=== PATIENT | female | born 1940 | race Caucasian/White ===

== ENCOUNTER 2017-08-17 17:55 | Inpatient (IN) | payer OTHER, BC ==
--- NOTE | 2017-08-17 19:36 | PDOC ---
History of Present Illness - General Chief Complaint: Injury Stated Complaint: FALL Time Seen by Provider: 08/17/17 19:17 - History of Present Illness Initial Comments: 08/17/17 19:33 77yo F with history of NIDDM, L chronic wound, HTN, HLD who presents after mechanical fall at home walking up stairs. Pt just got a new offloader boot from the wound center today and tripped up stairs. Pt reports landing on her knees, however she saw that her L foot was inverted with some darkening skin changes. Pt's family called EMS which reduced her ankle allowing for normalization of her skin changes and brought her here for further evaluation. Pt denies being on AC, head trauma, and any loss of consciousness. Pt denies any acute motor difficulties and sensory difficulties. Pt reports she can move her foot now with some slight discomfort in her ankle. Past History - Past Medical History Allergies/Adverse Reactions: Allergies Allergy/AdvReac Type Severity Reaction Status Date / Time Gold Salts Allergy Verified 08/17/17 18:26 silver Allergy Verified 08/17/17 18:26 contrast Allergy Uncoded 08/17/17 18:26 Home Medications: Ambulatory Orders Aspirin [Aspirin EC] 81 mg PO DAILY 03/12/16 Atorvastatin Ca [Lipitor] 20 mg PO HS 03/12/16 Cholecalciferol (Vitamin D3) [Vitamin D3 -] 2,000 unit PO DAILY 03/12/16 Gabapentin 300 mg PO BID 03/12/16 Glipizide 5 mg PO BID 03/12/16 Insulin Glargine,Hum.rec.anlog [Lantus Solostar PEN (NF)] 16 units SQ HS Levothyroxine [Synthroid -] 50 mcg PO DAILY 03/12/16 Liraglutide [Victoza -] 1.2 mg SQ DAILY@0700 03/12/16 Metformin HCl 500 mg PO BID 03/12/16 Metoprolol Succinate [Toprol Xl -] 25 mg PO BID 08/17/17 Ramipril 5 mg PO BID 08/17/17 Cardiac Disorders: Yes COPD: No Diabetes: Yes HTN: Yes Hypercholesterolemia: Yes Thyroid Disease: Yes - Surgical History Cardiac Surgery: Yes (cardiac stents x 2) Cholecystectomy: Yes Orthopedic Surgery: Yes (left hip fx repair) - Suicide/Smoking/Psychosocial Hx Smoking History: Former smoker Have you smoked in the past 12 months: No If you are a former smoker, when did you quit?: 25yrs Information on smoking cessation initiated: No Hx Alcohol Use: No Drug/Substance Use Hx: No Substance Use Type: None Review of Systems - Review of Systems Constitutional: No: Chills, Fever, Night Sweats HEENTM: No: Blurred Vision, Nose Congestion, Throat Pain Respiratory: No: Cough, Shortness of Breath, Wheezing Cardiac (ROS): No: Chest Pain, Irregular Heart Rate, Lightheadedness, Palpitations, Syncope, Chest Tightness ABD/GI: No: Abdominal Distended, Constipated, Diarrhea, Nausea, Vomiting : No: Dysuria, Frequency Musculoskeletal: Yes: Joint Pain. No: Back Pain, Neck Pain Integumentary: No: Bruising Neurological: No: Headache, Numbness, Tingling, Weakness, Dizziness Psychiatric: No: Anxiety, Depression Hematologic/Lymphatic: No: Easy Bleeding, Easy Bruising *Physical Exam - Vital Signs Last Vital Signs Temp Pulse Resp BP Pulse Ox 97.9 F 70 20 184/89 100 08/17/17 18:00 08/17/17 18:23 08/17/17 18:23 08/17/17 18:23 08/17/17 18:23 - Physical Exam Comments: 08/17/17 20:23 GEN: NAD, awake, alert and oriented x3 HEENT: EOMI, DALI, NCAT, moist mucosa NECK: No pain w/ palpation of spinous processes of neck, structurally intact LUNGS: CTA b/l CARDIAC: RRR, no murmurs appreciated EXT: L ankle splinted with 2 boards, 2+ DP pulses b/l, warm distal extremities b /l, slight deformation of the L foot exteriorly rotated. Neuro: Nonfocal. Motor function intact in L foot, sensation intact b/l of distal lower extremities. ED Treatment Course - RADIOLOGY Radiology Studies Ordered: Category Date Time Status ANKLE & FOOT-LEFT* [RAD] Stat Radiology 08/17/17 19:28 Ordered Medical Decision Making - Medical Decision Making 08/17/17 19:36 Ddx ankle dislocation s/p relocation vs. fracture --Xray L ankle and foot for r/o fx --Otherwise pt stable --Pt reports taking her morning medication as usual however did not take her afternoon medication: Ramipril, Metoprolol succinate, Glipizide, Lipitor, and Metformin --Ordering Ramipril, Toprol XL and Glipizide once (holding metformin in case of other studies needed) 08/17/17 21:53 Sugar-tong splint with posterior portion applied CBC, CMP, PT/INR, PTT, CXR, Type and screen ordered, CXR Awaiting results and will contact admitting symphony. *DC/Admit/Observation/Transfer Diagnosis at time of Disposition: Fracture - Discharge Dispostion Condition at time of disposition: Stable Admit: Yes - Referrals Referrals: Matt Queen MD [Primary Care Provider] - - Patient Instructions - Post Discharge Activity
[2017-08-17] MEDS ORDERED: metoPROLOL SUCCINATE 25 MG TAB.SR.24H (FP) PO ONE (20:04)
[2017-08-17] MEDS ORDERED: RAMIPRIL 5 MG CAPSULE (FP) PO ONE (20:04)
[2017-08-17] MEDS ORDERED: glipiZIDE 5 MG TABLET (FP) PO ONE (20:05)
--- NOTE | 2017-08-17 20:17 | PDOC ---
Attending Attestation - HPI HPI: 08/17/17 21:09 The patient is a 77-year-old, with a significant past medical history of NIDDM, chronic left foot wound, HTN, HLD, who presents to the ED s/p mechanical fall at home while walking up stairs. The patient was seen at the wound center today where she received a new offloader boot for her left foot. The patient states that she tripped, landing on her knees. She denies any loss of consciousness. The patient's left foot appeared inverted and slightly purple. EMS was called and the foot was reduced and skin color returned to normal. The patient denies any motor difficulties or changes in sensation. Denies having any other injuries. Allergies: gold salts, silver, contrast PCP: Dr. Queen - Physicial Exam PE: 08/17/17 21:13 GENERAL: Well-appearing, well-nourished. No apparent distress. HEENT: Normocephalic, atraumatic. PERRL, EOM intact. CARDIOVASCULAR: Normal S1, S2. Regular rate and rhythm. PULMONARY: Clear to auscultation bilaterally. ABDOMEN: Soft, non-distended, non-tender. EXTREMITIES: (+)Slight deformity to left ankle joint, foot is warm with strong pulse, moderate soft tissue swelling. SKIN: Warm, dry. No rash NEUROLOGICAL: No focal neurological deficits. <Romana Espinosa - Last Filed: 08/17/17 21:09> - Resident Resident Name: Bernard Hanna - ED Attending Attestation I have performed the following: I have examined & evaluated the patient, The case was reviewed & discussed with the resident, I agree w/resident's findings & plan, Exceptions are as noted - Medical Decision Making 08/18/17 19:41 Pt admitted for left ankle fracture repair <Corky uNñez - Last Filed: 08/18/17 19:41> Attestations - Attestations 08/17/17 21:14 Documentation prepared by Romana Espinosa, acting as medical care administrator for Corky Nuñez MD. <Romana Espinosa - Last Filed: 08/17/17 21:09>
[2017-08-17] MEDS ORDERED: morphine CARPU-JECT 2 MG/1 ML DISP.SYRIN IVPUSH ONE (20:52)
[2017-08-17] MEDS ORDERED: morphine CARPU-JECT 4 MG/1 ML DISP.SYRIN IVPUSH ONE (21:09)
[2017-08-17] MEDS ORDERED: glipiZIDE 5 MG TABLET (FP) ONE (21:50)
[2017-08-17] MEDS ORDERED: RAMIPRIL 5 MG CAPSULE (FP) ONE (21:50)
[2017-08-17] MEDS ORDERED: morphine SULFATE 4 MG/ML VIAL ONE (21:55)
--- NOTE | 2017-08-17 22:15 | HP ---
PCP: Matt Queen CHIEF COMPLAINT: Left ankle discomfort HISTORY OF PRESENT ILLNESS: This is a 77 year old woman who comes to the ED complaining of discomfort in her left ankle after a fall. She was at the wound center today and had excisional debridement of a chronic left heel ulcer. She was given a boot to wear on her left foot. She usully ambulated with the use of a walker. When she got home, she says her knees gave out going up a step and she fell forward and onto her knees. She denies head trauma, loss of consciousness. Her left foot was noted to be twisted under her. Her foot was noted to be inverted and purple. EMS was called the ankle was reduced. The discoloration improved. PAST MEDICAL HISTORY CAD Hypertension Hyperlipidemia Hypothyroidism Type 2 DM Osteoarthritis PAST SURGICAL HISTORY Cardiac stents Cholecystectomy Left hip fracture repair Left Achilles tendon repair Allergies Gold Salts Allergy (Verified 08/17/17 18:26) silver Allergy (Verified 08/17/17 18:26) contrast Allergy (Uncoded 08/17/17 18:26) HOME MEDICATIONS 3 Medication Instructions Recorded Aspirin [Aspirin EC] 81 mg PO DAILY 03/12/16 Atorvastatin Ca [Lipitor] 20 mg PO HS 03/12/16 Cholecalciferol (Vitamin D3) 2,000 unit PO DAILY 03/12/16 [Vitamin D3 -] Gabapentin 300 mg PO BID 03/12/16 Glipizide 5 mg PO BID 03/12/16 Insulin Glargine,Hum.rec.anlog 16 units SQ HS 03/12/16 [Lantus Solostar PEN (NF)] Levothyroxine [Synthroid -] 50 mcg PO DAILY 03/12/16 Liraglutide [Victoza -] 1.2 mg SQ DAILY@0700 03/12/16 Metformin HCl 500 mg PO BID 03/12/16 Metoprolol Succinate [Toprol Xl -] 25 mg PO BID 08/17/17 Ramipril 5 mg PO BID 08/17/17 Social History Smoking: Quit 25 years ago Alcohol: Denies Drugs: Denies Recent Travel: No Family History: Non-contributory REVIEW OF SYSTEMS CONSTITUTIONAL: Absent: fever, chills, diaphoresis, generalized weakness, malaise, loss of appetite, weight change HEENT: Absent: rhinorrhea, nasal congestion, throat pain, throat swelling, difficulty swallowing, mouth swelling, ear pain, eye pain, visual changes CARDIOVASCULAR: Absent: chest pain, syncope, palpitations, lightheadedness, peripheral edema RESPIRATORY: Absent: cough, shortness of breath, dyspnea with exertion, orthopnea, wheezing, stridor, hemoptysis GASTROINTESTINAL: Absent: abdominal pain, abdominal distension, nausea, vomiting , diarrhea, constipation, melena, hematochezia GENITOURINARY: Absent: dysuria, frequency, urgency, hesitancy, hematuria, flank pain MUSCULOSKELETAL: Present: left ankle pain and swelling, neck pain, bilateral anterior shoulder pain. Absent: myalgia, back pain SKIN: Absent: rash, itching, pallor HEMATOLOGIC/IMMUNOLOGIC: Absent: easy bleeding, easy bruising, lymphadenopathy, frequent infections ENDOCRINE: Absent: unexplained weight gain, unexplained weight loss, heat intolerance, cold intolerance NEUROLOGIC: Present: unsteady gait. Absent: headache, focal weakness, paresthesias, dizziness, seizure, mental status changes, bladder or bowel incontinence PSYCHIATRIC: Absent: anxiety, depression, suicidal or homicidal ideation, hallucinations. PHYSICAL EXAMINATION Vital Signs - 24 hr 08/17/17 08/17/17 18:00 18:23 Temperature 97.9 F Pulse Rate 72 Pulse Rate [ 70 Left Radial] Respiratory 18 20 Rate Blood Pressure 185/93 Blood Pressure 184/89 [Right Arm] O2 Sat by Pulse 100 100 Oximetry (%) GENERAL: Awake, alert, and fully oriented, in no acute distress. HEAD: Normal with no signs of trauma. EYES: Pupils equal, round and reactive to light, extraocular movements intact, sclerae anicteric, conjunctivae clear. EARS, NOSE, THROAT: Ears normal, nares patent, oropharynx clear without exudates. Moist mucous membranes. NECK: Normal range of motion, supple without lymphadenopathy, JVD, or masses. LUNGS: Breath sounds equal, clear to auscultation bilaterally. No wheezes, and no crackles. No accessory muscle use. HEART: Regular rate and rhythm, normal S1 and S2 without murmur, rub or gallop. ABDOMEN: Obese, soft, nontender, not distended, normoactive bowel sounds, no guarding, no rebound, no masses. No hepatomegaly or splenomegaly. MUSCULOSKELETAL: Left ankle in cast. No CVA tenderness. UPPER EXTREMITIES: 2+ pulses, warm, well-perfused. No cyanosis. No clubbing. No peripheral edema. LOWER EXTREMITIES: 2+ pulses, warm, well-perfused. No calf tenderness. No peripheral edema. NEUROLOGICAL: Cranial nerves II-XII intact. Normal speech. Gait not observed. PSYCHIATRIC: Cooperative. Good eye contact. Appropriate mood and affect. SKIN: Warm, dry, normal turgor, no rashes or lesions noted, normal capillary refill. ASSESSMENT/PLAN: This is a 77 year old woman with a history of CAD, HTN, hyperlipidemia, hypothyroidism, type 2 DM, OA who presented to the ED with left ankle discomfort after a fall. 1. Left ankle fracture - Splint applied in ED - Pain control - Orthopedic surgery consult - Check labs prior, CXR, EKG to surgery 2. CAD - Stable - Continue Toprol XL, Lipitor - Hold aspirin in anticipation of surgery - EKG - Cardiology consult for pre-op evaluation 3. Hypertension - Continue Toprol XL, Altace 4. Hyperlipidemia - Continue Lipitor 5. Hypothyroidism - Continue Synthroid 6. Type 2 DM - Hold metformin, Victoza, glipizide while NPO - Continue Lantus - reduce dose while NPO - Fingersticks with Novolog sliding scale 7. Osteoarthritis 8. Obesity Hospitalist Screening - Colonoscopy Questionnaire Colonoscopy Questionnaire: Colonoscopy Questionnaire
[2017-08-17] MEDS ORDERED: ACETAMINOPHEN 325 MG TABLET (FP) PO PRN (23:17)
[2017-08-17] MEDS ORDERED: morphine SULFATE 4 MG/ML VIAL IVPUSH PRN (23:17)
[2017-08-18] MEDS: SODIUM CHLORIDE 1,000 ML IV SCH ×2 (00:20→12:19)
[2017-08-18 00:44] LABS: HEMATOCRIT 34.4 % (32.4-45.2); HEMOGLOBIN 11.6 GM/dL (10.7-15.3); MCH 27.8 pg (25.7-33.7); MCHC 33.8 g/dl (32.0-36.0); MEAN CELL VOLUME 82.3 fl (80-96); MEAN PLT VOLUME 8.5 fl (7.5-11.1); PLATELET COUNT 203 K/MM3 (134-434); RBC 4.18 M/mm3 (3.60-5.2); RDW 14.9 % (11.6-15.6); WHITE BLOOD COUNT 7.5 K/mm3 (4.0-10.0)
[2017-08-18 01:01] LABS: INR 1.14 (0.82-1.09); PROTHROMBIN TIME (PATIENT) 12.9 SEC (9.98-11.88)
[2017-08-18 01:04] LABS: ACTIVATED PTT 28.6 SECONDS (26.9-34.4)
[2017-08-18 01:19] LABS: ALBUMIN 3.3 g/dl (3.4-5.0); ALK PHOS 90 U/L (45-117); ANION GAP 8 (8-16); BILIRUBIN,TOTAL 0.7 mg/dL (0.2-1.0); BLOOD UREA NITROGEN 20 mg/dL (7-18); CALCIUM 9.4 mg/dL (8.5-10.1); CHLORIDE 104 mmol/L (98-107); CO2 27 mmol/L (21-32); CREATININE 0.7 mg/dL (0.55-1.02); GLUCOSE,RANDOM 276 mg/dL (74-106); SGOT/AST 18 U/L (15-37); SGPT/ALT 19 U/L (12-78); SODIUM 139 mmol/L (136-145); TOT PROT 6.3 g/dl (6.4-8.2)
[2017-08-18 05:31] VITALS: BMI 32.4
[2017-08-18] MEDS: HEPARIN NA (PORCINE) 5,000 UNITS/ML 1ML VIAL SQ SCH ×3 (06:00→21:34)
[2017-08-18] MEDS: LEVOTHYROXINE NA 50 MCG TABLET (FP) PO SCH (06:37)
[2017-08-18] MEDS: INSULIN SLIDING SCALE (NOVOLOG) 1 VIAL SQ SCH ×3 (06:38→17:16)
--- NOTE | 2017-08-18 09:36 | EKG ---
Test Reason : Blood Pressure : / mmHG Vent. Rate : 069 BPM Atrial Rate : 069 BPM P-R Int : 138 ms QRS Dur : 118 ms QT Int : 396 ms P-R-T Axes : 034 017 -54 degrees QTc Int : 424 ms POOR DATA QUALITY, INTERPRETATION MAY BE ADVERSELY AFFECTED SINUS RHYTHM WITH PREMATURE ATRIAL COMPLEXES INFERIOR INFARCT (CITED ON OR BEFORE 09-DEC-2005) ABNORMAL ECG WHEN COMPARED WITH ECG OF 15-APR-2008 10:25, PREMATURE ATRIAL COMPLEXES ARE NOW PRESENT NONSPECIFIC T WAVE ABNORMALITY NOW EVIDENT IN LATERAL LEADS Confirmed by VALERIA KINGSTON MD ([id number]) on 08/18/2017 9:36:07 AM Referred By: Confirmed By:VALERIA KINGSTON MD
--- NOTE | 2017-08-18 10:00 | PN ---
Progress Note, Physician Chief Complaint: Pt lying in bed in no acute distress. Reports mild clavicular musculoskeletal discomfort from her son picking her up yesterday. Otherwise denies chest pain, sob, n/v/d, or weakness. - Current Medication List Current Medications: Active Medications Acetaminophen (Tylenol -) 650 mg PO Q4H PRN PRN Reason: PAIN LEVEL 1 - 3 Atorvastatin Calcium (Lipitor -) 20 mg PO HS [facility] Cholecalciferol (Vitamin D3 -) 2,000 unit PO DAILY [facility] Gabapentin (Neurontin -) 300 mg PO BID [facility] Heparin Sodium (Porcine) (Heparin -) 5,000 unit SQ TID [facility] Last Admin: 08/18/17 06:00 Dose: Not Given Sodium Chloride (Normal Saline -) 1,000 mls @ 75 mls/hr IV ASDIR [facility] Last Admin: 08/18/17 00:20 Dose: 75 mls/hr Insulin Aspart (Novolog Vial Sliding Scale -) 1 vial SQ TIDAC [facility] PRN Reason: Protocol Last Admin: 08/18/17 06:38 Dose: 6 units Insulin Detemir (Levemir Vial) 10 units SQ HS [facility] Levothyroxine Sodium (Synthroid -) 50 mcg PO DAILY@0700 [facility] Last Admin: 08/18/17 06:37 Dose: 50 mcg Metoprolol Succinate (Toprol Xl -) 25 mg PO BID [facility] Morphine Sulfate (Morphine Sulfate) 1 mg IVPUSH Q4H PRN PRN Reason: PAIN LEVEL 7 - 10 Oxycodone HCl (Roxicodone -) 5 mg PO Q4H PRN PRN Reason: PAIN LEVEL 4 - 6 Ramipril (Altace -) 5 mg PO BID [facility] - Objective Vital Signs: Vital Signs Temperature 99.2 F 08/18/17 05:27 Pulse Rate 75 08/18/17 05:27 Respiratory Rate 20 08/18/17 05:27 Blood Pressure 156/76 08/18/17 05:27 O2 Sat by Pulse Oximetry (%) 97 08/18/17 04:00 Constitutional: Yes: Well Nourished, No Distress, Calm Cardiovascular: Yes: WNL, Regular Rate and Rhythm Respiratory: Yes: WNL, Regular, CTA Bilaterally Gastrointestinal: Yes: WNL, Normal Bowel Sounds, Soft. No: Distention, Tenderness Genitourinary: Yes: WNL Edema: Yes Edema: LLE: Trace Neurological: Yes: Alert, Oriented, Numbness, Tingling (lower extremities, chronic) Psychiatric: Yes: WNL, Alert, Oriented Labs: CBC, BMP 08/18/17 00:30 08/18/17 00:30 INR, PTT INR 1.14 (0.82-1.09) 08/18/17 00:30 - ....Imaging Chest X-ray: Report Reviewed EKG: Report Reviewed Problem List - Problems (1) Ankle fracture, left Assessment/Plan: s/p fall trimalleolar fracture of left ankle on xray no surgical intervention per ortho walking boot tomorrow elevate extremity ortho following Code(s): S82.892A - OTH FRACTURE OF LEFT LOWER LEG, INIT FOR CLOS FX Qualifiers: Encounter type: initial encounter Fracture type: closed Qualified Code(s) : S82.892A - Other fracture of left lower leg, initial encounter for closed fracture (2) CAD (coronary artery disease) Assessment/Plan: stable continue asa, statin, bb, maik-i followed by Cardiology outpt cardiology following Code(s): I25.10 - ATHSCL HEART DISEASE OF [place] CORONARY ARTERY W/O ANG PCTRS Qualifiers: [place] vs. transplanted heart: [place] heart Associated angina: without angina (3) Diabetes Assessment/Plan: chronic continue current management BGM diab diet Insulin sliding scale inpt Code(s): E11.9 - TYPE 2 DIABETES MELLITUS WITHOUT COMPLICATIONS Qualifiers: Diabetes mellitus type: type 2 Diabetes mellitus half-way insulin use: with half-way use Diabetes mellitus complication status: with neurologic complications Diabetes mellitus complication detail: with polyneuropathy Qualified Code(s): E11.42 - Type 2 diabetes mellitus with diabetic polyneuropathy; Z79.4 - FPC (current) use of insulin; Z79.4 - termite treater ( current) use of insulin; Z79.4 - FPC (current) use of insulin; Z79.4 - FPC (current) use of insulin (4) HTN (hypertension) Assessment/Plan: controlled continue current management Code(s): I10 - ESSENTIAL (PRIMARY) HYPERTENSION Qualifiers: Hypertension type: essential hypertension Qualified Code(s): I10 - Essential (primary) hypertension (5) Hypothyroidism Assessment/Plan: chronic continue levothyroxine Code(s): E03.9 - HYPOTHYROIDISM, UNSPECIFIED (6) Obesity (BMI 30.0-34.9) Assessment/Plan: continue life style modifications heart healthy diet Code(s): E66.9 - OBESITY, UNSPECIFIED (7) CHF (congestive heart failure) Assessment/Plan: chronic, systolic no acute exacerbation followed by cardiology Code(s): I50.9 - HEART FAILURE, UNSPECIFIED Qualifiers: Heart failure type: systolic Heart failure chronicity: chronic Qualified Code(s): I50.22 - Chronic systolic (congestive) heart failure (8) Hyperlipidemia Assessment/Plan: chronic continue statin Code(s): E78.5 - HYPERLIPIDEMIA, UNSPECIFIED
[2017-08-18] MEDS: metoPROLOL SUCCINATE 25 MG TAB.SR.24H (FP) PO SCH ×2 (10:48→21:35)
[2017-08-18] MEDS: CHOLECALCIFEROL (VITAMIN D3) 1,000 UNIT TABLET (FP) PO SCH (10:48)
[2017-08-18] MEDS: RAMIPRIL 5 MG CAPSULE (FP) PO SCH ×2 (10:49→21:37)
[2017-08-18] MEDS: GABAPENTIN 300 MG CAPSULE (FP) PO SCH ×2 (10:49→21:34)
--- NOTE | 2017-08-18 11:03 | CON.CARD ---
Cardiology Consult (text) - Consultation Consultation Note: cc: fall hpi: 77 f hx cad s/p remote pci, ICM (lvef mod reduced), dm, htn, hld here s/p fall. Tripped on stairs and broke ankle, possible surgery needed. No prodrome sxs. No cp, sob, palps, dizzy, clemencia, pnd, orthopnea. Sees dr cadet for cardio. pmh: per hpi psh: hip surgery social: ex tob fam: father and brothers with MIs ros: per hpi; no nvd, fever, cough, gib, hematuria, dysuria, no peters, vision changes meds: Home Medications Medication Instructions Recorded Aspirin [Aspirin EC] 81 mg PO DAILY 03/12/16 Atorvastatin Ca [Lipitor] 20 mg PO HS 03/12/16 Cholecalciferol (Vitamin D3) 2,000 unit PO DAILY 03/12/16 [Vitamin D3 -] Gabapentin 300 mg PO BID 03/12/16 Glipizide 5 mg PO BID 03/12/16 Insulin Glargine,Hum.rec.anlog 16 units SQ HS 03/12/16 [Lantus Solostar PEN (NF)] Levothyroxine [Synthroid -] 50 mcg PO DAILY 03/12/16 Liraglutide [Victoza -] 1.2 mg SQ DAILY@0700 03/12/16 Metformin HCl 500 mg PO BID 03/12/16 Metoprolol Succinate [Toprol Xl -] 25 mg PO BID 08/17/17 Ramipril 5 mg PO BID 08/17/17 pe: Vital Signs Period Temp Pulse Resp BP Sys/Jonas Pulse Ox Last 24 Hr 97.9 F-99.2 F 70-85 18-20 140-185/70-93 97-100 nad no jvd rrr s1s2 no mrg cta bl nl eff aaox3 no le e/c/c (left leg in bandages) abd nt nd pos bs no jaundice diahpreos +dp pt no carotid bruits ecg: sr, nl intervals, old inf q's, no st changes cxr: no chf stress echo 06/2014: no ischemia echo 06/2016: nl lv size, lvef 40, inf ak, nl rv, mod lae, no sig valve path a/p: 77 f hx cad s/p remote pci, ICM (lvef mod reduced), dm, htn, hld here s/p fall. mechanical fall: -no indication of cardiac etiology -no cardiac contraindications (intermediate risk) to ankle surgery. aspirin can be held temporarily if needed. cad: -stable, no angina, no signs acs -prior stress echo w/o ischemia -cont statin, bb, maik. asa as above. htn: -cont bb, maik hld: -cont statin chronic syst chf: -stable, no vol overload -cont bb, maik
--- NOTE | 2017-08-18 11:17 | CON.ORTH ---
Consult Reason for Consultation:: left ankle fx - Alcohol/Substance Use Hx Alcohol Use: No - Smoking History Smoking history: Former smoker Have you smoked in the past 12 months: No If you are a former smoker, when did you quit?: 25yrs Home Medications - Allergies Allergies/Adverse Reactions: Allergies Allergy/AdvReac Type Severity Reaction Status Date / Time Gold Salts Allergy Verified 08/17/17 18:26 silver Allergy Verified 08/17/17 18:26 contrast Allergy Uncoded 08/17/17 18:26 - Home Medications Home Medications: Ambulatory Orders Aspirin [Aspirin EC] 81 mg PO DAILY 03/12/16 Atorvastatin Ca [Lipitor] 20 mg PO HS 03/12/16 Cholecalciferol (Vitamin D3) [Vitamin D3 -] 2,000 unit PO DAILY 03/12/16 Gabapentin 300 mg PO BID 03/12/16 Glipizide 5 mg PO BID 03/12/16 Insulin Glargine,Hum.rec.anlog [Lantus Solostar PEN (NF)] 16 units SQ HS Levothyroxine [Synthroid -] 50 mcg PO DAILY 03/12/16 Liraglutide [Victoza -] 1.2 mg SQ DAILY@0700 03/12/16 Metformin HCl 500 mg PO BID 03/12/16 Metoprolol Succinate [Toprol Xl -] 25 mg PO BID 08/17/17 Ramipril 5 mg PO BID 08/17/17 Physical Exam for Ortho Vital Signs: Vital Signs Temperature 99.2 F 08/18/17 05:27 Pulse Rate 75 08/18/17 05:27 Respiratory Rate 20 08/18/17 05:27 Blood Pressure 156/76 08/18/17 05:27 O2 Sat by Pulse Oximetry (%) 97 08/18/17 04:00 Labs: CBC, BMP 08/18/17 00:30 08/18/17 00:30 INR, PTT INR 1.14 (0.82-1.09) 08/18/17 00:30 - Lower Extremity Ankle: Yes: Left, Other (splint intact, minimal tenderness to palpation, able to DF and PF without discomfort, decr sensation due to neuropathy) Imaging - Results X-ray: Report Reviewed, Image Reviewed Assessment/Plan 77yo F with history of NIDDM, L chronic wound, HTN, HLD who presents after mechanical fall at home walking up stairs. Pt just got a new offloader boot from the wound center today and tripped up stairs. Pt reports landing on her knees, however she saw that her L foot was inverted with some darkening skin changes. h/o multiple falls, + nonhealing wound on heal that was debrided yesterday. a/p- left ankle trimall fx- ?acute d/w Dr. Pinedo in detail No surgical intervention will put pt in walker boot tomorrow NWB elevation will follow
[2017-08-18] MEDS: metFORMIN HCL 500 MG TABLET (FP) PO SCH ×2 (12:15→17:20)
[2017-08-18] MEDS: ASPIRIN COATED 81 MG TABLET.EC PO SCH (12:15)
[2017-08-18] MEDS: glipiZIDE 5 MG TABLET (FP) PO SCH ×2 (12:18→21:35)
[2017-08-18] MEDS: oxyCODONE HCL 5 MG TABLET PO PRN ×2 (17:28→21:36)
[2017-08-18] MEDS: ATORVASTATIN CA 20 MG TABLET (FP) PO SCH (21:35)
[2017-08-18] MEDS: INSULIN (LEVEMIR) 100 UNITS/ML UNITS SQ SCH (21:35)
[2017-08-19] MEDS ORDERED: PT OWN MED DRAWER 7, Y5N ONE ×2 (05:54→11:50)
[2017-08-19] MEDS: SODIUM CHLORIDE 1,000 ML IV SCH (06:02)
[2017-08-19] MEDS: HEPARIN NA (PORCINE) 5,000 UNITS/ML 1ML VIAL SQ SCH ×3 (06:02→21:30)
[2017-08-19] MEDS: metFORMIN HCL 500 MG TABLET (FP) PO SCH ×2 (06:03→17:16)
[2017-08-19] MEDS: INSULIN SLIDING SCALE (NOVOLOG) 1 VIAL SQ SCH ×3 (06:03→17:15)
[2017-08-19] MEDS: LEVOTHYROXINE NA 50 MCG TABLET (FP) PO SCH (06:04)
[2017-08-19] MEDS: LIRAGLUTIDE 0.6 MG/0.1 ML PEN.INJCTR SQ SCH (06:04)
[2017-08-19 08:56] LABS: BASO % 1.2 % (0-2.0); EOS % 5.9 % (0-4.5); HEMATOCRIT 33.4 % (32.4-45.2); HEMOGLOBIN 11.2 GM/dL (10.7-15.3); MCH 27.7 pg (25.7-33.7); MCHC 33.6 g/dl (32.0-36.0); MEAN CELL VOLUME 82.5 fl (80-96); MEAN PLT VOLUME 8.8 fl (7.5-11.1); MONO % 8.8 % (3.8-10.2); NEUT % 64.1 % (42.8-82.8); PLATELET COUNT 161 K/MM3 (134-434); RBC 4.05 M/mm3 (3.60-5.2); RDW 15.1 % (11.6-15.6); WHITE BLOOD COUNT 5.3 K/mm3 (4.0-10.0)
--- NOTE | 2017-08-19 09:24 | PN ---
Progress Note (short form) - Note Progress Note: UROOGY NOTE. pt. with h/o nephrolithiasis also has urinery frequency and urgency. Will get renal and pelvic ultrasoud to r/o any poss. hydronephrosis.will dictate consultion and follow with you.
[2017-08-19 09:25] LABS: ANION GAP 9 (8-16); BLOOD UREA NITROGEN 18 mg/dL (7-18); CALCIUM 9.2 mg/dL (8.5-10.1); CHLORIDE 103 mmol/L (98-107); CO2 26 mmol/L (21-32); CREATININE 0.5 mg/dL (0.55-1.02); GLUCOSE,RANDOM 206 mg/dL (74-106); POTASSIUM 3.9 mmol/L (3.5-5.1); SODIUM 138 mmol/L (136-145)
[2017-08-19] MEDS: CHOLECALCIFEROL (VITAMIN D3) 1,000 UNIT TABLET (FP) PO SCH (10:17)
[2017-08-19] MEDS: metoPROLOL SUCCINATE 25 MG TAB.SR.24H (FP) PO SCH ×2 (10:18→21:30)
[2017-08-19] MEDS: ASPIRIN COATED 81 MG TABLET.EC PO SCH (10:18)
[2017-08-19] MEDS: RAMIPRIL 5 MG CAPSULE (FP) PO SCH ×2 (10:18→21:31)
[2017-08-19] MEDS: GABAPENTIN 300 MG CAPSULE (FP) PO SCH ×2 (10:18→21:30)
[2017-08-19] MEDS: glipiZIDE 5 MG TABLET (FP) PO SCH ×2 (10:18→21:30)
--- NOTE | 2017-08-19 10:43 | PN ---
Progress Note (short form) - Note Progress Note: Ortho Pt seen and examined s/p left ankle fx splint removed, dressing intact, mild ttp over lateral mal, + diabetic neuropathy a/p walker boot applied TTWB with boot elevation f/u Dr. Thomas d/w Dr. Pinedo
[2017-08-19] MEDS ORDERED: INSULIN (NOVOLOG) ASPART 100 UNITS/ML 10ML VIAL ONE ×2 (11:40→17:05)
--- NOTE | 2017-08-19 11:42 | PN ---
Progress Note, Physician Chief Complaint: Ms Prince says she is feeling better today. No cp, sob, n/v. Still with pain in her ankle. - Current Medication List Current Medications: Active Medications Acetaminophen (Tylenol -) 650 mg PO Q4H PRN PRN Reason: PAIN LEVEL 1 - 3 Last Admin: 08/18/17 21:35 Dose: 650 mg Aspirin (Ecotrin -) 81 mg PO DAILY [facility] Last Admin: 08/19/17 10:18 Dose: 81 mg Atorvastatin Calcium (Lipitor -) 20 mg PO HS [facility] Last Admin: 08/18/17 21:35 Dose: 20 mg Cholecalciferol (Vitamin D3 -) 2,000 unit PO DAILY [facility] Last Admin: 08/19/17 10:17 Dose: 2,000 unit Gabapentin (Neurontin -) 300 mg PO BID [facility] Last Admin: 08/19/17 10:18 Dose: 300 mg Glipizide (Glucotrol -) 5 mg PO BID [facility] Last Admin: 08/19/17 10:18 Dose: 5 mg Heparin Sodium (Porcine) (Heparin -) 5,000 unit SQ TID [facility] Last Admin: 08/19/17 06:02 Dose: 5,000 unit Sodium Chloride (Normal Saline -) 1,000 mls @ 75 mls/hr IV [facility] Last Admin: 08/19/17 06:02 Dose: 75 mls/hr Insulin Aspart (Novolog Vial Sliding Scale -) 1 vial SQ TIDAC [facility] PRN Reason: Protocol Last Admin: 08/19/17 06:03 Dose: 4 units Insulin Detemir (Levemir Vial) 10 units SQ [facility] Last Admin: 08/18/17 21:35 Dose: 10 units Levothyroxine Sodium (Synthroid -) 50 mcg PO DAILY@0700 [facility] Last Admin: 08/19/17 06:04 Dose: 50 mcg Liraglutide (Victoza -) 1.2 mg SQ DAILY@0700 [facility] Last Admin: 08/19/17 06:04 Dose: Not Given Metformin HCl (Glucophage -) 500 mg PO BIDAC [facility] Last Admin: 08/19/17 06:03 Dose: 500 mg Metoprolol Succinate (Toprol Xl -) 25 mg PO BID [facility] Last Admin: 08/19/17 10:18 Dose: 25 mg Oxycodone HCl (Roxicodone -) 5 mg PO Q4H PRN PRN Reason: PAIN LEVEL 4 - 6 Last Admin: 08/18/17 21:36 Dose: 5 mg Ramipril (Altace -) 5 mg PO BID [facility] Last Admin: 08/19/17 10:18 Dose: 5 mg - Objective Vital Signs: Vital Signs Temperature 37.3 C 08/19/17 05:55 Pulse Rate 69 08/19/17 05:55 Respiratory Rate 20 08/19/17 05:55 Blood Pressure 140/68 08/19/17 05:55 O2 Sat by Pulse Oximetry (%) 97 08/18/17 04:00 Constitutional: Yes: Well Nourished, No Distress, Calm Cardiovascular: Yes: Regular Rate and Rhythm. No: Gallop, Murmur, Rub Respiratory: Yes: Regular, CTA Bilaterally. No: Rales, Rhonchi, Wheezes Gastrointestinal: Yes: Normal Bowel Sounds, Soft. No: Distention, Tenderness Extremities: Yes: Other (LLE in boot) Labs: CBC, BMP 08/19/17 07:45 08/19/17 07:30 INR, PTT INR 1.14 (0.82-1.09) 08/18/17 00:30 Assessment/Plan (1) Ankle fracture, left Assessment/Plan: -appreciate ortho assistance -now in boot -PT consulted, will need SNF placement Code(s): S82.892A - OTH FRACTURE OF LEFT LOWER LEG, INIT FOR CLOS FX Qualifiers: Encounter type: initial encounter Fracture type: closed Qualified Code(s) : S82.892A - Other fracture of left lower leg, initial encounter for closed fracture (2) CAD (coronary artery disease) Assessment/Plan: -quiescent -continue current management -cardiology following Code(s): I25.10 - ATHSCL HEART DISEASE OF [place] CORONARY ARTERY W/O ANG PCTRS Qualifiers: [place] vs. transplanted heart: [place] heart Associated angina: without angina (3) Diabetes Assessment/Plan: -diabetic diet -continue metformin, victoza, glipizide, and levemir Code(s): E11.9 - TYPE 2 DIABETES MELLITUS WITHOUT COMPLICATIONS Qualifiers: Diabetes mellitus type: type 2 Diabetes mellitus residential insulin use: with termite control technician use Diabetes mellitus complication status: with neurologic complications Diabetes mellitus complication detail: with polyneuropathy Qualified Code(s): E11.42 - Type 2 diabetes mellitus with diabetic polyneuropathy; Z79.4 - termite control technician (current) use of insulin; Z79.4 - penitentiary ( current) use of insulin; Z79.4 - termite control technician (current) use of insulin; Z79.4 - termite control technician (current) use of insulin (4) HTN (hypertension) Assessment/Plan: -controlled Code(s): I10 - ESSENTIAL (PRIMARY) HYPERTENSION Qualifiers: Hypertension type: essential hypertension Qualified Code(s): I10 - Essential (primary) hypertension (5) Hypothyroidism Assessment/Plan: -continue levothyroxine Code(s): E03.9 - HYPOTHYROIDISM, UNSPECIFIED (6) Obesity (BMI 30.0-34.9) Assessment/Plan: -outpatient management Code(s): E66.9 - OBESITY, UNSPECIFIED (7) CHF (congestive heart failure) Assessment/Plan: -chronic -controlled Code(s): I50.9 - HEART FAILURE, UNSPECIFIED Qualifiers: Heart failure type: systolic Heart failure chronicity: chronic Qualified Code(s): I50.22 - Chronic systolic (congestive) heart failure (8) Hyperlipidemia Assessment/Plan: -continue statin Code(s): E78.5 - HYPERLIPIDEMIA, UNSPECIFIED Dispo -will need placement
--- NOTE | 2017-08-19 17:17 | PN ---
Progress Note (short form) - Note Progress Note: cc: fall/ankle fracture. S: Has been maintained on NS 75 cc/hr for the past 2 days, stopped this morning. patient denies edema, sob, cp, palps. No pain at site of ankle fracture, but +++ pain at shoulders/neck where she was held when she was being picked up after her fall. Sees dr cadet for cardio. Current Medications Acetaminophen (Tylenol -) 650 mg PO Q4H PRN PRN Reason: PAIN LEVEL 1 - 3 Last Admin: 08/18/17 21:35 Dose: 650 mg Aspirin (Ecotrin -) 81 mg PO DAILY [facility] Last Admin: 08/19/17 10:18 Dose: 81 mg Atorvastatin Calcium (Lipitor -) 20 mg PO [facility] Last Admin: 08/18/17 21:35 Dose: 20 mg Cholecalciferol (Vitamin D3 -) 2,000 unit PO DAILY [facility] Last Admin: 08/19/17 10:17 Dose: 2,000 unit Gabapentin (Neurontin -) 300 mg PO BID [facility] Last Admin: 08/19/17 10:18 Dose: 300 mg Glipizide (Glucotrol -) 5 mg PO BID [facility] Last Admin: 08/19/17 10:18 Dose: 5 mg Heparin Sodium (Porcine) (Heparin -) 5,000 unit SQ TID [facility] Last Admin: 08/19/17 13:48 Dose: 5,000 unit Insulin Aspart (Novolog Vial Sliding Scale -) 1 vial SQ TIDAC [facility] PRN Reason: Protocol Last Admin: 08/19/17 17:15 Dose: 2 units Insulin Detemir (Levemir Vial) 10 units SQ [facility] Last Admin: 08/18/17 21:35 Dose: 10 units Levothyroxine Sodium (Synthroid -) 50 mcg PO DAILY@0700 [facility] Last Admin: 08/19/17 06:04 Dose: 50 mcg Liraglutide (Victoza -) 1.2 mg SQ DAILY@0700 [facility] Last Admin: 08/19/17 06:04 Dose: Not Given [facility] Last Admin: 08/19/17 17:16 Dose: 500 mg Metoprolol Succinate (Toprol Xl -) 25 mg PO BID [facility] Last Admin: 08/19/17 10:18 Dose: 25 mg Oxycodone HCl (Roxicodone -) 5 mg PO Q4H PRN PRN Reason: PAIN LEVEL 4 - 6 Last Admin: 08/18/17 21:36 Dose: 5 mg Ramipril (Altace -) 5 mg PO BID [facility] Last Admin: 08/19/17 10:18 Dose: 5 mg pe: Vital Signs - 24 hr 08/18/17 08/18/17 08/18/17 20:00 21:00 23:59 Temperature 99.3 F 97.6 F Pulse Rate 72 86 Respiratory 20 20 20 Rate Blood Pressure 139/63 130/76 08/19/17 08/19/17 05:55 14:03 Temperature 99.1 F 100.1 F H Pulse Rate 69 Respiratory 20 Rate Blood Pressure 140/68 Intake & Output 08/17/17 08/18/17 08/19/17 08/20/17 07:59 07:59 07:59 07:59 Intake Total 2049 725 Balance 2049 725 Weight 183 lb 1 oz 190 lb nad no jvd rrr s1s2 no mrg bibasilar rales, nl eff aaox3 no le e/c/c left leg in boot abd nt nd pos bs no jaundice diaphoresis +dp pt no carotid bruits CBC, BMP 08/19/17 07:45 08/19/17 07:30 ecg: sr, nl intervals, old inf q's, no st changes cxr: no chf. Right perihilar nodule which needs further evaluation --> I have forwarded a copy of this report to his outpatient pmd. stress echo 06/2014: no ischemia echo 06/2016: nl lv size, lvef 40, inf ak, nl rv, mod lae, no sig valve path a/p: 77 f hx cad s/p remote pci, ICM (lvef mod reduced), dm, htn, hld here s/p mechanical fall c/b ankle fracture. mechanical fall/ankle fracture: -no indication of cardiac etiology -no cardiac contraindications (intermediate risk) to ankle surgery. aspirin can be held temporarily if needed. -08/19: No need for surgical intervention. Patient had been on IVF 75 cc/hr --> BP stable and patient taking PO --> d/c'd today. check pa/lat cxr tomorrow to assess whether bibasilar rales are atelectasis or edema. cad: -stable, no angina, no signs acs -prior stress echo w/o ischemia -cont statin, bb, maik, asa htn: -cont bb, maik hld: -cont statin chronic syst chf: -stable, no vol overload. -08/19: s/p IVF, now off. daily weights, I/O's ordered in light of recent IVF load. pa/lat cxr as above -cont bb, maik
[2017-08-19] MEDS: ATORVASTATIN CA 20 MG TABLET (FP) PO SCH (21:30)
[2017-08-19] MEDS: INSULIN (LEVEMIR) 100 UNITS/ML UNITS SQ SCH (21:30)
[2017-08-20] MEDS ORDERED: PT OWN MED DRAWER 7, Y5N ONE ×2 (06:06→09:33)
[2017-08-20] MEDS: HEPARIN NA (PORCINE) 5,000 UNITS/ML 1ML VIAL SQ SCH ×3 (06:12→21:01)
[2017-08-20] MEDS: LEVOTHYROXINE NA 50 MCG TABLET (FP) PO SCH (06:12)
[2017-08-20] MEDS: metFORMIN HCL 500 MG TABLET (FP) PO SCH ×2 (06:12→17:35)
[2017-08-20] MEDS: INSULIN SLIDING SCALE (NOVOLOG) 1 VIAL SQ SCH ×3 (06:13→17:33)
[2017-08-20] MEDS: LIRAGLUTIDE 0.6 MG/0.1 ML PEN.INJCTR SQ SCH (06:13)
[2017-08-20 07:58] LABS: BASO % 1.1 % (0-2.0); EOS % 6.9 % (0-4.5); HEMATOCRIT 34.9 % (32.4-45.2); HEMOGLOBIN 11.8 GM/dL (10.7-15.3); LYMPH % 25.7 % (8-40); MCH 27.9 pg (25.7-33.7); MCHC 33.9 g/dl (32.0-36.0); MEAN CELL VOLUME 82.2 fl (80-96); MEAN PLT VOLUME 9.1 fl (7.5-11.1); NEUT % 56.3 % (42.8-82.8); PLATELET COUNT 160 K/MM3 (134-434); RBC 4.24 M/mm3 (3.60-5.2); RDW 15.4 % (11.6-15.6); WHITE BLOOD COUNT 5.5 K/mm3 (4.0-10.0)
[2017-08-20 08:33] LABS: ANION GAP 5 (8-16); BLOOD UREA NITROGEN 13 mg/dL (7-18); CALCIUM 9.3 mg/dL (8.5-10.1); CHLORIDE 106 mmol/L (98-107); CO2 29 mmol/L (21-32); CREATININE 0.4 mg/dL (0.55-1.02); GLUCOSE,RANDOM 162 mg/dL (74-106); MAGNESIUM 1.2 mg/dL (1.8-2.4); PHOSPHOROUS 1.9 mg/dL (2.5-4.9); POTASSIUM 4.1 mmol/L (3.5-5.1); SODIUM 140 mmol/L (136-145)
[2017-08-20] MEDS: CHOLECALCIFEROL (VITAMIN D3) 1,000 UNIT TABLET (FP) PO SCH (09:39)
[2017-08-20] MEDS: glipiZIDE 5 MG TABLET (FP) PO SCH ×2 (09:40→21:01)
[2017-08-20] MEDS: GABAPENTIN 300 MG CAPSULE (FP) PO SCH ×2 (09:42→21:01)
[2017-08-20] MEDS: metoPROLOL SUCCINATE 25 MG TAB.SR.24H (FP) PO SCH ×2 (09:42→21:01)
[2017-08-20] MEDS: ASPIRIN COATED 81 MG TABLET.EC PO SCH (09:43)
[2017-08-20] MEDS: RAMIPRIL 5 MG CAPSULE (FP) PO SCH ×2 (09:44→21:02)
--- NOTE | 2017-08-20 11:05 | PN ---
Progress Note (short form) - Note Progress Note: Pt seen and examined. She has a left ankle nondisplaced bimalleolar fracture. In a boot. Feels better, comfortable. NTD. Pt doing well. She can be DC'd or transfered from an ortho pov F/U as an out pt Light PWB left LE
[2017-08-20] MEDS: oxyCODONE HCL 5 MG TABLET PO PRN (11:09)
[2017-08-20] MEDS ORDERED: INSULIN (NOVOLOG) ASPART 100 UNITS/ML 10ML VIAL ONE ×2 (11:13→20:51)
--- NOTE | 2017-08-20 12:05 | PN ---
Progress Note, Physician Chief Complaint: fall History of Present Illness: can't weight bear still no cp, sob, palpitations - Current Medication List Current Medications: Active Medications Acetaminophen (Tylenol -) 650 mg PO Q4H PRN PRN Reason: PAIN LEVEL 1 - 3 Last Admin: 08/18/17 21:35 Dose: 650 mg Aspirin (Ecotrin -) 81 mg PO DAILY [facility] Last Admin: 08/20/17 09:43 Dose: 81 mg Atorvastatin Calcium (Lipitor -) 20 mg PO HS [facility] Last Admin: 08/19/17 21:30 Dose: 20 mg Cholecalciferol (Vitamin D3 -) 2,000 unit PO DAILY [facility] Last Admin: 08/20/17 09:39 Dose: 2,000 unit Gabapentin (Neurontin -) 300 mg PO BID [facility] Last Admin: 08/20/17 09:42 Dose: 300 mg Glipizide (Glucotrol -) 5 mg PO BID [facility] Last Admin: 08/20/17 09:40 Dose: 5 mg Heparin Sodium (Porcine) (Heparin -) 5,000 unit SQ TID [facility] Last Admin: 08/20/17 06:12 Dose: 5,000 unit Insulin Aspart (Novolog Vial Sliding Scale -) 1 vial SQ TIDAC [facility] PRN Reason: Protocol Last Admin: 08/20/17 11:16 Dose: 2 units Insulin Detemir (Levemir Vial) 10 units SQ [facility] Last Admin: 08/19/17 21:30 Dose: 10 units Levothyroxine Sodium (Synthroid -) 50 mcg PO DAILY@0700 [facility] Last Admin: 08/20/17 06:12 Dose: 50 mcg Liraglutide (Victoza -) 1.2 mg SQ DAILY@0700 [facility] Last Admin: 08/20/17 06:13 Dose: 1.2 mg Metformin HCl (Glucophage -) 500 mg PO BIDAC [facility] Last Admin: 08/20/17 06:12 Dose: 500 mg Metoprolol Succinate (Toprol Xl -) 25 mg PO BID [facility] Last Admin: 08/20/17 09:42 Dose: 25 mg Oxycodone HCl (Roxicodone -) 5 mg PO Q4H PRN PRN Reason: PAIN LEVEL 4 - 6 Last Admin: 08/20/17 11:09 Dose: 5 mg Ramipril (Altace -) 5 mg PO BID [facility] Last Admin: 08/20/17 09:44 Dose: 5 mg - Objective Vital Signs: Vital Signs Temperature 98.8 F 08/20/17 09:00 Pulse Rate 88 08/20/17 09:00 Respiratory Rate 20 08/20/17 09:00 Blood Pressure 155/74 08/20/17 09:00 O2 Sat by Pulse Oximetry (%) 97 08/19/17 22:00 Constitutional: Yes: Well Nourished, No Distress, Calm Cardiovascular: Yes: Regular Rate and Rhythm, S1, S2. No: Gallop, Murmur Respiratory: Yes: Regular, CTA Bilaterally. No: Accessory Muscle Use, Rales, Wheezes Extremities: No: Cold Edema: No Neurological: Yes: Alert, Oriented Psychiatric: No: Agitated Labs: CBC, BMP 08/20/17 06:45 08/20/17 06:45 INR, PTT INR 1.14 (0.82-1.09) 08/18/17 00:30 Assessment/Plan ecg: sr, nl intervals, old inf q's, no st changes CXR 08/20: clear lungs, no effusion (nodular infiltrate near hilum has resolved) stress echo 06/2014: no ischemia echo 06/2016: nl lv size, lvef 40, inf ak, nl rv, mod lae, no sig valve path a/p: 77 f hx cad s/p remote pci, ICM (lvef mod reduced), dm, htn, hld here s/p mechanical fall c/b ankle fracture. mechanical fall/ankle fracture: -per PT, ortho cad: -stable, no angina, no signs acs -prior stress echo w/o ischemia -cont statin, bb, maik, asa chronic syst chf, isch CMP: -clinically euvolemic, no sob, cxr clear -cont bb, maik -no lasix indicated at present htn: -cont bb, maik hld: -cont statin
--- NOTE | 2017-08-20 12:24 | CONSULT ---
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 Wound healing slowly over months. patient is non-compliant with off-loading. Dhe finally started to use a heel off-loading shoe and fell with left ankle fracture. Wound culture taken Tuesday is growing Proteus and other gram negative and gram positive organisms. Ankle in splint. I have started PO Augmentin and topical Gentamicin. She will need to continue off-loading heel as much as possible.
[2017-08-20] MEDS: GENTAMICIN SO4 0.1% TOPICAL OINTMENT 15 GM/TUBE TUBE TP SCH (14:55)
[2017-08-20] MEDS: AMOX TR/POT CLAV 500MG/125MG TABLETS (FP) PO SCH (17:35)
[2017-08-20] MEDS: ATORVASTATIN CA 20 MG TABLET (FP) PO SCH (21:01)
[2017-08-20] MEDS: INSULIN (LEVEMIR) 100 UNITS/ML UNITS SQ SCH (21:01)
[2017-08-21] MEDS ORDERED: PT OWN MED DRAWER 7, Y5N ONE (05:53)
[2017-08-21] MEDS: HEPARIN NA (PORCINE) 5,000 UNITS/ML 1ML VIAL SQ SCH ×3 (06:22→21:53)
[2017-08-21] MEDS: LEVOTHYROXINE NA 50 MCG TABLET (FP) PO SCH (06:23)
[2017-08-21] MEDS: metFORMIN HCL 500 MG TABLET (FP) PO SCH ×2 (06:23→16:34)
[2017-08-21] MEDS: INSULIN SLIDING SCALE (NOVOLOG) 1 VIAL SQ SCH ×3 (06:23→16:31)
[2017-08-21] MEDS: LIRAGLUTIDE 0.6 MG/0.1 ML PEN.INJCTR SQ SCH (06:24)
[2017-08-21] MEDS: AMOX TR/POT CLAV 500MG/125MG TABLETS (FP) PO SCH ×2 (07:58→16:34)
[2017-08-21] MEDS: glipiZIDE 5 MG TABLET (FP) PO SCH ×2 (09:28→21:53)
[2017-08-21] MEDS: metoPROLOL SUCCINATE 25 MG TAB.SR.24H (FP) PO SCH ×2 (09:28→21:53)
[2017-08-21] MEDS: GABAPENTIN 300 MG CAPSULE (FP) PO SCH ×2 (09:28→21:53)
[2017-08-21] MEDS: GENTAMICIN SO4 0.1% TOPICAL OINTMENT 15 GM/TUBE TUBE TP SCH (09:28)
[2017-08-21] MEDS: ASPIRIN COATED 81 MG TABLET.EC PO SCH (09:28)
[2017-08-21] MEDS: RAMIPRIL 5 MG CAPSULE (FP) PO SCH ×2 (09:28→21:54)
[2017-08-21] MEDS: CHOLECALCIFEROL (VITAMIN D3) 1,000 UNIT TABLET (FP) PO SCH (09:28)
--- NOTE | 2017-08-21 14:10 | PN ---
Progress Note, Physician Chief Complaint: still c/o pain not in distress - Current Medication List Current Medications: Active Medications Acetaminophen (Tylenol -) 650 mg PO Q4H PRN PRN Reason: PAIN LEVEL 1 - 3 Last Admin: 08/18/17 21:35 Dose: 650 mg Amoxicillin/Clavulanate Potassium (Augmentin - 500mg Tablet) 1 tab PO BID@0800, 1730 [facility] Last Admin: 08/21/17 07:58 Dose: 1 tab Aspirin (Ecotrin -) 81 mg PO DAILY [facility] Last Admin: 08/21/17 09:28 Dose: 81 mg Atorvastatin Calcium (Lipitor -) [address] [facility] Last Admin: 08/20/17 21:01 Dose: 20 mg Cholecalciferol (Vitamin D3 -) 2,000 unit PO DAILY [facility] Last Admin: 08/21/17 09:28 Dose: 2,000 unit Gabapentin (Neurontin -) 300 mg PO BID [facility] Last Admin: 08/21/17 09:28 Dose: 300 mg Gentamicin Sulfate (Garamycin 0.1% Ointment -) 1 applic TP DAILY [facility] Last Admin: 08/21/17 09:28 Dose: 1 applic Glipizide (Glucotrol -) 5 mg PO BID [facility] Last Admin: 08/21/17 09:28 Dose: 5 mg Heparin Sodium (Porcine) (Heparin -) 5,000 unit SQ TID [facility] Last Admin: 08/21/17 06:22 Dose: 5,000 unit Insulin Aspart (Novolog Vial Sliding Scale -) 1 vial SQ TIDAC [facility] PRN Reason: Protocol Last Admin: 08/21/17 11:39 Dose: Not Given Insulin Detemir (Levemir Vial) [address] [facility] Last Admin: 08/20/17 21:01 Dose: 10 units Levothyroxine Sodium (Synthroid -) 50 mcg PO DAILY@0700 [facility] Last Admin: 08/21/17 06:23 Dose: 50 mcg Liraglutide (Victoza -) 1.2 mg SQ DAILY@0700 [facility] Last Admin: 08/21/17 06:24 Dose: 1.2 mg [facility]) [facility] Admin: 08/21/17 06:23 Dose: 500 mg Metoprolol Succinate (Toprol Xl -) 25 mg PO BID [facility] Last Admin: 08/21/17 09:28 Dose: 25 mg Oxycodone HCl (Roxicodone -) 5 mg PO Q4H PRN PRN Reason: PAIN LEVEL 4 - 6 Last Admin: 08/20/17 11:09 Dose: 5 mg Ramipril (Altace -) 5 mg PO BID [facility] Last Admin: 08/21/17 09:28 Dose: 5 mg - Objective Vital Signs: Vital Signs Temperature 97.7 F 08/21/17 08:59 Pulse Rate 87 08/21/17 08:59 Respiratory Rate 20 08/21/17 08:59 Blood Pressure 140/64 08/21/17 08:59 O2 Sat by Pulse Oximetry (%) 98 08/21/17 09:00 Elderly F not in distress c/o Left ankle pain HEENT: Mm moist, anemia, PERRLA, EOMI NECK: No JVd No Bruit, CHEST: Minimal basal Crepts CVS: S1S2 R no m/g/r ABD: Obese, non tender Soft EXT: Left ankle in boot ACADEMIC INTERVENTIONIST: AOX3 non focal Labs: CBC, BMP 08/20/17 06:45 08/20/17 06:45 INR, PTT INR 1.14 (0.82-1.09) 08/18/17 00:30 Problem List - Problems (1) Ankle fracture, left Assessment/Plan: Evaluated by ortho s/p splint awaiting KODY placement pain control Code(s): S82.892A - OTH FRACTURE OF LEFT LOWER LEG, INIT FOR CLOS FX Qualifiers: Encounter type: initial encounter Fracture type: closed Qualified Code(s) : S82.892A - Other fracture of left lower leg, initial encounter for closed fracture (2) HTN (hypertension) Assessment/Plan: Welll controlled cont home meds Code(s): I10 - ESSENTIAL (PRIMARY) HYPERTENSION Qualifiers: Hypertension type: essential hypertension Qualified Code(s): I10 - Essential (primary) hypertension (3) CAD (coronary artery disease) Assessment/Plan: Stable no acute issue cont home meds Code(s): I25.10 - ATHSCL HEART DISEASE OF [place] CORONARY ARTERY W/O ANG PCTRS Qualifiers: [place] vs. transplanted heart: [place] heart Associated angina: without angina (4) Hyperlipidemia Assessment/Plan: Cont statin Code(s): E78.5 - HYPERLIPIDEMIA, UNSPECIFIED (5) Hypothyroidism Assessment/Plan: Cont Levothyroxine F/U TSH Code(s): E03.9 - HYPOTHYROIDISM, UNSPECIFIED (6) T2DM (type 2 diabetes mellitus) Assessment/Plan: Cont current management Code(s): E11.9 - TYPE 2 DIABETES MELLITUS WITHOUT COMPLICATIONS
--- NOTE | 2017-08-21 14:16 | PN ---
Progress Note, Physician Chief Complaint: still c/o pain not in distress - Current Medication List Current Medications: Active Medications Acetaminophen (Tylenol -) 650 mg PO Q4H PRN PRN Reason: PAIN LEVEL 1 - 3 Last Admin: 08/18/17 21:35 Dose: 650 mg Amoxicillin/Clavulanate Potassium (Augmentin - 500mg Tablet) 1 tab PO BID@0800, 1730 [facility] Last Admin: 08/21/17 07:58 Dose: 1 tab Aspirin (Ecotrin -) 81 mg PO DAILY [facility] Last Admin: 08/21/17 09:28 Dose: 81 mg Atorvastatin Calcium (Lipitor -) 20 mg PO [facility] Last Admin: 08/20/17 21:01 Dose: 20 mg Cholecalciferol (Vitamin D3 -) 2,000 unit PO DAILY [facility] Last Admin: 08/21/17 09:28 Dose: 2,000 unit Gabapentin (Neurontin -) 300 mg PO BID [facility] Last Admin: 08/21/17 09:28 Dose: 300 mg Gentamicin Sulfate (Garamycin 0.1% Ointment -) 1 applic TP DAILY [facility] Last Admin: 08/21/17 09:28 Dose: 1 applic Glipizide (Glucotrol -) 5 mg PO BID [facility] Last Admin: 08/21/17 09:28 Dose: 5 mg Heparin Sodium (Porcine) (Heparin -) 5,000 unit SQ TID [facility] Last Admin: 08/21/17 06:22 Dose: 5,000 unit Insulin Aspart (Novolog Vial Sliding Scale -) 1 vial SQ TIDAC [facility] PRN Reason: Protocol Last Admin: 08/21/17 11:39 Dose: Not Given Insulin Detemir (Levemir Vial) 10 units SQ [facility] Last Admin: 08/20/17 21:01 Dose: 10 units Levothyroxine Sodium (Synthroid -) 50 mcg PO DAILY@0700 [facility] Last Admin: 08/21/17 06:23 Dose: 50 mcg Liraglutide (Victoza -) 1.2 mg SQ DAILY@0700 [facility] Last Admin: 08/21/17 06:24 Dose: 1.2 mg Metformin HCl (Glucophage -) [facility] Last Admin: 08/21/17 06:23 Dose: 500 mg Metoprolol Succinate (Toprol Xl -) 25 mg PO BID [facility] Last Admin: 08/21/17 09:28 Dose: 25 mg Oxycodone HCl (Roxicodone -) 5 mg PO Q4H PRN PRN Reason: PAIN LEVEL 4 - 6 Last Admin: 08/20/17 11:09 Dose: 5 mg Ramipril (Altace -) 5 mg PO BID [facility] Last Admin: 08/21/17 09:28 Dose: 5 mg - Objective Vital Signs: Vital Signs Temperature 97.7 F 08/21/17 08:59 Pulse Rate 87 08/21/17 08:59 Respiratory Rate 20 08/21/17 08:59 Blood Pressure 140/64 08/21/17 08:59 O2 Sat by Pulse Oximetry (%) 98 08/21/17 09:00 Elderly F not in distress c/o Left ankle pain HEENT: Mm moist, anemia, PERRLA, EOMI NECK: No JVd No Bruit, CHEST: Minimal basal Crepts CVS: S1S2 R no m/g/r ABD: Obese, non tender Soft EXT: Left ankle in boot 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: 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 non focal Labs: CBC, BMP 08/20/17 06:45 08/20/17 06:45 INR, PTT INR 1.14 (0.82-1.09) 08/18/17 00:30 Problem List - Problems (1) Ankle fracture, left Assessment/Plan: Evaluated by ortho s/p splint awaiting KODY placement pain control Code(s): S82.892A - OTH FRACTURE OF LEFT LOWER LEG, INIT FOR CLOS FX Qualifiers: Encounter type: initial encounter Fracture type: closed Qualified Code(s) : S82.892A - Other fracture of left lower leg, initial encounter for closed fracture (2) HTN (hypertension) Assessment/Plan: Welll controlled cont home meds Code(s): I10 - ESSENTIAL (PRIMARY) HYPERTENSION Qualifiers: Hypertension type: essential hypertension Qualified Code(s): I10 - Essential (primary) hypertension (3) CAD (coronary artery disease) Code(s): I25.10 - ATHSCL HEART DISEASE OF [place] CORONARY ARTERY W/O ANG PCTRS Qualifiers: [place] vs. transplanted heart: [place] heart Associated angina: without angina (4) Hyperlipidemia Assessment/Plan: Cont statin Code(s): E78.5 - HYPERLIPIDEMIA, UNSPECIFIED (5) Hypothyroidism Code(s): E03.9 - HYPOTHYROIDISM, UNSPECIFIED (6) T2DM (type 2 diabetes mellitus) Assessment/Plan: Cont current management Code(s): E11.9 - TYPE 2 DIABETES MELLITUS WITHOUT COMPLICATIONS
[2017-08-21] MEDS: oxyCODONE HCL 5 MG TABLET PO PRN (21:53)
[2017-08-21] MEDS: INSULIN (LEVEMIR) 100 UNITS/ML UNITS SQ SCH (21:54)
[2017-08-21] MEDS: ATORVASTATIN CA 20 MG TABLET (FP) PO SCH (21:54)
[2017-08-22] MEDS ORDERED: PT OWN MED DRAWER 7, Y5N ONE ×2 (05:59→10:29)
[2017-08-22] MEDS: LIRAGLUTIDE 0.6 MG/0.1 ML PEN.INJCTR SQ SCH (06:43)
[2017-08-22] MEDS: metFORMIN HCL 500 MG TABLET (FP) PO SCH (06:44)
[2017-08-22] MEDS: LEVOTHYROXINE NA 50 MCG TABLET (FP) PO SCH (06:44)
[2017-08-22] MEDS: HEPARIN NA (PORCINE) 5,000 UNITS/ML 1ML VIAL SQ SCH ×2 (06:44→13:40)
[2017-08-22] MEDS: INSULIN SLIDING SCALE (NOVOLOG) 1 VIAL SQ SCH ×2 (06:44→12:22)
[2017-08-22] MEDS: AMOX TR/POT CLAV 500MG/125MG TABLETS (FP) PO SCH (08:20)
[2017-08-22 08:40] VITALS: TEMP 98.8
--- NOTE | 2017-08-22 08:59 | PN ---
Progress Note (short form) - Note Progress Note: Ortho Pt seen and examined s/p left ankle fx walker boot intact a/p continue with walker boot TTWB with boot elevation f/u Dr. Thomas d/w Dr. Moncada d/c planning
[2017-08-22 10:30] VITALS: BP 127/59; PULSE 86
[2017-08-22] MEDS: CHOLECALCIFEROL (VITAMIN D3) 1,000 UNIT TABLET (FP) PO SCH (10:31)
[2017-08-22] MEDS: ASPIRIN COATED 81 MG TABLET.EC PO SCH (10:31)
[2017-08-22] MEDS: metoPROLOL SUCCINATE 25 MG TAB.SR.24H (FP) PO SCH (10:31)
[2017-08-22] MEDS: glipiZIDE 5 MG TABLET (FP) PO SCH (10:32)
[2017-08-22] MEDS: GABAPENTIN 300 MG CAPSULE (FP) PO SCH (10:32)
[2017-08-22] MEDS: RAMIPRIL 5 MG CAPSULE (FP) PO SCH (10:33)
[2017-08-22] MEDS: GENTAMICIN SO4 0.1% TOPICAL OINTMENT 15 GM/TUBE TUBE TP SCH (10:34)
--- NOTE | 2017-08-22 11:47 | PN ---
Progress Note, Physician Chief Complaint: ankle frx History of Present Illness: awaiting rehab bed no cp, sob, palpit, syncope - Current Medication List Current Medications: Active Medications Acetaminophen (Tylenol -) 650 mg PO Q4H PRN PRN Reason: PAIN LEVEL 1 - 3 Last Admin: 08/18/17 21:35 Dose: 650 mg Amoxicillin/Clavulanate Potassium (Augmentin - 500mg Tablet) 1 tab PO BID@0800, 1730 [facility] Last Admin: 08/22/17 08:20 Dose: 1 tab Aspirin (Ecotrin -) 81 mg PO DAILY [facility] Last Admin: 08/22/17 10:31 Dose: 81 mg Atorvastatin Calcium (Lipitor -) 20 mg PO [facility] Last Admin: 08/21/17 21:54 Dose: 20 mg Cholecalciferol (Vitamin D3 -) 2,000 unit PO DAILY [facility] Last Admin: 08/22/17 10:31 Dose: 2,000 unit Gabapentin (Neurontin -) 300 mg PO BID [facility] Last Admin: 08/22/17 10:32 Dose: 300 mg Gentamicin Sulfate (Garamycin 0.1% Ointment -) 1 applic TP DAILY [facility] Last Admin: 08/22/17 10:34 Dose: 1 applic Glipizide (Glucotrol -) 5 mg PO BID [facility] Last Admin: 08/22/17 10:32 Dose: 5 mg Heparin Sodium (Porcine) (Heparin -) 5,000 unit SQ TID [facility] Last Admin: 08/22/17 06:44 Dose: 5,000 unit Insulin Aspart (Novolog Vial Sliding Scale -) 1 vial SQ TIDAC [facility] PRN Reason: Protocol Last Admin: 08/22/17 06:44 Dose: 4 units Insulin Detemir (Levemir Vial) 10 units SQ [facility] Last Admin: 08/21/17 21:54 Dose: 10 units Levothyroxine Sodium (Synthroid -) 50 mcg PO DAILY@0700 [facility] Last Admin: 08/22/17 06:44 Dose: 50 mcg Liraglutide (Victoza -) 1.2 mg SQ DAILY@0700 [facility] Last Admin: 08/22/17 06:43 Dose: 1.2 mg Metformin [facility] ([facility]uc[facility] -) [facility] Last Admin: 08/22/17 06:44 Dose: 500 mg Metoprolol Succinate (Toprol Xl -) 25 mg PO BID [facility] Last Admin: 08/22/17 10:31 Dose: 25 mg Oxycodone HCl (Roxicodone -) 5 mg PO Q4H PRN PRN Reason: PAIN LEVEL 4 - 6 Last Admin: 08/21/17 21:53 Dose: 5 mg Ramipril (Altace -) 5 mg PO BID [facility] Last Admin: 08/22/17 10:33 Dose: 5 mg - Objective Vital Signs: Vital Signs Temperature 98.8 F 08/22/17 08:39 Pulse Rate 86 08/22/17 10:00 Respiratory Rate 20 08/22/17 08:39 Blood Pressure 127/59 08/22/17 10:00 O2 Sat by Pulse Oximetry (%) 98 08/22/17 09:00 Constitutional: Yes: Well Nourished, No Distress, Calm Cardiovascular: Yes: Regular Rate and Rhythm, S1, S2. No: Gallop, Murmur Respiratory: Yes: Regular, CTA Bilaterally. No: Accessory Muscle Use Extremities: No: Cold Edema: No Neurological: Yes: Alert, Oriented Psychiatric: No: Agitated Labs: CBC, BMP 08/20/17 06:45 08/20/17 06:45 INR, PTT INR 1.14 (0.82-1.09) 08/18/17 00:30 Assessment/Plan ecg: sr, nl intervals, old inf q's, no st changes CXR 08/20: clear lungs, no effusion (nodular infiltrate near hilum has resolved) stress echo 06/2014: no ischemia echo 06/2016: nl lv size, lvef 40, inf ak, nl rv, mod lae, no sig valve path a/p: 77 f hx cad s/p remote pci, ICM (lvef mod reduced), dm, htn, hld here s/p mechanical fall c/b ankle fracture. mechanical fall/ankle fracture: -per PT, ortho cad: -stable, no angina, no signs acs -prior stress echo w/o ischemia -cont statin, bb, maik, asa chronic syst chf, isch CMP: -clinically euvolemic, no sob, cxr clear -cont bb, maik -no lasix indicated at present htn: -cont bb, maik hld: -cont statin
[2017-08-22] MEDS ORDERED: INSULIN (NOVOLOG) ASPART 100 UNITS/ML 10ML VIAL ONE (12:16)
[2017-08-22 13:15] LABS: ANION GAP 7 (8-16); BLOOD UREA NITROGEN 16 mg/dL (7-18); CALCIUM 9.6 mg/dL (8.5-10.1); CHLORIDE 102 mmol/L (98-107); CO2 26 mmol/L (21-32); CREATININE 0.5 mg/dL (0.55-1.02); GLUCOSE,RANDOM 271 mg/dL (74-106); SODIUM 135 mmol/L (136-145)
[2017-08-22 13:16] LABS: POTASSIUM 4.4 mmol/L (3.5-5.1)
[2017-08-22 13:43] LABS: PHOSPHOROUS 3.1 mg/dL (2.5-4.9)
[2017-08-22 13:44] LABS: MAGNESIUM 1.1 mg/dL (1.8-2.4)
[2017-08-22] MEDS ORDERED: MAGNESIUM SULF 50% (8.12 MEQ/2 ML-1 GM VIAL) IVPB ONE (13:50)
[2017-08-22] MEDS ORDERED: MAGNESIUM OXIDE 400 MG TABLET (FP) PO ONE (13:50)
--- NOTE | 2017-08-22 13:51 | DS ---
Physical Examination Vital Signs: Vital Signs Temperature 98.8 F 08/22/17 08:39 Pulse Rate 86 08/22/17 10:00 Respiratory Rate 20 08/22/17 08:39 Blood Pressure 127/59 08/22/17 10:00 O2 Sat by Pulse Oximetry (%) 98 08/22/17 09:00 Constitutional: Yes: Well Nourished, No Distress Cardiovascular: Yes: WNL, Regular Rate and Rhythm. No: Gallop, Murmur, Rub Respiratory: Yes: WNL, Regular, CTA Bilaterally Gastrointestinal: Yes: WNL, Normal Bowel Sounds, Soft, Hyperactive Bowel Sounds. No: Distention, Tenderness Renal/: Yes: WNL Edema: Yes Edema: LLE: Trace, RLE: Trace Neurological: Yes: WNL, Alert, Oriented Psychiatric: Yes: WNL, Alert, Oriented Labs: CBC, BMP 08/20/17 06:45 08/22/17 12:30 Discharge Summary Reason For Visit: FRACTURE OF BONE Current Active Problems Ankle fracture, left (Acute) CAD (coronary artery disease) (Acute) CHF (congestive heart failure) (Acute) Diabetes (Acute) Fracture (Acute) HTN (hypertension) (Acute) Hyperlipidemia (Acute) Hypothyroidism (Acute) Obesity (BMI 30.0-34.9) (Acute) T2DM (type 2 diabetes mellitus) (Acute) Hospital Course: is a 77 year old female who was admitted for a left ankle nondisplaced bimalleolar fracture. Ortho evaluated, pt placed on a walking boot and cleared for d/c by ortho. Pt also seen by vascular, neuropathic heel ulcer w / proteus and gram neg growth, started on augmentin. Otherwise, pt is medically cleared for discharge to SNF. Advised to f/u as directed. Condition: Stable - Instructions Diet, Activity, Other Instructions: continue with walker boot Toe Touch Weight Bearing with boot elevation of extremity f/u Dr. Thomas, Dr. Moncada, as directed Referrals: Jermaine Moncada MD [Staff Physician] - 2 Weeks Matt Queen MD [Primary Care Provider] - 1 Week Cosme Thomas MD [Staff Physician] - 2 Weeks Disposition: [facility] - Home Medications Comprehensive Discharge Medication List: Ambulatory Orders Aspirin [Aspirin EC] 81 mg PO DAILY 03/12/16 Atorvastatin Ca [Lipitor] 20 mg PO HS 03/12/16 Cholecalciferol (Vitamin D3) [Vitamin D -] 2,000 unit PO DAILY 03/12/16 Gabapentin 300 mg PO BID 03/12/16 Glipizide 5 mg PO BID 03/12/16 Insulin Glargine,Hum.rec.anlog [Lantus Solostar PEN -] 16 units SQ HS 03/12/16 Levothyroxine [Synthroid -] 50 mcg PO DAILY 03/12/16 Liraglutide [Victoza -] 1.2 mg SQ DAILY@0700 03/12/16 Metformin HCl 500 mg PO BID 03/12/16 Metoprolol Succinate [Toprol XL -] 25 mg PO BID 08/17/17 Ramipril 5 mg PO BID 08/17/17 Acetaminophen [Tylenol .Regular Strength -] 650 mg PO Q4H PRN tablet 08/22/17 Amox-Tr/K Cl [Augmentin 500-125mg Tablet -] 1 tab PO BID@0800,1730 10 Days tablet 08/22/17 Gentamicin 0.1% Ointment [Garamycin 0.1% Ointment -] 1 applic TP DAILY tube oxyCODONE HCL [Roxicodone -] 5 mg PO Q4H PRN tablet MDD 30 08/22/17
== END 2017-08-22 18:09 | DRG 563 ==
LOC: JER 17:55 → JERBED 08-18 04:03 → UNDOADMIN 08-18 04:05 → J6S 08-18 05:24
PROVIDERS: ADMIT Internal Medicine; ATTEND Internal Medicine
DX: S82.852A Displaced trimalleolar fracture of left lower leg, initial encounter for closed fracture (principal); L97.528 Non-pressure chronic ulcer of other part of left foot with other specified severity; I50.22 Chronic systolic (congestive) heart failure; E11.621 Type 2 diabetes mellitus with foot ulcer; I25.10 Atherosclerotic heart disease of native coronary artery without angina pectoris; E03.9 Hypothyroidism, unspecified; E78.5 Hyperlipidemia, unspecified; E66.9 Obesity, unspecified; Z68.32 Body mass index [BMI] 32.0-32.9, adult; E11.42 Type 2 diabetes mellitus with diabetic polyneuropathy; I11.0 Hypertensive heart disease with heart failure; I25.5 Ischemic cardiomyopathy; W17.89XA Other fall from one level to another, initial encounter; Y93.89 Activity, other specified; Y92.098 Other place in other non-institutional residence as the place of occurrence of the external cause; Z95.5 Presence of coronary angioplasty implant and graft; Z87.891 Personal history of nicotine dependence
CPT/HCPCS: 11042; 36415; 71045-TC-FY; 71046-TC-FY; 73610-TC-LT-FY; 73630-TC-LT; 80048; 80053; 82962; 83735; 84100; 85025; 85027; 85610; 85730; 86850; 86900; 86901; 87070; 87186; 87205; 93005; 93010; 97116-GP; 97161-GP; 99283-25; A6212; J1644; J7030

== ENCOUNTER 2018-05-05 09:33 | Inpatient (IN) | payer OTHER, BC ==
--- NOTE | 2018-05-05 10:28 | PDOC ---
*Physical Exam - Vital Signs Last Vital Signs Temp Pulse Resp BP Pulse Ox 98 F 84 19 153/57 L 99 05/05/18 09:42 05/05/18 09:42 05/05/18 09:42 05/05/18 09:42 05/05/18 09:42 ED Treatment Course - LABORATORY CBC & Chemistry Diagram: 05/06/18 06:30 05/06/18 06:30 Medical Decision Making - Medical Decision Making 05/05/18 11:22 Pt seen by Midlevel Provider under my direct supervision Pt interviewed and examined Ancillary studies reviewed EKG - NSR rate of 82 bpm, R axis deviation, RBBB, I agree with plan as outlined by Midlevel Provider *DC/Admit/Observation/Transfer Diagnosis at time of Disposition: Diabetes, Wound infection - Discharge Dispostion Condition at time of disposition: Stable - Referrals - Patient Instructions - Post Discharge Activity
--- NOTE | 2018-05-05 10:30 | PDOC ---
History of Present Illness - General Chief Complaint: Wound Stated Complaint: PCP SENT FOR ADMIN Time Seen by Provider: 05/05/18 10:01 History Source: Patient Exam Limitations: No Limitations - History of Present Illness Initial Comments: 05/05/18 12:36 Patient is a 77-year-old female past medical history of insulin-dependent diabetes, who presents to the emergency department today for a nonhealing ulcer to her left foot. Patient states she was seen along care yesterday. They recommend she come to the ER for admission as her wound is draining purulent smelly discharge. Patient states it hurts to walk. Denies fevers, chills, numbness and tingling to the extremities, weakness in the extremities, nausea, vomiting and diarrhea. Past History - Travel Traveled outside of the country in the last 30 days: No Close contact w/someone who was outside of country & ill: No - Past Medical History Allergies/Adverse Reactions: Allergies Allergy/AdvReac Type Severity Reaction Status Date / Time Gold Salts Allergy Verified 05/05/18 12:12 Iodinated Contrast- Oral and Allergy Verified 05/05/18 12:12 IV Dye silver Allergy Verified 05/05/18 12:12 contrast Allergy Uncoded 05/05/18 12:12 Home Medications: Ambulatory Orders Aspirin [Aspirin EC] 81 mg PO DAILY 03/12/16 Atorvastatin Ca [Lipitor] 20 mg PO HS 03/12/16 Cholecalciferol (Vitamin D3) [Vitamin D -] 2,000 unit PO DAILY 03/12/16 Gabapentin 300 mg PO BID 03/12/16 Glipizide 5 mg PO BID 03/12/16 Insulin Glargine,Hum.rec.anlog [Lantus Solostar PEN -] 20 units SQ HS 03/12/16 Levothyroxine [Synthroid -] 50 mcg PO DAILY 03/12/16 Liraglutide [Victoza -] 1.2 mg SQ DAILY@0700 03/12/16 metFORMIN HCL [Metformin HCl] 500 mg PO BID 03/12/16 Metoprolol Succinate [Toprol XL -] 50 mg PO BID 08/17/17 Ramipril 5 mg PO BID 08/17/17 Acetaminophen [Tylenol .Regular Strength -] 650 mg PO Q4H PRN tablet 08/22/17 Alendronate Sodium [Binosto] 70 mg PO WEEKLY 05/05/18 Cardiac Disorders: Yes COPD: No Diabetes: Yes HTN: Yes Hypercholesterolemia: Yes Thyroid Disease: Yes - Surgical History Cardiac Surgery: Yes (cardiac stents x 2) Cholecystectomy: Yes Orthopedic Surgery: Yes (left hip fx repair) - Suicide/Smoking/Psychosocial Hx Smoking History: Former smoker Have you smoked in the past 12 months: No If you are a former smoker, when did you quit?: 25yrs Information on smoking cessation initiated: No Hx Alcohol Use: No Drug/Substance Use Hx: No Substance Use Type: None Hx Substance Use Treatment: No Review of Systems - Review of Systems Able to Perform ROS?: Yes Comments:: 05/05/18 12:37 CONSTITUTIONAL: Absent: fever, chills, diaphoresis, generalized weakness, malaise, loss of appetite HEENT: Absent: rhinorrhea, nasal congestion, throat pain, throat swelling, difficulty swallowing, mouth swelling, ear pain, eye pain, visual Changes CARDIOVASCULAR: Absent: chest pain, loss of consciousness, palpitations, irregular heart rate, peripheral edema RESPIRATORY: Absent: cough, shortness of breath, dyspnea with exertion, orthopnea, wheezing, stridor, hemoptysis GASTROINTESTINAL: Absent: abdominal pain, abdominal distension, nausea, vomiting, diarrhea, constipation, melena, hematochezia GENITOURINARY: Absent: dysuria, frequency, urgency, hesitancy, hematuria, flank pain, genital pain MUSCULOSKELETAL: Absent: myalgia, arthralgia, joint swelling SKIN: Present: ulcer to L heel. Absent: rash, itching, pallor HEMATOLOGIC/IMMUNOLOGIC: Absent: easy bleeding, easy bruising, lymphadenopathy, frequent infections ENDOCRINE: Absent: unexplained weight gain, unexplained weight loss, heat intolerance, cold intolerance NEUROLOGIC: Absent: headache, focal weakness or paresthesias, dizziness, unsteady gait, seizure, mental status changes, bladder or bowel incontinence PSYCHIATRIC: Absent: anxiety, depression, suicidal or homicidal ideation, hallucinations. Is the patient limited [place] proficient: No *Physical Exam - Vital Signs Last Vital Signs Temp Pulse Resp BP Pulse Ox 98 F 84 19 153/57 L 99 05/05/18 09:42 05/05/18 09:42 05/05/18 09:42 05/05/18 09:42 05/05/18 09:42 - Physical Exam Comments: 05/05/18 12:39 GENERAL: Well developed, well nourished. Awake and alert. No acute distress. HEENT: Normocephalic, atraumatic. PERRLA, EOMI. No conjunctival pallor. Sclera are non- icteric. Moist mucous membranes. Oropharynx is clear. NECK: Supple. Full ROM. No JVD. Carotid pulses 2+ and symmetric, without bruits. No thyromegaly. No lymphadenopathy. CARDIOVASCULAR: Regular rate and rhythm. No murmurs, rubs, or gallops. Distal pulses are 2+ and symmetric. PULMONARY: No evidence of respiratory distress. Lungs clear to auscultation bilaterally. No wheezing, rales or rhonchi. ABDOMINAL: Soft. Non-tender. Non-distended. No rebound or guarding. No organomegaly. Normoactive bowel sounds. MUSCULOSKELETAL Normal range of motion at all joints. No bony deformities or tenderness. No CVA tenderness. EXTREMITIES: No cyanosis. No clubbing. No edema. No calf tenderness. SKIN: Silver dollar sized wound to the L heel with minimal purulent/smelly drainage. No cellulitis noted. Warm and dry. Normal capillary refill. No jaundice. NEUROLOGICAL: Alert, awake, appropriate. Cranial nerves 2-12 intact. No deficits to light touch and temperature in face, upper extremities and lower extremities. No motor deficits in the in face, upper extremities and lower extremities. Normoreflexic in the upper and lower extremities. Normal speech. Toes are down- going bilaterally. Gait is normal without ataxia. PSYCHIATRIC: Cooperative. Good eye contact. Appropriate mood and affect. 05/05/18 12:41 Moderate Sedation - Procedure Monitoring Vital Signs: Procedure Monitoring Vital Signs Temperature 98 F 05/05/18 09:42 Pulse Rate 84 05/05/18 09:42 Respiratory Rate 19 05/05/18 09:42 Blood Pressure 153/57 L 05/05/18 09:42 O2 Sat by Pulse Oximetry (%) 99 05/05/18 09:42 ED Treatment Course - LABORATORY CBC & Chemistry Diagram: 05/05/18 10:45 05/05/18 10:45 Medical Decision Making - Medical Decision Making 05/05/18 12:41 Patient is a 77-year-old female who presents to the emergency department today for a wound to her left heel that is not healing. On exam wound is draining purulent matter. Patient will need admission for IV antibiotics. No leukocytosis at this time. H&H stable. Glucose is 308. 6 units of insulin ordered. Blood cultures drawn X-ray of L foot pending. Consultation Dr. Brownlee recommending Zosyn. Patient also given a dose of vancomycin. Admit to Dr. Noland for Dr. Queen. 05/05/18 13:37 Case discussed with LINUX SERVER ENGINEER Clarisse. Will place pt to med/surg for admission *DC/Admit/Observation/Transfer Diagnosis at time of Disposition: Wound infection Diabetes Qualifiers: Diabetes mellitus type: type 2 Diabetes mellitus termite helper insulin use: with termite helper use Diabetes mellitus complication status: with hyperglycemia Qualified Code(s): E11.65 - Type 2 diabetes mellitus with hyperglycemia - Discharge Dispostion Condition at time of disposition: Stable Decision to Admit order: Yes - Referrals Referrals: Matt Queen MD [Primary Care Provider] - - Patient Instructions - Post Discharge Activity
[2018-05-05] MEDS ORDERED: VANCOMYCIN 1,000 MG in DEXTROSE 5%-WATER - 250 ML IVPB ONE (10:31)
[2018-05-05] MEDS ORDERED: PIPERACILLIN/TAZOB 3.375 GM 3.375 GM in DEXTROSE 5%-WATER - 50 ML IVPB ONE (10:31)
[2018-05-05] MEDS ORDERED: PIPERACILLIN/TAZOB 3.375 GM 3.375 GM/50 ML BAG IVPB ONE (10:55)
[2018-05-05] MEDS ORDERED: VANCOMYCIN 1 GRAM (PRE-DOCKED) 1,000 MG/250 ML BAG IVPB ONE (10:55)
[2018-05-05 10:56] LABS: BASO % 0.9 % (0-2.0); EOS % 2.4 % (0-4.5); HEMATOCRIT 33.4 % (32.4-45.2); HEMOGLOBIN 11.6 GM/dL (10.7-15.3); LYMPH % 19.7 % (8-40); MCHC 34.6 g/dl (32.0-36.0); MEAN CELL VOLUME 83.8 fl (80-96); MEAN PLT VOLUME 7.9 fl (7.5-11.1); MONO % 7.8 % (3.8-10.2); NEUT % 69.2 % (42.8-82.8); PLATELET COUNT 231 K/MM3 (134-434); RBC 3.99 M/mm3 (3.60-5.2); RDW 14.6 % (11.6-15.6); WHITE BLOOD COUNT 5.4 K/mm3 (4.0-10.0)
[2018-05-05 11:09] LABS: INR 1.08 (0.83-1.09); PROTHROMBIN TIME (PATIENT) 12.8 SEC (9.7-13.0)
[2018-05-05 11:34] LABS: ALBUMIN 3.1 g/dl (3.4-5.0); ALK PHOS 120 U/L (45-117); ANION GAP 8 MMOL/L (8-16); BILIRUBIN,TOTAL 0.6 mg/dL (0.2-1); BLOOD UREA NITROGEN 18 mg/dL (7-18); CALCIUM 9.2 mg/dL (8.5-10.1); CHLORIDE 103 mmol/L (98-107); CO2 25 mmol/L (21-32); CREATININE 0.8 mg/dL (0.55-1.3); POTASSIUM 4.3 mmol/L (3.5-5.1); SGOT/AST 27 U/L (15-37); SGPT/ALT 27 U/L (13-61); SODIUM 136 mmol/L (136-145); TOT PROT 6.5 g/dl (6.4-8.2)
[2018-05-05 12:10] LABS: GLUCOSE,RANDOM 301 mg/dL (74-106)
[2018-05-05] MEDS ORDERED: INSULIN (NOVOLOG) ASPART 100 UNITS/ML 10ML VIAL SQ ONE (12:53)
[2018-05-05] MEDS ORDERED: INSULIN REGULAR HUMAN 100 UNITS/ML *VIAL ONE (13:29)
--- NOTE | 2018-05-05 14:10 | HP ---
Admitting History and Physical - Primary Care Physician PCP: Matt Queen - Admission Chief Complaint: non healing wound History of Present Illness: 77 year old female with pmh of HTN, HLD, CAD s/p stent, IDDM w/ chronic left heel neuropathic ulcer presents with non healing ulcer of left heel. Pt reports she's had the ulcer since 2017 where it had intermittently healed but however noted foul smelling drainage for the last month without improvement. Pt is followed at the wound center. Pt was evaluated by laboratory animal caretaker yesterday where he noted localized cellulitis and foul smelling drainage. Pt was told to come in for iv antibx and possible debridement. The wound culture from 04/20/18 grew pseudomonas. Pt denies any chest pain, sob, n/v/d, rash, fever/chills. Pt is without any other complaint. History Source: Patient, Medical Record Limitations to Obtaining History: No Limitations - Past Medical History OFFICE SERVICES SPECIALIST: Yes: Peripheral Neuropathy Cardiovascular: Yes: CAD, CHF, HTN Musculoskeletal: Yes: Chronic low back pain, Osteoarthritis Endocrine: Yes: Diabetes Mellitus, Hypothyroidism - Past Surgical History Past Surgical History: Yes: Cholecystectomy, Joint Replacement (Left achilles tendor repair, left hip repair, left ankle repair), Stent (cardiac) - Smoking History Smoking history: Former smoker Have you smoked in the past 12 months: No If you are a former smoker, when did you quit?: 25yrs - Alcohol/Substance Use Hx Alcohol Use: No History of Substance Use: reports: None - Social History History of Recent Travel: No Home Medications - Allergies Allergies/Adverse Reactions: Allergies Allergy/AdvReac Type Severity Reaction Status Date / Time Gold Salts Allergy Verified 05/05/18 12:12 Iodinated Contrast- Oral and Allergy Verified 05/05/18 12:12 IV Dye silver Allergy Verified 05/05/18 12:12 contrast Allergy Uncoded 05/05/18 12:12 - Home Medications Home Medications: Ambulatory Orders Aspirin [Aspirin EC] 81 mg PO DAILY 03/12/16 Atorvastatin Ca [Lipitor] 20 mg PO HS 03/12/16 Cholecalciferol (Vitamin D3) [Vitamin D -] 2,000 unit PO DAILY 03/12/16 Gabapentin 300 mg PO TID 03/12/16 Glipizide 5 mg PO BIDAC 03/12/16 Insulin Glargine,Hum.rec.anlog [Lantus Solostar PEN -] 20 units SQ HS 03/12/16 Levothyroxine [Synthroid -] 50 mcg PO DAILY@0700 03/12/16 Liraglutide [Victoza -] 1.2 mg SQ DAILY@0700 03/12/16 metFORMIN HCL [Metformin HCl] 500 mg PO BIDAC 03/12/16 Metoprolol Succinate [Toprol XL -] 50 mg PO BID 08/17/17 Ramipril 5 mg PO BID 08/17/17 Acetaminophen [Tylenol .Regular Strength -] 650 mg PO Q4H PRN tablet 08/22/17 Alendronate Sodium [Binosto] 70 mg PO WEEKLY 05/05/18 Family Disease History - Family Disease History Family Disease History: Diabetes: Father, Heart Disease: Father, Mother, Brother , Sister Review of Systems Findings/Remarks: as per hpi Physical Examination Vital Signs: Vital Signs Temperature 98 F 05/05/18 09:42 Pulse Rate 84 05/05/18 09:42 Respiratory Rate 05/05/18 09:42 Blood Pressure 153/57 L 05/05/18 09:42 O2 Sat by Pulse Oximetry (%) 98 05/05/18 11:05 Constitutional: Yes: Well Nourished, No Distress, Calm Cardiovascular: Yes: WNL, Regular Rate and Rhythm Respiratory: Yes: WNL, Regular, CTA Bilaterally. No: Accessory Muscle Use, Rhonchi, SOB, Tachypnea, Wheezes Gastrointestinal: Yes: WNL, Normal Bowel Sounds, Soft. No: Distention, Tenderness Renal/: Yes: WNL Edema: Yes Edema: LLE: 1+, RLE: Trace Integumentary: Yes: Erythema (left heel ulcer, macerated, foul odor) Wound/Incision: Yes: Dressing Dry and Intact, Draining, Reddened Neurological: Yes: WNL, Alert, Oriented Psychiatric: Yes: WNL, Alert, Oriented Labs: CBC, BMP 05/05/18 10:45 05/05/18 10:45 Imaging - Results Chest X-ray: Report Reviewed X-ray: Report Reviewed Assessment/Plan (1) Wound infection Assessment/Plan: non healing neuropathic L heel ulcer 2/2 dm2 presents w/ increased foul smelling drainage/erythema culture 04/18 grew pseudomonas hemodynamically stable, wbc count wnl esr elevated r/o osteo- bone scan ordered wound culture pending zosyn day 1 podiatry, vascular consulted ID following, case discussed Code(s): T14.8XXA - OTHER INJURY OF UNSPECIFIED BODY REGION, INITIAL ENCOUNTER; L08.9 - LOCAL INFECTION OF THE SKIN AND SUBCUTANEOUS TISSUE, UNSP (2) 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 Assessment/Plan: as above Code(s): E11.621 - TYPE 2 DIABETES MELLITUS WITH FOOT ULCER; L97.509 - NON- PRESSURE CHRONIC ULCER OTH PRT UNSP FOOT W UNSP SEVERITY (3) Pseudomonas aeruginosa infection Assessment/Plan: as above repeat culture pending Code(s): A49.8 - OTHER BACTERIAL INFECTIONS OF UNSPECIFIED SITE (4) Diabetes Assessment/Plan: controlled w/ multiple complications-neuropathy,ulcer metformin, glipizide insulin sliding scale/levemir hs BGM diab diet Code(s): E11.9 - TYPE 2 DIABETES MELLITUS WITHOUT COMPLICATIONS Qualifiers: Diabetes mellitus type: type 2 Diabetes mellitus manager intermediate insulin use: with shelter use Diabetes mellitus complication status: with skin complications Diabetes mellitus complication detail: with foot ulcer Qualified Code(s): E11.621 - Type 2 diabetes mellitus with foot ulcer; L97.509 - Non-pressure chronic ulcer of other part of unspecified foot with unspecified severity; Z79.4 - FDC (current) use of insulin (5) CAD (coronary artery disease) Assessment/Plan: s/p stent no acute acs continue asa, statin, bb, maik-i followed by Cardiology outpt Code(s): I25.10 - ATHSCL HEART DISEASE OF [place] CORONARY ARTERY W/O ANG PCTRS Qualifiers: [place] vs. transplanted heart: [place] heart Associated angina: without angina (6) HTN (hypertension) Assessment/Plan: controlled continue current management Code(s): I10 - ESSENTIAL (PRIMARY) HYPERTENSION Qualifiers: Hypertension type: essential hypertension Qualified Code(s): I10 - Essential (primary) hypertension (7) Hypothyroidism Assessment/Plan: chronic continue levothyroxine Code(s): E03.9 - HYPOTHYROIDISM, UNSPECIFIED (8) Obesity (BMI 30.0-34.9) Assessment/Plan: continue life style modifications Code(s): E66.9 - OBESITY, UNSPECIFIED (9) CHF (congestive heart failure) Assessment/Plan: chronic, systolic no acute exacerbation Code(s): I50.9 - HEART FAILURE, UNSPECIFIED Qualifiers: Heart failure type: systolic Heart failure chronicity: chronic Qualified Code(s): I50.22 - Chronic systolic (congestive) heart failure (10) Hyperlipidemia Assessment/Plan: chronic continue statin Code(s): E78.5 - HYPERLIPIDEMIA, UNSPECIFIED
--- NOTE | 2018-05-05 15:04 | CON.ID ---
Consult Consult Specialty:: infectious diseases Referred by:: Clarisse Reason for Consultation:: cellultis of the heel and non healing wound of the heel - History of Present Illness Chief Complaint: pain and non healing ulcer of the heel History of Present Illness: 77 year old female with pmh of HTN, HLD, CAD s/p stent, IDDM w presents with non healing ulcer of left heel. Pt reports she's had the ulcer since 2017 where it had intermittently healed but however noted foul smelling drainage for the last month without improvement. Pt is followed at the wound center. Pt was evaluated by senior test engineer yesterday where he noted localized cellulitis and foul smelling drainage. . The wound culture from 04/20/18 grew pseudomonas. Pt denies any chest pain, sob, n/v/d, rash, fever/chills. Pt is without any other complaint. otherwise patient is feeling better - History Source History Provided By: Patient Limitations to Obtaining History: No Limitations - Past Medical History Cardio/Vascular: Yes: CAD, HTN Endocrine: Yes: Diabetes Mellitus, Hypothyroidism - Past Surgical History Past Surgical History: Yes: Cholecystectomy, Stent - Alcohol/Substance Use Hx Alcohol Use: No - Smoking History Smoking history: Former smoker Have you smoked in the past 12 months: No If you are a former smoker, when did you quit?: 25yrs Home Medications - Allergies Allergies/Adverse Reactions: Allergies Allergy/AdvReac Type Severity Reaction Status Date / Time Gold Salts Allergy Verified 05/05/18 12:12 Iodinated Contrast- Oral and Allergy Verified 05/05/18 12:12 IV Dye silver Allergy Verified 05/05/18 12:12 contrast Allergy Uncoded 05/05/18 12:12 - Home Medications Home Medications: Ambulatory Orders Aspirin [Aspirin EC] 81 mg PO DAILY 03/12/16 Atorvastatin Ca [Lipitor] 20 mg PO HS 03/12/16 Cholecalciferol (Vitamin D3) [Vitamin D -] 2,000 unit PO DAILY 03/12/16 Gabapentin 300 mg PO TID 03/12/16 Glipizide 5 mg PO BIDAC 03/12/16 Insulin Glargine,Hum.rec.anlog [Lantus Solostar PEN -] 20 units SQ HS 03/12/16 Levothyroxine [Synthroid -] 50 mcg PO DAILY@0700 03/12/16 Liraglutide [Victoza -] 1.2 mg SQ DAILY@0700 03/12/16 metFORMIN HCL [Metformin HCl] 500 mg PO BIDAC 03/12/16 Metoprolol Succinate [Toprol XL -] 50 mg PO BID 08/17/17 Ramipril 5 mg PO BID 08/17/17 Acetaminophen [Tylenol .Regular Strength -] 650 mg PO Q4H PRN tablet 08/22/17 Alendronate Sodium [Binosto] 70 mg PO WEEKLY 05/05/18 Family Disease History - Family Disease History Family Disease History: Diabetes: Father, Heart Disease: Father, Mother, Brother , Sister Review of Systems - Review of Systems Constitutional: reports: No Symptoms Eyes: reports: No Symptoms HENT: reports: No Symptoms Neck: reports: No Symptoms Cardiovascular: reports: No Symptoms Respiratory: reports: No Symptoms Gastrointestinal: reports: No Symptoms Genitourinary: reports: No Symptoms Musculoskeletal: reports: Other Integumentary: reports: Change in Color, Erythema, Wound (left heel) Neurological: reports: No Symptoms Endocrine: reports: No Symptoms Hematology/Lymphatic: reports: No Symptoms Psychiatric: reports: No Symptoms Physical Exam Vital Signs: Vital Signs Temperature 98 F 05/05/18 09:42 Pulse Rate 84 05/05/18 09:42 Respiratory Rate 19 05/05/18 09:42 Blood Pressure 153/57 L 05/05/18 09:42 O2 Sat by Pulse Oximetry (%) 98 05/05/18 11:05 Constitutional: Yes: Well Nourished, No Distress, Calm Eyes: Yes: Conjunctiva Clear HENT: Yes: Atraumatic, Normocephalic Neck: Yes: Supple, Trachea Midline Cardiovascular: Yes: Regular Rate and Rhythm Respiratory: Yes: Regular, CTA Bilaterally Gastrointestinal: Yes: Normal Bowel Sounds, Soft Musculoskeletal: Yes: Other Extremities: Yes: Other (ulcer of the heel left foot) Integumentary: Yes: Erythema, Other (non heeling ulcer of the left heel) Wound/Incision: Yes: Draining Neurological: Yes: Alert, Oriented Psychiatric: Yes: Alert, Oriented Labs: CBC, BMP 05/05/18 10:45 05/05/18 10:45 Imaging - Results Chest X-ray: Report Reviewed, Image Reviewed X-ray: Report Reviewed, Image Reviewed Assessment/Plan Assessment/Plan (1) Wound infection Code(s): T14.8XXA - OTHER INJURY OF UNSPECIFIED BODY REGION, INITIAL ENCOUNTER; L08.9 - LOCAL INFECTION OF THE SKIN AND SUBCUTANEOUS TISSUE, UNSP (2) 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 Code(s): E11.621 - TYPE 2 DIABETES MELLITUS WITH FOOT ULCER; L97.509 - NON- PRESSURE CHRONIC ULCER OTH PRT UNSP FOOT W UNSP SEVERITY (3) Pseudomonas aeruginosa infection Code(s): A49.8 - OTHER BACTERIAL INFECTIONS OF UNSPECIFIED SITE (4) Diabetes Code(s): E11.9 - TYPE 2 DIABETES MELLITUS WITHOUT COMPLICATIONS Qualifiers: Diabetes mellitus type: type 2 Diabetes mellitus terminal make up operator insulin use: with terminal make up operator use Diabetes mellitus complication status: with skin complications Diabetes mellitus complication detail: with foot ulcer Qualified Code(s): E11.621 - Type 2 diabetes mellitus with foot ulcer; L97.509 - Non-pressure chronic ulcer of other part of unspecified foot with unspecified severity; Z79.4 - alf (current) use of insulin (5) CAD (coronary artery disease) Code(s): I25.10 - ATHSCL HEART DISEASE OF [place] CORONARY ARTERY W/O ANG PCTRS Qualifiers: [place] vs. transplanted heart: [place] heart Associated angina: without angina (6) HTN (hypertension) Code(s): I10 - ESSENTIAL (PRIMARY) HYPERTENSION Qualifiers: Hypertension type: essential hypertension Qualified Code(s): I10 - Essential (primary) hypertension (7) Hypothyroidism Code(s): E03.9 - HYPOTHYROIDISM, UNSPECIFIED (8) Obesity (BMI 30.0-34.9) Code(s): E66.9 - OBESITY, UNSPECIFIED (9) CHF (congestive heart failure) Code(s): I50.9 - HEART FAILURE, UNSPECIFIED Qualifiers: Heart failure type: systolic Heart failure chronicity: chronic Qualified Code(s): I50.22 - Chronic systolic (congestive) heart failure (10) Hyperlipidemia Code(s): E78.5 - HYPERLIPIDEMIA, UNSPECIFIED patients wound has been growing pseudomonas also there is a worry if this is osteo plan garg tart patient on [facility] wound care podiatry to see the patient vascular to see the patient rest as per the team
[2018-05-05 17:14] VITALS: BMI 32.0
[2018-05-05] MEDS ORDERED: PIPERACILLIN/TAZOBACTAM 3.375 GM VIAL IVPB ONE (17:40)
[2018-05-05] MEDS ORDERED: DEXTROSE 5%-WATER - 50 ML IVPB ONE (17:40)
[2018-05-05] MEDS: INSULIN SLIDING SCALE (NOVOLOG) 1 VIAL SQ SCH ×2 (17:51→22:53)
[2018-05-05] MEDS: glipiZIDE 5 MG TABLET (FP) PO SCH (17:51)
[2018-05-05] MEDS: metFORMIN HCL 500 MG TABLET (FP) PO SCH (17:51)
[2018-05-05] MEDS: PIPERACILLIN/TAZOB 3.375 GM 3.375 GM in DEXTROSE 5%-WATER - 50 ML IVPB SCH (17:52)
--- NOTE | 2018-05-05 18:22 | EKG ---
Test Reason : Blood Pressure : / mmHG Vent. Rate : 082 BPM Atrial Rate : 082 BPM P-R Int : 146 ms QRS Dur : 122 ms QT Int : 422 ms P-R-T Axes : 091 075 -18 degrees QTc Int : 493 ms POOR DATA QUALITY, INTERPRETATION MAY BE ADVERSELY AFFECTED NORMAL SINUS RHYTHM RIGHT BUNDLE BRANCH BLOCK POSSIBLE LATERAL INFARCT , AGE UNDETERMINED INFERIOR INFARCT (CITED ON OR BEFORE 09-DEC-2005) ABNORMAL ECG WHEN COMPARED WITH ECG OF 17-AUG-2017 19:07, PREMATURE ATRIAL COMPLEXES ARE NO LONGER PRESENT RIGHT BUNDLE BRANCH BLOCK IS NOW PRESENT BORDERLINE CRITERIA FOR LATERAL INFARCT ARE NOW PRESENT Confirmed by EUNICE MATHEWS, ROSA ([id number]) on 05/05/2018 6:22:27 PM Referred By: Confirmed By:ROSA DAWSON MD
[2018-05-05] MEDS ORDERED: FLU VACCINE QUAD 60 MCG/0.5 ML (MDV 18-19) IM ONE (18:40)
[2018-05-05 22:00] LABS: URINE APPEARANCE CLEAR; URINE BILIRUBIN NEGATIVE (<2.0 mg/dL); URINE COLOR STRAW; URINE GLUCOSE (UA) NEGATIVE (NEGATIVE); URINE KETONE NEGATIVE (NEGATIVE); URINE LEUK ESTERASE 1+ (NEGATIVE); URINE NITRITE NEGATIVE (NEGATIVE); URINE PROTEIN NEGATIVE (NEGATIVE); URINE UROBILINOGEN NEGATIVE mg/dL (0.2-1.0)
[2018-05-05] MEDS ORDERED: GABAPENTIN 300 MG CAPSULE (FP) PO SCH (22:00)
[2018-05-05 22:06] LABS: EPI CELLS RARE /HPF (FEW)
[2018-05-05] MEDS ORDERED: PT OWN MED DRAWER 7, Y5N ONE (22:39)
[2018-05-05] MEDS: ATORVASTATIN CA 20 MG TABLET (FP) PO SCH (22:48)
[2018-05-05] MEDS: COLLAGENASE CLOSTRIDIUM HIST. 30 GRAMS TUBE TP SCH (22:48)
[2018-05-05] MEDS: GABAPENTIN 300 MG CAPSULE (FP) PO SCH (22:49)
[2018-05-05] MEDS: metoPROLOL SUCCINATE 25 MG TAB.SR.24H (FP) PO SCH (22:49)
[2018-05-05] MEDS: RAMIPRIL 5 MG CAPSULE (FP) PO SCH (22:49)
[2018-05-05] MEDS: INSULIN (LEVEMIR) 100 UNITS/ML UNITS SQ SCH (23:01)
[2018-05-06] MEDS ORDERED: PIPERACILLIN/TAZOBACTAM 3.375 GM VIAL IVPB ONE ×3 (01:03→18:04)
[2018-05-06] MEDS ORDERED: DEXTROSE 5%-WATER - 50 ML IVPB ONE ×3 (01:04→18:05)
[2018-05-06] MEDS: PIPERACILLIN/TAZOB 3.375 GM 3.375 GM in DEXTROSE 5%-WATER - 50 ML IVPB SCH ×3 (01:23→18:28)
[2018-05-06] MEDS: glipiZIDE 5 MG TABLET (FP) PO SCH ×2 (06:30→16:41)
[2018-05-06] MEDS: GABAPENTIN 300 MG CAPSULE (FP) PO SCH ×3 (06:30→22:21)
[2018-05-06] MEDS: metFORMIN HCL 500 MG TABLET (FP) PO SCH ×2 (06:30→16:41)
[2018-05-06] MEDS: INSULIN SLIDING SCALE (NOVOLOG) 1 VIAL SQ SCH ×4 (06:30→22:22)
[2018-05-06] MEDS: LEVOTHYROXINE NA 50 MCG TABLET (FP) PO SCH (06:30)
[2018-05-06 06:55] LABS: BASO % 1.9 % (0-2.0); EOS % 5.5 % (0-4.5); HEMATOCRIT 33.7 % (32.4-45.2); HEMOGLOBIN 10.9 GM/dL (10.7-15.3); LYMPH % 24.3 % (8-40); MCH 27.1 pg (25.7-33.7); MCHC 32.2 g/dl (32.0-36.0); MEAN CELL VOLUME 84.2 fl (80-96); MEAN PLT VOLUME 8.1 fl (7.5-11.1); MONO % 9.8 % (3.8-10.2); NEUT % 58.5 % (42.8-82.8); PLATELET COUNT 207 K/MM3 (134-434); RDW 14.5 % (11.6-15.6)
[2018-05-06 07:47] LABS: ANION GAP 8 MMOL/L (8-16); BLOOD UREA NITROGEN 18 mg/dL (7-18); CHLORIDE 106 mmol/L (98-107); CO2 25 mmol/L (21-32); CREATININE 0.8 mg/dL (0.55-1.3); GLUCOSE,RANDOM 148 mg/dL (74-106); POTASSIUM 4.1 mmol/L (3.5-5.1); SODIUM 138 mmol/L (136-145)
[2018-05-06] MEDS ORDERED: PT OWN MED DRAWER 7, Y5N ONE (09:12)
[2018-05-06] MEDS: ENOXAPARIN NA (PORCINE) 40 MG/0.4 ML DISP.SYRIN SQ SCH (09:22)
[2018-05-06] MEDS: ASPIRIN COATED 81 MG TABLET.EC PO SCH (09:23)
[2018-05-06] MEDS: RAMIPRIL 5 MG CAPSULE (FP) PO SCH ×2 (09:23→22:21)
[2018-05-06] MEDS: metoPROLOL SUCCINATE 25 MG TAB.SR.24H (FP) PO SCH ×2 (09:23→22:21)
[2018-05-06] MEDS: COLLAGENASE CLOSTRIDIUM HIST. 30 GRAMS TUBE TP SCH (09:24)
--- NOTE | 2018-05-06 09:57 | CONSULT ---
Consult Consult Specialty:: podiatry Reason for Consultation:: infected left heel - History of Present Illness Chief Complaint: infected left heel-chronic wound History of Present Illness: wound left heel open over 6 months. no care other than patient. 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 Cardio/Vascular: Yes: CAD, HTN Musculoskeletal: Yes: Chronic low back pain, Osteoarthritis Endocrine: Yes: Diabetes Mellitus, Hypothyroidism - Past Surgical History Past Surgical History: Yes: Cholecystectomy, Stent - Alcohol/Substance Use Hx Alcohol Use: No History of Substance Use: reports: None - Smoking History Smoking history: Former smoker Have you smoked in the past 12 months: No If you are a former smoker, when did you quit?: 25yrs - Social History History of Recent Travel: No Home Medications - Allergies Allergies/Adverse Reactions: Allergies Allergy/AdvReac Type Severity Reaction Status Date / Time Gold Salts Allergy Verified 05/05/18 12:12 Iodinated Contrast- Oral and Allergy Verified 05/05/18 12:12 IV Dye silver Allergy Verified 05/05/18 12:12 contrast Allergy Uncoded 05/05/18 12:12 - Home Medications Home Medications: Ambulatory Orders Aspirin [Aspirin EC] 81 mg PO DAILY 03/12/16 Atorvastatin Ca [Lipitor] 20 mg PO HS 03/12/16 Cholecalciferol (Vitamin D3) [Vitamin D -] 2,000 unit PO DAILY 03/12/16 Gabapentin 300 mg PO TID 03/12/16 Glipizide 5 mg PO BIDAC 03/12/16 Insulin Glargine,Hum.rec.anlog [Lantus Solostar PEN -] 20 units SQ HS 03/12/16 Levothyroxine [Synthroid -] 50 mcg PO DAILY@0700 03/12/16 Liraglutide [Victoza -] 1.2 mg SQ DAILY@0700 03/12/16 metFORMIN HCL [Metformin HCl] 500 mg PO BIDAC 03/12/16 Metoprolol Succinate [Toprol XL -] 50 mg PO BID 08/17/17 Ramipril 5 mg PO BID 08/17/17 Acetaminophen [Tylenol .Regular Strength -] 650 mg PO Q4H PRN tablet 08/22/17 Alendronate Sodium [Binosto] 70 mg PO WEEKLY 05/05/18 Family Disease History - Family Disease History Family Disease History: Diabetes: Father, Heart Disease: Father, Mother, Brother , Sister Physical Exam Vital Signs: Vital Signs Temperature 98.8 F 05/06/18 06:24 Pulse Rate 73 05/06/18 06:24 Respiratory Rate 20 05/06/18 06:24 Blood Pressure 117/64 05/06/18 06:24 O2 Sat by Pulse Oximetry (%) 99 05/05/18 21:00 Wound/Incision: Yes: Other (grade 2-3 wound plantar left heel,foul smelling, cultures from wound care showed pseudomonas staph coag neg [id number] elevated 8.4) Labs: CBC, BMP 05/06/18 06:30 05/06/18 06:30 Assessment/Plan r/o om dm with neuropathy r/o pvd santyl to heel wound. limit activity to brp only while wearing post op shoe. ct scan ordered. ivabx as per id. awaiting ct result. will follow till dc.
--- NOTE | 2018-05-06 18:08 | PN ---
Physical Exam: SUBJECTIVE: Patient seen and examined, no pain or concerns, feels well OBJECTIVE: Vital Signs Period Temp Pulse Resp BP Sys/Jonas Pulse Ox Last 24 Hr 98.2 F-98.8 F 67-87 18-20 101-135/50-64 98-99 GENERAL: The patient is awake, alert, and fully oriented, in no acute distress. HEAD: Normal with no signs of trauma. EYES: PERRL, extraocular movements intact, sclera anicteric, conjunctiva clear. No ptosis. ENT: Ears normal, nares patent, oropharynx clear without exudates, moist mucous membranes. NECK: Trachea midline, full range of motion, supple. LUNGS: Breath sounds equal, clear to auscultation bilaterally, no wheezes, no crackles, no accessory muscle use. HEART: Regular rate and rhythm, S1, S2 ABDOMEN: Soft, nontender, nondistended, normoactive bowel sounds, no guarding, no rebound, EXTREMITIES: left heel 2 cm ulcer with minimal yellowish foul smelling discharge , some surrounding edema, minimal erythema, non tender PSYCH: Normal mood, normal affect. SKIN: Warm, dry, normal turgor, no rashes or lesions noted Laboratory Results - last 24 hr 05/05/18 05/05/18 05/05/18 10:45 17:50 21:00 WBC RBC Hgb Hct MCV MCH MCHC RDW Plt Count MPV Absolute Neuts (auto) Neutrophils % Lymphocytes % Monocytes % Eosinophils % Basophils % Nucleated RBC % Sodium 136 Potassium 4.3 Chloride 103 Carbon Dioxide 25 Anion Gap 8 BUN 18 Creatinine 0.8 Creat Clearance w eGFR > 60 POC Glucometer 69 Random Glucose 301 H* Hemoglobin A1c % Calcium 9.2 Total Bilirubin 0.6 AST 27 ALT 27 Alkaline Phosphatase 120 H C-Reactive Protein 0.5 H Total Protein 6.5 Albumin 3.1 L Urine Color Straw Urine Appearance Clear Urine pH 6.0 Ur Specific [place] 1.011 Urine Protein Negative Urine Glucose (UA) Negative Urine Ketones Negative Urine Blood Negative Urine Nitrite Negative Urine Bilirubin Negative Urine Urobilinogen Negative Ur Leukocyte Esterase 1+ H Urine WBC (Auto) 16 Urine RBC (Auto) 1 Ur Epithelial Cells Rare 05/05/18 05/06/18 05/06/18 22:52 06:29 06:30 WBC 4.0 RBC 4.00 Hgb 10.9 Hct 33.7 MCV 84.2 MCH 27.1 MCHC 32.2 RDW 14.5 Plt Count 207 MPV 8.1 Absolute Neuts (auto) 2.4 Neutrophils % 58.5 Lymphocytes % 24.3 D Monocytes % 9.8 Eosinophils % 5.5 H D Basophils % 1.9 Nucleated RBC % 0 Sodium Potassium Chloride Carbon Dioxide Anion Gap BUN Creatinine Creat Clearance w eGFR POC Glucometer 134 165 Random Glucose Hemoglobin A1c % Calcium Total Bilirubin AST ALT Alkaline Phosphatase C-Reactive Protein Total Protein Albumin Urine Color Urine Appearance Urine pH Ur Specific [place] Urine Protein Urine Glucose (UA) Urine Ketones Urine Blood Urine Nitrite Urine Bilirubin Urine Urobilinogen Ur Leukocyte Esterase Urine WBC (Auto) Urine RBC (Auto) Ur Epithelial Cells 05/06/18 05/06/18 05/06/18 06:30 06:30 11:16 WBC RBC Hgb Hct MCV MCH MCHC RDW Plt Count MPV Absolute Neuts (auto) Neutrophils % Lymphocytes % Monocytes % Eosinophils % Basophils % Nucleated RBC % Sodium 138 Potassium 4.1 Chloride 106 Carbon Dioxide 25 Anion Gap 8 BUN 18 Creatinine 0.8 Creat Clearance w eGFR > 60 POC Glucometer 221 Random Glucose 148 H Hemoglobin A1c % 8.4 H Calcium 9.0 Total Bilirubin AST ALT Alkaline Phosphatase C-Reactive Protein Total Protein Albumin Urine Color Urine Appearance Urine pH Ur Specific [place] Urine Protein Urine Glucose (UA) Urine Ketones Urine Blood Urine Nitrite Urine Bilirubin Urine Urobilinogen Ur Leukocyte Esterase Urine WBC (Auto) Urine RBC (Auto) Ur Epithelial Cells 05/06/18 16:25 WBC RBC Hgb Hct MCV MCH MCHC RDW Plt Count MPV Absolute Neuts (auto) Neutrophils % Lymphocytes % Monocytes % Eosinophils % Basophils % Nucleated RBC % Sodium Potassium Chloride Carbon Dioxide Anion Gap BUN Creatinine Creat Clearance w eGFR POC Glucometer 113 Random Glucose Hemoglobin A1c % Calcium Total Bilirubin AST ALT Alkaline Phosphatase C-Reactive Protein Total Protein Albumin Urine Color Urine Appearance Urine pH Ur Specific [place] Urine Protein Urine Glucose (UA) Urine Ketones Urine Blood Urine Nitrite Urine Bilirubin Urine Urobilinogen Ur Leukocyte Esterase Urine WBC (Auto) Urine RBC (Auto) Ur Epithelial Cells Active Medications Generic Name Dose Route Start Last Admin Trade Name Freq PRN Reason Stop Dose Admin Aspirin 81 mg 05/06/18 10:00 05/06/18 09:23 Ecotrin - PO 81 mg DAILY CHANDRAKANT Administration Atorvastatin Calcium 20 mg 05/05/18 22:00 05/05/18 22:48 Lipitor - PO 20 mg HS CHANDRAKANT Administration Collagenase 1 applic 05/05/18 19:00 05/06/18 09:24 Santyl - TP 1 applic DAILY CHANDRAKANT Administration Enoxaparin Sodium 40 mg 05/06/18 10:00 05/06/18 09:22 Lovenox - SQ 40 mg DAILY CHANDRAKANT Administration Gabapentin 300 mg 05/05/18 22:00 05/06/18 13:53 Neurontin - PO 300 mg TID CHANDRAKANT Administration Glipizide 5 mg 05/06/18 18:05 Glucotrol - PO BIDAC CHANDRAKANT Piperacillin Sod/Tazobactam 50 mls @ 100 mls/hr 05/05/18 18:00 05/06/18 09:22 Sod 3.375 gm/ Dextrose IVPB 100 mls/hr Q8H-IV CHANDRAKANT Administration Protocol Insulin Aspart 1 vial 05/05/18 16:30 05/06/18 16:39 Novolog Vial Sliding Scale - SQ Not Given ACHS [facility] Protocol Insulin Detemir 20 units 05/05/18 22:00 05/05/18 23:01 Levemir Vial SQ 20 unit HS CHANDRAKANT Administration Levothyroxine Sodium 50 mcg 05/06/18 07:00 05/06/18 06:30 Synthroid - PO 50 mcg 0700 CHANDRAKANT Administration Metoprolol Succinate 50 mg 05/05/18 22:00 05/06/18 09:23 Toprol Xl - PO 50 mg BID CHANDRAKANT Administration Ramipril 5 mg 05/05/18 22:00 05/06/18 09:23 Altace - PO 5 mg BID CHANDRAKANT Administration ASSESSMENT/PLAN: 77 yof HTN, HLD, CAD s/p stent, 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 -Left heel ulcer wound infection, r/o osteomyelitis -IDDM, A1c 8.4 -Ischemia CM (last EF in 2017 40% per charts) -Chronic systolic dysfunction -HTN -HLD Plan: ID input noted. Wound cx noted. Zosyn. patient seen with Dr. Pitts, recommend non contrast CT left foot, ordered. ESR/CRP, borderline elevated. Vascular surgery input. ISS/diabetic diet. Hold metformin for now. Glipizide to be held if NPO. Lantus 20 units hs. Continue metoprolol/ramipril/levothyroxine/gabapentin DVTPPx with lovenox. Dispo planning pending resolution of medical issues. Plan discussed with patient and nursing, all questions answered Care co-ordinated with Dr. Pitts. Visit type - Emergency Visit Emergency Visit: Yes ED Registration Date: 05/05/18 Care time: The patient presented to the Emergency Department on the above date and was hospitalized for further evaluation of their emergent condition. - New Patient This patient is new to me today: Yes Date on this admission: 05/06/18 - Critical Care Critical Care patient: No - Discharge Referral Referred to [facility] Med P.C.: No
--- NOTE | 2018-05-06 20:25 | PN ---
Progress Note, Physician History of Present Illness: Pt seen and examined. Events/labs reviewed. Still some pain in Lt foot but no other specific complaints. - Current Medication List Current Medications: Active Medications Aspirin (Ecotrin -) 81 mg PO DAILY [facility] Last Admin: 05/06/18 09:23 Dose: 81 mg Atorvastatin Calcium (Lipitor -) 20 mg PO [facility] Last Admin: 05/05/18 22:48 Dose: 20 mg Collagenase (Santyl -) 1 applic TP DAILY [facility] Last Admin: 05/06/18 09:24 Dose: 1 applic Enoxaparin Sodium (Lovenox -) 40 mg SQ DAILY [facility] Last Admin: 05/06/18 09:22 Dose: 40 mg Gabapentin (Neurontin -) 300 mg PO TID [facility] Last Admin: 05/06/18 13:53 Dose: 300 mg [facility] Sod/Tazobactam (Sod 3.375 gm/ Dextrose) 50 mls @ 100 mls/hr IVPB Q8H-IV [facility]; Protocol Last Admin: 05/06/18 18:28 Dose: 100 mls/hr Insulin Aspart (Novolog Vial Sliding Scale -) 1 vial SQ [facility]; Protocol Last Admin: 05/06/18 16:39 Dose: Not Given Insulin Detemir (Levemir Vial) 20 units SQ [facility] Last Admin: 05/05/18 23:01 Dose: 20 unit Levothyroxine Sodium (Synthroid -) 50 mcg PO 0700 [facility] Last Admin: 05/06/18 06:30 Dose: 50 mcg Metoprolol Succinate (Toprol Xl -) 50 mg PO BID [facility] Last Admin: 05/06/18 09:23 Dose: 50 mg Ramipril (Altace -) 5 mg PO BID [facility] Last Admin: 05/06/18 09:23 Dose: 5 mg - Objective Vital Signs: Vital Signs Temperature 98.4 F 05/06/18 15:15 Pulse Rate 67 05/06/18 15:15 Respiratory Rate 18 05/06/18 20:05 Blood Pressure 101/50 L 05/06/18 15:15 O2 Sat by Pulse Oximetry (%) 98 05/06/18 20:05 Constitutional: Yes: No Distress, Calm Cardiovascular: Yes: Regular Rate and Rhythm Respiratory: Yes: Regular Gastrointestinal: Yes: Normal Bowel Sounds, Soft Extremities: Yes: Erythema Wound/Incision: Yes: Other (Lt heel ulcer with mild drainage, Lt foot mild erythema) Neurological: Yes: Alert Labs: CBC, BMP 05/06/18 06:30 05/06/18 06:30 INR, PTT INR 1.08 (0.83-1.09) 05/05/18 10:45 Microbiology 05/05/18 10:45 Blood - Peripheral Venous Blood Culture - Preliminary NO GROWTH OBTAINED AFTER 24 HOURS, INCUBATION TO CONTINUE FOR 4 DAYS. 05/05/18 10:45 Blood - Peripheral Venous Blood Culture - Preliminary NO GROWTH OBTAINED AFTER 24 HOURS, INCUBATION TO CONTINUE FOR 4 DAYS. 05/05/18 10:36 Foot - Left Heel MRSA Screen - Final NO MRSA ISOLATED 05/05/18 10:41 Foot - Left Heel Gram Stain - Final 05/05/18 10:41 Foot - Left Heel Wound Culture - Preliminary Presumptive Mssa (Pbp2a Neg) Problem List - Problems (1) Diabetes Code(s): E11.9 - TYPE 2 DIABETES MELLITUS WITHOUT COMPLICATIONS Qualifiers: Diabetes mellitus type: type 2 Diabetes mellitus care home insulin use: with terminal gauger supervisor use Diabetes mellitus complication status: with skin complications Diabetes mellitus complication detail: with foot ulcer Qualified Code(s): E11.621 - Type 2 diabetes mellitus with foot ulcer; L97.509 - Non-pressure chronic ulcer of other part of unspecified foot with unspecified severity; Z79.4 - custodial (current) use of insulin (2) 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 Code(s): E11.621 - TYPE 2 DIABETES MELLITUS WITH FOOT ULCER; L97.509 - NON- PRESSURE CHRONIC ULCER OTH PRT UNSP FOOT W UNSP SEVERITY (3) Pseudomonas aeruginosa infection Code(s): A49.8 - OTHER BACTERIAL INFECTIONS OF UNSPECIFIED SITE (4) Ankle fracture, left Code(s): S82.892A - OTH FRACTURE OF LEFT LOWER LEG, INIT FOR CLOS FX Qualifiers: Encounter type: initial encounter Fracture type: closed Qualified Code(s) : S82.892A - Other fracture of left lower leg, initial encounter for closed fracture (5) CAD (coronary artery disease) Code(s): I25.10 - ATHSCL HEART DISEASE OF [place] CORONARY ARTERY W/O ANG PCTRS Qualifiers: [place] vs. transplanted heart: [place] heart Associated angina: without angina (6) Hypothyroidism Code(s): E03.9 - HYPOTHYROIDISM, UNSPECIFIED (7) T2DM (type 2 diabetes mellitus) Code(s): E11.9 - TYPE 2 DIABETES MELLITUS WITHOUT COMPLICATIONS Assessment/Plan Infected Diabetic foot ulcer/Lt foot cellulitis Uncontrolled DM with neuropathy CAD HTN Hypothyroidism -- wound culture results noted +staph aureus (also growth of pseudomonas in recent culture) -- continue current antibiotic for now -- awaiting CT foot -- Podiatry following continue wound care needs tight glycemic control
[2018-05-06] MEDS: ATORVASTATIN CA 20 MG TABLET (FP) PO SCH (22:21)
[2018-05-06] MEDS: INSULIN (LEVEMIR) 100 UNITS/ML UNITS SQ SCH (22:23)
[2018-05-07] MEDS ORDERED: PIPERACILLIN/TAZOBACTAM 3.375 GM VIAL IVPB ONE ×3 (01:37→16:45)
[2018-05-07] MEDS ORDERED: DEXTROSE 5%-WATER - 50 ML IVPB ONE ×3 (01:38→16:46)
[2018-05-07] MEDS: PIPERACILLIN/TAZOB 3.375 GM 3.375 GM in DEXTROSE 5%-WATER - 50 ML IVPB SCH ×3 (01:43→17:34)
[2018-05-07] MEDS: GABAPENTIN 300 MG CAPSULE (FP) PO SCH ×3 (06:32→21:05)
[2018-05-07] MEDS: LEVOTHYROXINE NA 50 MCG TABLET (FP) PO SCH (06:32)
[2018-05-07] MEDS: glipiZIDE 5 MG TABLET (FP) PO SCH ×2 (06:33→16:34)
[2018-05-07] MEDS: INSULIN SLIDING SCALE (NOVOLOG) 1 VIAL SQ SCH ×4 (07:23→21:05)
[2018-05-07] MEDS: ASPIRIN COATED 81 MG TABLET.EC PO SCH (09:45)
[2018-05-07] MEDS: COLLAGENASE CLOSTRIDIUM HIST. 30 GRAMS TUBE TP SCH (09:45)
[2018-05-07] MEDS: ENOXAPARIN NA (PORCINE) 40 MG/0.4 ML DISP.SYRIN SQ SCH (09:45)
[2018-05-07] MEDS: RAMIPRIL 5 MG CAPSULE (FP) PO SCH ×2 (09:45→21:05)
[2018-05-07] MEDS: metoPROLOL SUCCINATE 25 MG TAB.SR.24H (FP) PO SCH ×2 (09:45→21:05)
--- NOTE | 2018-05-07 11:58 | PN ---
Physical Exam: SUBJECTIVE: Patient seen and examined, no left foot pain or concerns. OBJECTIVE: Vital Signs Period Temp Pulse Resp BP Sys/Jonas Pulse Ox Last 24 Hr 98.2 F-98.9 F 67-98 18-20 100-119/50-82 97-98 GENERAL: The patient is awake, alert, and fully oriented, in no acute distress. HEAD: Normal with no signs of trauma. EYES: PERRL, extraocular movements intact, sclera anicteric, conjunctiva clear. No ptosis. ENT: Ears normal, nares patent, oropharynx clear without exudates, moist mucous membranes. NECK: Trachea midline, full range of motion, supple. LUNGS: Breath sounds equal, clear to auscultation bilaterally, no wheezes, no crackles, no accessory muscle use. HEART: Regular rate and rhythm, S1, S2 ABDOMEN: Soft, nontender, nondistended, normoactive bowel sounds, no guarding, no rebound, EXTREMITIES: left heel 2 cm ulcer with minimal yellowish foul smelling discharge , no erythema, minima edema ,non tender PSYCH: Normal mood, normal affect. SKIN: Warm, dry, normal turgor, no rashes or lesions noted Laboratory Results - last 24 hr 05/06/18 05/06/18 05/07/18 16:25 20:56 06:28 POC Glucometer 113 136 160 05/07/18 11:28 POC Glucometer 183 Active Medications Generic Name Dose Route Start Last Admin Trade Name Freq PRN Reason Stop Dose Admin Aspirin 81 mg 05/06/18 10:00 05/07/18 09:45 Ecotrin - PO 81 mg DAILY CHANDRAKANT Administration Atorvastatin Calcium 20 mg 05/05/18 22:00 05/06/18 22:21 Lipitor - PO 20 mg HS CHANDRAKANT Administration Collagenase 1 applic 05/05/18 19:00 05/07/18 09:45 Santyl - TP 1 applic DAILY CHANDRAKANT Administration Enoxaparin Sodium 40 mg 05/06/18 10:00 05/07/18 09:45 Lovenox - SQ 40 mg DAILY CHANDRAKANT Administration Gabapentin 300 mg 05/05/18 22:00 05/07/18 06:32 Neurontin - PO 300 mg TID CHANDRAKANT Administration Glipizide 5 mg 05/07/18 07:00 05/07/18 06:33 Glucotrol - PO 5 mg BIDAC CHANDRAKANT Administration Piperacillin Sod/Tazobactam 50 mls @ 100 mls/hr 05/05/18 18:00 05/07/18 09:45 Sod 3.375 gm/ Dextrose IVPB 100 mls/hr Q8H-IV CHANDRAKANT Administration Protocol Insulin Aspart 1 vial 05/05/18 16:30 05/07/18 11:55 Novolog Vial Sliding Scale - SQ 2 units ACHS CHANDRAKANT Administration Protocol Insulin Detemir 20 units 05/05/18 22:00 05/06/18 22:23 Levemir Vial SQ 20 unit HS CHANDRAKANT Administration Levothyroxine Sodium 50 mcg 05/06/18 07:00 05/07/18 06:32 Synthroid - PO 50 mcg 0700 CHANDRAKANT Administration Metoprolol Succinate 50 mg 05/05/18 22:00 05/07/18 09:45 Toprol Xl - PO 50 mg BID CHANDRAKANT Administration Ramipril 5 mg 05/05/18 22:00 05/07/18 09:45 Altace - PO 5 mg BID CHANDRAKANT Administration Microbiology 05/05/18 10:41 Foot - Left Heel Gram Stain - Final 05/05/18 10:41 Foot - Left Heel Wound Culture - Final Staphylococcus Aureus 05/05/18 10:45 Blood - Peripheral Venous Blood Culture - Preliminary NO GROWTH OBTAINED AFTER 48 HOURS, INCUBATION TO CONTINUE FOR 3 DAYS. 05/05/18 10:45 Blood - Peripheral Venous Blood Culture - Preliminary NO GROWTH OBTAINED AFTER 48 HOURS, INCUBATION TO CONTINUE FOR 3 DAYS. 05/05/18 21:00 Urine - Urine Clean Catch Urine Culture - Final NO GROWTH OBTAINED 05/05/18 10:36 Foot - Left Heel MRSA Screen - Final NO MRSA ISOLATED CT LE results reviewed ASSESSMENT/PLAN: 77 yof HTN, HLD, CAD s/p stent, 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 -Left heel ulcer wound infection, r/o osteomyelitis -IDDM, A1c 8.4 -Ischemia CM (last EF in 2017 40% per charts) -Chronic systolic dysfunction -HTN -HLD Plan: CT LE noted, discussed with Dr. Gotti, limited evaluation. suggest MRI with contrast vs bone scan based on clinical suspicion. Wound improved, also ESR/CRP not very suspicious for osteomyelitis. Discuss with Dr. Pitts if additional imaging indicated (message left) Wound cx with MSSA, prior wound cx with pseudomonas On Zosyn day 3, follow up. Vascular surgery input. ISS/diabetic diet. Hold metformin for now. Glipizide to be held if NPO. Lantus 20 units hs. Continue metoprolol/ramipril/levothyroxine/gabapentin DVTPPx with lovenox. Dispo planning pending ID/podiatry input Plan discussed with patient and nursing, all questions answered Discussed with Dr. Gotti, radiologist. Interval labs Visit type - Emergency Visit Emergency Visit: Yes ED Registration Date: 05/05/18 Care time: The patient presented to the Emergency Department on the above date and was hospitalized for further evaluation of their emergent condition. - New Patient This patient is new to me today: No - Critical Care Critical Care patient: No - Discharge Referral Referred to [facility] No
--- NOTE | 2018-05-07 13:12 | PN ---
Progress Note (short form) - Note Progress Note: FUV left heel. ct inconclusive for om, +foul smelling odor left heel, +granulating well, - drainage, +improved cellulitis om? grade 2-3 wound IVABX as per ID. Medicine to order a MRI based on discussion with radiology eventhough may be a limited study. Recommend IVABX. Wound care. Minimal weight bearing. Would recommend rehab for immobilization(limit walking) to a wheelchair and follow up in wound care for skin substitute and possible TCC cast for immobilization.
--- NOTE | 2018-05-07 19:05 | PN ---
Progress Note, Physician History of Present Illness: Pt remains afebrile. No new complaints. CT results noted. - Current Medication List Current Medications: Active Medications Aspirin (Ecotrin -) 81 mg PO DAILY [facility] Last Admin: 05/07/18 09:45 Dose: 81 mg Atorvastatin Calcium (Lipitor -) 20 mg PO HS [facility] Last Admin: 05/06/18 22:21 Dose: 20 mg Collagenase (Santyl -) 1 applic TP DAILY [facility] Last Admin: 05/07/18 09:45 Dose: 1 applic Enoxaparin Sodium (Lovenox -) 40 mg SQ DAILY [facility] Last Admin: 05/07/18 09:45 Dose: 40 mg Gabapentin (Neurontin -) 300 mg PO TID [facility] Last Admin: 05/07/18 14:44 Dose: 300 mg Glipizide (Glucotrol -) 5 mg PO BIDAC [facility] Last Admin: 05/07/18 16:34 Dose: 5 mg Piperacillin Sod/Tazobactam (Sod 3.375 gm/ Dextrose) 50 mls @ 100 mls/hr IVPB Q8H-IV [facility]; Protocol Last Admin: 05/07/18 17:34 Dose: 100 mls/hr Insulin Aspart (Novolog Vial Sliding Scale -) 1 vial SQ [facility]; Protocol Last Admin: 05/07/18 16:29 Dose: Not Given Insulin Detemir (Levemir Vial) 20 units SQ [facility] Last Admin: 05/06/18 22:23 Dose: 20 unit Levothyroxine Sodium (Synthroid -) 50 mcg PO 0700 [facility] Last Admin: 05/07/18 06:32 Dose: 50 mcg Metoprolol Succinate (Toprol Xl -) 50 mg PO BID [facility] Last Admin: 05/07/18 09:45 Dose: 50 mg Ramipril (Altace -) 5 mg PO BID [facility] Last Admin: 05/07/18 09:45 Dose: 5 mg - Objective Vital Signs: Vital Signs Temperature 98.5 F 05/07/18 10:00 Pulse Rate 73 05/07/18 10:00 Respiratory Rate 20 05/07/18 06:44 Blood Pressure 115/82 05/07/18 10:00 O2 Sat by Pulse Oximetry (%) 97 05/07/18 09:00 Constitutional: Yes: No Distress, Calm Cardiovascular: Yes: Regular Rate and Rhythm Respiratory: Yes: Regular Gastrointestinal: Yes: Normal Bowel Sounds, Soft Wound/Incision: Yes: Dressing Dry and Intact Labs: CBC, BMP 05/06/18 06:30 05/06/18 06:30 INR, PTT INR 1.08 (0.83-1.09) 05/05/18 10:45 Microbiology 05/05/18 10:41 Foot - Left Heel Gram Stain - Final 05/05/18 10:41 Foot - Left Heel Wound Culture - Final Staphylococcus Aureus 05/05/18 10:45 Blood - Peripheral Venous Blood Culture - Preliminary NO GROWTH OBTAINED AFTER 48 HOURS, INCUBATION TO CONTINUE FOR 3 DAYS. 05/05/18 10:45 Blood - Peripheral Venous Blood Culture - Preliminary NO GROWTH OBTAINED AFTER 48 HOURS, INCUBATION TO CONTINUE FOR 3 DAYS. 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 laborer marine terminal use Diabetes mellitus complication status: with skin complications Diabetes mellitus complication detail: with foot ulcer Qualified Code(s): E11.621 - Type 2 diabetes mellitus with foot ulcer; L97.509 - Non-pressure chronic ulcer of other part of unspecified foot with unspecified severity; Z79.4 - terminal operations manager (current) use of insulin (2) 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 Code(s): E11.621 - TYPE 2 DIABETES MELLITUS WITH FOOT ULCER; L97.509 - NON- PRESSURE CHRONIC ULCER OTH PRT UNSP FOOT W UNSP SEVERITY (3) Pseudomonas aeruginosa infection Code(s): A49.8 - OTHER BACTERIAL INFECTIONS OF UNSPECIFIED SITE (4) Ankle fracture, left Code(s): S82.892A - OTH FRACTURE OF LEFT LOWER LEG, INIT FOR CLOS FX Qualifiers: Encounter type: initial encounter Fracture type: closed Qualified Code(s) : S82.892A - Other fracture of left lower leg, initial encounter for closed fracture (5) CAD (coronary artery disease) Code(s): I25.10 - ATHSCL HEART DISEASE OF [place] CORONARY ARTERY W/O ANG PCTRS Qualifiers: [place] vs. transplanted heart: [place] heart Associated angina: without angina (6) Hypothyroidism Code(s): E03.9 - HYPOTHYROIDISM, UNSPECIFIED (7) T2DM (type 2 diabetes mellitus) Code(s): E11.9 - TYPE 2 DIABETES MELLITUS WITHOUT COMPLICATIONS Assessment/Plan Infected Diabetic foot ulcer/Lt foot cellulitis/Possible OM Hx of Ankle fracture with hardware Uncontrolled DM with neuropathy CAD HTN Hypothyroidism -- wound culture results noted +staph aureus and previously Pseudomonas -- CT imaging results noted -- suggest IV antibiotics for 6 wks -- Podiatry following continue wound care needs tight glycemic control
[2018-05-07] MEDS: ATORVASTATIN CA 20 MG TABLET (FP) PO SCH (21:05)
[2018-05-07] MEDS: INSULIN (LEVEMIR) 100 UNITS/ML UNITS SQ SCH (21:06)
[2018-05-08] MEDS ORDERED: DEXTROSE 5%-WATER - 50 ML IVPB ONE ×3 (00:59→17:34)
[2018-05-08] MEDS ORDERED: PIPERACILLIN/TAZOBACTAM 3.375 GM VIAL IVPB ONE ×3 (00:59→17:34)
[2018-05-08] MEDS: PIPERACILLIN/TAZOB 3.375 GM 3.375 GM in DEXTROSE 5%-WATER - 50 ML IVPB SCH ×3 (01:11→17:42)
[2018-05-08] MEDS: glipiZIDE 5 MG TABLET (FP) PO SCH ×2 (06:38→16:25)
[2018-05-08] MEDS: LEVOTHYROXINE NA 50 MCG TABLET (FP) PO SCH (06:38)
[2018-05-08] MEDS: GABAPENTIN 300 MG CAPSULE (FP) PO SCH ×3 (06:38→20:59)
[2018-05-08] MEDS: INSULIN SLIDING SCALE (NOVOLOG) 1 VIAL SQ SCH ×4 (06:40→20:59)
[2018-05-08 08:11] LABS: ANION GAP 4 MMOL/L (8-16); BLOOD UREA NITROGEN 21 mg/dL (7-18); CALCIUM 8.9 mg/dL (8.5-10.1); CHLORIDE 105 mmol/L (98-107); CO2 29 mmol/L (21-32); CREATININE 0.7 mg/dL (0.55-1.3); GLUCOSE,RANDOM 114 mg/dL (74-106); POTASSIUM 4.5 mmol/L (3.5-5.1); SODIUM 138 mmol/L (136-145)
[2018-05-08 08:50] LABS: BASO % 1.3 % (0-2.0); EOS % 7.3 % (0-4.5); HEMATOCRIT 33.3 % (32.4-45.2); HEMOGLOBIN 11.7 GM/dL (10.7-15.3); MCH 29.4 pg (25.7-33.7); MCHC 35.1 g/dl (32.0-36.0); MEAN CELL VOLUME 83.8 fl (80-96); MEAN PLT VOLUME 8.5 fl (7.5-11.1); MONO % 11.2 % (3.8-10.2); NEUT % 52.2 % (42.8-82.8); PLATELET COUNT 206 K/MM3 (134-434); RBC 3.97 M/mm3 (3.60-5.2); RDW 14.4 % (11.6-15.6); WHITE BLOOD COUNT 3.3 K/mm3 (4.0-10.0)
[2018-05-08] MEDS ORDERED: PT OWN MED DRAWER 7, Y5N ONE ×2 (09:35→20:37)
[2018-05-08] MEDS: RAMIPRIL 5 MG CAPSULE (FP) PO SCH ×2 (09:38→20:59)
[2018-05-08] MEDS: metoPROLOL SUCCINATE 25 MG TAB.SR.24H (FP) PO SCH ×2 (09:39→20:59)
[2018-05-08] MEDS: ASPIRIN COATED 81 MG TABLET.EC PO SCH (09:39)
[2018-05-08] MEDS: ENOXAPARIN NA (PORCINE) 40 MG/0.4 ML DISP.SYRIN SQ SCH (09:42)
[2018-05-08] MEDS: COLLAGENASE CLOSTRIDIUM HIST. 30 GRAMS TUBE TP SCH (09:50)
--- NOTE | 2018-05-08 10:09 | PN ---
Progress Note (short form) - Note Progress Note: FUV left heel. vss, tmax 98.1 +improved foul smelling odor left heel, +granulating well, -drainage, +improved cellulitis, +decreased in depth om? grade 2-3 wound improving IVABX as per ID. Santyl dressing applioed. Change santyl dressing change daily to betadine daily until further notice. Patient not sure if she wants to go home or to rehab.
--- NOTE | 2018-05-08 12:30 | PN ---
Progress Note, Physician History of Present Illness: doing well no issues - Current Medication List Current Medications: Active Medications Aspirin (Ecotrin -) 81 mg PO DAILY [facility] Last Admin: 05/08/18 09:39 Dose: 81 mg Atorvastatin Calcium (Lipitor -) 20 mg PO HS [facility] Last Admin: 05/07/18 21:05 Dose: 20 mg Collagenase (Santyl -) 1 applic TP DAILY [facility] Last Admin: 05/07/18 09:45 Dose: 1 applic Enoxaparin Sodium (Lovenox -) 40 mg SQ DAILY [facility] Last Admin: 05/08/18 09:42 Dose: 40 mg Gabapentin (Neurontin -) 300 mg PO TID [facility] Last Admin: 05/08/18 06:38 Dose: 300 mg Glipizide (Glucotrol -) 5 mg PO BIDAC [facility] Last Admin: 05/08/18 06:38 Dose: 5 mg Piperacillin Sod/Tazobactam (Sod 3.375 gm/ Dextrose) 50 mls @ 100 mls/hr IVPB Q8H-IV [facility]; Protocol Last Admin: 05/08/18 09:39 Dose: 100 mls/hr Insulin Aspart (Novolog Vial Sliding Scale -) 1 vial SQ [facility]; Protocol Last Admin: 05/08/18 11:36 Dose: 6 units Insulin Detemir (Levemir Vial) 20 units SQ [facility] Last Admin: 05/07/18 21:06 Dose: 20 unit Levothyroxine Sodium (Synthroid -) 50 mcg PO 0700 [facility] Last Admin: 05/08/18 06:38 Dose: 50 mcg Metformin HCl (Glucophage -) 500 mg PO BID@0700,1630 [facility] Metoprolol Succinate (Toprol Xl -) 50 mg PO BID [facility] Last Admin: 05/08/18 09:39 Dose: 50 mg Ramipril (Altace -) 5 mg PO BID [facility] Last Admin: 05/08/18 09:38 Dose: 5 mg - Objective Vital Signs: Vital Signs Temperature 98.4 F 05/08/18 09:05 Pulse Rate 64 05/08/18 09:05 Respiratory Rate 18 05/08/18 09:05 Blood Pressure 110/56 L 05/08/18 09:05 O2 Sat by Pulse Oximetry (%) 98 05/07/18 21:00 Constitutional: Yes: No Distress, Calm Cardiovascular: Yes: Regular Rate and Rhythm Respiratory: Yes: Regular, CTA Bilaterally Gastrointestinal: Yes: Normal Bowel Sounds, Soft Musculoskeletal: Yes: WNL Extremities: Yes: Other Wound/Incision: Yes: Dressing Dry and Intact Neurological: Yes: Alert, Oriented Psychiatric: Yes: Alert, Oriented Labs: CBC, BMP 05/08/18 06:00 05/08/18 06:00 INR, PTT INR 1.08 (0.83-1.09) 05/05/18 10:45 Assessment/Plan Assessment/Plan (1) Wound infection Code(s): T14.8XXA - OTHER INJURY OF UNSPECIFIED BODY REGION, INITIAL ENCOUNTER; L08.9 - LOCAL INFECTION OF THE SKIN AND SUBCUTANEOUS TISSUE, UNSP (2) 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 Code(s): E11.621 - TYPE 2 DIABETES MELLITUS WITH FOOT ULCER; L97.509 - NON- PRESSURE CHRONIC ULCER OTH PRT UNSP FOOT W UNSP SEVERITY (3) Pseudomonas aeruginosa infection Code(s): A49.8 - OTHER BACTERIAL INFECTIONS OF UNSPECIFIED SITE (4) Diabetes Code(s): E11.9 - TYPE 2 DIABETES MELLITUS WITHOUT COMPLICATIONS Qualifiers: Diabetes mellitus type: type 2 Diabetes mellitus terminal gauger insulin use: with nursing home use Diabetes mellitus complication status: with skin complications Diabetes mellitus complication detail: with foot ulcer Qualified Code(s): E11.621 - Type 2 diabetes mellitus with foot ulcer; L97.509 - Non-pressure chronic ulcer of other part of unspecified foot with unspecified severity; Z79.4 - long-term (current) use of insulin (5) CAD (coronary artery disease) Code(s): I25.10 - ATHSCL HEART DISEASE OF [place] CORONARY ARTERY W/O ANG PCTRS Qualifiers: [place] vs. transplanted heart: [place] heart Associated angina: without angina (6) HTN (hypertension) Code(s): I10 - ESSENTIAL (PRIMARY) HYPERTENSION Qualifiers: Hypertension type: essential hypertension Qualified Code(s): I10 - Essential (primary) hypertension (7) Hypothyroidism Code(s): E03.9 - HYPOTHYROIDISM, UNSPECIFIED (8) Obesity (BMI 30.0-34.9) Code(s): E66.9 - OBESITY, UNSPECIFIED (9) CHF (congestive heart failure) Code(s): I50.9 - HEART FAILURE, UNSPECIFIED Qualifiers: Heart failure type: systolic Heart failure chronicity: chronic Qualified Code(s): I50.22 - Chronic systolic (congestive) heart failure (10) Hyperlipidemia Code(s): E78.5 - HYPERLIPIDEMIA, UNSPECIFIED plan continue current mgmt continue abx for 6 weeks will need zosyn rest as per the team
--- NOTE | 2018-05-08 12:54 | DS ---
Physical Examination Vital Signs: Vital Signs Temperature 98.4 F 05/08/18 09:05 Pulse Rate 64 05/08/18 09:05 Respiratory Rate 18 05/08/18 09:05 Blood Pressure 110/56 L 05/08/18 09:05 O2 Sat by Pulse Oximetry (%) 98 05/07/18 21:00 Constitutional: Yes: Well Nourished, No Distress, Calm Cardiovascular: Yes: WNL, Regular Rate and Rhythm Respiratory: Yes: WNL, Regular, CTA Bilaterally. No: Accessory Muscle Use, SOB , Tachypnea, Wheezes Gastrointestinal: Yes: WNL, Normal Bowel Sounds, Soft. 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 Wound culture grew staph auereus. Wbc count wnl. ESR mild elevation. CT of LE noted, unable to r/o osteo, pt evaluated by ID and podiatry, recommends 6 weeks of empiric iv antibx based on clinical suspicion. Pt is otherwise medically stable. Vitals stable, labs unremarkable. blood cultures neg. Pt is medically stable for discharge to SNF with PICC for completion of iv antibx course. Case discussed with ID. 32 MINUTES SPENT IN DISCHARGE PLANNING Condition: Stable - Instructions Diet, Activity, Other Instructions: Change santyl dressing change daily to betadine daily offloading boot, avoid weight bearing to LLE zosyn for 5 weeks via PICC f/u as directed Referrals: Mitzi Osorio MD [Staff Physician] - Tawanda Pitts DPM [Staff Physician] - 1 Week Matt Queen MD [Primary Care Provider] - 1 Week [facility]position: [facility] - Home Medications Comprehensive Discharge Medication List: Ambulatory Orders Aspirin [Aspirin EC] 81 mg PO DAILY 03/12/16 Atorvastatin Ca [Lipitor] 20 mg PO HS 03/12/16 Cholecalciferol (Vitamin D3) [Vitamin D -] 2,000 unit PO DAILY 03/12/16 Gabapentin 300 mg PO TID 03/12/16 Glipizide 5 mg PO BIDAC 03/12/16 Insulin Glargine,Hum.rec.anlog [Lantus Solostar PEN -] 20 units SQ HS 03/12/16 Levothyroxine [Synthroid -] 50 mcg PO DAILY@0700 03/12/16 Liraglutide [Victoza -] 1.2 mg SQ DAILY@0700 03/12/16 metFORMIN HCL [Metformin HCl] 500 mg PO BIDAC 03/12/16 Metoprolol Succinate [Toprol XL -] 50 mg PO BID 08/17/17 Ramipril 5 mg PO BID 08/17/17 Acetaminophen [Tylenol .Regular Strength -] 650 mg PO Q4H PRN tablet 08/22/17 Alendronate Sodium [Binosto] 70 mg PO WEEKLY 05/05/18 Piperacillin/Tazob 3.375 gm [Zosyn -] 3.375 gm IVPB Q8H-IV 45 Days vial
[2018-05-08] MEDS: metFORMIN HCL 500 MG TABLET (FP) PO SCH (16:25)
[2018-05-08] MEDS ORDERED: INSULIN (NOVOLOG) ASPART 100 UNITS/ML 10ML VIAL ONE (20:38)
[2018-05-08] MEDS: ATORVASTATIN CA 20 MG TABLET (FP) PO SCH (20:59)
[2018-05-08] MEDS: INSULIN (LEVEMIR) 100 UNITS/ML UNITS SQ SCH (20:59)
[2018-05-09] MEDS ORDERED: PIPERACILLIN/TAZOBACTAM 3.375 GM VIAL IVPB ONE ×2 (01:00→10:49)
[2018-05-09] MEDS ORDERED: DEXTROSE 5%-WATER - 50 ML IVPB ONE ×2 (01:00→10:49)
[2018-05-09] MEDS: PIPERACILLIN/TAZOB 3.375 GM 3.375 GM in DEXTROSE 5%-WATER - 50 ML IVPB SCH ×2 (01:09→10:54)
[2018-05-09] MEDS: glipiZIDE 5 MG TABLET (FP) PO SCH (06:16)
[2018-05-09] MEDS: GABAPENTIN 300 MG CAPSULE (FP) PO SCH ×2 (06:16→15:48)
[2018-05-09] MEDS: metFORMIN HCL 500 MG TABLET (FP) PO SCH (06:16)
[2018-05-09] MEDS: INSULIN SLIDING SCALE (NOVOLOG) 1 VIAL SQ SCH ×2 (06:16→12:24)
[2018-05-09] MEDS: LEVOTHYROXINE NA 50 MCG TABLET (FP) PO SCH (06:16)
[2018-05-09 06:52] VITALS: TEMP 98.1
[2018-05-09] MEDS: metoPROLOL SUCCINATE 25 MG TAB.SR.24H (FP) PO SCH (10:53)
[2018-05-09] MEDS: ENOXAPARIN NA (PORCINE) 40 MG/0.4 ML DISP.SYRIN SQ SCH (10:53)
[2018-05-09] MEDS: COLLAGENASE CLOSTRIDIUM HIST. 30 GRAMS TUBE TP SCH (10:54)
[2018-05-09] MEDS: RAMIPRIL 5 MG CAPSULE (FP) PO SCH (10:54)
[2018-05-09] MEDS: ASPIRIN COATED 81 MG TABLET.EC PO SCH (10:54)
--- NOTE | 2018-05-09 11:44 | PN ---
Progress Note, Physician History of Present Illness: patient stable doing well n new issues - Current Medication List Current Medications: Active Medications Aspirin (Ecotrin -) 81 mg PO DAILY [facility] Last Admin: 05/09/18 10:54 Dose: 81 mg Atorvastatin Calcium (Lipitor -) 20 mg PO HS [facility] Last Admin: 05/08/18 20:59 Dose: 20 mg Collagenase (Santyl -) 1 applic TP DAILY [facility] Last Admin: 05/09/18 10:54 Dose: 1 applic Enoxaparin Sodium (Lovenox -) 40 mg SQ DAILY [facility] Last Admin: 05/09/18 10:53 Dose: 40 mg Gabapentin (Neurontin -) 300 mg PO TID [facility] Last Admin: 05/09/18 06:16 Dose: 300 mg Glipizide (Glucotrol -) 5 mg PO BIDAC [facility] Last Admin: 05/09/18 06:16 Dose: 5 mg Piperacillin Sod/Tazobactam (Sod 3.375 gm/ Dextrose) 50 mls @ 100 mls/hr IVPB Q8H-IV [facility]; Protocol Last Admin: 05/09/18 10:54 Dose: 100 mls/hr Insulin Aspart (Novolog Vial Sliding Scale -) 1 vial SQ [facility]; Protocol Last Admin: 05/09/18 06:16 Dose: 2 units Insulin Detemir (Levemir Vial) 20 units SQ [facility] Last Admin: 05/08/18 20:59 Dose: 20 unit Levothyroxine Sodium (Synthroid -) 50 mcg PO 0700 [facility] Last Admin: 05/09/18 06:16 Dose: 50 mcg Metformin HCl (Glucophage -) 500 mg PO BID@0700,1630 [facility] Last Admin: 05/09/18 06:16 Dose: 500 mg Metoprolol Succinate (Toprol Xl -) 50 mg PO BID [facility] Last Admin: 05/09/18 10:53 Dose: 50 mg Ramipril (Altace -) 5 mg PO BID [facility] Last Admin: 05/09/18 10:54 Dose: 5 mg - Objective Vital Signs: Vital Signs Temperature 98.1 F 05/09/18 06:51 Pulse Rate 68 05/09/18 06:51 Respiratory Rate 20 05/09/18 06:51 Blood Pressure 125/62 05/09/18 06:51 O2 Sat by Pulse Oximetry (%) 97 05/08/18 21:07 Constitutional: Yes: No Distress, Calm Cardiovascular: Yes: Regular Rate and Rhythm Respiratory: Yes: Regular, CTA Bilaterally Gastrointestinal: Yes: Normal Bowel Sounds, Soft Musculoskeletal: Yes: WNL Extremities: Yes: Other Neurological: Yes: Alert, Oriented Psychiatric: Yes: Alert, Oriented Labs: CBC, BMP 05/08/18 06:00 05/08/18 06:00 INR, PTT INR 1.08 (0.83-1.09) 05/05/18 10:45 Assessment/Plan Assessment/Plan (1) Wound infection Code(s): T14.8XXA - OTHER INJURY OF UNSPECIFIED BODY REGION, INITIAL ENCOUNTER; L08.9 - LOCAL INFECTION OF THE SKIN AND SUBCUTANEOUS TISSUE, UNSP (2) 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 Code(s): E11.621 - TYPE 2 DIABETES MELLITUS WITH FOOT ULCER; L97.509 - NON- PRESSURE CHRONIC ULCER OTH PRT UNSP FOOT W UNSP SEVERITY (3) Pseudomonas aeruginosa infection Code(s): A49.8 - OTHER BACTERIAL INFECTIONS OF UNSPECIFIED SITE (4) Diabetes Code(s): E11.9 - TYPE 2 DIABETES MELLITUS WITHOUT COMPLICATIONS Qualifiers: Diabetes mellitus type: type 2 Diabetes mellitus longterm insulin use: with longterm use Diabetes mellitus complication status: with skin complications Diabetes mellitus complication detail: with foot ulcer Qualified Code(s): E11.621 - Type 2 diabetes mellitus with foot ulcer; L97.509 - Non-pressure chronic ulcer of other part of unspecified foot with unspecified severity; Z79.4 - halfway (current) use of insulin (5) CAD (coronary artery disease) Code(s): I25.10 - ATHSCL HEART DISEASE OF [place] CORONARY ARTERY W/O ANG PCTRS Qualifiers: [place] vs. transplanted heart: [place] heart Associated angina: without angina (6) HTN (hypertension) Code(s): I10 - ESSENTIAL (PRIMARY) HYPERTENSION Qualifiers: Hypertension type: essential hypertension Qualified Code(s): I10 - Essential (primary) hypertension (7) Hypothyroidism Code(s): E03.9 - HYPOTHYROIDISM, UNSPECIFIED (8) Obesity (BMI 30.0-34.9) Code(s): E66.9 - OBESITY, UNSPECIFIED (9) CHF (congestive heart failure) Code(s): I50.9 - HEART FAILURE, UNSPECIFIED Qualifiers: Heart failure type: systolic Heart failure chronicity: chronic Qualified Code(s): I50.22 - Chronic systolic (congestive) heart failure (10) Hyperlipidemia Code(s): E78.5 - HYPERLIPIDEMIA, UNSPECIFIED plan continue current mgmt continue abx for 6 weeks total patient has received one week--so 5 more weeks will need zosyn rest as per the team
--- NOTE | 2018-05-09 12:08 | PN ---
Progress Note, Physician Chief Complaint: pt sitting in bed in no acute distress. denies any chest pain, sob, n/v - Current Medication List Current Medications: Active Medications Aspirin (Ecotrin -) 81 mg PO DAILY [facility] Last Admin: 05/09/18 10:54 Dose: 81 mg Atorvastatin Calcium (Lipitor -) 20 mg PO HS [facility] Last Admin: 05/08/18 20:59 Dose: 20 mg Collagenase (Santyl -) 1 applic TP DAILY [facility] Last Admin: 05/09/18 10:54 Dose: 1 applic Enoxaparin Sodium (Lovenox -) 40 mg SQ DAILY [facility] Last Admin: 05/09/18 10:53 Dose: 40 mg Gabapentin (Neurontin -) 300 mg PO TID [facility] Last Admin: 05/09/18 06:16 Dose: 300 mg Glipizide (Glucotrol -) 5 mg PO BIDAC [facility] Last Admin: 05/09/18 06:16 Dose: 5 mg Piperacillin Sod/Tazobactam (Sod 3.375 gm/ Dextrose) 50 mls @ 100 mls/hr IVPB Q8H-IV [facility]; Protocol Last Admin: 05/09/18 10:54 Dose: 100 mls/hr Insulin Aspart (Novolog Vial Sliding Scale -) 1 vial SQ [facility]; Protocol Last Admin: 05/09/18 06:16 Dose: 2 units Insulin Detemir (Levemir Vial) 20 units SQ [facility] Last Admin: 05/08/18 20:59 Dose: 20 unit Levothyroxine Sodium (Synthroid -) 50 mcg PO 0700 [facility] Last Admin: 05/09/18 06:16 Dose: 50 mcg Metformin HCl (Glucophage -) 500 mg PO BID@0700,1630 [facility] Last Admin: 05/09/18 06:16 Dose: 500 mg Metoprolol Succinate (Toprol Xl -) 50 mg PO BID [facility] Last Admin: 05/09/18 10:53 Dose: 50 mg Ramipril (Altace -) 5 mg PO BID [facility] Last Admin: 05/09/18 10:54 Dose: 5 mg - Objective Vital Signs: Vital Signs Temperature 98.1 F 05/09/18 06:51 Pulse Rate 68 05/09/18 06:51 Respiratory Rate 20 05/09/18 06:51 Blood Pressure 125/62 05/09/18 06:51 O2 Sat by Pulse Oximetry (%) 97 05/08/18 21:07 Labs: CBC, BMP 05/08/18 06:00 05/08/18 06:00 INR, PTT INR 1.08 (0.83-1.09) 05/05/18 10:45 Assessment/Plan pending SNF placement, has been medically cleared for discharge.
[2018-05-09 14:35] VITALS: BP 133/58; PULSE 79
== END 2018-05-09 15:59 | DRG 638 ==
LOC: JER 09:33 → JERBED 13:36 → J8W 16:09
PROVIDERS: ADMIT Hospitalist; ATTEND Nurse Practitioner Family
PROC: 02HV33Z Insertion of Infusion Device into Superior Vena Cava, Percutaneous Approach (ICD-10-PCS; principal; 2018-05-08)
PROC: B548ZZA Ultrasonography of Superior Vena Cava, Guidance (ICD-10-PCS; 2018-05-08)
DX: E11.628 Type 2 diabetes mellitus with other skin complications (principal); L97.429 Non-pressure chronic ulcer of left heel and midfoot with unspecified severity; I50.22 Chronic systolic (congestive) heart failure; L03.116 Cellulitis of left lower limb; E11.621 Type 2 diabetes mellitus with foot ulcer; Z79.4 Long term (current) use of insulin; E78.5 Hyperlipidemia, unspecified; I25.10 Atherosclerotic heart disease of native coronary artery without angina pectoris; E66.9 Obesity, unspecified; I11.0 Hypertensive heart disease with heart failure; Z68.32 Body mass index [BMI] 32.0-32.9, adult; E11.40 Type 2 diabetes mellitus with diabetic neuropathy, unspecified; I25.5 Ischemic cardiomyopathy; B96.5 Pseudomonas (aeruginosa) (mallei) (pseudomallei) as the cause of diseases classified elsewhere; E11.65 Type 2 diabetes mellitus with hyperglycemia
CPT/HCPCS: 11042; 36415; 36569; 71045-TC-FY; 73630-TC-LT; 73700-TC-RT; 75820-TC-FY; 77001-TC-FY; 80048; 80053; 81003; 81015; 82962; 83036; 85025; 85610; 85651; 86140; 87040; 87070; 87081; 87086; 87186; 87205; 90688; 93005; 93010; 97116-GP; 97162-GP; 99285-25; C1751; G0008; G0277

== ENCOUNTER → 2018-05-25 | Day surgery (SDC) | payer OTHER, BC ==
--- NOTE | 2018-05-26 20:10 | PATH ---
Surgical Pathology Report Patient Name: TANMAY REINOSO [facility]. Rec. #: [id number] /Age/Gender: 1940 (Age: 77) / F Account: [id number] Location: RADIOLOGY [facility] Taken: 05/25/2018 Received: 05/25/2018 Reported: 05/26/2018 Physicians: Christie Jacobs M.D. Specimen(s) Received LEFT BREAST 10-2:00 Clinical History Palpable mass Ultrasound findings: Suspicious Large mass >8 cm Final Diagnosis BREAST, LEFT, 10-2:00; ULTRASOUND GUIDED CORE BIOPSY: INVASIVE LOBULAR CARCINOMA, NUCLEAR GRADE 2, WITH CLASSIC FEATURES. TUMOR MEASURES AT LEAST 1.5 CM IN THIS MATERIAL. Comment: Immunohistochemical stains performed and interpreted at [facility] show the tumor is positive for AE1/3; while negative for E-Cadherin, supportive of lobular phenotype. Results of Her2 (IHC) & Ki-67 studies pending and will be reported separately. Results of Estrogen Receptor (ER) and Progesterone Receptor (CA) studies performed on block "1" at [facility] are as follows: ER (clone [id number] mouse monoclonal antibody by [employer]): >95% nuclear staining with moderate to strong intensity (Positive). CA (clone16 mouse monoclonal antibody by [employer]): ~25% nuclear staining with moderate to strong intensity (Positive). Positive and negative controls (internal if applicable) show appropriate results. Formalin fixation and cold ischemic times are within current ASCO/CAP recommendations for ER, CA and Her2 testing. Electronically Signed Fela Singleton M.D. Addendum Reported: 05/30/2018 Addendum Diagnosis Results of Her2 (IHC) & Ki-67 studies performed at [place], [place] ([id number]) are as follows: Her2 IHC (EP3 from [employer], formerly known as [id number], using [employer] Polymer Refine detection kit): 1+ (Negative). Ki-67: ~5% (Low proliferative index). Positive and negative controls (internal if applicable) show appropriate results. Fela Singleton M.D. Gross Description Received in formalin labeled "left 10-2:00," are 4 lozano-yellow, cylindrical portions of fibroadipose tissue ranging from 1.0-1.6 cm in length and averaging 0.1 cm in diameter. The specimens are submitted in toto in one cassette. Time to formalin fixation: Less than one minute Total formalin fixation time: Approximately 6 hours. 05/25/201805/25/2018
== END | disposition home or self-care (01) ==
LOC: JRADUS-SUR 11:58
PROVIDERS: ATTEND Internal Medicine
PROC: 0HBU3ZX Excision of Left Breast, Percutaneous Approach, Diagnostic (ICD-10-PCS; principal; 2018-05-25)
DX: C50.912 Malignant neoplasm of unspecified site of left female breast (principal); Z17.0 Estrogen receptor positive status [ER+]; N63.20 Unspecified lump in the left breast, unspecified quadrant
CPT/HCPCS: 19083; 88305-TC; 88341-TC; 88342-TC

== ENCOUNTER 2018-08-24 08:30 | Inpatient (IN) | payer OTHER, BC ==
--- NOTE | 2018-08-17 13:22 | GENETICS ---
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 left achikkes torn tendon. left ankle fx repair 2018. mutiple hell debridements and infection - Smoking History Smoking history: Former smoker Have you smoked in the past 12 months: No If you are a former smoker, when did you quit?: 25yrs - Alcohol/Substance Use Hx Alcohol Use: No History of Substance Use: reports: None - Social History History of Recent Travel: No Family Disease History - Family Disease History Family Disease History: Diabetes: Father, Heart Disease: Father, Mother, Brother , Sister Genetic Assess-Family History A detailed 3 (three) generation pedigree was obtained. Genetic Assessment-Plan Discussion/Education: We discussed hereditary cancer predisposition testing in detail. In general, it is thought that only about 5-10% of all cancers is strongly hereditary while the remaining cancers are likely due to a combination of genetic and environmental factors (sporadic). With hereditary cancer, individuals are born with a mutation in a gene known to increase risk for developing cancer. Genetic testing is performed by analyzing the DNA code within genes of interest. We discussed the limitations and benefits of testing and possible results. Potential benefits of genetic testing include aiding in clinical management decisions, such as prophylactic surgeries, increased cancer screening, and/or hormonal therapies and identifying at risk family members. We also discussed concern about potential insurance discrimination, emotional ramifications, the possibility of invasive surgeries being recommended based on results, and the possibility of being at risk for cancer for which there is no proven screening protocol. We discussed the possible results (positive, negative, or inconclusive ). Inconclusive results may include but are not limited to variants of uncertain significance. A positive result would indicate that this individual is predisposed to certain types of cancer depending on the genetic mutation. We discussed that lifetime risks for BRCA carriers are up to 87% for breast cancer and 44% for ovarian cancer, amongst other cancer risks (pancreatic, prostate, male breast cancer, melanoma). Cancer risks and associated cancer types vary by gene mutation. Genes included in the panel are generally clinically actionable and a positive result could result in changes in management based on known cancer risk levels. Without genetic testing or if the testing does not reveal a clinically actionable mutation, this patient's risks may be estimated on personal and family history, and with the assistance of established risk calculators. Based on this patient's personal and family history, there is a possible inherited predisposition to cancer, therefore (test/tests) was offered. The patient decided to proceed with The individual declined/accepted professional genetic counseling. All questions were answered and the patient seemed to have a good understanding of our discussion today. Plan: The patient will be called/ have a follow up office visit for results in 2-4 weeks.
--- NOTE | 2018-08-17 13:31 | HP ---
Admitting History and Physical - Primary Care Physician PCP: Enoch Ware - Admission Chief Complaint: Left breast cancer History of Present Illness: 77 year old postmenapausal female who felt left breast mass 03/2018 and has had mutiple medical issues and delayed treatment for mass due to left heel debridement and infection which required ICC line placement and was admitting to [facility]. She eventually underwent mammogram and US 05/15/2018 shwoing a mass encompassing most of left breast with 2 separate suspicious masses extending from 10 to 2:00 region of left breast with largest mass 7.5x3.9x5.0cm and secnd 2 to 4:00 region 3x2.4x1.7cm. An US core bx on 2018 showed invasive lobular cancer ER/TX+HER2-. 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: Peripheral Neuropathy (with diabetic ulcers) Cardiovascular: Yes: CAD (Cardiac stentsx3 nd 2011), HTN, OK Musculoskeletal: Yes: Chronic low back pain, Osteoarthritis Endocrine: Yes: Diabetes Mellitus (IDDM), Hypothyroidism, Other - Past Surgical History Past Surgical History: Yes: Cholecystectomy (open 20's), Stent (x3 2008 and 2011 ) Additional Past Surgical History: left achilles torn tendon left hip fx 11 yrs ago left ankle fx mutiple heel debridements and infection 2018 - Smoking History Smoking history: Former smoker Have you smoked in the past 12 months: No If you are a former smoker, when did you quit?: 25yrs - Alcohol/Substance Use Hx Alcohol Use: No History of Substance Use: reports: None - Social History History of Recent Travel: No Home Medications - Allergies Allergies/Adverse Reactions: Allergies Allergy/AdvReac Type Severity Reaction Status Date / Time Gold Salts Allergy Verified 08/10/18 12:07 Iodinated Contrast- Oral and Allergy Verified 08/10/18 12:07 IV Dye silver Allergy Verified 08/10/18 12:07 contrast Allergy Uncoded 08/10/18 12:07 - Home Medications Home Medications: Ambulatory Orders Aspirin [Aspirin EC] 81 mg PO DAILY 03/12/16 Atorvastatin Ca [Lipitor] 20 mg PO HS 03/12/16 Cholecalciferol (Vitamin D3) [Vitamin D -] 2,000 unit PO DAILY 03/12/16 Gabapentin 300 mg PO TID 03/12/16 Glipizide 5 mg PO BIDAC 03/12/16 Insulin Glargine,Hum.rec.anlog [Lantus Solostar PEN -] 20 units SQ HS 03/12/16 Levothyroxine [Synthroid -] 50 mcg PO DAILY@0700 03/12/16 Liraglutide [Victoza -] 1.2 mg SQ DAILY@0700 03/12/16 metFORMIN HCL [Metformin HCl] 500 mg PO BIDAC 03/12/16 Metoprolol Succinate [Toprol XL -] 50 mg PO BID 08/17/17 Ramipril 5 mg PO BID 08/17/17 Acetaminophen [Tylenol .Regular Strength -] 650 mg PO Q4H PRN tablet 08/22/17 Alendronate Sodium [Binosto] 70 mg PO WEEKLY 05/05/18 Becaplermin [Regranex] 15 gm TP DAILY 30 Days #1 gel..gram. MDD 1 05/18/18 Family Disease History - Family Disease History Family Disease History: Diabetes: Father, Heart Disease: Father, Mother, Brother , Sister Physical Examination Constitutional: Yes: Well Nourished Breast(s): Yes: Other (extemely ptotic C cup right breast and a foreshortened smaller left breast secondary to cancer the cancer encompasses most of the entire central and upper aspect of left breast and has some retraction on lateral skin secondary to cancer ther is no obvious chest wall invasion clinically no plapble adnopathy ,no mass right breast) Problem List - Problems (1) Breast cancer, left breast Code(s): C50.912 - MALIGNANT NEOPLASM OF UNSPECIFIED SITE OF LEFT FEMALE BREAST Qualifiers: Breast location: upper outer quadrant of breast Estrogen receptor status: positive Patient sex: female Qualified Code(s): C50.412 - Malignant neoplasm of upper-outer quadrant of left female breast; Z17.0 - Estrogen receptor positive status [ER+] Assessment/Plan Left mastectomy, left sentenel node biopsy, possible axillary node dissection , lymphoscintogram.
[2018-08-24] MEDS ORDERED: BUPIVACAINE HCL/PF 2.5 MG/ML - 30 ML VIAL IJ ONE (09:51)
[2018-08-24] MEDS ORDERED: ISOSULFAN BLUE 10 MG/ML VIAL SQ ONE (09:51)
[2018-08-24 10:11] VITALS: BMI 30.2
[2018-08-24] MEDS ORDERED: BUPIVACAINE LIPOSOME/PF (EXPAREL) 266 MG/20 ML VIAL ONE (10:50)
[2018-08-24] MEDS ORDERED: ONDANSETRON 4 MG/2 ML VIAL IVPUSH PRN ×2 (10:55→15:12)
[2018-08-24] MEDS ORDERED: ACETAMINOPHEN 325 MG TABLET (FP) PO PRN ×2 (10:55→10:57)
[2018-08-24] MEDS ORDERED: oxyCODONE HCL 5 MG TABLET PO PRN ×2 (11:00→15:12)
[2018-08-24] MEDS ORDERED: DEXTROSE 5%-0.45% SALINE 1,000 ML IV SCH (11:00)
[2018-08-24] MEDS ORDERED: BUPIVACAINE LIPOSOME/PF (EXPAREL) 266 MG/20 ML VIAL NR ONE (13:15)
[2018-08-24] MEDS ORDERED: BUPIVACAINE HCL/PF 0.25% (2.5MG/ML) 10 ML VIAL IJ ONE (13:15)
[2018-08-24] MEDS ORDERED: CEFAZOLIN 1 GM/D5W 1 GRAM/50 ML BAG IVPB SCH (15:00)
[2018-08-24] MEDS ORDERED: PROMETHAZINE HCL 25 MG/1 ML VIAL IVPUSH PRN (15:12)
[2018-08-24] MEDS: glipiZIDE 5 MG TABLET (FP) PO SCH (18:01)
[2018-08-24] MEDS: SODIUM CHLORIDE 1,000 ML IV SCH (18:01)
[2018-08-24] MEDS: metFORMIN HCL 500 MG TABLET (FP) PO SCH (18:01)
[2018-08-24] MEDS: CEFAZOLIN 1 GM/D5W 1 GRAM/50 ML BAG IVPB SCH ×2 (18:31→23:53)
--- NOTE | 2018-08-24 20:38 | OP ---
DATE OF OPERATION: 08/24/2018 PREOPERATIVE DIAGNOSIS: Left breast cancer, overlapping regions. POSTOPERATIVE DIAGNOSIS: Left breast cancer, overlapping regions. PROCEDURE: Left breast modified radical mastectomy with left axillary sentinel lymph node biopsy. PRIMARY SURGEON: Leida Ware MD DIP TUBE ASSEMBLER MACHINE: DARREN Adames COMPLICATIONS: None. INDICATION FOR PROCEDURE: Briefly, the patient is a 77-year-old G1, P1, postmenopausal white female who was found to have a palpable left breast mass. Mammography and ultrasound in May 2018 showed a couple of masses in the left breast, a couple of quadrants, with one measuring up to 7.5 cm and the other measuring about 3 cm. She has a history of a heart attack in the past, had 3 stents placed in the past, also has a history of insulin-dependent diabetes and neuropathy and had some recent diabetic ulcers which were treated, requiring some delay in her management of her cancer. The patient eventually underwent core biopsy of this density which showed an intermediate grade infiltrating lobular cancer which was ER, OK positive, RNN1sak negative with a low KI-67. The left breast was foreshortened due to the cancer. Due to the extent of the cancer as well as her medical comorbidities, total mastectomy was recommended and it was felt that reconstruction, especially given her recent admission due to some diabetic ulcers, would be contraindicated. She was advised to undergo a left breast mastectomy, sentinel lymph node biopsy and possibly axial lymph node dissection. DESCRIPTION OF PROCEDURE: She was brought in for the procedure on August 24, 2018. She underwent lymph node scintigraphy at [facility] with a periareolar injection of technetium 99 and was brought to the [facility] holding area. In the holding area site verification was made and informed consent was obtained. She was brought in the operating room, laid on the OR table in a supine position. Venodynes were placed on the lower extremities and she received 2 g of Ancef prior to incision. She underwent general laryngeal mask airway anesthesia. The left breast was sterilely prepped and draped in the usual fashion with the left arm prepped in the field. Lymphazurin blue 3 mL was injected intradermally around the left breast nipple-areolar complex and massage was instituted. An incision was made just below the hair-bearing area of the left axilla and dissection was undertaken and blue lymphatics were easily seen coursing to blue hot lymph nodes. The first sentinel lymph node had a 10-second gamma count of 12,580 and the second sentinel lymph node had 10-second gamma count of 1544 and both were fairly firm and suspicious. These were both sent down for frozen section and came back positive so no further nodes were removed since lymph node dissection would need to be performed. At this time a classical mastectomy pattern was then drawn on the patient's left breast encompassing the entire nipple-areolar complex. Skin flaps were then raised superiorly to the level of the clavicle, medially to the level of the sternum, laterally to the level of the latissimus and inferior to the level of the inframammary fold. The breast was taken down off the pectoralis major muscle using electrocautery from medial to lateral, completely removed intact. The axial lymph nodes were left intact to the mastectomy specimen and a formal level 1, level 2 axial lymph node dissection was undertaken, leaving the specimen intact with the breast. The axillary lymph node dissection was performed using the axillary vein as the superior border of the dissection, the pectoralis minor as the medial border and the latissimus as the lateral border. The thoracodorsal and long thoracic nerves were identified and spared throughout their entire courses. The specimen was x-rayed and then placed in formalin and sent for pathology. A high level 2 node was sent separately to pathology as well as some additional left axillary lymph nodes which were sent separately to pathology. At this point some anterior margins were taken on both the superior and inferior skin flaps, sent separately to pathology with a suture marking the biopsy cavity site. Hemostasis was achieved and the wound was copiously irrigated with warm sterile saline. At this point the skin edges were trimmed for good cosmetic result. We did inject Exparel diluted with saline and 0.25% Marcaine into the chest wall, 60 mL, at the end of the case. Two Yefri drains were placed in the mastectomy wound and toward the axilla and brought through separate stab incision around the lower mastectomy skin flap and sutured in place, using 3-0 nylon suture. At this point the mastectomy wounds were closed using interrupted 3-0 deep dermal Vicryl suture and a running 4-0 subcuticular Biosyn suture. Mastisol and Steri-Strips were applied over the wound, a compressive dressing placed over this. She was placed in a chest binder at the end of the procedure with sterile gauze placed over that. The drains were placed on GREG suction. The patient had the laryngeal mask airway tube removed at the end of the case and was brought to the postanesthesia care unit. She will be recovered and admitted postoperatively for wound and pain management. All sponge and needle counts were correct at the end of case. Estimated blood loss was about 50 mL. She was hemodynamically stable throughout. LEIDA WARE M.D. [id number]
[2018-08-24] MEDS: RAMIPRIL 5 MG CAPSULE (FP) PO SCH (21:21)
[2018-08-24] MEDS: GABAPENTIN 300 MG CAPSULE (FP) PO SCH (21:21)
[2018-08-24] MEDS: ATORVASTATIN CA 20 MG TABLET (FP) PO SCH (21:21)
[2018-08-24] MEDS: INSULIN (LEVEMIR) 100 UNITS/ML UNITS SQ SCH (22:28)
[2018-08-24] MEDS ORDERED: INSULIN (NOVOLOG) ASPART 100 UNITS/ML 10ML VIAL SQ ONE (22:45)
[2018-08-25] MEDS: CEFAZOLIN 1 GM/D5W 1 GRAM/50 ML BAG IVPB SCH ×3 (05:40→17:55)
[2018-08-25] MEDS: GABAPENTIN 300 MG CAPSULE (FP) PO SCH ×3 (05:40→21:23)
[2018-08-25] MEDS: metFORMIN HCL 500 MG TABLET (FP) PO SCH ×2 (06:48→17:00)
[2018-08-25] MEDS: glipiZIDE 5 MG TABLET (FP) PO SCH ×2 (06:48→17:00)
[2018-08-25] MEDS: oxyCODONE HCL 5 MG TABLET PO PRN ×2 (06:48→21:24)
[2018-08-25] MEDS: LEVOTHYROXINE NA 50 MCG TABLET (FP) PO SCH (06:49)
[2018-08-25 07:31] LABS: HEMATOCRIT 30.1 % (32.4-45.2); HEMOGLOBIN 9.8 GM/dl (10.7-15.3); MCH 28.2 pg (25.7-33.7); MCHC 32.5 g/dl (32.0-36.0); MEAN CELL VOLUME 86.7 fl (80-96); MEAN PLT VOLUME 8.4 fl (7.5-11.1); PLATELET COUNT 157 K/MM3 (134-434); RBC 3.47 M/mm3 (3.60-5.2); RDW 13.5 % (11.6-15.6); WHITE BLOOD COUNT 6.1 K/mm3 (4.0-10.8)
[2018-08-25] MEDS: LIRAGLUTIDE 0.6 MG/0.1 ML PEN.INJCTR SQ SCH (08:22)
[2018-08-25] MEDS: HEPARIN NA (PORCINE) 5,000 UNITS/ML 1ML VIAL SQ SCH ×2 (08:25→21:23)
--- NOTE | 2018-08-25 08:47 | PN ---
Progress Note, Physician Chief Complaint: Left breast cancer with axillary node involvement S/P left modified radical mastectomy History of Present Illness: Patient is eating ,pain controlled with oxycodone prn, requesting VNS no nausea or vomiting, monitoring blood sugars which have been elevated PO - Current Medication List Current Medications: Active Medications Acetaminophen (Tylenol -) 650 mg PO Q4H PRN PRN Reason: FEVER Acetaminophen (Tylenol -) 650 mg PO Q4H PRN PRN Reason: PAIN LEVEL 1 - 3 Atorvastatin Calcium (Lipitor -) 20 mg PO HS [facility] Last Admin: 08/24/18 21:21 Dose: 20 mg Gabapentin (Neurontin -) 300 mg PO TID [facility] Last Admin: 08/25/18 05:40 Dose: 300 mg Glipizide (Glucotrol -) 5 mg PO BIDAC [facility] Last Admin: 08/25/18 06:48 Dose: 5 mg Heparin Sodium (Porcine) (Heparin -) 5,000 unit SQ BID@0800,2000 [facility] Last Admin: 08/25/18 08:25 Dose: 5,000 unit Cefazolin Sodium (Ancef 1 Gm Premixed Ivpb -) 1 gram in 50 mls @ 100 mls/hr IVPB Q6H [facility] Last Admin: 08/25/18 05:40 Dose: 100 mls/hr Sodium Chloride (Normal Saline -) 1,000 mls @ 75 mls/hr IV ASDIR [facility] Last Admin: 08/24/18 18:01 Dose: 75 mls/hr Insulin Detemir (Levemir Vial) 20 units SQ [facility] Last Admin: 08/24/18 22:28 Dose: 20 units Levothyroxine Sodium (Synthroid -) 50 mcg PO DAILY@0700 [facility] Last Admin: 08/25/18 06:49 Dose: 50 mcg Liraglutide (Victoza -) 1.2 mg SQ DAILY@0700 [facility] Last Admin: 08/25/18 08:22 Dose: 1.2 mg Metformin HCl (Glucophage -) 500 mg PO BIDAC [facility] Last Admin: 08/25/18 06:48 Dose: 500 mg Metoprolol Succinate (Toprol Xl -) 50 mg PO BID [facility] Last Admin: 08/24/18 21:21 Dose: 50 mg Ondansetron HCl (Zofran Injection) 4 mg IVPUSH Q6H PRN PRN Reason: NAUSEA AND/OR VOMITING Oxycodone HCl (Roxicodone -) 5 mg PO Q4H PRN PRN Reason: PAIN LEVEL 1-5 Last Admin: 08/25/18 06:48 Dose: 5 mg Oxycodone HCl (Roxicodone -) 10 mg PO Q4H PRN PRN Reason: PAIN LEVEL 6-10 Ramipril (Altace -) 5 mg PO BID [facility] Last Admin: 08/24/18 21:21 Dose: 5 mg - Objective Vital Signs: Vital Signs Temperature 98.2 F 08/25/18 04:00 Pulse Rate 76 08/25/18 04:00 Respiratory Rate 18 08/25/18 04:00 Blood Pressure 129/60 08/25/18 04:00 O2 Sat by Pulse Oximetry (%) 98 08/25/18 04:00 Constitutional: Yes: No Distress Breast(s): Yes: Other (Left chest wall incision intact steristrips in place, GREG drain funtioning well, no hemaoma or infection dressing changed) Labs: CBC, BMP 08/25/18 06:45 Problem List - Problems (1) Breast cancer, left breast Code(s): C50.912 - MALIGNANT NEOPLASM OF UNSPECIFIED SITE OF LEFT FEMALE BREAST Qualifiers: Breast location: upper outer quadrant of breast Estrogen receptor status: positive Patient sex: female Qualified Code(s): C50.412 - Malignant neoplasm of upper-outer quadrant of left female breast; Z17.0 - Estrogen receptor positive status [ER+] Assessment/Plan continue IV antibiotic SCD while in bed SQ heparin oxycodone prn VNS spirometry monitor blood sugar /Patient on insulin Plan for discharge tomorrow
[2018-08-25] MEDS: RAMIPRIL 5 MG CAPSULE (FP) PO SCH ×2 (09:27→21:25)
--- NOTE | 2018-08-25 13:07 | CONSULT ---
Consult - Past Medical History SCRIPT COORDINATOR: Yes: Peripheral Neuropathy (with diabetic ulcers) Cardio/Vascular: Yes: CAD, HTN Musculoskeletal: Yes: Chronic low back pain, Osteoarthritis Endocrine: Yes: Diabetes Mellitus, Hypothyroidism - Past Surgical History Past Surgical History: Yes: Cholecystectomy (open 20's), Stent (x3 2008 and 2011 ) Additional Surgical History: left hip fx and repair. left achikkes torn tendon. left ankle fx repair 2018. mutiple hell debridements and infection - Alcohol/Substance Use Hx Alcohol Use: No History of Substance Use: reports: None - Smoking History Smoking history: Former smoker Have you smoked in the past 12 months: No If you are a former smoker, when did you quit?: 25yrs - Social History History of Recent Travel: No Home Medications - Allergies Allergies/Adverse Reactions: Allergies Allergy/AdvReac Type Severity Reaction Status Date / Time Gold Salts Allergy Verified 08/24/18 10:05 Iodinated Contrast- Oral and Allergy Verified 08/24/18 10:05 IV Dye silver Allergy Verified 08/24/18 10:05 contrast Allergy Uncoded 08/24/18 10:05 - Home Medications Home Medications: Ambulatory Orders Atorvastatin Ca [Lipitor] 20 mg PO HS 03/12/16 Cholecalciferol (Vitamin D3) [Vitamin D -] 2,000 unit PO DAILY 03/12/16 Gabapentin 300 mg PO TID 03/12/16 Glipizide 5 mg PO BIDAC 03/12/16 Insulin Glargine,Hum.rec.anlog [Lantus Solostar PEN -] 20 units SQ HS 03/12/16 Levothyroxine [Synthroid -] 50 mcg PO DAILY@0700 03/12/16 Liraglutide [Victoza -] 1.2 mg SQ DAILY@0700 03/12/16 metFORMIN HCL [Metformin HCl] 500 mg PO BIDAC 03/12/16 Metoprolol Succinate [Toprol XL -] 50 mg PO BID 08/17/17 Ramipril 5 mg PO BID 08/17/17 Acetaminophen [Tylenol .Regular Strength -] 650 mg PO Q4H PRN tablet 08/22/17 Alendronate Sodium [Binosto] 70 mg PO WEEKLY 05/05/18 Cefadroxil 500 mg PO BID #20 capsule 08/25/18 Oxycodone HCl/Acetaminophen [Percocet 5-325 mg Tablet] 1 tab PO Q6H PRN #10 tablet MDD 4 08/25/18 Family Disease History - Family Disease History Family Disease History: Diabetes: Father, Heart Disease: Father, Mother, Brother , Sister Physical Exam Vital Signs: Vital Signs Temperature 98.2 F 08/25/18 09:21 Pulse Rate 72 08/25/18 09:21 Respiratory Rate 18 08/25/18 09:21 Blood Pressure 93/46 L 08/25/18 09:21 O2 Sat by Pulse Oximetry (%) 98 08/25/18 09:00 Labs: CBC, BMP 08/25/18 06:45
--- NOTE | 2018-08-25 13:14 | PN ---
Progress Note (short form) - Note Progress Note: ANESTHESIA POSTOP 78 YO female POD#1 s/p L Mastectomy, sentinel node biopsy and axillary node dissection under GA S: Pt. sitting comfortably in bed. No complaints of pain. Tolerating PO O: VSS, afebrile A/P: Continue current care. No anesthetic complications. Encouraged IS and ambulation if allowed.
[2018-08-25] MEDS: SODIUM CHLORIDE 1,000 ML IV SCH (17:54)
[2018-08-25] MEDS: COLLAGENASE CLOSTRIDIUM HIST. 30 GRAMS TUBE TP SCH ×2 (17:54→18:06)
[2018-08-25] MEDS ORDERED: PT OWN MED DRAWER 7, Y5N ONE (17:55)
[2018-08-25] MEDS: ATORVASTATIN CA 20 MG TABLET (FP) PO SCH (21:23)
[2018-08-25] MEDS: INSULIN (LEVEMIR) 100 UNITS/ML UNITS SQ SCH (21:25)
[2018-08-25] MEDS ORDERED: diphenhydrAMINE HCL 25 MG CAPSULE (FP) PO ONE (22:30)
[2018-08-26] MEDS: CEFAZOLIN 1 GM/D5W 1 GRAM/50 ML BAG IVPB SCH ×3 (00:39→11:58)
[2018-08-26] MEDS ORDERED: diphenhydrAMINE HCL 25 MG CAPSULE (FP) PO ONE (00:51)
[2018-08-26] MEDS ORDERED: REFRIGERATED ANITBIOTICS ONE (06:07)
[2018-08-26] MEDS: metFORMIN HCL 500 MG TABLET (FP) PO SCH (06:29)
[2018-08-26] MEDS: LEVOTHYROXINE NA 50 MCG TABLET (FP) PO SCH (06:29)
[2018-08-26] MEDS: GABAPENTIN 300 MG CAPSULE (FP) PO SCH (06:29)
[2018-08-26] MEDS: glipiZIDE 5 MG TABLET (FP) PO SCH (06:30)
[2018-08-26 06:37] VITALS: TEMP 98.5
[2018-08-26] MEDS: oxyCODONE HCL 5 MG TABLET PO PRN (06:41)
[2018-08-26] MEDS: LIRAGLUTIDE 0.6 MG/0.1 ML PEN.INJCTR SQ SCH (07:54)
[2018-08-26] MEDS: HEPARIN NA (PORCINE) 5,000 UNITS/ML 1ML VIAL SQ SCH (09:00)
[2018-08-26] MEDS: RAMIPRIL 5 MG CAPSULE (FP) PO SCH (10:12)
[2018-08-26] MEDS: COLLAGENASE CLOSTRIDIUM HIST. 30 GRAMS TUBE TP SCH (10:12)
[2018-08-26 10:15] VITALS: BP 111/60; PULSE 89
--- NOTE | 2018-08-26 12:57 | DS ---
Physical Examination Vital Signs: Vital Signs Temperature 98.5 F 08/26/18 10:00 Pulse Rate 89 08/26/18 10:00 Respiratory Rate 18 08/26/18 10:00 Blood Pressure 111/60 08/26/18 10:00 O2 Sat by Pulse Oximetry (%) 98 08/26/18 07:56 Constitutional: Yes: No Distress Wound/Incision: Yes: Clean/Dry, Well Approximated ( Flaps viable, no signs of infection.) Labs: CBC, BMP 08/25/18 06:45 Discharge Summary Reason For Visit: LEFT BREAST CA Procedures: Principal: Left Modified Radical Mastectomy w/o reconstruction Condition: Good - Instructions Diet, Activity, Other Instructions: Post Operative Instructions - [facility] We hope your recovery will be uneventful. For those of you who have been given general anesthesia, there is a possibility you might have some lightheadedness and possibly nausea. It is important that each patient, especially those who have had general anesthesia, follow these instructions, please: 1. Do NOT operate a motor vehicle for 24 hours. 2. Do NOT drink any alcoholic beverages for 24 hours. 3. Do NOT take any sedatives, narcotics, or tranquilizers for 24 hours unless specifically ordered by your surgeon. 4. Do NOT undertake any strenuous exercise or outside activity for 24 hours unless specifically permitted by your surgeon. 5. Eat light foods that are easy to digest. If you have any problems with nausea and vomiting, lie down and rest. If it continues, call your surgeon. 6. Call your surgeon AT ONCE if you have problems with: a. Bleeding b. Urinating c. Excessive pain or drainage d. Numbness If any problems occur, call your physician first. If you cannot reach him/her, call the Ambulatory Surgery Unit at [phone], or the Emergency Room at . Follow up with Drs. Ware / Beverly in 7 days. Medication: Vicodin E-S OR Percocet 1-2 tablets every 4-6 hrs as needed for 5-7 days. Wound Care: Keep wound dry and clean for 48 hours. You may remove the dressing after 48 hours and may shower. Keep steri-strips in place until follow-up appointment No heavy lifting or strenuous activities. BREAST SURGERY INSTRUCTIONS Trenton Ware M.D., FACS Enoch Ware M.D., KLAUS Paul M.D., FACS 1. Please call the office at to make a follow up appointment with your surgeon. This number can be also used for any urgent issues you may have. 2. Call us immediately if any of the following occur: *Bleeding from the incision or drain site (a small amount is normal) *Fever or chills *Redness and worsening tenderness around the surgical site *Drainage of pus or fluid from the incision or drain site 3. You may change the surgical dressing two (2) days after your surgery, and may shower then. If you have drains, you may shower after they have been removed, until then take a sponge bath. 4. It is normal for there to be some bruising and tenderness around the surgical site, and the breast may also be firm in this area. 5. Your surgeon used 3M DuraPrep Surgical Solution, a bacteria-killing skin preparation. It is recommended that this film remain on the skin after the procedure. The film will gradually wear away. If, however, early removal is desired: 1. Apply 8610 or 8611 3M Remover solution to the prepped area, keeping away from the wound edge or puncture site. Wipe off with a disposable towel. OR 2. Soak gauze with 70% Isopropyl alcohol and place on the prepped area for at least 40 seconds. Lightly scrub to remove the solution. 6. Please wear a comfortable bra (sports or surgical bra) all day and all night until your first follow-up visit with your surgeon. 7. The pain medicine you have been prescribed may make you constipated; make sure you drink plenty of water. You may use an over the counter laxative if needed. 8. You may resume your normal diet after surgery, although you may want to avoid rich foods for the first twenty-four (24) hours after surgery. Alcoholic drinks should be avoided while taking the prescribed pain medicine. 9. You may resume normal activities as long as there is no discomfort, but do not do upper body exercises until after your follow-up appointment. Do not lift anything heavier than a large phone book. You may resume driving once you have stopped taking the prescribed pain medicine and feel comfortable doing arm movements. WEAR BINDER < NO SHOWER RECORD AND EMPTY DRAINS TWICE DAILY Visiting nurse service Referrals: Enoch Ware MD [Staff Physician] - Disposition: HOME - Home Medications Comprehensive Discharge Medication List: Ambulatory Orders Atorvastatin Ca [Lipitor] 20 mg PO HS 03/12/16 Cholecalciferol (Vitamin D3) [Vitamin D -] 2,000 unit PO DAILY 03/12/16 Gabapentin 300 mg PO TID 03/12/16 Glipizide 5 mg PO BIDAC 03/12/16 Insulin Glargine,Hum.rec.anlog [Lantus Solostar PEN -] 20 units SQ HS 03/12/16 Levothyroxine [Synthroid -] 50 mcg PO DAILY@0700 03/12/16 Liraglutide [Victoza -] 1.2 mg SQ DAILY@0700 03/12/16 metFORMIN HCL [Metformin HCl] 500 mg PO BIDAC 03/12/16 Metoprolol Succinate [Toprol XL -] 50 mg PO BID 08/17/17 Ramipril 5 mg PO BID 08/17/17 Acetaminophen [Tylenol .Regular Strength -] 650 mg PO Q4H PRN tablet 08/22/17 Alendronate Sodium [Binosto] 70 mg PO WEEKLY 05/05/18 Cefadroxil 500 mg PO BID #20 capsule 08/25/18 Oxycodone HCl/Acetaminophen [Percocet 5-325 mg Tablet] 1 tab PO Q6H PRN #10 tablet MDD 4 08/25/18
--- NOTE | 2018-08-29 17:14 | PATH ---
Surgical Pathology Report Patient Name: TANMAY REINOSO [facility]. Rec. #: [id number] /Age/Gender: 1940 (Age: 78) / F Account: [id number] Location: [facility] MED-SURG Taken: 08/24/2018 Received: 08/24/2018 Reported: 08/29/2018 Physicians: Enoch Ware M.D. Specimen(s) Received A: LEFT AXILLARY SENTINEL LYMPH NODE #1(FS) B: LEFT AXILLARY SENTINEL LYMPH NODE # 2 (FS) C: LEFT BREAST, MODIFIED RADICAL MASTECTOMY D: HIGH LEVEL 2 AXILLARY LYMPH NODE, LEFT BREAST E: ADDITIONAL AXILLARY LYMPH NODES, LEFT BREAST F: ANTERIOR INFERIOR MARGIN, LEFT BREAST G: ANTERIOR SUPERIOR MARGIN, LEFT BREAST H: INFERIOR SKIN, LEFT BREAST Clinical History Left invasive; modified radical mastectomy with attached lymph nodes Intraoperative Consult Diagnosis A. Left axillary sentinel lymph node #1, frozen section: Metastatic carcinoma involving one of one lymph node (1/1). B. Left axillary sentinel node #2, frozen section: Metastatic carcinoma involving one of one lymph node (1/1). Lenore Bernal M.D., 08/24/2018 Final Diagnosis A. LYMPH NODE, LEFT AXILLARY SENTINEL #1, EXCISION (FS): METASTATIC CARCINOMA, EXTENSIVELY INVOLVING ONE OF ONE LYMPH NODE (1/1). THE FOCUS OF METASTATIC CARCINOMA MEASURES 1.3 CM IN GREATEST DIMENSION (MACROMETASTASIS). EXTRANODAL EXTENSION IS PRESENT. B. LYMPH NODE, LEFT AXILLARY SENTINEL #2, EXCISION (FS): METASTATIC CARCINOMA, EXTENSIVELY INVOLVING ONE OF ONE LYMPH NODE (1/1). THE FOCUS OF METASTATIC CARCINOMA MEASURES 1.5 CM IN GREATEST DIMENSION (MACRO METASTASIS). EXTRANODAL EXTENSION IS PRESENT. C. BREAST, LEFT, MODIFIED RADICAL MASTECTOMY: INVASIVE MAMMARY CARCINOMA, EXTENSIVELY INVOLVING ALL FOUR QUADRANTS OF BREAST, TWO PREDOMINANT ILL-DEFINED TUMOR MASSES: THE LARGER TUMOR MASS IS COMPRISED OF INVASIVE LOBULAR CARCINOMA, CLASSICAL TYPE, MODERATELY DIFFERENTIATED (TUBULE SCORE: 3/3, NUCLEAR GRADE: 2/3, MITOTIC SCORE: 1/3, TOTAL SCORE: 6/9; DEREK GRADE 2), MEASURES 8.2 CM IN GREATEST DIMENSION (GROSS MEASUREMENT) AND SPANS THE UPPER OUTER QUADRANT (UOQ), UPPER INNER QUADRANT (UIQ) AND LOWER INNER QUADRANT (LIQ). (SEE NOTE) THE SMALLER TUMOR MASS IS COMPRISED OF INVASIVE CARCINOMA , MIXED DUCTAL AND LOBULAR TYPE, MODERATELY DIFFERENTIATED (TUBULE SCORE: 3/3, NUCLEAR GRADE: 2/3, MITOTIC SCORE :1/3, TOTAL SCORE: 6/9, DEREK GRADE 2), MEASURES 4.0 CM IN GREATEST DIMENSION (GROSS MEASUREMENT) AND INVOLVES THE LOWER OUTER QUADRANT (LOQ). (SEE NOTE) FOCAL DUCTAL CARCINOMA IN SITU (DCIS.), CRIBRIFORM AND MICROPAPILLARY TYPE, INTERMEDIATE NUCLEAR GRADE. FOCAL LOBULAR CARCINOMA IN SITU (LCIS), CLASSICAL TYPE. INVASIVE CARCINOMA EXTENDS TO THE ANTERIOR SOFT TISSUE MARGIN AT MULTIPLE FOCI AND FOCALLY TO THE DEEP MARGIN. SEE SPECIMENS F&G FOR FINAL ANTERIOR MARGIN. INVASIVE CARCINOMA EXTENDS TO DERMIS OF NIPPLE AND DEEP DERMIS OF SKIN. LYMPHOVASCULAR INVASION IS IDENTIFIED. METASTATIC CARCINOMA INVOLVING SIX OF TEN AXILLARY LYMPH NODES (6/10). THE FOCI OF METASTATIC CARCINOMA RANGE FROM 3 MM - 1.1 CM IN GREATEST DIMENSION (MACRO METASTASES). EXTRANODAL EXTENSION IS PRESENT. PATHOLOGIC STAGE (pTNM): pT3 (m) pN3a.("pN" stage is based on specimens A-E). SEE ALSO INVASIVE CARCINOMA CASE SUMMARY BELOW. Note: E-Cadherin immunostains (performed at [facility] on blocks C4 & C11) demonstrate strong membranous positivity in the invasive ductal component while the invasive lobular component is negative for E-Cadherin. These findings support the diagnosis. D. HIGH LEVEL 2 AXILLARY LYMPH NODE, LEFT BREAST, EXCISION: METASTATIC CARCINOMA, EXTENSIVELY INVOLVING FIVE OF FIVE LYMPH NODES (5/5). THE FOCI OF METASTATIC CARCINOMA RANGE FROM 2-4 MM IN GREATEST DIMENSION (MACROMETASTASES). EXTRANODAL EXTENSION IS PRESENT. E. ADDITIONAL AXILLARY LYMPH NODES, LEFT BREAST, EXCISION: TWO MINUTE (< 1 MM) BENIGN LYMPH NODES (0/2). F. BREAST, LEFT, ANTERIOR INFERIOR MARGIN, EXCISION: BENIGN FIBROADIPOSE TISSUE. G. BREAST, LEFT, ANTERIOR SUPERIOR MARGIN, EXCISION: BENIGN FIBROADIPOSE TISSUE. H. INFERIOR SKIN, LEFT BREAST, EXCISION: SKIN, WITH NO PATHOLOGIC FINDINGS. Comments Breast Invasive Carcinoma: Surgical Pathology Case Summary (Based on AJCC TNM 8 th edition) Procedure _X_ Modified radical mastectomy Specimen Laterality _X_ Left Tumor Size _X_ Greatest dimension of largest invasive focus >1 mm (millimeters): 82 mm (gross measurement) Histologic Type _X_ Invasive lobular carcinoma _X_ Invasive carcinoma with ductal and lobular features ("mixed type carcinoma") Histologic Grade ([employer] Histologic Score) Glandular (Acinar)/Tubular Differentiation _X_ Score 3 (<10% of tumor area forming glandular/tubular structures) Nuclear Pleomorphism _X_ Score 2 Mitotic Rate _X_ Score 1 Overall Grade _X_ Grade 2 (scores of 6 or 7) Tumor Focality _X_ Multiple foci of invasive carcinoma Number of foci: 2 Sizes of individual foci: 8.2 cm, 4 cm Ductal Carcinoma In Situ (DCIS) _X_ DCIS is present in specimen _X_ Negative for extensive intraductal component (EIC) Tumor Extension Skin _X_ Invasive carcinoma directly invades into the dermis or epidermis without skin ulceration (this does not change the T stage) Nipple _X_ Invasive carcinoma directly invades into dermis of nipple without ulceration Margins Invasive Carcinoma Margins _X_ Positive for invasive carcinoma: deep margin (focally) Invasive carcinoma extends to the anterior margin in mastectomy specimen (C); final anterior margins F&G are negative for carcinoma. DCIS Margins _X_ Uninvolved by DCIS Distance from closest margin (millimeters): 5 mm Closest margin: anterior soft tissue Regional Lymph Nodes _X_ Involved by tumor cells Number of Lymph Nodes with Macrometastases (>2 mm): 13 Number of Lymph Nodes with Micrometastases (>0.2 mm to 2 mm and/or >200 cells): 0 Number of Lymph Nodes with Isolated Tumor Cells (=0.2 mm and =200 cells): 0 Size of Largest Metastatic Deposit (millimeters): 15 mm Extranodal Extension: _X_ Present Treatment Effect _X_ No known presurgical therapy Lymphovascular Invasion _X_ Present Pathologic Stage Classification (pTNM, AJCC 8th Edition) Primary Tumor (Invasive Carcinoma) (pT) _X_ pT3 (m): Tumor >50 mm in greatest dimension Regional Lymph Nodes (pN) Category (pN) _X_ pN3a: Metastases in 10 or more axillary lymph nodes (at least 1 tumor deposit larger than 2.0mm) or metastases to the infraclavicular (Level III axillary lymph) nodes Biomarker Studies Results of ER and VA studies performed on prior biopsy ([id number]; invasive lobular carcinoma) at [facility] are as follows: ER (clone [id number] mouse monoclonal antibody by [employer]): >95 % nuclear staining with moderate to strong intensity (positive). VA (clone16 mouse monoclonal antibody by Le[employer]) : ~25 % nuclear staining with moderate to strong intensity (positive). Results of Her2 (IHC) & Ki-67 studies performed on prior biopsy ([id number]; invasive lobular carcinoma) at [place], [place] ( [id number]) are as follows: Her2 IHC (EP3 from [employer], formerly known as [id number], using [employer] Polymer Refine detection kit): 1+ (negative). Ki67: ~5% (low proliferative index). ER, VA, Her2 and Ki67 studies are being performed on current specimen (on invasive carcinoma with mixed ductal and lobular features); the results will be reported separately in an addendum. Electronically Signed Brina Bernal M.D. Addendum Reported: 08/31/2018 Addendum Diagnosis Results of ER and VA studies performed on block C4 (invasive carcinoma with mixed ductal and lobular features) at [facility] are as follows: ER (clone 6F11 mouse monoclonal antibody by Leica): 100 % nuclear staining with strong intensity (positive). VA (clone16 mouse monoclonal antibody by [employer]): 100 % nuclear staining with strong intensity (positive). Results of Her2 (IHC) & Ki-67 studies performed on block C4 at [place], [place] ([id number]) are as follows: Her2 IHC (EP3 from [employer], formerly known as [id number], using [employer] Polymer Refine detection kit):1+ (negative). Ki-67: < 5% (low proliferative index). Positive and negative controls (internal if applicable) show appropriate results. Formalin fixation time is within current ASCO/CAP recommendations for ER, VA and Her2 testing. Time to formalin fixation (cold ischemic time) is not given. Brina Bernal M.D. Gross Description A. Received fresh labeled "left axillary sentinel lymph node #1," is a 1.2 x 1.0 x 0.4 cm lymph node. The lymph node is bisected and a frozen section is performed on the lymph node. The frozen section residue is entirely submitted in one cassette. B. Received fresh labeled "left axillary sentinel lymph node #2," is a 1.0 x 0.4 x 0.2 cm lymph node with attached fatty tissue. A frozen section is performed on the lymph node. The frozen section residue is entirely submitted in one cassette. C. Received in formalin, labeled "left breast modified radical mastectomy with attached lymph nodes," is a 650 gram, 17.0 x 15.0 x 6.0 cm. left mastectomy specimen with a short suture marking the superior aspect and a long suture marking the lateral aspect of the specimen, per the surgeon. The anterior surface displays a 14.0 x 7.0 cm lozano, elliptical portion of skin with a 1.3 cm in diameter nipple. The deep margin is inked black and the anterior soft tissue margin is inked blue. The specimen is serially sectioned from medial to lateral. Sectioning reveals an ill-defined 4.0 x 3.0 x 2.2 cm lozano, firm mass in the lower outer quadrant (LOQ). The mass abuts the anterior soft tissue margin and is 0.5 cm from the deep margin. There is an additional 8.2 x 7.0x 5.0 cm mass spanning the upper outer quadrant (UOQ), upper inner quadrant (UIQ) and the lower inner quadrant (LIQ). The mass is 0.5 cm from the anterior soft tissue margin. There is an 11.0 x 7.5 x 1.5 cm portion of axillary tissue attached to the mastectomy. Sectioning reveals multiple lymph nodes measuring up to 2.7 cm in greatest dimension. [employer] Super[employer] sections are submitted in 27 cassettes as follows: 1-serially sectioned nipple; 2-subareolar shave; 3-4-one full-face bisected section of LOQ mass, each with anterior soft tissue margin; 1-9-grxqoownov LOQ mass with anterior soft tissue margin; 7-LOQ mass with deep margin; 8-9-second (larger) mass from UOQ; 10-additional larger mass from UOQ with anterior soft tissue margin; 56-89-gynaye (larger) mass from UIQ; 13-additional larger mass from UIQ with anterior soft tissue margin; 14-15-mass, LIQ; 16-skin; 17-18-one bisected lymph node; 19-one bisected lymph node; 20-24-one bisected lymph node each; 25-27-one lymph node each. Time to formalin fixation: Not given Total formalin fixation time: Approximately 24 hours D. Received in formalin labeled "high level 2 axillary lymph node, left breast," is a 1.8 x 1.3 x 0.8 cm portion of soft tissue, possibly containing lymph node(s). The specimen is bisected and entirely submitted in one cassette. E. Received in formalin labeled "additional axillary lymph nodes, left," is a 3.0 x 1.8 x 0.3 cm portion of soft tissue, possibly containing lymph node(s). The specimen is submitted in toto in one cassette. F. Received in formalin labeled "anterior inferior margin, left breast," is a 4.5 x 3.0 x 0.9 cm portion of fibroadipose tissue with a suture marking the biopsy cavity side, per the surgeon. The new margin is inked blue and the specimen is serially sectioned. The specimen is entirely and sequentially submitted in 6 cassettes. G. Received in formalin labeled "anterior superior margin left breast," is a 5.5 x 2.5 x 0.7 cm portion of fibroadipose tissue with a suture marking the biopsy cavity side, per the surgeon. The new margin is inked blue and the specimen is serially sectioned. The specimen is entirely submitted in 5 cassettes. H. Received in formalin labeled "inferior skin left breast," is a 19.0 x 2.5 cm lozano, elliptical, unoriented portion of skin excised to a depth of 1.4 cm. The epidermal surface is unremarkable. Sectioning reveals unremarkable underlying soft tissue. A enrollment representative section is submitted in one cassette. 08/25/2018 [facility]08/25/2018
== END 2018-08-26 13:00 | disposition home or self-care (01) | DRG 581 ==
LOC: FM/S 09:32 → EDSTATUS 10:00 → FM/S 15:35
PROVIDERS: ADMIT Surgery Surgical Oncology; ATTEND Surgery Surgical Oncology
PROC: 0HTU0ZZ Resection of Left Breast, Open Approach (ICD-10-PCS; principal; 2018-08-24 11:28)
PROC: 07B60ZX Excision of Left Axillary Lymphatic, Open Approach, Diagnostic (ICD-10-PCS; 2018-08-24 11:28)
DX: C50.812 Malignant neoplasm of overlapping sites of left female breast (principal); Z17.0 Estrogen receptor positive status [ER+]; E03.9 Hypothyroidism, unspecified; I25.10 Atherosclerotic heart disease of native coronary artery without angina pectoris; I10 Essential (primary) hypertension; E11.40 Type 2 diabetes mellitus with diabetic neuropathy, unspecified; Z79.4 Long term (current) use of insulin
CPT/HCPCS: 36415; 78195-TC; 82962; 85027; 88304-TC; 88307-TC; 88309-TC; 88331-TC; 88341-TC; 88342-TC; 94760; A9541; J1644; J7030

== ENCOUNTER 2018-09-28 11:11 | Inpatient (IN) | payer OTHER, BC ==
[~2018-09-28 11:11] MED LIST: VANCOMYCIN 1 GRAM (PRE-DOCKED) 1,000 MG/250 ML BAG IVPB SCH
[2018-09-28] MEDS ORDERED: VANCOMYCIN 1,000 MG in DEXTROSE 5%-WATER - 250 ML IVPB ONE (11:59)
[2018-09-28] MEDS ORDERED: PIPERACILLIN/TAZOB 3.375 GM 3.375 GM in DEXTROSE 5%-WATER - 50 ML IVPB ONE (11:59)
[2018-09-28] MEDS ORDERED: PIPERACILLIN/TAZOB 3.375 GM 3.375 GM/50 ML BAG IVPB ONE (12:13)
[2018-09-28] MEDS ORDERED: VANCOMYCIN 1 GRAM (PRE-DOCKED) 1,000 MG/250 ML BAG IVPB ONE (12:13)
[2018-09-28 13:02] LABS: BASO % 0.4 % (0-2.0); EOS % 1.9 % (0-4.5); HEMATOCRIT 29.7 % (32.4-45.2); HEMOGLOBIN 9.6 GM/dL (10.7-15.3); LYMPH % 11.2 % (8-40); MCH 28.1 pg (25.7-33.7); MCHC 32.5 g/dl (32.0-36.0); MEAN CELL VOLUME 86.5 fl (80-96); MEAN PLT VOLUME 8.1 fl (7.5-11.1); MONO % 9.1 % (3.8-10.2); NEUT % 77.4 % (42.8-82.8); PLATELET COUNT 247 K/MM3 (134-434); RBC 3.43 M/mm3 (3.60-5.2); RDW 14.9 % (11.6-15.6); WHITE BLOOD COUNT 6.9 K/mm3 (4.0-10.0)
--- NOTE | 2018-09-28 13:05 | PDOC ---
Documentation entered by Rosalva Ortega SCRIBE, acting as scribe for Antoine Comer MD. Antoine Comer MD: This documentation has been prepared by the Shannon ramirez Daisy, SCRIBE, under my direction and personally reviewed by me in its entirety. I confirm that the documentation accurately reflects all work, treatment, procedures, and medical decision making performed by me. History of Present Illness - General Chief Complaint: Wound Stated Complaint: WOUND Time Seen by Provider: 09/28/18 11:47 History Source: Patient Exam Limitations: No Limitations - History of Present Illness Initial Comments: 09/28/18 12:16 The patient is a 78YOF with a PMH of left breast mass 03/2018, multiple left heel debridements and infections requiring ICC line placement, peripheral neuropathy with diabetic ulcers, CAD s/p stents x3, HTN, [place], IDDM, and hypothyroidism who presents to the ER sent in by wound care clinic for IV antibiotics for left foot wound. Patient states she had a L breast mastectomy on August 24 and has not been following up with wound care for the past 4 weeks. Patient denies any recent fevers. Admits to constipation. Denies fever, chills, N/V/D, or urinary symptoms. Allergies: contrast Social Hx: Denies toxic habits Surgeries: cholecystectomy, stents x3 PCP: Dr. Queen Past History - Past Medical History Allergies/Adverse Reactions: Allergies Allergy/AdvReac Type Severity Reaction Status Date / Time Gold Salts Allergy Verified 09/28/18 11:12 Iodinated Contrast- Oral and Allergy Verified 09/28/18 11:12 IV Dye silver Allergy Verified 09/28/18 11:12 contrast Allergy Uncoded 09/28/18 11:12 Home Medications: Ambulatory Orders Atorvastatin Ca [Lipitor] 20 mg PO HS 03/12/16 Cholecalciferol (Vitamin D3) [Vitamin D -] 2,000 unit PO DAILY 03/12/16 Gabapentin 300 mg PO TID 03/12/16 Glipizide 5 mg PO BIDAC 03/12/16 Insulin Glargine,Hum.rec.anlog [Lantus Solostar PEN -] 20 units SQ HS 03/12/16 Levothyroxine [Synthroid -] 50 mcg PO DAILY@0700 03/12/16 Liraglutide [Victoza -] 1.2 mg SQ DAILY@0700 03/12/16 metFORMIN HCL [Metformin HCl] 500 mg PO BIDAC 03/12/16 Metoprolol Succinate [Toprol XL -] 50 mg PO BID 08/17/17 Ramipril 5 mg PO BID 08/17/17 Acetaminophen [Tylenol .Regular Strength -] 650 mg PO Q4H PRN tablet 08/22/17 Alendronate Sodium [Binosto] 70 mg PO WEEKLY 05/05/18 Oxycodone HCl/Acetaminophen [Percocet 5-325 mg Tablet] 1 tab PO Q6H PRN #10 tablet MDD 4 08/25/18 Anemia: No Asthma: No Cancer: Yes (L BREAST MASTECTOMY) Cardiac Disorders: Yes (CARDIAC STENT) CVA: No COPD: No CHF: No Dementia: No Diabetes: Yes GI Disorders: No Disorders: No HTN: Yes Hypercholesterolemia: Yes Liver Disease: No Seizures: No Thyroid Disease: Yes (HYPOTHROID) - Surgical History Abdominal Surgery: No Appendectomy: No Cardiac Surgery: Yes (cardiac stents x 2) Cholecystectomy: Yes Lung Surgery: No Neurologic Surgery: No Orthopedic Surgery: Yes (left hip fx repair, LEFT ANKLE FX REPAIR) - Immunization History Immunization Up to Date: Yes - Suicide/Smoking/Psychosocial Hx Smoking History: Unknown if ever smoked Have you smoked in the past 12 months: No If you are a former smoker, when did you quit?: 25yrs Hx Alcohol Use: No Drug/Substance Use Hx: No Substance Use Type: None Hx Substance Use Treatment: No Review of Systems - Review of Systems Able to Perform ROS?: Yes Comments:: 09/28/18 12:52 Constitutional: No recent illness; no fever ENT: No sore throat Cardiovascular: No palpitations; no chest pain Pulmonary: No cough; no trouble breathing Gastrointestinal: No nausea; no vomiting; no diarrhea Genitourinary: No urinary problems; no hematuria Skin: (+) left foot wound Lymph system: No swollen glands Musculoskeletal: No joint swelling Neurological: No weakness; oo numbness; No Headache; no vertigo; no lightheadedness *Physical Exam - Vital Signs Last Vital Signs Temp Pulse Resp BP Pulse Ox 98.6 F 87 18 110/44 L 99 09/28/18 11:15 09/28/18 11:15 09/28/18 11:15 09/28/18 11:15 09/28/18 11:15 - Physical Exam Comments: 09/28/18 12:23 Vitals: Triage vital signs reviewed Cardiac: Regular rate and rhythm, no murmurs, no rubs, no gallops Lungs: Clear to auscultation bilateral, good air movement bilaterally Abdomen: Soft, nondistended, normal bowel sounds, nontender to palpation Extremities: Full range of motion to all extremities, no edema. Patient's left foot is dressed as he was just evaluated by Dr. García, tower hand, upstairs and will not undress at this time. Skin: Warm and dry, no rashes or lesions, no rash, no petechiae Neuro: AOX3; Cranial Nerves 2-12 grossly intact, Strength intact to all extremities, Sensation intact to all extremities, gait normal Psych: Normal mood, normal affect ED Treatment Course - LABORATORY CBC & Chemistry Diagram: 09/28/18 11:45 09/28/18 11:45 Medical Decision Making - Medical Decision Making 09/28/18 16:19 Patient sent for infected diabetic foot ulcer from wound care We'll treat with vancomycin and Zosyn infectious diseases been consult in we'll admit to medicine for further management. *DC/Admit/Observation/Transfer Diagnosis at time of Disposition: Wound infection, 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 - Discharge Dispostion Decision to Admit order: Yes - Referrals - Patient Instructions - Post Discharge Activity
[2018-09-28 13:40] LABS: ALBUMIN 2.6 g/dl (3.4-5.0); BILIRUBIN,TOTAL 0.7 mg/dL (0.2-1); CALCIUM 8.9 mg/dL (8.5-10.1); CREATININE 0.8 mg/dL (0.55-1.3); POTASSIUM 4.9 mmol/L (3.5-5.1)
[2018-09-28] MEDS ORDERED: ACETAMINOPHEN 325 MG TABLET (FP) PO PRN (14:54)
--- NOTE | 2018-09-28 15:06 | HP ---
Admitting History and Physical - Primary Care Physician PCP: Matt Queen - Admission Chief Complaint: My foot is infected History of Present Illness: Ms Prince is a very pleasant 78 year old female who was sent in from podiatry for infected L heel ulcer. She says this is chronic and it has been receiving treatment. Earlier this year she was admitted for this, underwent debridement, and spent a total of 6 weeks receiving IV antibiotics. She was doing well but then was found to have a breast mass. She underwent mastectomy with drain placement that was removed. She was at home and her visiting nurse noted that the chronic heel ulcer was getting worse. She was cleaning and bandaging but it did not improve. Also her mastectomy site was noted to be oozing. She was seen by the breast surgeon and her drain was replaced yesterday and she was seen by podiatry and she was sent for admission. She complains of having some foot pain but it was not severe. She cannot look at her foot so does not know what it looks like. She is unsure if there was drainage. She denies fevers, chills, lightheadedness, dizziness, passing out, chest pain, shortness of breath, nausea , vomiting, diarrhea, constipation, or difficulty or pain on urination. History Source: Patient Limitations to Obtaining History: No Limitations - Past Medical History ORTHO ASSISTANT: Yes: Peripheral Neuropathy (with diabetic ulcers) Cardiovascular: Yes: CAD, HTN Musculoskeletal: Yes: Chronic low back pain, Osteoarthritis Endocrine: Yes: Diabetes Mellitus, Hypothyroidism - Past Surgical History Past Surgical History: Yes: Cholecystectomy (open 20's), Mastectomy (left), Stent (x3 2008 and 2011) - Smoking History Smoking history: Unknown if ever smoked Have you smoked in the past 12 months: No If you are a former smoker, when did you quit?: 25yrs - Alcohol/Substance Use Hx Alcohol Use: No History of Substance Use: reports: None - Social History Usual Living Arrangement: Yes: Alone ADL: Support Services History of Recent Travel: No Home Medications - Allergies Allergies/Adverse Reactions: Allergies Allergy/AdvReac Type Severity Reaction Status Date / Time Gold Salts Allergy Verified 09/28/18 11:12 Iodinated Contrast- Oral and Allergy Verified 09/28/18 11:12 IV Dye silver Allergy Verified 09/28/18 11:12 contrast Allergy Uncoded 09/28/18 11:12 - Home Medications Home Medications: Ambulatory Orders Atorvastatin Ca [Lipitor] 20 mg PO HS 03/12/16 Cholecalciferol (Vitamin D3) [Vitamin D -] 2,000 unit PO DAILY 03/12/16 Gabapentin 300 mg PO TID 03/12/16 Glipizide 5 mg PO BIDAC 03/12/16 Insulin Glargine,Hum.rec.anlog [Lantus Solostar PEN -] 20 units SQ HS 03/12/16 Levothyroxine [Synthroid -] 50 mcg PO DAILY@0700 03/12/16 Liraglutide [Victoza -] 1.2 mg SQ DAILY@0700 03/12/16 metFORMIN HCL [Metformin HCl] 500 mg PO BIDAC 03/12/16 Metoprolol Succinate [Toprol XL -] 50 mg PO BID 08/17/17 Ramipril 5 mg PO BID 08/17/17 Acetaminophen [Tylenol .Regular Strength -] 650 mg PO Q4H PRN tablet 08/22/17 Alendronate Sodium [Binosto] 70 mg PO WEEKLY 05/05/18 Oxycodone HCl/Acetaminophen [Percocet 5-325 mg Tablet] 1 tab PO Q6H PRN #10 tablet MDD 4 08/25/18 Family Disease History - Family Disease History Family Disease History: Diabetes: Father, Heart Disease: Father, Mother, Brother , Sister Review of Systems Findings/Remarks: Full review of systems obtained, as per HPI and otherwise negative Physical Examination Vital Signs: Vital Signs Temperature 37.0 C 09/28/18 11:15 Pulse Rate 82 09/28/18 14:34 Respiratory Rate 17 09/28/18 14:34 Blood Pressure 115/60 09/28/18 14:34 O2 Sat by Pulse Oximetry (%) 99 09/28/18 14:34 Constitutional: Yes: No Distress, Calm, Obese Eyes: Yes: Conjunctiva Clear, EOM Intact, PERRL HENT: Yes: Atraumatic, Normocephalic Cardiovascular: Yes: Regular Rate and Rhythm. No: Gallop, Murmur, Rub Respiratory: Yes: Regular, CTA Bilaterally. No: Rales, Rhonchi, Wheezes Gastrointestinal: Yes: Normal Bowel Sounds, Soft. 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 Assessment/Plan: -with infection -admit to the hospital -podiatry and ID consulted -given vancomycin and zosyn -continue today -further antibiotics per ID -follow up cultures Code(s): E11.621 - TYPE 2 DIABETES MELLITUS WITH FOOT ULCER; L97.509 - NON- PRESSURE CHRONIC ULCER OTH PRT UNSP FOOT W UNSP SEVERITY (2) Wound infection Assessment/Plan: -as above Code(s): T14.8XXA - OTHER INJURY OF UNSPECIFIED BODY REGION, INITIAL ENCOUNTER; L08.9 - LOCAL INFECTION OF THE SKIN AND SUBCUTANEOUS TISSUE, UNSP (3) Breast cancer, left breast Assessment/Plan: -s/p mastectomy -drain in place for drainage Code(s): C50.912 - MALIGNANT NEOPLASM OF UNSPECIFIED SITE OF LEFT FEMALE BREAST Qualifiers: Breast location: upper outer quadrant of breast Estrogen receptor status: positive Patient sex: female Qualified Code(s): C50.412 - Malignant neoplasm of upper-outer quadrant of left female breast; Z17.0 - Estrogen receptor positive status [ER+] (4) CAD (coronary artery disease) Assessment/Plan: -quiescent -continue home regimen Code(s): I25.10 - ATHSCL HEART DISEASE OF [place] CORONARY ARTERY W/O ANG PCTRS Qualifiers: [place] vs. transplanted heart: [place] heart Associated angina: without angina (5) Diabetes Assessment/Plan: -continue victoza -on lantus 20 units qhs -change to levemir 10 units bid -diabetic diet and SSI Code(s): E11.9 - TYPE 2 DIABETES MELLITUS WITHOUT COMPLICATIONS Qualifiers: Diabetes mellitus type: type 2 Diabetes mellitus meterman insulin use: with meterman use Diabetes mellitus complication status: with skin complications Diabetes mellitus complication detail: with foot ulcer Qualified Code(s): E11.621 - Type 2 diabetes mellitus with foot ulcer; L97.509 - Non-pressure chronic ulcer of other part of unspecified foot with unspecified severity; Z79.4 - shelter (current) use of insulin (6) HTN (hypertension) Assessment/Plan: -well controlled -continue toprol xl and ramipril Code(s): I10 - ESSENTIAL (PRIMARY) HYPERTENSION Qualifiers: Hypertension type: essential hypertension Qualified Code(s): I10 - Essential (primary) hypertension (7) Hyperlipidemia Assessment/Plan: -continue lipitor Code(s): E78.5 - HYPERLIPIDEMIA, UNSPECIFIED (8) Hypothyroidism Assessment/Plan: -continue synthroid Code(s): E03.9 - HYPOTHYROIDISM, UNSPECIFIED (9) Obesity (BMI 30.0-34.9) Code(s): E66.9 - OBESITY, UNSPECIFIED
[2018-09-28] MEDS: INSULIN SLIDING SCALE (NOVOLOG) 1 VIAL SQ SCH ×2 (17:07→21:57)
[2018-09-28] MEDS ORDERED: PIPERACILLIN/TAZOB 3.375 GM 3.375 GM in DEXTROSE 5%-WATER - 50 ML IVPB SCH (18:00)
[2018-09-28] MEDS ORDERED: VANCOMYCIN 1 GRAM (PRE-DOCKED) 1,000 MG/250 ML BAG IVPB SCH (18:15)
[2018-09-28 18:21] VITALS: BMI 30.7
[2018-09-28] MEDS ORDERED: PIPERACILLIN/TAZOBACTAM 3.375 GM VIAL IVPB ONE (18:53)
[2018-09-28] MEDS ORDERED: DEXTROSE 5%-WATER - 50 ML IVPB ONE (18:54)
[2018-09-28] MEDS: PIPERACILLIN/TAZOB 3.375 GM 3.375 GM in DEXTROSE 5%-WATER - 50 ML IVPB SCH (19:00)
[2018-09-28] MEDS: LACTOBACILLUS ACIDOPHILUS 1 TABLET PO SCH (19:00)
[2018-09-28] MEDS: RAMIPRIL 5 MG CAPSULE (FP) PO SCH (21:56)
[2018-09-28] MEDS: INSULIN (LEVEMIR) 100 UNITS/ML UNITS SQ SCH (21:56)
[2018-09-28] MEDS: ATORVASTATIN CA 20 MG TABLET (FP) PO SCH (21:57)
[2018-09-28] MEDS: GABAPENTIN 300 MG CAPSULE (FP) PO SCH (21:57)
[2018-09-29] MEDS: GABAPENTIN 300 MG CAPSULE (FP) PO SCH ×3 (01:30→21:27)
[2018-09-29] MEDS ORDERED: DEXTROSE 5%-WATER - 50 ML IVPB ONE ×3 (02:06→17:37)
[2018-09-29] MEDS ORDERED: PIPERACILLIN/TAZOBACTAM 3.375 GM VIAL IVPB ONE ×3 (02:06→17:37)
[2018-09-29] MEDS: PIPERACILLIN/TAZOB 3.375 GM 3.375 GM in DEXTROSE 5%-WATER - 50 ML IVPB SCH ×3 (02:14→17:40)
[2018-09-29] MEDS: INSULIN (LEVEMIR) 100 UNITS/ML UNITS SQ SCH ×2 (06:37→21:56)
[2018-09-29] MEDS: LEVOTHYROXINE NA 50 MCG TABLET (FP) PO SCH (06:38)
[2018-09-29] MEDS: INSULIN SLIDING SCALE (NOVOLOG) 1 VIAL SQ SCH ×4 (06:38→21:27)
[2018-09-29] MEDS ORDERED: PT OWN MED DRAWER 7, Y5N ONE ×2 (07:40→14:38)
[2018-09-29 07:43] LABS: EOS % 7.7 % (0-4.5); HEMOGLOBIN 9.7 GM/dL (10.7-15.3); LYMPH % 17.4 % (8-40); MCH 28.4 pg (25.7-33.7); MCHC 33.5 g/dl (32.0-36.0); MEAN CELL VOLUME 84.7 fl (80-96); MEAN PLT VOLUME 7.6 fl (7.5-11.1); MONO % 8.7 % (3.8-10.2); NEUT % 65.2 % (42.8-82.8); PLATELET COUNT 258 K/MM3 (134-434); RBC 3.42 M/mm3 (3.60-5.2); RDW 15.2 % (11.6-15.6); WHITE BLOOD COUNT 4.5 K/mm3 (4.0-10.0)
[2018-09-29] MEDS: LIRAGLUTIDE 0.6 MG/0.1 ML PEN.INJCTR SQ SCH (07:45)
[2018-09-29 07:53] LABS: CALCIUM 9.5 mg/dL (8.5-10.1); CREATININE 0.6 mg/dL (0.55-1.3); MAGNESIUM 1.6 mg/dL (1.8-2.4); PHOSPHOROUS 2.6 mg/dL (2.5-4.9); POTASSIUM 4.4 mmol/L (3.5-5.1)
[2018-09-29] MEDS: CHOLECALCIFEROL (VIT D3) 1,000 UNIT (25 MCG) TABLET PO SCH (11:15)
[2018-09-29] MEDS: LACTOBACILLUS ACIDOPHILUS 1 TABLET PO SCH (11:15)
[2018-09-29] MEDS: ENOXAPARIN NA (PORCINE) 40 MG/0.4 ML DISP.SYRIN SQ SCH (11:15)
[2018-09-29] MEDS: RAMIPRIL 5 MG CAPSULE (FP) PO SCH (11:16)
--- NOTE | 2018-09-29 11:40 | CONSULT ---
Consult Consult Specialty:: Podiatry Reason for Consultation:: Infected left heel. s/p mastectomy. Presented with foul smelling heel yesterday to [facility]. 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: Peripheral Neuropathy (with diabetic ulcers) Cardio/Vascular: Yes: CAD, HTN Musculoskeletal: Yes: Chronic low back pain, Osteoarthritis Endocrine: Yes: Diabetes Mellitus, Hypothyroidism - Past Surgical History Past Surgical History: Yes: Cholecystectomy (open 20's), Mastectomy (left), Stent (x3 2008 and 2011) - Alcohol/Substance Use Hx Alcohol Use: No History of Substance Use: reports: None - Smoking History Smoking history: Unknown if ever smoked Have you smoked in the past 12 months: No If you are a former smoker, when did you quit?: 25yrs - Social History ADL: Support Services History of Recent Travel: No Home Medications - Allergies Allergies/Adverse Reactions: Allergies Allergy/AdvReac Type Severity Reaction Status Date / Time Gold Salts Allergy Verified 09/28/18 11:12 Iodinated Contrast- Oral and Allergy Verified 09/28/18 11:12 IV Dye silver Allergy Verified 09/28/18 11:12 contrast Allergy Uncoded 09/28/18 11:12 - Home Medications Home Medications: Ambulatory Orders Atorvastatin Ca [Lipitor] 20 mg PO HS 03/12/16 Cholecalciferol (Vitamin D3) [Vitamin D -] 2,000 unit PO DAILY 03/12/16 Gabapentin 300 mg PO TID 03/12/16 Glipizide 5 mg PO BIDAC 03/12/16 Insulin Glargine,Hum.rec.anlog [Lantus Solostar PEN -] 20 units SQ HS 03/12/16 Levothyroxine [Synthroid -] 50 mcg PO DAILY@0700 03/12/16 Liraglutide [Victoza -] 1.2 mg SQ DAILY@0700 03/12/16 metFORMIN HCL [Metformin HCl] 500 mg PO BIDAC 03/12/16 Metoprolol Succinate [Toprol XL -] 50 mg PO BID 08/17/17 Ramipril 5 mg PO BID 08/17/17 Acetaminophen [Tylenol .Regular Strength -] 650 mg PO Q4H PRN tablet 08/22/17 Alendronate Sodium [Binosto] 70 mg PO WEEKLY 05/05/18 Oxycodone HCl/Acetaminophen [Percocet 5-325 mg Tablet] 1 tab PO Q6H PRN #10 tablet MDD 4 08/25/18 Family Disease History - Family Disease History Family Disease History: Diabetes: Father, Heart Disease: Father, Mother, Brother , Sister Physical Exam Vital Signs: Vital Signs Temperature 98.6 F 09/29/18 09:19 Pulse Rate 84 09/29/18 09:19 Respiratory Rate 19 09/29/18 09:19 Blood Pressure 93/53 L 09/29/18 09:19 O2 Sat by Pulse Oximetry (%) 97 09/29/18 09:00 Extremities: Yes: Other (+cellulitis left, -drainage today, no growth yet on culture) Labs: CBC, BMP 09/29/18 07:00 09/29/18 07:00 Imaging - Results X-ray: Report Reviewed Assessment/Plan cellulitis left heel Improved odor IVABX as per ID. Gabbie to heel left wound. Will follow. Vascular consult ordered.
--- NOTE | 2018-09-29 11:55 | CON.ID ---
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: Peripheral Neuropathy (with diabetic ulcers) Cardio/Vascular: Yes: CAD, HTN Musculoskeletal: Yes: Chronic low back pain, Osteoarthritis Endocrine: Yes: Diabetes Mellitus, Hypothyroidism - Past Surgical History Past Surgical History: Yes: Cholecystectomy (open 20's), Mastectomy (left), Stent (x3 2008 and 2011) - Alcohol/Substance Use Hx Alcohol Use: No History of Substance Use: reports: None - Smoking History Smoking history: Unknown if ever smoked Have you smoked in the past 12 months: No If you are a former smoker, when did you quit?: 25yrs - Social History ADL: Support Services History of Recent Travel: No Home Medications - Allergies Allergies/Adverse Reactions: Allergies Allergy/AdvReac Type Severity Reaction Status Date / Time Gold Salts Allergy Verified 09/28/18 11:12 Iodinated Contrast- Oral and Allergy Verified 09/28/18 11:12 IV Dye silver Allergy Verified 09/28/18 11:12 contrast Allergy Uncoded 09/28/18 11:12 - Home Medications Home Medications: Ambulatory Orders Atorvastatin Ca [Lipitor] 20 mg PO HS 03/12/16 Cholecalciferol (Vitamin D3) [Vitamin D -] 2,000 unit PO DAILY 03/12/16 Gabapentin 300 mg PO TID 03/12/16 Glipizide 5 mg PO BIDAC 03/12/16 Insulin Glargine,Hum.rec.anlog [Lantus Solostar PEN -] 20 units SQ HS 03/12/16 Levothyroxine [Synthroid -] 50 mcg PO DAILY@0700 03/12/16 Liraglutide [Victoza -] 1.2 mg SQ DAILY@0700 03/12/16 metFORMIN HCL [Metformin HCl] 500 mg PO BIDAC 03/12/16 Metoprolol Succinate [Toprol XL -] 50 mg PO BID 08/17/17 Ramipril 5 mg PO BID 08/17/17 Acetaminophen [Tylenol .Regular Strength -] 650 mg PO Q4H PRN tablet 08/22/17 Alendronate Sodium [Binosto] 70 mg PO WEEKLY 05/05/18 Oxycodone HCl/Acetaminophen [Percocet 5-325 mg Tablet] 1 tab PO Q6H PRN #10 tablet MDD 4 08/25/18 Family Disease History - Family Disease History Family Disease History: Diabetes: Father, Heart Disease: Father, Mother, Brother , Sister Physical Exam Vital Signs: Vital Signs Temperature 98.6 F 09/29/18 09:19 Pulse Rate 84 09/29/18 09:19 Respiratory Rate 19 09/29/18 09:19 Blood Pressure 93/53 L 09/29/18 09:19 O2 Sat by Pulse Oximetry (%) 97 09/29/18 09:00 Labs: CBC, BMP 09/29/18 07:00 09/29/18 07:00
[2018-09-29] MEDS: COLLAGENASE CLOSTRIDIUM HIST. 30 GRAMS TUBE TP SCH (14:43)
[2018-09-29] MEDS ORDERED: MAGNESIUM SULF 50% (8.12 MEQ/2 ML-1 GM VIAL) IVPB ONE (16:51)
--- NOTE | 2018-09-29 16:56 | PN ---
Progress Note, Physician Chief Complaint: Ms Prince says her foot still hurts but is feeling better. No cp, sob, n/v. - Current Medication List Current Medications: Active Medications Acetaminophen (Tylenol -) 650 mg PO Q4H PRN PRN Reason: FEVER Last Admin: 09/28/18 19:01 Dose: 650 mg Atorvastatin Calcium (Lipitor -) 20 mg PO HS [facility] Last Admin: 09/28/18 21:57 Dose: 20 mg Cholecalciferol (Vitamin D3 -) 2,000 unit PO DAILY [facility] Last Admin: 09/29/18 11:15 Dose: 2,000 unit Collagenase (Santyl -) 1 applic TP DAILY [facility]; Protocol Last Admin: 09/29/18 14:43 Dose: 1 applic Enoxaparin Sodium (Lovenox -) 40 mg SQ DAILY [facility] Last Admin: 09/29/18 11:15 Dose: 40 mg Gabapentin (Neurontin -) 300 mg PO TID [facility] Last Admin: 09/29/18 06:37 Dose: 300 mg Piperacillin Sod/Tazobactam (Sod 3.375 gm/ Dextrose) 50 mls @ 100 mls/hr IVPB Q8H-IV [facility]; Protocol Last Admin: 09/29/18 12:41 Dose: 100 mls/hr Insulin Aspart (Novolog Vial Sliding Scale -) 1 vial SQ ACHS [facility]; Protocol Last Admin: 09/29/18 11:57 Dose: 4 units Insulin Detemir (Levemir Vial) 10 units SQ BID@0700,2200 [facility] Last Admin: 09/29/18 06:37 Dose: 10 units Lactobacillus Acidophilus (Bacid -) 1 tab PO DAILY [facility] Last Admin: 09/29/18 11:15 Dose: 1 tab Levothyroxine Sodium (Synthroid -) 50 mcg PO DAILY@0700 [facility] Last Admin: 09/29/18 06:38 Dose: 50 mcg Liraglutide (Victoza -) 1.2 mg SQ DAILY@0700 [facility] Last Admin: 09/29/18 07:45 Dose: 1.2 mg Magnesium Sulfate (Magnesium Sulfate) 2 gm IVPB ONCE ONE Stop: 09/29/18 16:52 Metoprolol Succinate (Toprol Xl -) 50 mg PO BID [facility] Last Admin: 09/29/18 11:16 Dose: 50 mg Ramipril (Altace -) 5 mg PO BID [facility] Last Admin: 09/29/18 11:16 Dose: 5 mg - Objective Vital Signs: Vital Signs Temperature 37.0 C 09/29/18 09:19 Pulse Rate 84 09/29/18 09:19 Respiratory Rate 19 09/29/18 09:19 Blood Pressure 93/53 L 09/29/18 09:19 O2 Sat by Pulse Oximetry (%) 97 09/29/18 09:00 Constitutional: Yes: No Distress, Calm, Obese Cardiovascular: Yes: Regular Rate and Rhythm. No: Gallop, Murmur, Rub Respiratory: Yes: Regular, CTA Bilaterally. No: Rales, Rhonchi, Wheezes Gastrointestinal: Yes: Normal Bowel Sounds, Soft. 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 Code(s): E11.621 - TYPE 2 DIABETES MELLITUS WITH FOOT ULCER; L97.509 - NON- PRESSURE CHRONIC ULCER OTH PRT UNSP FOOT W UNSP SEVERITY (2) Wound infection Code(s): T14.8XXA - OTHER INJURY OF UNSPECIFIED BODY REGION, INITIAL ENCOUNTER; L08.9 - LOCAL INFECTION OF THE SKIN AND SUBCUTANEOUS TISSUE, UNSP (3) Breast cancer, left breast Code(s): C50.912 - MALIGNANT NEOPLASM OF UNSPECIFIED SITE OF LEFT FEMALE BREAST Qualifiers: Breast location: upper outer quadrant of breast Estrogen receptor status: positive Patient sex: female Qualified Code(s): C50.412 - Malignant neoplasm of upper-outer quadrant of left female breast; Z17.0 - Estrogen receptor positive status [ER+] (4) CAD (coronary artery disease) Code(s): I25.10 - ATHSCL HEART DISEASE OF [place] CORONARY ARTERY W/O ANG PCTRS Qualifiers: [place] vs. 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 insulin (6) HTN (hypertension) Code(s): I10 - ESSENTIAL (PRIMARY) HYPERTENSION Qualifiers: Hypertension type: essential hypertension Qualified Code(s): I10 - Essential (primary) hypertension (7) Hyperlipidemia Code(s): E78.5 - HYPERLIPIDEMIA, UNSPECIFIED (8) Hypothyroidism Code(s): E03.9 - HYPOTHYROIDISM, UNSPECIFIED (9) Obesity (BMI 30.0-34.9) Code(s): E66.9 - OBESITY, UNSPECIFIED Assessment/Plan (1) 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 Assessment/Plan: -appreciate ID and podiatry assistance -vascular surgery consulted -podiatry cleaned and wrapped wound -continue zosyn Code(s): E11.621 - TYPE 2 DIABETES MELLITUS WITH FOOT ULCER; L97.509 - NON- PRESSURE CHRONIC ULCER OTH PRT UNSP FOOT W UNSP SEVERITY (2) Wound infection Assessment/Plan: -as above Code(s): T14.8XXA - OTHER INJURY OF UNSPECIFIED BODY REGION, INITIAL ENCOUNTER; L08.9 - LOCAL INFECTION OF THE SKIN AND SUBCUTANEOUS TISSUE, UNSP (3) Breast cancer, left breast Assessment/Plan: -s/p mastectomy -drain in place for drainage Code(s): C50.912 - MALIGNANT NEOPLASM OF UNSPECIFIED SITE OF LEFT FEMALE BREAST Qualifiers: Breast location: upper outer quadrant of breast Estrogen receptor status: positive Patient sex: female Qualified Code(s): C50.412 - Malignant neoplasm of upper-outer quadrant of left female breast; Z17.0 - Estrogen receptor positive status [ER+] (4) CAD (coronary artery disease) Assessment/Plan: -quiescent -continue home regimen Code(s): I25.10 - ATHSCL HEART DISEASE OF [place] CORONARY ARTERY W/O ANG PCTRS Qualifiers: [place] vs. transplanted heart: [place] heart Associated angina: without angina (5) Diabetes Assessment/Plan: -continue victoza -on lantus 20 units qhs -change to levemir 10 units bid -may benefit from increase in am levemir, monitor today -ideal to keep glucose below 180 to promote wound healing -diabetic diet and SSI Code(s): E11.9 - TYPE 2 DIABETES MELLITUS WITHOUT COMPLICATIONS Qualifiers: Diabetes mellitus type: type 2 Diabetes mellitus penitentiary insulin use: with penitentiary use Diabetes mellitus complication status: with skin complications Diabetes mellitus complication detail: with foot ulcer Qualified Code(s): E11.621 - Type 2 diabetes mellitus with foot ulcer; L97.509 - Non-pressure chronic ulcer of other part of unspecified foot with unspecified severity; Z79.4 - prison (current) use of insulin (6) HTN (hypertension) Assessment/Plan: -with episode of low blood pressure -change ramipril to 5mg daily -continue toprol xl Code(s): I10 - ESSENTIAL (PRIMARY) HYPERTENSION Qualifiers: Hypertension type: essential hypertension Qualified Code(s): I10 - Essential (primary) hypertension (7) Hyperlipidemia Assessment/Plan: -continue lipitor Code(s): E78.5 - HYPERLIPIDEMIA, UNSPECIFIED (8) Hypothyroidism Assessment/Plan: -continue synthroid Code(s): E03.9 - HYPOTHYROIDISM, UNSPECIFIED (9) Obesity (BMI 30.0-34.9) Code(s): E66.9 - OBESITY, UNSPECIFIED
--- NOTE | 2018-09-29 17:44 | CONSULT ---
- Consultation REQUESTING PROVIDER: CONSULT REQUEST: We have been asked to surgically evaluate this patient for ( Left heel ulcer). PCP:Fadi Noland MD HISTORY OF PRESENT ILLNESS: 78 y/o F w/ PMHx CAD, s/p stents x 3 (2008, 2011), HTN, IDDM c/b peripheral neuropathy, hypothyroidism, recent diagnosis of breast cancer (2018) s/p Left mastectomy (Dr Ware, 07/2018), now sent in by podiatry for infected L heel ulcer. Pt reports recurrent L heel ulcer x 3 years. States it has healed up twice in the past with local wound care. Patient states ulcer reopened sometime in March-April. She was admitted in May for L heel ulcer infection and d/c'ed to rehab for IV abx (Zosyn, 6 week course) via Pic[facility] line. Reports some improvement in the ulcer. However, it worsened over the past 2 months as pt was recovering from mastectomy and due to various doctor's appointments her VNS was not able to come and change her dressing as scheduled. States VNS RN came last week and noted a foul odor from the wound, pt was seen by her DPM and sent in to the hospital for further evaluation and trtmt. Reports pain in her foot with ambulation. Denies fever.chills, n/v/d, calf pain. Pt is concerned as she is scheduled for further trtmt for her breast cancer which is on hold due to her current foot infection. At baseline pt lives home alone, has son/daughter in law and grandsons present, however reports they work "all the time". Pt ambulates with a walker, states she is very independent and has been able to care for herself thus far. Pt had a Left ankle fracture in July 2017 which was repaired with screws/ plates. Upon review of emr, pt reportedly not complaint with offloading to L heel. Has a remote h/o smoking in her 203-30s. Denies any known PAD, claudication or rest pain. PMHx: as above PSHx: ad above Home Medications Medication Instructions Recorded Atorvastatin Ca [Lipitor] 20 mg PO HS 03/12/16 Cholecalciferol (Vitamin D3) 2,000 unit PO DAILY 03/12/16 [Vitamin D -] Gabapentin 300 mg PO TID 03/12/16 Glipizide 5 mg PO BIDAC 03/12/16 Insulin Glargine,Hum.rec.anlog 20 units SQ HS 03/12/16 [Lantus Solostar PEN -] Levothyroxine [Synthroid -] 50 mcg PO DAILY@0700 03/12/16 Liraglutide [Victoza -] 1.2 mg SQ DAILY@0700 03/12/16 metFORMIN HCL [Metformin HCl] 500 mg PO BIDAC 03/12/16 Metoprolol Succinate [Toprol XL -] 50 mg PO BID 08/17/17 Ramipril 5 mg PO BID 08/17/17 Acetaminophen [Tylenol .Regular 650 mg PO Q4H PRN tablet 08/22/17 Strength -] Alendronate Sodium [Binosto] 70 mg PO WEEKLY 05/05/18 Oxycodone HCl/Acetaminophen 1 tab PO Q6H PRN #10 tablet MDD 4 08/25/18 [Percocet 5-325 mg Tablet] Allergies Allergy/AdvReac Type Severity Reaction Status Date / Time Gold Salts Allergy Verified 09/28/18 11:12 Iodinated Contrast- Oral and Allergy Verified 09/28/18 11:12 IV Dye silver Allergy Verified 09/28/18 11:12 contrast Allergy Uncoded 09/28/18 11:12 REVIEW OF SYSTEMS: CONSTITUTIONAL: Absent: fever, chills CARDIOVASCULAR: Absent: chest pain, syncope RESPIRATORY: Absent: cough, shortness of breath GASTROINTESTINAL: Absent: abdominal pain PHYSICAL EXAM: GENERAL: Awake, alert, and fully oriented, in no acute distress. HEAD: Normal with no signs of trauma. LOWER EXTREMITIES: LLE with 1+ pitting edema to mid calf. Left foot with approx 5.5 x 5cm ulcer over distal plantar aspect of foot. Wound bed with granulation tissue present. Approx 1.5x1.5cm fibrinous area at proximal wound, no tracking or undermining appreciated. No drainage. Approx 1.5x1.5 fibrinous plug close to center of wound, tracks 1cm with palpable bone below. No drainage noted. Mild rony-wound erythema. No ttp noted. no purulent drainage expressed. Vasc: 2+ b/l fem/ 2+ L dp/pt, 1+ r dp/pt Vital Signs Temperature 98.6 F 09/29/18 09:19 Pulse Rate 84 09/29/18 09:19 Respiratory Rate 19 09/29/18 09:19 Blood Pressure 93/53 L 09/29/18 09:19 O2 Sat by Pulse Oximetry (%) 97 09/29/18 09:00 Lab Results WBC 4.5 K/mm3 (4.0-10.0) 09/29/18 07:00 RBC 3.42 M/mm3 (3.60-5.2) L 09/29/18 07:00 Hgb 9.7 GM/dL (10.7-15.3) L 09/29/18 07:00 Hct 29.0 % (32.4-45.2) L 09/29/18 07:00 MCV 84.7 fl (80-96) 09/29/18 07:00 MCHC 33.5 g/dl (32.0-36.0) 09/29/18 07:00 RDW 15.2 % (11.6-15.6) 09/29/18 07:00 Plt Count 258 K/MM3 (134-434) 09/29/18 07:00 Sodium 140 mmol/L (136-145) 09/29/18 07:00 Potassium 4.4 mmol/L (3.5-5.1) 09/29/18 07:00 Chloride 105 mmol/L (98-107) 09/29/18 07:00 Carbon Dioxide 30 mmol/L (21-32) 09/29/18 07:00 Anion Gap 6 MMOL/L (8-16) L 09/29/18 07:00 BUN 15 mg/dL (7-18) 09/29/18 07:00 Creatinine 0.6 mg/dL (0.55-1.3) 09/29/18 07:00 Random Glucose 114 mg/dL (74-106) H 09/29/18 07:00 Calcium 9.5 mg/dL (8.5-10.1) 09/29/18 07:00 A/P: 78 y/o F w/ PMHx CAD, s/p stents x 3 (2008, 2011), HTN, IDDM c/b peripheral neuropathy, hypothyroidism, recent diagnosis of breast cancer (2018) s/p Left mastectomy (Dr Ware, 07/2018), now sent in by podiatry for infected L heel ulcer. Afebrile, no leukocytosis L foot with chronic neuropathic ulcer in close proximity to ankle hardware ( prior fx in 2018) Xray with mention of whether osteomyelitis is present or now, however pt with chronic ulcer with exposed bone creates high suspicion for osteomyelitis. Palpable pedal pulses L foot -Abx per ID -Would consider further imaging if possible for evaluation of osteomyelitis -Santyl to wound, cover with damp to dry 4x4/kerlix, change daily -Offloading to L heel -Elevate L foot above level of heart while pt is at rest -May consider arterial duplex. Though pt has palpable pedal pulses, she does have a h/o tobacco abuse as well as CAD requiring stents. Above d/w attending Dr Moya
[2018-09-29] MEDS: ATORVASTATIN CA 20 MG TABLET (FP) PO SCH (21:27)
[2018-09-30] MEDS ORDERED: DEXTROSE 5%-WATER - 50 ML IVPB ONE ×3 (00:51→16:57)
[2018-09-30] MEDS ORDERED: PIPERACILLIN/TAZOBACTAM 3.375 GM VIAL IVPB ONE ×3 (00:51→16:57)
[2018-09-30] MEDS: PIPERACILLIN/TAZOB 3.375 GM 3.375 GM in DEXTROSE 5%-WATER - 50 ML IVPB SCH ×3 (02:05→17:09)
[2018-09-30] MEDS ORDERED: PT OWN MED DRAWER 7, Y5N ONE ×2 (05:33→10:09)
[2018-09-30] MEDS: GABAPENTIN 300 MG CAPSULE (FP) PO SCH ×3 (05:46→22:46)
[2018-09-30] MEDS: INSULIN (LEVEMIR) 100 UNITS/ML UNITS SQ SCH ×2 (06:28→22:49)
[2018-09-30] MEDS: LEVOTHYROXINE NA 50 MCG TABLET (FP) PO SCH (06:29)
[2018-09-30] MEDS: INSULIN SLIDING SCALE (NOVOLOG) 1 VIAL SQ SCH ×4 (06:29→22:53)
[2018-09-30] MEDS: LIRAGLUTIDE 0.6 MG/0.1 ML PEN.INJCTR SQ SCH (06:29)
[2018-09-30] MEDS ORDERED: INSULIN (NOVOLOG) ASPART 100 UNITS/ML 10ML VIAL ONE ×2 (06:35→11:17)
[2018-09-30 07:40] LABS: BASO % 0.9 % (0-2.0); EOS % 7.1 % (0-4.5); HEMATOCRIT 27.3 % (32.4-45.2); HEMOGLOBIN 9.2 GM/dL (10.7-15.3); LYMPH % 12.4 % (8-40); MCH 28.4 pg (25.7-33.7); MCHC 33.6 g/dl (32.0-36.0); MEAN CELL VOLUME 84.3 fl (80-96); MEAN PLT VOLUME 7.9 fl (7.5-11.1); MONO % 9.2 % (3.8-10.2); NEUT % 70.4 % (42.8-82.8); PLATELET COUNT 227 K/MM3 (134-434); RBC 3.24 M/mm3 (3.60-5.2); RDW 15.1 % (11.6-15.6); WHITE BLOOD COUNT 4.1 K/mm3 (4.0-10.0)
[2018-09-30 08:13] LABS: CALCIUM 9.1 mg/dL (8.5-10.1); CREATININE 0.6 mg/dL (0.55-1.3); MAGNESIUM 1.9 mg/dL (1.8-2.4); PHOSPHOROUS 2.9 mg/dL (2.5-4.9); POTASSIUM 4.1 mmol/L (3.5-5.1)
--- NOTE | 2018-09-30 09:43 | PN ---
Progress Note, Physician History of Present Illness: stable doing well debrided by podiatry - Current Medication List Current Medications: Active Medications Acetaminophen (Tylenol -) 650 mg PO Q4H PRN PRN Reason: FEVER Last Admin: 09/28/18 19:01 Dose: 650 mg Atorvastatin Calcium (Lipitor -) 20 mg PO HS [facility] Last Admin: 09/29/18 21:27 Dose: 20 mg Cholecalciferol (Vitamin D3 -) 2,000 unit PO DAILY [facility] Last Admin: 09/29/18 11:15 Dose: 2,000 unit Collagenase (Santyl -) 1 applic TP DAILY [facility]; Protocol Last Admin: 09/29/18 14:43 Dose: 1 applic Enoxaparin Sodium (Lovenox -) 40 mg SQ DAILY [facility] Last Admin: 09/29/18 11:15 Dose: 40 mg Gabapentin (Neurontin -) 300 mg PO TID [facility] Last Admin: 09/30/18 05:46 Dose: 300 mg Piperacillin Sod/Tazobactam (Sod 3.375 gm/ Dextrose) 50 mls @ 100 mls/hr IVPB Q8H-IV [facility]; Protocol Last Admin: 09/30/18 02:05 Dose: 100 mls/hr Insulin Aspart (Novolog Vial Sliding Scale -) 1 vial SQ ACHS [facility]; Protocol Last Admin: 09/30/18 06:29 Dose: Not Given Insulin Detemir (Levemir Vial) 10 units SQ BID@0700,2200 [facility] Last Admin: 09/30/18 06:28 Dose: 10 units Lactobacillus Acidophilus (Bacid -) 1 tab PO DAILY [facility] Last Admin: 09/29/18 11:15 Dose: 1 tab Levothyroxine Sodium (Synthroid -) 50 mcg PO DAILY@0700 [facility] Last Admin: 09/30/18 06:29 Dose: 50 mcg Liraglutide (Victoza -) 1.2 mg SQ DAILY@0700 [facility] Last Admin: 09/30/18 06:29 Dose: 1.2 mg Metoprolol Succinate (Toprol Xl -) 50 mg PO BID [facility] Last Admin: 09/29/18 21:27 Dose: 50 mg Ramipril (Altace -) 5 mg PO DAILY [facility] - Objective Vital Signs: Vital Signs Temperature 98.4 F 09/30/18 08:46 Pulse Rate 81 09/30/18 08:46 Respiratory Rate 15 09/30/18 08:46 Blood Pressure 121/66 09/30/18 08:46 O2 Sat by Pulse Oximetry (%) 97 09/30/18 09:00 Constitutional: Yes: No Distress, Calm Cardiovascular: Yes: S1, S2 Respiratory: Yes: Regular, CTA Bilaterally Gastrointestinal: Yes: Normal Bowel Sounds, Soft Musculoskeletal: Yes: WNL Extremities: Yes: Other Wound/Incision: Yes: Dressing Dry and Intact Neurological: Yes: Alert, Oriented Psychiatric: Yes: Alert, Oriented Labs: CBC, BMP 09/30/18 06:16 09/30/18 06:16 Assessment/Plan 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 Code(s): E11.621 - TYPE 2 DIABETES MELLITUS WITH FOOT ULCER; L97.509 - NON- PRESSURE CHRONIC ULCER OTH PRT UNSP FOOT W UNSP SEVERITY (2) Wound infection Code(s): T14.8XXA - OTHER INJURY OF UNSPECIFIED BODY REGION, INITIAL ENCOUNTER; L08.9 - LOCAL INFECTION OF THE SKIN AND SUBCUTANEOUS TISSUE, UNSP (3) Breast cancer, left breast Code(s): C50.912 - MALIGNANT NEOPLASM OF UNSPECIFIED SITE OF LEFT FEMALE BREAST Qualifiers: Breast location: upper outer quadrant of breast Estrogen receptor status: positive Patient sex: female Qualified Code(s): C50.412 - Malignant neoplasm of upper-outer quadrant of left female breast; Z17.0 - Estrogen receptor positive status [ER+] (4) CAD (coronary artery disease) Code(s): I25.10 - ATHSCL HEART DISEASE OF [place] CORONARY ARTERY W/O ANG PCTRS Qualifiers: [place] vs. 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 ad writer use Diabetes mellitus complication status: with skin complications Diabetes mellitus complication detail: with foot ulcer Qualified Code(s): E11.621 - Type 2 diabetes mellitus with foot ulcer; L97.509 - Non-pressure chronic ulcer of other part of unspecified foot with unspecified severity; Z79.4 - thoracic surgeon (current) use of insulin (6) HTN (hypertension) Code(s): I10 - ESSENTIAL (PRIMARY) HYPERTENSION Qualifiers: Hypertension type: essential hypertension Qualified Code(s): I10 - Essential (primary) hypertension (7) Hyperlipidemia Code(s): E78.5 - HYPERLIPIDEMIA, UNSPECIFIED (8) Hypothyroidism Code(s): E03.9 - HYPOTHYROIDISM, UNSPECIFIED (9) Obesity (BMI 30.0-34.9) Code(s): E66.9 - OBESITY, UNSPECIFIED plan continue abx wound care
[2018-09-30] MEDS: CHOLECALCIFEROL (VIT D3) 1,000 UNIT (25 MCG) TABLET PO SCH (10:14)
[2018-09-30] MEDS: LACTOBACILLUS ACIDOPHILUS 1 TABLET PO SCH (10:14)
[2018-09-30] MEDS: RAMIPRIL 5 MG CAPSULE (FP) PO SCH (10:14)
[2018-09-30] MEDS: ENOXAPARIN NA (PORCINE) 40 MG/0.4 ML DISP.SYRIN SQ SCH (10:14)
[2018-09-30] MEDS: COLLAGENASE CLOSTRIDIUM HIST. 30 GRAMS TUBE TP SCH (10:15)
--- NOTE | 2018-09-30 15:09 | PN ---
Progress Note, Physician Chief Complaint: Ms Prince complains of not being able to sleep for the past 2 nights. Denies cp , sob, n/v. - Current Medication List Current Medications: Active Medications Acetaminophen (Tylenol -) 650 mg PO Q4H PRN PRN Reason: FEVER Last Admin: 09/28/18 19:01 Dose: 650 mg Alprazolam (Xanax -) 0.25 mg PO HS PRN PRN Reason: INSOMNIA Atorvastatin Calcium (Lipitor -) 20 mg PO HS [facility] Last Admin: 09/29/18 21:27 Dose: 20 mg Cholecalciferol (Vitamin D3 -) 2,000 unit PO DAILY [facility] Last Admin: 09/30/18 10:14 Dose: 2,000 unit Collagenase (Santyl -) 1 applic TP DAILY [facility]; Protocol Last Admin: 09/30/18 10:15 Dose: 1 applic Enoxaparin Sodium (Lovenox -) 40 mg SQ DAILY [facility] Last Admin: 09/30/18 10:14 Dose: 40 mg Gabapentin (Neurontin -) 300 mg PO TID [facility] Last Admin: 09/30/18 13:21 Dose: 300 mg Piperacillin Sod/Tazobactam (Sod 3.375 gm/ Dextrose) 50 mls @ 100 mls/hr IVPB Q8H-IV [facility]; Protocol Last Admin: 09/30/18 10:15 Dose: 100 mls/hr Insulin Aspart (Novolog Vial Sliding Scale -) 1 vial SQ ACHS [facility]; Protocol Last Admin: 09/30/18 12:15 Dose: 6 units Insulin Detemir (Levemir Vial) 10 units SQ BID@0700,2200 [facility] Last Admin: 09/30/18 06:28 Dose: 10 units Lactobacillus Acidophilus (Bacid -) 1 tab PO DAILY [facility] Last Admin: 09/30/18 10:14 Dose: 1 tab Levothyroxine Sodium (Synthroid -) 50 mcg PO DAILY@0700 [facility] Last Admin: 09/30/18 06:29 Dose: 50 mcg Liraglutide (Victoza -) 1.2 mg SQ DAILY@0700 [facility] Last Admin: 09/30/18 06:29 Dose: 1.2 mg Metoprolol Succinate (Toprol Xl -) 50 mg PO BID [facility] Last Admin: 09/30/18 10:14 Dose: 50 mg Ramipril (Altace -) 5 mg PO DAILY [facility] Last Admin: 09/30/18 10:14 Dose: 5 mg - Objective Vital Signs: Vital Signs Temperature 36.9 C 09/30/18 08:46 Pulse Rate 81 09/30/18 08:46 Respiratory Rate 15 09/30/18 08:46 Blood Pressure 121/66 09/30/18 08:46 O2 Sat by Pulse Oximetry (%) 97 09/30/18 09:00 Constitutional: Yes: No Distress, Calm, Obese Cardiovascular: Yes: Regular Rate and Rhythm. No: Gallop, Murmur, Rub Respiratory: Yes: Regular, CTA Bilaterally. No: Rales, Rhonchi, Wheezes Gastrointestinal: Yes: Normal Bowel Sounds, Soft. 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 Code(s): E11.621 - TYPE 2 DIABETES MELLITUS WITH FOOT ULCER; L97.509 - NON- PRESSURE CHRONIC ULCER OTH PRT UNSP FOOT W UNSP SEVERITY (2) Wound infection Code(s): T14.8XXA - OTHER INJURY OF UNSPECIFIED BODY REGION, INITIAL ENCOUNTER; L08.9 - LOCAL INFECTION OF THE SKIN AND SUBCUTANEOUS TISSUE, UNSP (3) Breast cancer, left breast Code(s): C50.912 - MALIGNANT NEOPLASM OF UNSPECIFIED SITE OF LEFT FEMALE BREAST Qualifiers: Breast location: upper outer quadrant of breast Estrogen receptor status: positive Patient sex: female Qualified Code(s): C50.412 - Malignant neoplasm of upper-outer quadrant of left female breast; Z17.0 - Estrogen receptor positive status [ER+] (4) CAD (coronary artery disease) Code(s): I25.10 - ATHSCL HEART DISEASE OF [place] CORONARY ARTERY W/O ANG PCTRS Qualifiers: [place] vs. transplanted heart: [place] heart Associated angina: without angina (5) Diabetes Code(s): E11.9 - TYPE 2 DIABETES MELLITUS WITHOUT COMPLICATIONS Qualifiers: Diabetes mellitus type: type 2 Diabetes mellitus buttermaker insulin use: with buttermaker use Diabetes mellitus complication status: with skin complications Diabetes mellitus complication detail: with foot ulcer Qualified Code(s): E11.621 - Type 2 diabetes mellitus with foot ulcer; L97.509 - Non-pressure chronic ulcer of other part of unspecified foot with unspecified severity; Z79.4 - moth exterminator (current) use of insulin (6) HTN (hypertension) Code(s): I10 - ESSENTIAL (PRIMARY) HYPERTENSION Qualifiers: Hypertension type: essential hypertension Qualified Code(s): I10 - Essential (primary) hypertension (7) Hyperlipidemia Code(s): E78.5 - HYPERLIPIDEMIA, UNSPECIFIED (8) Hypothyroidism Code(s): E03.9 - HYPOTHYROIDISM, UNSPECIFIED (9) Obesity (BMI 30.0-34.9) Code(s): E66.9 - OBESITY, UNSPECIFIED Assessment/Plan (1) 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 Assessment/Plan: -continue wound care -continue zosyn -improving Code(s): E11.621 - TYPE 2 DIABETES MELLITUS WITH FOOT ULCER; L97.509 - NON- PRESSURE CHRONIC ULCER OTH PRT UNSP FOOT W UNSP SEVERITY (2) Wound infection Assessment/Plan: -as above Code(s): T14.8XXA - OTHER INJURY OF UNSPECIFIED BODY REGION, INITIAL ENCOUNTER; L08.9 - LOCAL INFECTION OF THE SKIN AND SUBCUTANEOUS TISSUE, UNSP (3) Breast cancer, left breast Assessment/Plan: -s/p mastectomy -drain in place for drainage Code(s): C50.912 - MALIGNANT NEOPLASM OF UNSPECIFIED SITE OF LEFT FEMALE BREAST Qualifiers: Breast location: upper outer quadrant of breast Estrogen receptor status: positive Patient sex: female Qualified Code(s): C50.412 - Malignant neoplasm of upper-outer quadrant of left female breast; Z17.0 - Estrogen receptor positive status [ER+] (4) CAD (coronary artery disease) Assessment/Plan: -quiescent -continue home regimen Code(s): I25.10 - ATHSCL HEART DISEASE OF [place] CORONARY ARTERY W/O ANG PCTRS Qualifiers: [place] vs. transplanted heart: [place] heart Associated angina: without angina (5) Diabetes Assessment/Plan: -continue victoza -on lantus 20 units qhs -change to levemir 20 units qam and 10 units qpm for better control -diabetic diet and SSI Code(s): E11.9 - TYPE 2 DIABETES MELLITUS WITHOUT COMPLICATIONS Qualifiers: Diabetes mellitus type: type 2 Diabetes mellitus mcc insulin use: with buttermaker use Diabetes mellitus complication status: with skin complications Diabetes mellitus complication detail: with foot ulcer Qualified Code(s): E11.621 - Type 2 diabetes mellitus with foot ulcer; L97.509 - Non-pressure chronic ulcer of other part of unspecified foot with unspecified severity; Z79.4 - shelter (current) use of insulin (6) HTN (hypertension) Assessment/Plan: -improved today with decreased ramipril -continue toprol xl Code(s): I10 - ESSENTIAL (PRIMARY) HYPERTENSION Qualifiers: Hypertension type: essential hypertension Qualified Code(s): I10 - Essential (primary) hypertension (7) Hyperlipidemia Assessment/Plan: -continue lipitor Code(s): E78.5 - HYPERLIPIDEMIA, UNSPECIFIED (8) Hypothyroidism Assessment/Plan: -continue synthroid Code(s): E03.9 - HYPOTHYROIDISM, UNSPECIFIED (9) Obesity (BMI 30.0-34.9) Code(s): E66.9 - OBESITY, UNSPECIFIED
[2018-09-30] MEDS: ATORVASTATIN CA 20 MG TABLET (FP) PO SCH (22:46)
[2018-10-01] MEDS ORDERED: PIPERACILLIN/TAZOBACTAM 3.375 GM VIAL IVPB ONE ×3 (02:33→16:17)
[2018-10-01] MEDS ORDERED: DEXTROSE 5%-WATER - 50 ML IVPB ONE ×3 (02:34→16:17)
[2018-10-01] MEDS: PIPERACILLIN/TAZOB 3.375 GM 3.375 GM in DEXTROSE 5%-WATER - 50 ML IVPB SCH ×3 (02:41→16:59)
[2018-10-01] MEDS: ALPRAZolam 0.25 MG TABLET PO PRN ×2 (02:50→21:41)
[2018-10-01] MEDS: GABAPENTIN 300 MG CAPSULE (FP) PO SCH ×3 (06:33→21:41)
[2018-10-01] MEDS: INSULIN (LEVEMIR) 100 UNITS/ML UNITS SQ SCH ×2 (06:34→21:41)
[2018-10-01] MEDS: INSULIN SLIDING SCALE (NOVOLOG) 1 VIAL SQ SCH ×4 (06:39→21:42)
[2018-10-01] MEDS: LIRAGLUTIDE 0.6 MG/0.1 ML PEN.INJCTR SQ SCH (06:43)
[2018-10-01] MEDS: LEVOTHYROXINE NA 50 MCG TABLET (FP) PO SCH (06:58)
[2018-10-01 07:20] LABS: BASO % 2.2 % (0-2.0); EOS % 7.9 % (0-4.5); HEMATOCRIT 26.5 % (32.4-45.2); HEMOGLOBIN 8.9 GM/dL (10.7-15.3); MCH 28.5 pg (25.7-33.7); MCHC 33.7 g/dl (32.0-36.0); MEAN CELL VOLUME 84.5 fl (80-96); MEAN PLT VOLUME 7.7 fl (7.5-11.1); MONO % 12.5 % (3.8-10.2); NEUT % 54.4 % (42.8-82.8); PLATELET COUNT 221 K/MM3 (134-434); RBC 3.13 M/mm3 (3.60-5.2); WHITE BLOOD COUNT 3.3 K/mm3 (4.0-10.0)
[2018-10-01 07:55] LABS: CALCIUM 9.4 mg/dL (8.5-10.1); CREATININE 0.7 mg/dL (0.55-1.3); MAGNESIUM 1.7 mg/dL (1.8-2.4); PHOSPHOROUS 3.1 mg/dL (2.5-4.9); POTASSIUM 4.3 mmol/L (3.5-5.1)
[2018-10-01] MEDS ORDERED: PT OWN MED DRAWER 7, Y5N ONE (09:52)
[2018-10-01] MEDS: CHOLECALCIFEROL (VIT D3) 1,000 UNIT (25 MCG) TABLET PO SCH (09:57)
[2018-10-01] MEDS: ENOXAPARIN NA (PORCINE) 40 MG/0.4 ML DISP.SYRIN SQ SCH (09:57)
[2018-10-01] MEDS: LACTOBACILLUS ACIDOPHILUS 1 TABLET PO SCH (09:57)
[2018-10-01] MEDS: COLLAGENASE CLOSTRIDIUM HIST. 30 GRAMS TUBE TP SCH (09:57)
[2018-10-01] MEDS: RAMIPRIL 5 MG CAPSULE (FP) PO SCH (09:57)
--- NOTE | 2018-10-01 10:48 | PN ---
Progress Note, Physician Chief Complaint: FUV left heel History of Present Illness: heel wound of 1-2 week duration - Current Medication List Current Medications: Active Medications Acetaminophen (Tylenol -) 650 mg PO Q4H PRN PRN Reason: FEVER Last Admin: 09/28/18 19:01 Dose: 650 mg Alprazolam (Xanax -) 0.25 mg PO HS PRN PRN Reason: INSOMNIA Last Admin: 10/01/18 02:50 Dose: 0.25 mg Atorvastatin Calcium (Lipitor -) 20 mg PO HS [facility] Last Admin: 09/30/18 22:46 Dose: 20 mg Cholecalciferol (Vitamin D3 -) 2,000 unit PO DAILY [facility] Last Admin: 10/01/18 09:57 Dose: 2,000 unit Collagenase (Santyl -) 1 applic TP DAILY [facility]; Protocol Last Admin: 10/01/18 09:57 Dose: 1 applic Enoxaparin Sodium (Lovenox -) 40 mg SQ DAILY [facility] Last Admin: 10/01/18 09:57 Dose: 40 mg Gabapentin (Neurontin -) 300 mg PO TID [facility] Last Admin: 10/01/18 06:33 Dose: 300 mg Piperacillin Sod/Tazobactam (Sod 3.375 gm/ Dextrose) 50 mls @ 100 mls/hr IVPB Q8H-IV [facility]; Protocol Last Admin: 10/01/18 09:56 Dose: 100 mls/hr Insulin Aspart (Novolog Vial Sliding Scale -) 1 vial SQ ACHS [facility]; Protocol Last Admin: 10/01/18 06:39 Dose: Not Given Insulin Detemir (Levemir Vial) 20 units SQ AM [facility] Last Admin: 10/01/18 06:34 Dose: 20 units Insulin Detemir (Levemir Vial) 10 units SQ HS [facility] Last Admin: 09/30/18 22:49 Dose: 10 units Lactobacillus Acidophilus (Bacid -) 1 tab PO DAILY [facility] Last Admin: 10/01/18 09:57 Dose: 1 tab Levothyroxine Sodium (Synthroid -) 50 mcg PO DAILY@0700 [facility] Last Admin: 10/01/18 06:58 Dose: 50 mcg Liraglutide (Victoza -) 1.2 mg SQ DAILY@0700 [facility] Last Admin: 10/01/18 06:43 Dose: 1.2 mg Metoprolol Succinate (Toprol Xl -) 50 mg PO BID [facility] Last Admin: 10/01/18 09:57 Dose: 50 mg Ramipril (Altace -) 5 mg PO DAILY [facility] Last Admin: 10/01/18 09:57 Dose: 5 mg - Objective Vital Signs: Vital Signs Temperature 97.8 F 10/01/18 07:35 Pulse Rate 80 10/01/18 07:35 Respiratory Rate 14 10/01/18 07:35 Blood Pressure 110/62 10/01/18 07:35 O2 Sat by Pulse Oximetry (%) 98 10/01/18 08:00 Extremities: Yes: Other (+improved cellulitis, -mal odor, +granulation with centralized necrosis of heel) Labs: CBC, BMP 10/01/18 06:35 10/01/18 06:35 Assessment/Plan cellulitis left heel improving Improved odor IVABX as per ID. [place]wright to heel left wound. Will follow.
[2018-10-01] MEDS ORDERED: INSULIN (NOVOLOG) ASPART 100 UNITS/ML 10ML VIAL ONE ×2 (11:25→21:04)
[2018-10-01] MEDS ORDERED: MAGNESIUM OXIDE 400 MG TABLET (FP) PO ONE (12:02)
--- NOTE | 2018-10-01 12:42 | PN ---
Progress Note, Physician Chief Complaint: Ms Prince says she slept better after taking xanax last night. No cp, sob, n/v. - Current Medication List Current Medications: Active Medications Acetaminophen (Tylenol -) 650 mg PO Q4H PRN PRN Reason: FEVER Last Admin: 09/28/18 19:01 Dose: 650 mg Alprazolam (Xanax -) 0.25 mg PO HS PRN PRN Reason: INSOMNIA Last Admin: 10/01/18 02:50 Dose: 0.25 mg Atorvastatin Calcium (Lipitor -) 20 mg PO HS [facility] Last Admin: 09/30/18 22:46 Dose: 20 mg Cholecalciferol (Vitamin D3 -) 2,000 unit PO DAILY [facility] Last Admin: 10/01/18 09:57 Dose: 2,000 unit Collagenase (Santyl -) 1 applic TP DAILY [facility]; Protocol Last Admin: 10/01/18 09:57 Dose: 1 applic Enoxaparin Sodium (Lovenox -) 40 mg SQ DAILY [facility] Last Admin: 10/01/18 09:57 Dose: 40 mg Gabapentin (Neurontin -) 300 mg PO TID [facility] Last Admin: 10/01/18 06:33 Dose: 300 mg Piperacillin Sod/Tazobactam (Sod 3.375 gm/ Dextrose) 50 mls @ 100 mls/hr IVPB Q8H-IV [facility]; Protocol Last Admin: 10/01/18 09:56 Dose: 100 mls/hr Insulin Aspart (Novolog Vial Sliding Scale -) 1 vial SQ ACHS [facility]; Protocol Last Admin: 10/01/18 11:27 Dose: 6 units Insulin Detemir (Levemir Vial) 20 units SQ AM [facility] Last Admin: 10/01/18 06:34 Dose: 20 units Insulin Detemir (Levemir Vial) 10 units SQ HS [facility] Last Admin: 09/30/18 22:49 Dose: 10 units Lactobacillus Acidophilus (Bacid -) 1 tab PO DAILY [facility] Last Admin: 10/01/18 09:57 Dose: 1 tab Levothyroxine Sodium (Synthroid -) 50 mcg PO DAILY@0700 [facility] Last Admin: 10/01/18 06:58 Dose: 50 mcg Liraglutide (Victoza -) 1.2 mg SQ DAILY@0700 [facility] Last Admin: 10/01/18 06:43 Dose: 1.2 mg Metoprolol Succinate (Toprol Xl -) 50 mg PO BID [facility] Last Admin: 10/01/18 09:57 Dose: 50 mg Ramipril (Altace -) 5 mg PO DAILY [facility] Last Admin: 10/01/18 09:57 Dose: 5 mg - Objective Vital Signs: Vital Signs Temperature 36.6 C 10/01/18 07:35 Pulse Rate 80 10/01/18 07:35 Respiratory Rate 14 10/01/18 07:35 Blood Pressure 110/62 10/01/18 07:35 O2 Sat by Pulse Oximetry (%) 98 10/01/18 08:00 Constitutional: Yes: No Distress, Calm, Obese Cardiovascular: Yes: Regular Rate and Rhythm. No: Gallop, Murmur, Rub Respiratory: Yes: Regular, CTA Bilaterally. No: Rales, Rhonchi, Wheezes Gastrointestinal: Yes: Normal Bowel Sounds, Soft. 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 Code(s): E11.621 - TYPE 2 DIABETES MELLITUS WITH FOOT ULCER; L97.509 - NON- PRESSURE CHRONIC ULCER OTH PRT UNSP FOOT W UNSP SEVERITY (2) Wound infection Code(s): T14.8XXA - OTHER INJURY OF UNSPECIFIED BODY REGION, INITIAL ENCOUNTER; L08.9 - LOCAL INFECTION OF THE SKIN AND SUBCUTANEOUS TISSUE, UNSP (3) Breast cancer, left breast Code(s): C50.912 - MALIGNANT NEOPLASM OF UNSPECIFIED SITE OF LEFT FEMALE BREAST Qualifiers: Breast location: upper outer quadrant of breast Estrogen receptor status: positive Patient sex: female Qualified Code(s): C50.412 - Malignant neoplasm of upper-outer quadrant of left female breast; Z17.0 - Estrogen receptor positive status [ER+] (4) CAD (coronary artery disease) Code(s): I25.10 - ATHSCL HEART DISEASE OF [place] CORONARY ARTERY W/O ANG PCTRS Qualifiers: [place] vs. transplanted heart: [place] heart Associated angina: without angina (5) Diabetes Code(s): E11.9 - TYPE 2 DIABETES MELLITUS WITHOUT COMPLICATIONS Qualifiers: Diabetes mellitus type: type 2 Diabetes mellitus chcf insulin use: with termite control service representative use Diabetes mellitus complication status: with skin complications Diabetes mellitus complication detail: with foot ulcer Qualified Code(s): E11.621 - Type 2 diabetes mellitus with foot ulcer; L97.509 - Non-pressure chronic ulcer of other part of unspecified foot with unspecified severity; Z79.4 - nursing home (current) use of insulin (6) HTN (hypertension) Code(s): I10 - ESSENTIAL (PRIMARY) HYPERTENSION Qualifiers: Hypertension type: essential hypertension Qualified Code(s): I10 - Essential (primary) hypertension (7) Hyperlipidemia Code(s): E78.5 - HYPERLIPIDEMIA, UNSPECIFIED (8) Hypothyroidism Code(s): E03.9 - HYPOTHYROIDISM, UNSPECIFIED (9) Obesity (BMI 30.0-34.9) Code(s): E66.9 - OBESITY, UNSPECIFIED Assessment/Plan (1) 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 Assessment/Plan: -continue wound care -continue zosyn -improving Code(s): E11.621 - TYPE 2 DIABETES MELLITUS WITH FOOT ULCER; L97.509 - NON- PRESSURE CHRONIC ULCER OTH PRT UNSP FOOT W UNSP SEVERITY (2) Wound infection Assessment/Plan: -as above Code(s): T14.8XXA - OTHER INJURY OF UNSPECIFIED BODY REGION, INITIAL ENCOUNTER; L08.9 - LOCAL INFECTION OF THE SKIN AND SUBCUTANEOUS TISSUE, UNSP (3) Breast cancer, left breast Assessment/Plan: -s/p mastectomy -drain in place for drainage Code(s): C50.912 - MALIGNANT NEOPLASM OF UNSPECIFIED SITE OF LEFT FEMALE BREAST Qualifiers: Breast location: upper outer quadrant of breast Estrogen receptor status: positive Patient sex: female Qualified Code(s): C50.412 - Malignant neoplasm of upper-outer quadrant of left female breast; Z17.0 - Estrogen receptor positive status [ER+] (4) CAD (coronary artery disease) Assessment/Plan: -quiescent -continue home regimen Code(s): I25.10 - ATHSCL HEART DISEASE OF [place] CORONARY ARTERY W/O ANG PCTRS Qualifiers: [place] vs. transplanted heart: [place] heart Associated angina: without angina (5) Diabetes Assessment/Plan: -continue victoza -on lantus 20 units qhs -change to levemir 20 units qam and 10 units qpm for better control -monitor for improvement today -diabetic diet and SSI Code(s): E11.9 - TYPE 2 DIABETES MELLITUS WITHOUT COMPLICATIONS Qualifiers: Diabetes mellitus type: type 2 Diabetes mellitus termite control service representative insulin use: with termite control service representative use Diabetes mellitus complication status: with skin complications Diabetes mellitus complication detail: with foot ulcer Qualified Code(s): E11.621 - Type 2 diabetes mellitus with foot ulcer; L97.509 - Non-pressure chronic ulcer of other part of unspecified foot with unspecified severity; Z79.4 - superintendent container terminal (current) use of insulin (6) HTN (hypertension) Assessment/Plan: -improved today with decreased ramipril -continue toprol xl Code(s): I10 - ESSENTIAL (PRIMARY) HYPERTENSION Qualifiers: Hypertension type: essential hypertension Qualified Code(s): I10 - Essential (primary) hypertension (7) Hyperlipidemia Assessment/Plan: -continue lipitor Code(s): E78.5 - HYPERLIPIDEMIA, UNSPECIFIED (8) Hypothyroidism Assessment/Plan: -continue synthroid Code(s): E03.9 - HYPOTHYROIDISM, UNSPECIFIED (9) Obesity (BMI 30.0-34.9) Code(s): E66.9 - OBESITY, UNSPECIFIED
--- NOTE | 2018-10-01 13:56 | PN ---
Progress Note, Physician History of Present Illness: stable no new issues - Current Medication List Current Medications: Active Medications Acetaminophen (Tylenol -) 650 mg PO Q4H PRN PRN Reason: FEVER Last Admin: 09/28/18 19:01 Dose: 650 mg Alprazolam (Xanax -) 0.25 mg PO HS PRN PRN Reason: INSOMNIA Last Admin: 10/01/18 02:50 Dose: 0.25 mg Atorvastatin Calcium (Lipitor -) 20 mg PO HS [facility] Last Admin: 09/30/18 22:46 Dose: 20 mg Cholecalciferol (Vitamin D3 -) 2,000 unit PO DAILY [facility] Last Admin: 10/01/18 09:57 Dose: 2,000 unit Collagenase (Santyl -) 1 applic TP DAILY [facility]; Protocol Last Admin: 10/01/18 09:57 Dose: 1 applic Enoxaparin Sodium (Lovenox -) 40 mg SQ DAILY [facility] Last Admin: 10/01/18 09:57 Dose: 40 mg Gabapentin (Neurontin -) 300 mg PO TID [facility] Last Admin: 10/01/18 13:04 Dose: 300 mg Piperacillin Sod/Tazobactam (Sod 3.375 gm/ Dextrose) 50 mls @ 100 mls/hr IVPB Q8H-IV [facility]; Protocol Last Admin: 10/01/18 09:56 Dose: 100 mls/hr Insulin Aspart (Novolog Vial Sliding Scale -) 1 vial SQ ACHS [facility]; Protocol Last Admin: 10/01/18 11:27 Dose: 6 units Insulin Detemir (Levemir Vial) 20 units SQ AM [facility] Last Admin: 10/01/18 06:34 Dose: 20 units Insulin Detemir (Levemir Vial) 10 units SQ HS [facility] Last Admin: 09/30/18 22:49 Dose: 10 units Lactobacillus Acidophilus (Bacid -) 1 tab PO DAILY [facility] Last Admin: 10/01/18 09:57 Dose: 1 tab Levothyroxine Sodium (Synthroid -) 50 mcg PO DAILY@0700 [facility] Last Admin: 10/01/18 06:58 Dose: 50 mcg Liraglutide (Victoza -) 1.2 mg SQ DAILY@0700 [facility] Last Admin: 10/01/18 06:43 Dose: 1.2 mg Metoprolol Succinate (Toprol Xl -) 50 mg PO BID [facility] Last Admin: 10/01/18 09:57 Dose: 50 mg Ramipril (Altace -) 5 mg PO DAILY [facility] Last Admin: 10/01/18 09:57 Dose: 5 mg - Objective Vital Signs: Vital Signs Temperature 97.8 F 10/01/18 07:35 Pulse Rate 80 10/01/18 07:35 Respiratory Rate 14 10/01/18 07:35 Blood Pressure 110/62 10/01/18 07:35 O2 Sat by Pulse Oximetry (%) 98 10/01/18 08:00 Constitutional: Yes: No Distress, Calm Cardiovascular: Yes: S1, S2 Respiratory: Yes: Regular, CTA Bilaterally Gastrointestinal: Yes: Normal Bowel Sounds, Soft Musculoskeletal: Yes: WNL Extremities: Yes: Other Wound/Incision: Yes: Dressing Dry and Intact Neurological: Yes: Alert, Oriented Psychiatric: Yes: Alert, Oriented Labs: CBC, BMP 10/01/18 06:35 10/01/18 06:35 Assessment/Plan 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 Code(s): E11.621 - TYPE 2 DIABETES MELLITUS WITH FOOT ULCER; L97.509 - NON- PRESSURE CHRONIC ULCER OTH PRT UNSP FOOT W UNSP SEVERITY (2) Wound infection Code(s): T14.8XXA - OTHER INJURY OF UNSPECIFIED BODY REGION, INITIAL ENCOUNTER; L08.9 - LOCAL INFECTION OF THE SKIN AND SUBCUTANEOUS TISSUE, UNSP (3) Breast cancer, left breast Code(s): C50.912 - MALIGNANT NEOPLASM OF UNSPECIFIED SITE OF LEFT FEMALE BREAST Qualifiers: Breast location: upper outer quadrant of breast Estrogen receptor status: positive Patient sex: female Qualified Code(s): C50.412 - Malignant neoplasm of upper-outer quadrant of left female breast; Z17.0 - Estrogen receptor positive status [ER+] (4) CAD (coronary artery disease) Code(s): I25.10 - ATHSCL HEART DISEASE OF [place] CORONARY ARTERY W/O ANG PCTRS Qualifiers: [place] vs. transplanted heart: [place] heart Associated angina: without angina (5) Diabetes Code(s): E11.9 - TYPE 2 DIABETES MELLITUS WITHOUT COMPLICATIONS Qualifiers: Diabetes mellitus type: type 2 Diabetes mellitus fci insulin use: with fci use Diabetes mellitus complication status: with skin complications Diabetes mellitus complication detail: with foot ulcer Qualified Code(s): E11.621 - Type 2 diabetes mellitus with foot ulcer; L97.509 - Non-pressure chronic ulcer of other part of unspecified foot with unspecified severity; Z79.4 - superintendent marine oil terminal (current) use of insulin (6) HTN (hypertension) Code(s): I10 - ESSENTIAL (PRIMARY) HYPERTENSION Qualifiers: Hypertension type: essential hypertension Qualified Code(s): I10 - Essential (primary) hypertension (7) Hyperlipidemia Code(s): E78.5 - HYPERLIPIDEMIA, UNSPECIFIED (8) Hypothyroidism Code(s): E03.9 - HYPOTHYROIDISM, UNSPECIFIED (9) Obesity (BMI 30.0-34.9) Code(s): E66.9 - OBESITY, UNSPECIFIED plan continue abx wound care will d/w the podiatry team rest as per the team
[2018-10-01] MEDS: ATORVASTATIN CA 20 MG TABLET (FP) PO SCH (21:41)
[2018-10-02] MEDS ORDERED: PIPERACILLIN/TAZOBACTAM 3.375 GM VIAL IVPB ONE ×2 (01:10→10:23)
[2018-10-02] MEDS ORDERED: DEXTROSE 5%-WATER - 50 ML IVPB ONE ×2 (01:11→10:24)
[2018-10-02] MEDS: PIPERACILLIN/TAZOB 3.375 GM 3.375 GM in DEXTROSE 5%-WATER - 50 ML IVPB SCH ×2 (01:29→10:32)
[2018-10-02] MEDS: INSULIN SLIDING SCALE (NOVOLOG) 1 VIAL SQ SCH ×4 (06:23→21:59)
[2018-10-02] MEDS: LEVOTHYROXINE NA 50 MCG TABLET (FP) PO SCH (06:23)
[2018-10-02] MEDS: INSULIN (LEVEMIR) 100 UNITS/ML UNITS SQ SCH ×2 (06:23→21:58)
[2018-10-02] MEDS: GABAPENTIN 300 MG CAPSULE (FP) PO SCH ×3 (06:23→21:58)
[2018-10-02] MEDS: LIRAGLUTIDE 0.6 MG/0.1 ML PEN.INJCTR SQ SCH (06:23)
[2018-10-02 07:36] LABS: BASO % 1.2 % (0-2.0); EOS % 7.6 % (0-4.5); HEMATOCRIT 27.3 % (32.4-45.2); HEMOGLOBIN 9.1 GM/dL (10.7-15.3); LYMPH % 20.5 % (8-40); MCH 28.2 pg (25.7-33.7); MCHC 33.2 g/dl (32.0-36.0); MEAN CELL VOLUME 84.9 fl (80-96); MEAN PLT VOLUME 7.7 fl (7.5-11.1); MONO % 10.7 % (3.8-10.2); PLATELET COUNT 236 K/MM3 (134-434); RBC 3.21 M/mm3 (3.60-5.2); RDW 15.2 % (11.6-15.6); WHITE BLOOD COUNT 4.3 K/mm3 (4.0-10.0)
[2018-10-02 07:58] LABS: CALCIUM 9.6 mg/dL (8.5-10.1); CREATININE 0.7 mg/dL (0.55-1.3); MAGNESIUM 1.8 mg/dL (1.8-2.4); POTASSIUM 4.1 mmol/L (3.5-5.1)
--- NOTE | 2018-10-02 10:14 | PN ---
Progress Note, Physician History of Present Illness: patient stable no new issues - Current Medication List Current Medications: Active Medications Acetaminophen (Tylenol -) 650 mg PO Q4H PRN PRN Reason: FEVER Last Admin: 09/28/18 19:01 Dose: 650 mg Alprazolam (Xanax -) 0.25 mg PO HS PRN PRN Reason: INSOMNIA Last Admin: 10/01/18 21:41 Dose: 0.25 mg Atorvastatin Calcium (Lipitor -) 20 mg PO HS [facility] Last Admin: 10/01/18 21:41 Dose: 20 mg Cholecalciferol (Vitamin D3 -) 2,000 unit PO DAILY [facility] Last Admin: 10/01/18 09:57 Dose: 2,000 unit Collagenase (Santyl -) 1 applic TP DAILY [facility]; Protocol Last Admin: 10/01/18 09:57 Dose: 1 applic Enoxaparin Sodium (Lovenox -) 40 mg SQ DAILY [facility] Last Admin: 10/01/18 09:57 Dose: 40 mg Gabapentin (Neurontin -) 300 mg PO TID [facility] Last Admin: 10/02/18 06:23 Dose: 300 mg Piperacillin Sod/Tazobactam (Sod 3.375 gm/ Dextrose) 50 mls @ 100 mls/hr IVPB Q8H-IV [facility]; Protocol Last Admin: 10/02/18 01:29 Dose: 100 mls/hr Insulin Aspart (Novolog Vial Sliding Scale -) 1 vial SQ ACHS [facility]; Protocol Last Admin: 10/02/18 06:23 Dose: Not Given Insulin Detemir (Levemir Vial) 20 units SQ AM [facility] Last Admin: 10/02/18 06:23 Dose: 20 units Insulin Detemir (Levemir Vial) 10 units SQ HS [facility] Last Admin: 10/01/18 21:41 Dose: 10 units Lactobacillus Acidophilus (Bacid -) 1 tab PO DAILY [facility] Last Admin: 10/01/18 09:57 Dose: 1 tab Levothyroxine Sodium (Synthroid -) 50 mcg PO DAILY@0700 [facility] Last Admin: 10/02/18 06:23 Dose: 50 mcg Liraglutide (Victoza -) 1.2 mg SQ DAILY@0700 [facility] Last Admin: 10/02/18 06:23 Dose: 1.2 mg Metoprolol Succinate (Toprol Xl -) 50 mg PO BID [facility] Last Admin: 10/01/18 21:42 Dose: 50 mg Ramipril (Altace -) 5 mg PO DAILY [facility] Last Admin: 10/01/18 09:57 Dose: 5 mg - Objective Vital Signs: Vital Signs Temperature 97.8 F 10/02/18 06:00 Pulse Rate 67 10/02/18 06:00 Respiratory Rate 20 10/01/18 18:00 Blood Pressure 124/64 10/02/18 06:00 O2 Sat by Pulse Oximetry (%) 98 10/01/18 20:05 Labs: CBC, BMP 10/02/18 07:01 10/02/18 07:01
[2018-10-02] MEDS ORDERED: PT OWN MED DRAWER 7, Y5N ONE (10:23)
[2018-10-02] MEDS: CHOLECALCIFEROL (VIT D3) 1,000 UNIT (25 MCG) TABLET PO SCH (10:30)
[2018-10-02] MEDS: RAMIPRIL 5 MG CAPSULE (FP) PO SCH (10:31)
[2018-10-02] MEDS: LACTOBACILLUS ACIDOPHILUS 1 TABLET PO SCH (10:31)
[2018-10-02] MEDS: ENOXAPARIN NA (PORCINE) 40 MG/0.4 ML DISP.SYRIN SQ SCH (10:31)
[2018-10-02] MEDS: COLLAGENASE CLOSTRIDIUM HIST. 30 GRAMS TUBE TP SCH (10:33)
--- NOTE | 2018-10-02 11:37 | PN ---
Physical Exam: SUBJECTIVE: Patient seen and examined resting in bed nad, no acute events. afebrile hemodynamically stable. denies f/c , denies pain in foot. ID confirmed that patient MRSA + OBJECTIVE: Vital Signs Period Temp Pulse Resp BP Sys/Jonas Pulse Ox Last 24 Hr 97.8 F-98.6 F 66-76 18-20 109-127/50-66 98 GENERAL: The patient is awake, alert, and fully oriented, in no acute distress. HEAD: Normal with no signs of trauma. EYES: PERRL, extraocular movements intact, sclera anicteric, conjunctiva clear. No ptosis. ENT: moist mucous membranes. NECK: supple. LUNGS: Breath sounds equal, clear to auscultation bilaterally L chest drain minimal serous fluid HEART: Regular rate and rhythm, S1, S2 ABDOMEN: Soft, nontender, nondistended, normoactive bowel sounds L heel ulcer clean glanulation tissue at base, no erythema, thin serous discharge in dressing. mild ankle edema apparently chronic due to prior fracture. 1+ dp NEUROLOGICAL: Cranial nerves II through XII grossly intact. Normal speech, gait not observed. PSYCH: Normal mood, normal affect. SKIN: Warm, dry Laboratory Results - last 24 hr 10/01/18 10/01/18 10/02/18 16:18 21:40 06:22 WBC RBC Hgb Hct MCV MCH MCHC RDW Plt Count MPV Absolute Neuts (auto) Neutrophils % Lymphocytes % Monocytes % Eosinophils % Basophils % Nucleated RBC % Sodium Potassium Chloride Carbon Dioxide Anion Gap BUN Creatinine Est GFR (CKD-EPI)AfAm Est GFR (CKD-EPI)NonAf POC Glucometer 213 245 129 Random Glucose Calcium Phosphorus Magnesium 10/02/18 10/02/18 07:01 07:01 WBC 4.3 RBC 3.21 L Hgb 9.1 L Hct 27.3 L MCV 84.9 MCH 28.2 MCHC 33.2 RDW 15.2 Plt Count 236 MPV 7.7 Absolute Neuts (auto) 2.6 Neutrophils % 60.0 Lymphocytes % 20.5 Monocytes % 10.7 H Eosinophils % 7.6 H Basophils % 1.2 Nucleated RBC % 0 Sodium 139 Potassium 4.1 Chloride 104 Carbon Dioxide 29 Anion Gap 6 L BUN 19 H Creatinine 0.7 Est GFR (CKD-EPI)AfAm 96.18 Est GFR (CKD-EPI)NonAf 82.99 POC Glucometer Random Glucose 140 H Calcium 9.6 Phosphorus 3.0 Magnesium 1.8 Active Medications Generic Name Dose Route Start Last Admin Trade Name Freq PRN Reason Stop Dose Admin Acetaminophen 650 mg 09/28/18 14:54 09/28/18 19:01 Tylenol - PO 650 mg Q4H PRN Administration FEVER Alprazolam 0.25 mg 09/30/18 15:02 10/01/18 21:41 Xanax - PO 0.25 mg HS PRN Administration INSOMNIA Atorvastatin Calcium 20 mg 09/28/18 22:00 10/01/18 21:41 Lipitor - PO 20 mg HS [facility] Administration Cholecalciferol 2,000 unit 09/29/18 10:00 10/02/18 10:30 Vitamin D3 - PO 2,000 unit DAILY [facility] Administration Collagenase 1 applic 09/29/18 11:45 10/02/18 10:33 Santyl - TP 1 applic DAILY [facility] Administration Protocol Doxycycline Hyclate 100 mg 10/02/18 18:00 Vibramycin - PO BID@1000,1800 [facility] Enoxaparin Sodium 40 mg 09/29/18 10:00 10/02/18 10:31 Lovenox - SQ 40 mg DAILY [facility] Administration Gabapentin 300 mg 09/28/18 22:00 10/02/18 06:23 Neurontin - PO 300 mg TID [facility] Administration Insulin Aspart 1 vial 09/28/18 16:30 10/02/18 06:23 Novolog Vial Sliding Scale - SQ Not Given ACHS [facility] Protocol Insulin Detemir 20 units 10/01/18 07:00 10/02/18 06:23 Levemir Vial SQ 20 units AM [facility] Administration Insulin Detemir 10 units 09/30/18 22:00 10/01/18 21:41 Levemir Vial SQ 10 units HS [facility] Administration Lactobacillus Acidophilus 1 tab 09/28/18 18:30 10/02/18 10:31 Bacid - PO 1 tab DAILY [facility] Administration Levothyroxine Sodium 50 mcg 09/29/18 07:00 10/02/18 06:23 Synthroid - PO 50 mcg DAILY@0700 [facility] Administration Liraglutide 1.2 mg 09/29/18 07:00 10/02/18 06:23 Victoza - SQ 1.2 mg DAILY@0700 [facility] Administration Metoprolol Succinate 50 mg 09/28/18 22:00 10/02/18 10:30 Toprol Xl - PO 50 mg BID [facility] Administration Ramipril 5 mg 09/30/18 10:00 10/02/18 10:31 Altace - PO 5 mg DAILY [facility] Administration ASSESSMENT/PLAN: This is 78 yo F with PMH of L breast CA 03/2018 s/p mastectomy with drain, multiple left heel debridements and infections s/p PICC x 6w abx, IDDM, peripheral neuropathy with diabetic ulcers, CAD s/p stents x3, CO, HTN and hypothyroidism, sent from podiatry for infected L heel ulcer Infected neuropathic diabetic ulcer of L heel L breast CA 03/2018 s/p mastectomy with drain IDDM CAD HTN HLD Hypothyroidism Obesity -5 day course of zosyn completed, will start doxycycline and dc tomorrow -santyl dressing, follow up in wound care -lantus 20 u, victoza, levemir 20 am/10hs, ISS -diabetic diet -ramipril, toprol xl -lipitor -synthroid -outpatient f/u with dr Kelley, plan for chemo 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 Code(s): E11.621 - TYPE 2 DIABETES MELLITUS WITH FOOT ULCER; L97.509 - NON- PRESSURE CHRONIC ULCER OTH PRT UNSP FOOT W UNSP SEVERITY (2) Wound infection Code(s): T14.8XXA - OTHER INJURY OF UNSPECIFIED BODY REGION, INITIAL ENCOUNTER; L08.9 - LOCAL INFECTION OF THE SKIN AND SUBCUTANEOUS TISSUE, UNSP (3) Ankle fracture, left Code(s): S82.892A - OTH FRACTURE OF LEFT LOWER LEG, INIT FOR CLOS FX Qualifiers: Encounter type: initial encounter Fracture type: closed Qualified Code(s) : S82.892A - Other fracture of left lower leg, initial encounter for closed fracture (4) Breast cancer, left breast Code(s): C50.912 - MALIGNANT NEOPLASM OF UNSPECIFIED SITE OF LEFT FEMALE BREAST Qualifiers: Breast location: upper outer quadrant of breast Estrogen receptor status: positive Patient sex: female Qualified Code(s): C50.412 - Malignant neoplasm of upper-outer quadrant of left female breast; Z17.0 - Estrogen receptor positive status [ER+] (5) CAD (coronary artery disease) Code(s): I25.10 - ATHSCL HEART DISEASE OF [place] CORONARY ARTERY W/O ANG PCTRS Qualifiers: [place] vs. transplanted heart: [place] heart Associated angina: without angina (6) CHF (congestive heart failure) Code(s): I50.9 - HEART FAILURE, UNSPECIFIED Qualifiers: Heart failure type: systolic Heart failure chronicity: chronic Qualified Code(s): I50.22 - Chronic systolic (congestive) heart failure (7) Diabetes Code(s): E11.9 - TYPE 2 DIABETES MELLITUS WITHOUT COMPLICATIONS Qualifiers: Diabetes mellitus type: type 2 Diabetes mellitus skilled nursing insulin use: with superintendent marine oil terminal use Diabetes mellitus complication status: with skin complications Diabetes mellitus complication detail: with foot ulcer Qualified Code(s): E11.621 - Type 2 diabetes mellitus with foot ulcer; L97.509 - Non-pressure chronic ulcer of other part of unspecified foot with unspecified severity; Z79.4 - terminal carman (current) use of insulin Visit type - Emergency Visit Emergency Visit: Yes ED Registration Date: 09/28/18 Care time: The patient presented to the Emergency Department on the above date and was hospitalized for further evaluation of their emergent condition. - New Patient This patient is new to me today: Yes Date on this admission: 10/02/18 - Critical Care Critical Care patient: No - Discharge Referral Referred to [facility] No
--- NOTE | 2018-10-02 13:14 | PN ---
Progress Note (short form) - Note Progress Note: Patient seen in bed. Eager to go home. Currently refusing [facility] due to finances. +improved left heel, +mrsa improved cellulitis discussed with ID. Will send home on po abx. Pt to follow in [facility]. Continue Santyl to heel. will follow
--- NOTE | 2018-10-02 17:16 | PN ---
Teaching Attending Note Name of Resident: Valery Flannery ATTENDING PHYSICIAN STATEMENT I saw and evaluated the patient. I reviewed the resident's note and discussed the case with the resident. I agree with the resident's findings and plan as documented. SUBJECTIVE: Ms Prince is without complaint. Denies cp, sob, n/v. OBJECTIVE: Last Vital Signs Temp Pulse Resp BP Pulse Ox 36.6 C 67 19 124/64 98 10/02/18 06:00 10/02/18 06:00 10/02/18 09:00 10/02/18 06:00 10/02/18 09:00 Gen: nad, obese Pulm: ctab w/o w/r/r CV: rrr w/o m/r/g Abd: +bs, s/nt/nd Ext: foot wrapped CBC, BMP 10/02/18 07:01 10/02/18 07:01 ASSESSMENT AND PLAN: (1) 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 Assessment/Plan: -continue wound care -changed to doxycycline today -case d/w Dr Oosrio, monitor today and discharge tomorrow if tolerates Code(s): E11.621 - TYPE 2 DIABETES MELLITUS WITH FOOT ULCER; L97.509 - NON- PRESSURE CHRONIC ULCER OTH PRT UNSP FOOT W UNSP SEVERITY (2) Wound infection Assessment/Plan: -as above Code(s): T14.8XXA - OTHER INJURY OF UNSPECIFIED BODY REGION, INITIAL ENCOUNTER; L08.9 - LOCAL INFECTION OF THE SKIN AND SUBCUTANEOUS TISSUE, UNSP (3) Breast cancer, left breast Assessment/Plan: -s/p mastectomy -drain in place for drainage Code(s): C50.912 - MALIGNANT NEOPLASM OF UNSPECIFIED SITE OF LEFT FEMALE BREAST Qualifiers: Breast location: upper outer quadrant of breast Estrogen receptor status: positive Patient sex: female Qualified Code(s): C50.412 - Malignant neoplasm of upper-outer quadrant of left female breast; Z17.0 - Estrogen receptor positive status [ER+] (4) CAD (coronary artery disease) Assessment/Plan: -quiescent -continue home regimen Code(s): I25.10 - ATHSCL HEART DISEASE OF [place] CORONARY ARTERY W/O ANG PCTRS Qualifiers: [place] vs. transplanted heart: [place] heart Associated angina: without angina (5) Diabetes Assessment/Plan: -continue victoza -on lantus 20 units qhs -continue levemir 20 units qam and 10 units qpm for better control -diabetic diet and SSI Code(s): E11.9 - TYPE 2 DIABETES MELLITUS WITHOUT COMPLICATIONS Qualifiers: Diabetes mellitus type: type 2 Diabetes mellitus detention insulin use: with exterminator helper use Diabetes mellitus complication status: with skin complications Diabetes mellitus complication detail: with foot ulcer Qualified Code(s): E11.621 - Type 2 diabetes mellitus with foot ulcer; L97.509 - Non-pressure chronic ulcer of other part of unspecified foot with unspecified severity; Z79.4 - halfway (current) use of insulin (6) HTN (hypertension) Assessment/Plan: -improved with decreased ramipril -continue toprol xl Code(s): I10 - ESSENTIAL (PRIMARY) HYPERTENSION Qualifiers: Hypertension type: essential hypertension Qualified Code(s): I10 - Essential (primary) hypertension (7) Hyperlipidemia Assessment/Plan: -continue lipitor Code(s): E78.5 - HYPERLIPIDEMIA, UNSPECIFIED (8) Hypothyroidism Assessment/Plan: -continue synthroid Code(s): E03.9 - HYPOTHYROIDISM, UNSPECIFIED (9) Obesity (BMI 30.0-34.9) Code(s): E66.9 - OBESITY, UNSPECIFIED 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 Code(s): E11.621 - TYPE 2 DIABETES MELLITUS WITH FOOT ULCER; L97.509 - NON- PRESSURE CHRONIC ULCER OTH PRT UNSP FOOT W UNSP SEVERITY (2) Wound infection Code(s): T14.8XXA - OTHER INJURY OF UNSPECIFIED BODY REGION, INITIAL ENCOUNTER; L08.9 - LOCAL INFECTION OF THE SKIN AND SUBCUTANEOUS TISSUE, UNSP (3) Breast cancer, left breast Code(s): C50.912 - MALIGNANT NEOPLASM OF UNSPECIFIED SITE OF LEFT FEMALE BREAST Qualifiers: Breast location: upper outer quadrant of breast Estrogen receptor status: positive Patient sex: female Qualified Code(s): C50.412 - Malignant neoplasm of upper-outer quadrant of left female breast; Z17.0 - Estrogen receptor positive status [ER+] (4) CAD (coronary artery disease) Code(s): I25.10 - ATHSCL HEART DISEASE OF [place] CORONARY ARTERY W/O ANG PCTRS Qualifiers: [place] vs. transplanted heart: [place] heart Associated angina: without angina (5) Diabetes Code(s): E11.9 - TYPE 2 DIABETES MELLITUS WITHOUT COMPLICATIONS Qualifiers: Diabetes mellitus type: type 2 Diabetes mellitus exterminator helper insulin use: with detention use Diabetes mellitus complication status: with skin complications Diabetes mellitus complication detail: with foot ulcer Qualified Code(s): E11.621 - Type 2 diabetes mellitus with foot ulcer; L97.509 - Non-pressure chronic ulcer of other part of unspecified foot with unspecified severity; Z79.4 - halfway (current) use of insulin (6) HTN (hypertension) Code(s): I10 - ESSENTIAL (PRIMARY) HYPERTENSION Qualifiers: Hypertension type: essential hypertension Qualified Code(s): I10 - Essential (primary) hypertension (7) Hyperlipidemia Code(s): E78.5 - HYPERLIPIDEMIA, UNSPECIFIED (8) Hypothyroidism Code(s): E03.9 - HYPOTHYROIDISM, UNSPECIFIED (9) Obesity (BMI 30.0-34.9) Code(s): E66.9 - OBESITY, UNSPECIFIED
[2018-10-02] MEDS: DOXYCYCLINE HYCLATE 100 MG CAPSULE PO SCH (17:20)
[2018-10-02] MEDS ORDERED: INSULIN (NOVOLOG) ASPART 100 UNITS/ML 10ML VIAL ONE (17:41)
[2018-10-02] MEDS: ATORVASTATIN CA 20 MG TABLET (FP) PO SCH (21:58)
[2018-10-02] MEDS: ALPRAZolam 0.25 MG TABLET PO PRN (21:58)
[2018-10-03] MEDS ORDERED: PT OWN MED DRAWER 7, Y5N ONE (05:38)
[2018-10-03] MEDS: LIRAGLUTIDE 0.6 MG/0.1 ML PEN.INJCTR SQ SCH (06:07)
[2018-10-03] MEDS: INSULIN SLIDING SCALE (NOVOLOG) 1 VIAL SQ SCH ×2 (06:08→10:55)
[2018-10-03] MEDS: INSULIN (LEVEMIR) 100 UNITS/ML UNITS SQ SCH (06:08)
[2018-10-03] MEDS: GABAPENTIN 300 MG CAPSULE (FP) PO SCH ×2 (06:08→13:26)
[2018-10-03] MEDS: LEVOTHYROXINE NA 50 MCG TABLET (FP) PO SCH (06:08)
--- NOTE | 2018-10-03 07:57 | PN ---
Physical Exam: SUBJECTIVE: Patient seen and examined resting in bed nad, no acute events. afebrile hemodynamically stable. denies f/c , denies pain in foot. ID confirmed that patient MRSA + OBJECTIVE: Vital Signs Period Temp Pulse Resp BP Sys/Jonas Pulse Ox Last 24 Hr 98.5 F-98.9 F 61-72 16-20 103-132/61-68 98-98 GENERAL: The patient is awake, alert, and fully oriented, in no acute distress. HEAD: Normal with no signs of trauma. EYES: PERRL, extraocular movements intact, sclera anicteric, conjunctiva clear. No ptosis. ENT: moist mucous membranes. NECK: supple. LUNGS: Breath sounds equal, clear to auscultation bilaterally L chest drain minimal serous fluid HEART: Regular rate and rhythm, S1, S2 ABDOMEN: Soft, nontender, nondistended, normoactive bowel sounds L heel ulcer clean glanulation tissue at base, no erythema, thin serous discharge in dressing. mild ankle edema apparently chronic due to prior fracture. 1+ dp NEUROLOGICAL: Cranial nerves II through XII grossly intact. Normal speech, gait not observed. PSYCH: Normal mood, normal affect. SKIN: Warm, dry Laboratory Results - last 24 hr 10/02/18 10/02/18 10/02/18 07:01 07:01 11:27 WBC 4.3 RBC 3.21 L Hgb 9.1 L Hct 27.3 L MCV 84.9 MCH 28.2 MCHC 33.2 RDW 15.2 Plt Count 236 MPV 7.7 Absolute Neuts (auto) 2.6 Neutrophils % 60.0 Lymphocytes % 20.5 Monocytes % 10.7 H Eosinophils % 7.6 H Basophils % 1.2 Nucleated RBC % 0 Sodium 139 Potassium 4.1 Chloride 104 Carbon Dioxide 29 Anion Gap 6 L BUN 19 H Creatinine 0.7 Est GFR (CKD-EPI)AfAm 96.18 Est GFR (CKD-EPI)NonAf 82.99 POC Glucometer 254 Random Glucose 140 H Calcium 9.6 Phosphorus 3.0 Magnesium 1.8 10/02/18 10/02/18 10/03/18 17:13 21:49 05:34 WBC RBC Hgb Hct MCV MCH MCHC RDW Plt Count MPV Absolute Neuts (auto) Neutrophils % Lymphocytes % Monocytes % Eosinophils % Basophils % Nucleated RBC % Sodium Potassium Chloride Carbon Dioxide Anion Gap BUN Creatinine Est GFR (CKD-EPI)AfAm Est GFR (CKD-EPI)NonAf POC Glucometer 242 228 156 Random Glucose Calcium Phosphorus Magnesium Active Medications Generic Name Dose Route Start Last Admin Trade Name Freq PRN Reason Stop Dose Admin Acetaminophen 650 mg 09/28/18 14:54 09/28/18 19:01 Tylenol - PO 650 mg Q4H PRN Administration FEVER Alprazolam 0.25 mg 09/30/18 15:02 10/02/18 21:58 Xanax - PO 0.25 mg HS PRN Administration INSOMNIA Atorvastatin Calcium 20 mg 09/28/18 22:00 10/02/18 21:58 Lipitor - PO 20 mg HS CHANDRAKANT Administration Cholecalciferol 2,000 unit 09/29/18 10:00 10/02/18 10:30 Vitamin D3 - PO 2,000 unit DAILY CHANDRAKANT Administration Collagenase 1 applic 09/29/18 11:45 10/02/18 10:33 Santyl - TP 1 applic DAILY CHANDRAKANT Administration Protocol Doxycycline Hyclate 100 mg 10/02/18 18:00 10/02/18 17:20 Vibramycin - PO 100 mg BID@1000,1800 CHANDRAKANT Administration Enoxaparin Sodium 40 mg 09/29/18 10:00 10/02/18 10:31 Lovenox - SQ 40 mg DAILY CHANDRAKANT Administration Gabapentin 300 mg 09/28/18 22:00 10/03/18 06:08 Neurontin - PO 300 mg TID CHANDRAKANT Administration Insulin Aspart 1 vial 09/28/18 16:30 10/03/18 06:08 Novolog Vial Sliding Scale - SQ 2 units ACHS CHANDRAKANT Administration Protocol Insulin Detemir 20 units 10/01/18 07:00 10/03/18 06:08 Levemir Vial SQ 20 units AM CHANDRAKANT Administration Insulin Detemir 10 units 09/30/18 22:00 10/02/18 21:58 Levemir Vial SQ 10 units HS CHANDRAKANT Administration Lactobacillus Acidophilus 1 tab 09/28/18 18:30 10/02/18 10:31 Bacid - PO 1 tab DAILY CHANDRAKANT Administration Levothyroxine Sodium 50 mcg 09/29/18 07:00 10/03/18 06:08 Synthroid - PO 50 mcg DAILY@0700 CHANDRAKANT Administration Liraglutide 1.2 mg 09/29/18 07:00 10/03/18 06:07 Victoza - SQ Not Given DAILY@0700 CHANDRAKANT Metoprolol Succinate 50 mg 09/28/18 22:00 10/02/18 21:58 Toprol Xl - PO 50 mg BID CHANDRAKANT Administration Ramipril 5 mg 09/30/18 10:00 10/02/18 10:31 Altace - PO 5 mg DAILY CHANDRAKANT Administration ASSESSMENT/PLAN: This is 78 yo F with PMH of L breast CA 03/2018 s/p mastectomy with drain, multiple left heel debridements and infections s/p PICC x 6w abx, IDDM, peripheral neuropathy with diabetic ulcers, CAD s/p stents x3, PA, HTN and hypothyroidism, sent from podiatry for infected L heel ulcer Infected neuropathic diabetic ulcer of L heel L breast CA 03/2018 s/p mastectomy with drain IDDM CAD HTN HLD Hypothyroidism Obesity -5 day course of zosyn completed, will start doxycycline and dc tomorrow -santyl dressing, follow up in wound care -lantus 20 u, victoza, levemir 20 am/10hs, ISS -diabetic diet -ramipril, toprol xl -lipitor -synthroid -outpatient f/u with dr Kelley, plan for chemo 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 Code(s): E11.621 - TYPE 2 DIABETES MELLITUS WITH FOOT ULCER; L97.509 - NON- PRESSURE CHRONIC ULCER OTH PRT UNSP FOOT W UNSP SEVERITY (2) Wound infection Code(s): T14.8XXA - OTHER INJURY OF UNSPECIFIED BODY REGION, INITIAL ENCOUNTER; L08.9 - LOCAL INFECTION OF THE SKIN AND SUBCUTANEOUS TISSUE, UNSP (3) Ankle fracture, left Code(s): S82.892A - OTH FRACTURE OF LEFT LOWER LEG, INIT FOR CLOS FX Qualifiers: Encounter type: initial encounter Fracture type: closed Qualified Code(s) : S82.892A - Other fracture of left lower leg, initial encounter for closed fracture (4) Breast cancer, left breast Code(s): C50.912 - MALIGNANT NEOPLASM OF UNSPECIFIED SITE OF LEFT FEMALE BREAST Qualifiers: Breast location: upper outer quadrant of breast Estrogen receptor status: positive Patient sex: female Qualified Code(s): C50.412 - Malignant neoplasm of upper-outer quadrant of left female breast; Z17.0 - Estrogen receptor positive status [ER+] (5) CAD (coronary artery disease) Code(s): I25.10 - ATHSCL HEART DISEASE OF [place] CORONARY ARTERY W/O ANG PCTRS Qualifiers: [place] vs. transplanted heart: [place] heart Associated angina: without angina (6) CHF (congestive heart failure) Code(s): I50.9 - HEART FAILURE, UNSPECIFIED Qualifiers: Heart failure type: systolic Heart failure chronicity: chronic Qualified Code(s): I50.22 - Chronic systolic (congestive) heart failure (7) Diabetes Code(s): E11.9 - TYPE 2 DIABETES MELLITUS WITHOUT COMPLICATIONS Qualifiers: Diabetes mellitus type: type 2 Diabetes mellitus joint terminal attack controller insulin use: with retirement use Diabetes mellitus complication status: with skin complications Diabetes mellitus complication detail: with foot ulcer Qualified Code(s): E11.621 - Type 2 diabetes mellitus with foot ulcer; L97.509 - Non-pressure chronic ulcer of other part of unspecified foot with unspecified severity; Z79.4 - FPC (current) use of insulin
[2018-10-03 08:27] LABS: EOS % 6.6 % (0-4.5); HEMATOCRIT 28.9 % (32.4-45.2); HEMOGLOBIN 9.5 GM/dL (10.7-15.3); LYMPH % 24.5 % (8-40); MCH 28.1 pg (25.7-33.7); MEAN CELL VOLUME 85.1 fl (80-96); MEAN PLT VOLUME 7.8 fl (7.5-11.1); NEUT % 57.9 % (42.8-82.8); PLATELET COUNT 235 K/MM3 (134-434); RDW 15.2 % (11.6-15.6); WHITE BLOOD COUNT 4.1 K/mm3 (4.0-10.0)
[2018-10-03 08:44] LABS: ALBUMIN 2.5 g/dl (3.4-5.0); BILIRUBIN,TOTAL 0.6 mg/dL (0.2-1); CALCIUM 9.7 mg/dL (8.5-10.1); CREATININE 0.6 mg/dL (0.55-1.3); POTASSIUM 4.3 mmol/L (3.5-5.1); TOT PROT 5.8 g/dl (6.4-8.2)
[2018-10-03] MEDS: DOXYCYCLINE HYCLATE 100 MG CAPSULE PO SCH (09:07)
[2018-10-03] MEDS: CHOLECALCIFEROL (VIT D3) 1,000 UNIT (25 MCG) TABLET PO SCH (09:07)
[2018-10-03] MEDS: LACTOBACILLUS ACIDOPHILUS 1 TABLET PO SCH (09:07)
[2018-10-03] MEDS: ENOXAPARIN NA (PORCINE) 40 MG/0.4 ML DISP.SYRIN SQ SCH (09:07)
[2018-10-03] MEDS: RAMIPRIL 5 MG CAPSULE (FP) PO SCH (09:07)
[2018-10-03] MEDS: COLLAGENASE CLOSTRIDIUM HIST. 30 GRAMS TUBE TP SCH (09:09)
--- NOTE | 2018-10-03 11:36 | PN ---
Progress Note, Physician History of Present Illness: stable no new issues - Current Medication List Current Medications: Active Medications Acetaminophen (Tylenol -) 650 mg PO Q4H PRN PRN Reason: FEVER Last Admin: 09/28/18 19:01 Dose: 650 mg Alprazolam (Xanax -) 0.25 mg PO HS PRN PRN Reason: INSOMNIA Last Admin: 10/02/18 21:58 Dose: 0.25 mg Atorvastatin Calcium (Lipitor -) 20 mg PO HS [facility] Last Admin: 10/02/18 21:58 Dose: 20 mg Cholecalciferol (Vitamin D3 -) 2,000 unit PO DAILY [facility] Last Admin: 10/03/18 09:07 Dose: 2,000 unit Collagenase (Santyl -) 1 applic TP DAILY [facility]; Protocol Last Admin: 10/03/18 09:09 Dose: 1 applic Doxycycline Hyclate (Vibramycin -) 100 mg PO BID@1000,1800 [facility] Last Admin: 10/03/18 09:07 Dose: 100 mg Enoxaparin Sodium (Lovenox -) 40 mg SQ DAILY [facility] Last Admin: 10/03/18 09:07 Dose: 40 mg Gabapentin (Neurontin -) 300 mg PO TID [facility] Last Admin: 10/03/18 06:08 Dose: 300 mg Insulin Aspart (Novolog Vial Sliding Scale -) 1 vial SQ [facility]; Protocol Last Admin: 10/03/18 10:55 Dose: 4 units Insulin Detemir (Levemir Vial) 20 units SQ AM [facility] Last Admin: 10/03/18 06:08 Dose: 20 units Insulin Detemir (Levemir Vial) 10 units SQ HS [facility] Last Admin: 10/02/18 21:58 Dose: 10 units Lactobacillus Acidophilus (Bacid -) 1 tab PO DAILY [facility] Last Admin: 10/03/18 09:07 Dose: 1 tab Levothyroxine Sodium (Synthroid -) 50 mcg PO DAILY@0700 [facility] Last Admin: 10/03/18 06:08 Dose: 50 mcg Liraglutide (Victoza -) 1.2 mg SQ DAILY@0700 [facility] Last Admin: 10/03/18 06:07 Dose: Not Given Metoprolol Succinate (Toprol Xl -) 50 mg PO BID [facility] Last Admin: 10/03/18 09:07 Dose: 50 mg Ramipril (Altace -) 5 mg PO DAILY [facility] Last Admin: 10/03/18 09:07 Dose: 5 mg - Objective Vital Signs: Vital Signs Temperature 98.5 F 10/03/18 06:00 Pulse Rate 61 10/03/18 06:00 Respiratory Rate 18 10/03/18 06:00 Blood Pressure 132/66 10/03/18 06:00 O2 Sat by Pulse Oximetry (%) 96 10/03/18 09:00 Constitutional: Yes: No Distress, Calm Eyes: Yes: Conjunctiva Clear HENT: Yes: Atraumatic Cardiovascular: Yes: Regular Rate and Rhythm Respiratory: Yes: Regular, CTA Bilaterally Gastrointestinal: Yes: Normal Bowel Sounds, Soft Musculoskeletal: Yes: WNL Extremities: Yes: WNL Neurological: Yes: Alert, Oriented Psychiatric: Yes: Alert, Oriented Labs: CBC, BMP 10/03/18 07:45 10/03/18 07:45 Assessment/Plan 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 Code(s): E11.621 - TYPE 2 DIABETES MELLITUS WITH FOOT ULCER; L97.509 - NON- PRESSURE CHRONIC ULCER OTH PRT UNSP FOOT W UNSP SEVERITY (2) Wound infection Code(s): T14.8XXA - OTHER INJURY OF UNSPECIFIED BODY REGION, INITIAL ENCOUNTER; L08.9 - LOCAL INFECTION OF THE SKIN AND SUBCUTANEOUS TISSUE, UNSP (3) Breast cancer, left breast Code(s): C50.912 - MALIGNANT NEOPLASM OF UNSPECIFIED SITE OF LEFT FEMALE BREAST Qualifiers: Breast location: upper outer quadrant of breast Estrogen receptor status: positive Patient sex: female Qualified Code(s): C50.412 - Malignant neoplasm of upper-outer quadrant of left female breast; Z17.0 - Estrogen receptor positive status [ER+] (4) CAD (coronary artery disease) Code(s): I25.10 - ATHSCL HEART DISEASE OF [place] CORONARY ARTERY W/O ANG PCTRS Qualifiers: [place] vs. transplanted heart: [place] heart Associated angina: without angina (5) Diabetes Code(s): E11.9 - TYPE 2 DIABETES MELLITUS WITHOUT COMPLICATIONS Qualifiers: Diabetes mellitus type: type 2 Diabetes mellitus mcc insulin use: with mcc use Diabetes mellitus complication status: with skin complications Diabetes mellitus complication detail: with foot ulcer Qualified Code(s): E11.621 - Type 2 diabetes mellitus with foot ulcer; L97.509 - Non-pressure chronic ulcer of other part of unspecified foot with unspecified severity; Z79.4 - care home (current) use of insulin (6) HTN (hypertension) Code(s): I10 - ESSENTIAL (PRIMARY) HYPERTENSION Qualifiers: Hypertension type: essential hypertension Qualified Code(s): I10 - Essential (primary) hypertension (7) Hyperlipidemia Code(s): E78.5 - HYPERLIPIDEMIA, UNSPECIFIED (8) Hypothyroidism Code(s): E03.9 - HYPOTHYROIDISM, UNSPECIFIED (9) Obesity (BMI 30.0-34.9) Code(s): E66.9 - OBESITY, UNSPECIFIED plan continue abx doxy for 3 weeks rest as per the team
--- NOTE | 2018-10-03 12:29 | DS ---
Physical Exam: SUBJECTIVE: Patient seen and examined resting in bed nad, no acute events. afebrile hemodynamically stable. denies f/c , denies pain in foot. OBJECTIVE: Vital Signs Period Temp Pulse Resp BP Sys/Jonas Pulse Ox Last 24 Hr 98.5 F-98.9 F 61-72 16-20 103-132/61-68 96-98 PHYSICAL EXAM GENERAL: The patient is awake, alert, and fully oriented, in no acute distress. HEAD: Normal with no signs of trauma. EYES: PERRL, extraocular movements intact, sclera anicteric, conjunctiva clear. No ptosis. ENT: moist mucous membranes. NECK: supple. LUNGS: Breath sounds equal, clear to auscultation bilaterally L chest drain minimal serous fluid HEART: Regular rate and rhythm, S1, S2 ABDOMEN: Soft, nontender, nondistended, normoactive bowel sounds L heel ulcer clean glanulation tissue at base, no erythema, thin serous discharge in dressing. mild ankle edema apparently chronic due to prior fracture. 1+ dp NEUROLOGICAL: Cranial nerves II through XII grossly intact. Normal speech, gait not observed. PSYCH: Normal mood, normal affect. SKIN: Warm, dry LABS Laboratory Results - last 24 hr 10/02/18 10/02/18 10/03/18 17:13 21:49 05:34 WBC RBC Hgb Hct MCV MCH MCHC RDW Plt Count MPV Absolute Neuts (auto) Neutrophils % Lymphocytes % Monocytes % Eosinophils % Basophils % Nucleated RBC % Sodium Potassium Chloride Carbon Dioxide Anion Gap BUN Creatinine Est GFR (CKD-EPI)AfAm Est GFR (CKD-EPI)NonAf POC Glucometer 242 228 156 Random Glucose Calcium Total Bilirubin AST ALT Alkaline Phosphatase Total Protein Albumin 10/03/18 10/03/18 10/03/18 07:45 07:45 10:49 WBC 4.1 RBC 3.40 L Hgb 9.5 L Hct 28.9 L MCV 85.1 MCH 28.1 MCHC 33.0 RDW 15.2 Plt Count 235 MPV 7.8 Absolute Neuts (auto) 2.4 Neutrophils % 57.9 Lymphocytes % 24.5 Monocytes % 10.0 Eosinophils % 6.6 H Basophils % 1.0 Nucleated RBC % 0 Sodium 138 Potassium 4.3 Chloride 105 Carbon Dioxide 29 Anion Gap 4 L BUN 19 H Creatinine 0.6 Est GFR (CKD-EPI)AfAm 101.18 Est GFR (CKD-EPI)NonAf 87.30 POC Glucometer 243 Random Glucose 140 H Calcium 9.7 Total Bilirubin 0.6 AST 22 ALT 17 Alkaline Phosphatase 113 Total Protein 5.8 L Albumin 2.5 L HOSPITAL COURSE: Date of Admission:09/28/18 This is 78 yo F with PMH of L breast CA 03/2018 s/p mastectomy with drain, multiple left heel debridements and infections s/p PICC x 6w abx, IDDM, peripheral neuropathy with diabetic ulcers, CAD s/p stents x3, DC, HTN and hypothyroidism, sent from podiatry for infected L heel ulcer. patient completed a 5 day course of zosyn and was discharged home on doxycycline x 30 days due to cultures + MRSA. She was instructed to apply santyl to heel daily. Patient recently underwent L mastectomy for breast CA. She is to f/u with Dr Kelley for chemo and/or radiation. 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 You completed a 5 day course of IV antibiotic zosyn Please take doxycycline 100mg twice a day starting tonight for 29 more days Please apply Santyl ointment to heel ulcer every day Follow up with podiatry in 1 week Follow up with primary care doctor in 1 week Follow up with Dr Allie Salcedo on your scheduled appointment to plan for further breast cancer treatment. Follow up with breast surgeon within 1 week to left mastectomy drain. Continue all other home medication Please return to ED if severe symptoms recur Referrals: Tawanda Pitts DPM [Staff Physician] - Allie Salcedo MD [Staff Physician] - Disposition: HOME - Home Medications Comprehensive Discharge Medication List: Ambulatory Orders Atorvastatin Ca [Lipitor] 20 mg PO HS 03/12/16 Cholecalciferol (Vitamin D3) [Vitamin D -] 2,000 unit PO DAILY 03/12/16 Gabapentin 300 mg PO TID 03/12/16 Glipizide 5 mg PO BIDAC 03/12/16 Insulin Glargine,Hum.rec.anlog [Lantus Solostar PEN -] 20 units SQ HS 03/12/16 Levothyroxine [Synthroid -] 50 mcg PO DAILY@0700 03/12/16 Liraglutide [Victoza -] 1.2 mg SQ DAILY@0700 03/12/16 metFORMIN HCL [Metformin HCl] 500 mg PO BIDAC 03/12/16 Metoprolol Succinate [Toprol XL -] 50 mg PO BID 08/17/17 Ramipril 5 mg PO BID 08/17/17 Acetaminophen [Tylenol .Regular Strength -] 650 mg PO Q4H PRN tablet 08/22/17 Alendronate Sodium [Binosto] 70 mg PO WEEKLY 05/05/18 Oxycodone HCl/Acetaminophen [Percocet 5-325 mg Tablet] 1 tab PO Q6H PRN #10 tablet MDD 4 08/25/18 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 Code(s): E11.621 - TYPE 2 DIABETES MELLITUS WITH FOOT ULCER; L97.509 - NON- PRESSURE CHRONIC ULCER OTH PRT UNSP FOOT W UNSP SEVERITY (2) Wound infection Code(s): T14.8XXA - OTHER INJURY OF UNSPECIFIED BODY REGION, INITIAL ENCOUNTER; L08.9 - LOCAL INFECTION OF THE SKIN AND SUBCUTANEOUS TISSUE, UNSP (3) Ankle fracture, left Code(s): S82.892A - OTH FRACTURE OF LEFT LOWER LEG, INIT FOR CLOS FX Qualifiers: Encounter type: initial encounter Fracture type: closed Qualified Code(s) : S82.892A - Other fracture of left lower leg, initial encounter for closed fracture (4) Breast cancer, left breast Code(s): C50.912 - MALIGNANT NEOPLASM OF UNSPECIFIED SITE OF LEFT FEMALE BREAST Qualifiers: Breast location: upper outer quadrant of breast Estrogen receptor status: positive Patient sex: female Qualified Code(s): C50.412 - Malignant neoplasm of upper-outer quadrant of left female breast; Z17.0 - Estrogen receptor positive status [ER+] (5) CAD (coronary artery disease) Code(s): I25.10 - ATHSCL HEART DISEASE OF [place] CORONARY ARTERY W/O ANG PCTRS Qualifiers: [place] vs. transplanted heart: [place] heart Associated angina: without angina (6) CHF (congestive heart failure) Code(s): I50.9 - HEART FAILURE, UNSPECIFIED Qualifiers: Heart failure type: systolic Heart failure chronicity: chronic Qualified Code(s): I50.22 - Chronic systolic (congestive) heart failure (7) Diabetes Code(s): E11.9 - TYPE 2 DIABETES MELLITUS WITHOUT COMPLICATIONS Qualifiers: Diabetes mellitus type: type 2 Diabetes mellitus manager terminal insulin use: with manager terminal use Diabetes mellitus complication status: with skin complications Diabetes mellitus complication detail: with foot ulcer Qualified Code(s): E11.621 - Type 2 diabetes mellitus with foot ulcer; L97.509 - Non-pressure chronic ulcer of other part of unspecified foot with unspecified severity; Z79.4 - snf (current) use of insulin This patient is new to me today: Yes Date on this admission: 10/03/18 Emergency Visit: No Critical Care patient: No - Discharge Referral Referred to [facility] Med P.C[facility] No
[2018-10-03 12:49] VITALS: BP 106/66; PULSE 66; TEMP 98
--- NOTE | 2018-10-03 16:52 | PN ---
Teaching Attending Note Name of Resident: Valery Flannery ATTENDING PHYSICIAN STATEMENT I saw and evaluated the patient. I reviewed the resident's note and discussed the case with the resident. I agree with the resident's findings and plan as documented. Please refer to discharge summary but in short Ms Prince is a very pleasant 78 year old female presenting with wound infection. She was originally placed on vancomycin and zosyn, she was seen by ID and vancomycin continued. She was found to have MRSA in the wound. She improved and was transitioned to oral doxycycline. She tolerated this well and is safe for discharge home on 3 weeks oral doxycycline. 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 Code(s): E11.621 - TYPE 2 DIABETES MELLITUS WITH FOOT ULCER; L97.509 - NON- PRESSURE CHRONIC ULCER OTH PRT UNSP FOOT W UNSP SEVERITY (2) Wound infection Code(s): T14.8XXA - OTHER INJURY OF UNSPECIFIED BODY REGION, INITIAL ENCOUNTER; L08.9 - LOCAL INFECTION OF THE SKIN AND SUBCUTANEOUS TISSUE, UNSP (3) Breast cancer, left breast Code(s): C50.912 - MALIGNANT NEOPLASM OF UNSPECIFIED SITE OF LEFT FEMALE BREAST Qualifiers: Breast location: upper outer quadrant of breast Estrogen receptor status: positive Patient sex: female Qualified Code(s): C50.412 - Malignant neoplasm of upper-outer quadrant of left female breast; Z17.0 - Estrogen receptor positive status [ER+] (4) CAD (coronary artery disease) Code(s): I25.10 - ATHSCL HEART DISEASE OF [place] CORONARY ARTERY W/O ANG PCTRS Qualifiers: [place] vs. transplanted heart: [place] heart Associated angina: without angina (5) Diabetes Code(s): E11.9 - TYPE 2 DIABETES MELLITUS WITHOUT COMPLICATIONS Qualifiers: Diabetes mellitus type: type 2 Diabetes mellitus continuous improvement coordinator insulin use: with shelter use Diabetes mellitus complication status: with skin complications Diabetes mellitus complication detail: with foot ulcer Qualified Code(s): E11.621 - Type 2 diabetes mellitus with foot ulcer; L97.509 - Non-pressure chronic ulcer of other part of unspecified foot with unspecified severity; Z79.4 - MCFP (current) use of insulin (6) HTN (hypertension) Code(s): I10 - ESSENTIAL (PRIMARY) HYPERTENSION Qualifiers: Hypertension type: essential hypertension Qualified Code(s): I10 - Essential (primary) hypertension (7) Hyperlipidemia Code(s): E78.5 - HYPERLIPIDEMIA, UNSPECIFIED (8) Hypothyroidism Code(s): E03.9 - HYPOTHYROIDISM, UNSPECIFIED (9) Obesity (BMI 30.0-34.9) Code(s): E66.9 - OBESITY, UNSPECIFIED
== END 2018-10-03 15:50 | disposition home or self-care (01) | DRG 638 ==
LOC: JER 11:11 → JERBED 13:45 → J6S 15:04
PROVIDERS: ADMIT Internal Medicine; ATTEND Internal Medicine
DX: E11.621 Type 2 diabetes mellitus with foot ulcer (principal); L03.116 Cellulitis of left lower limb; I25.10 Atherosclerotic heart disease of native coronary artery without angina pectoris; I10 Essential (primary) hypertension; E03.9 Hypothyroidism, unspecified; E66.9 Obesity, unspecified; L08.9 Local infection of the skin and subcutaneous tissue, unspecified; C50.412 Malignant neoplasm of upper-outer quadrant of left female breast; A49.02 Methicillin resistant Staphylococcus aureus infection, unspecified site; E78.5 Hyperlipidemia, unspecified; Z68.30 Body mass index [BMI] 30.0-30.9, adult
CPT/HCPCS: 11042; 36415; 71045-TC-FY; 73630-TC-LT; 80048; 80053; 82962; 83036; 83735; 84100; 85025; 87040; 87070; 87186; 87205; 88304-TC; 97116-GP; 97161-GP; 99283-25

== ENCOUNTER 2019-01-04 05:39 | Day surgery (SDC) | payer OTHER, BC ==
[2019-01-04] MEDS ORDERED: DENOSUMAB 120 MG/1.7 ML VIAL SQ ONE (10:00)
[2019-01-04 10:49] LABS: BASO % 1.2 % (0-2.0); EOS % 5.7 % (0-4.5); HEMATOCRIT 31.9 % (32.4-45.2); HEMOGLOBIN 10.6 GM/dL (10.7-15.3); MCH 27.9 pg (25.7-33.7); MCHC 33.1 g/dl (32.0-36.0); MEAN CELL VOLUME 84.4 fl (80-96); MEAN PLT VOLUME 8.3 fl (7.5-11.1); MONO % 9.3 % (3.8-10.2); NEUT % 51.8 % (42.8-82.8); PLATELET COUNT 206 K/MM3 (134-434); RBC 3.79 M/mm3 (3.60-5.2); WHITE BLOOD COUNT 3.8 K/mm3 (4.0-10.0)
[2019-01-04 11:06] LABS: ALBUMIN 3.6 g/dl (3.4-5.0); BILIRUBIN,DIRECT 0.3 mg/dL (0.0-0.2); BILIRUBIN,TOTAL 0.7 mg/dL (0.2-1); BLOOD UREA NITROGEN 11.7 mg/dL (7-18); CALCIUM 9.8 mg/dL (8.5-10.1); CREATININE 0.7 mg/dL (0.55-1.3); MAGNESIUM 1.5 mg/dL (1.8-2.4); POTASSIUM 4.7 mmol/L (3.5-5.1); TOT PROT 6.7 g/dl (6.4-8.2)
[2019-01-04 17:25] VITALS: BP 110/62; PULSE 101; TEMP 99
== END 2019-01-04 10:45 | disposition home or self-care (01) ==
LOC: JONCCHEMO 05:39 → J7W 10:10 → JONCCHEMO 10:45
PROVIDERS: ATTEND Internal Medicine Hematology & Oncology
DX: Z51.11 Encounter for antineoplastic chemotherapy (principal); C50.812 Malignant neoplasm of overlapping sites of left female breast
CPT/HCPCS: 36415; 80048; 80076; 83735; 85025; 96402; J0897

== ENCOUNTER 2019-02-01 05:35 | Day surgery (SDC) | payer OTHER, BC ==
[2019-02-01 09:37] LABS: EOS % 4.9 % (0-4.5); HEMATOCRIT 32.3 % (32.4-45.2); HEMOGLOBIN 10.7 GM/dL (10.7-15.3); LYMPH % 29.6 % (8-40); MCH 27.9 pg (25.7-33.7); MCHC 33.2 g/dl (32.0-36.0); MEAN PLT VOLUME 7.8 fl (7.5-11.1); MONO % 8.5 % (3.8-10.2); PLATELET COUNT 225 K/MM3 (134-434); RBC 3.84 M/mm3 (3.60-5.2); RDW 16.2 % (11.6-15.6); WHITE BLOOD COUNT 3.8 K/mm3 (4.0-10.0)
[2019-02-01] MEDS ORDERED: DENOSUMAB 120 MG/1.7 ML VIAL SQ ONE (10:00)
[2019-02-01 10:02] LABS: ALBUMIN 3.6 g/dl (3.4-5.0); BILIRUBIN,TOTAL 0.6 mg/dL (0.2-1); CALCIUM 9.3 mg/dL (8.5-10.1); CREATININE 0.7 mg/dL (0.55-1.3); MAGNESIUM 1.7 mg/dL (1.8-2.4); POTASSIUM 4.6 mmol/L (3.5-5.1); TOT PROT 6.8 g/dl (6.4-8.2)
[2019-02-01 15:57] VITALS: BP 124/63; PULSE 74; TEMP 98.9
== END 2019-02-01 10:44 | disposition home or self-care (01) ==
LOC: JONCCHEMO 05:35 → J7W 10:29 → JONCCHEMO 10:44
PROVIDERS: ATTEND Internal Medicine Hematology & Oncology
DX: Z51.11 Encounter for antineoplastic chemotherapy (principal); C50.812 Malignant neoplasm of overlapping sites of left female breast; I10 Essential (primary) hypertension; E78.00 Pure hypercholesterolemia, unspecified; E03.9 Hypothyroidism, unspecified; E11.9 Type 2 diabetes mellitus without complications; I25.10 Atherosclerotic heart disease of native coronary artery without angina pectoris; M19.90 Unspecified osteoarthritis, unspecified site; M81.0 Age-related osteoporosis without current pathological fracture
CPT/HCPCS: 36415; 80053; 83735; 85025; 96372; 96401; J0897

== ENCOUNTER 2019-03-01 05:28 | Day surgery (SDC) | payer OTHER, BC ==
[2019-03-01] MEDS ORDERED: DENOSUMAB 120 MG/1.7 ML VIAL SQ ONE (10:00)
[2019-03-01 12:19] LABS: BASO % 1.1 % (0-2.0); EOS % 5.6 % (0-4.5); HEMOGLOBIN 11.5 GM/dL (10.7-15.3); LYMPH % 28.3 % (8-40); MCHC 31.9 g/dl (32.0-36.0); MEAN CELL VOLUME 84.6 fl (80-96); MEAN PLT VOLUME 8.5 fl (7.5-11.1); PLATELET COUNT 219 K/MM3 (134-434); RBC 4.25 M/mm3 (3.60-5.2); RDW 16.4 % (11.6-15.6); WHITE BLOOD COUNT 4.3 K/mm3 (4.0-10.0)
[2019-03-01 12:46] LABS: ALBUMIN 3.6 g/dl (3.4-5.0); BILIRUBIN,TOTAL 0.7 mg/dL (0.2-1); BLOOD UREA NITROGEN 20.8 mg/dL (7-18); CALCIUM 9.8 mg/dL (8.5-10.1); CREATININE 0.6 mg/dL (0.55-1.3); MAGNESIUM 1.7 mg/dL (1.8-2.4); POTASSIUM 4.7 mmol/L (3.5-5.1); TOT PROT 6.8 g/dl (6.4-8.2)
[2019-03-01 16:21] VITALS: BP 91/50; PULSE 87; TEMP 98
== END 2019-03-01 13:00 | disposition home or self-care (01) ==
LOC: JONCCHEMO 05:28 → J7W 12:23 → JONCCHEMO 13:00
PROVIDERS: ATTEND Internal Medicine Hematology & Oncology
PROC: 3E013GC Introduction of Other Therapeutic Substance into Subcutaneous Tissue, Percutaneous Approach (ICD-10-PCS; principal; 2019-03-01)
DX: C50.812 Malignant neoplasm of overlapping sites of left female breast (principal); C79.51 Secondary malignant neoplasm of bone; I10 Essential (primary) hypertension; I25.10 Atherosclerotic heart disease of native coronary artery without angina pectoris; E11.9 Type 2 diabetes mellitus without complications; E03.9 Hypothyroidism, unspecified; M19.90 Unspecified osteoarthritis, unspecified site; M81.0 Age-related osteoporosis without current pathological fracture; M48.00 Spinal stenosis, site unspecified
CPT/HCPCS: 36415; 80053; 83735; 85025; 96372; 97597; J0897

== ENCOUNTER 2019-04-05 05:40 | Day surgery (SDC) | payer OTHER, BC ==
[2019-04-05] MEDS ORDERED: DENOSUMAB 120 MG/1.7 ML VIAL SQ ONE (10:00)
[2019-04-05 10:40] LABS: BASO % 1.1 % (0-2.0); EOS % 4.2 % (0-4.5); HEMATOCRIT 33.8 % (32.4-45.2); HEMOGLOBIN 11.1 GM/dL (10.7-15.3); MCHC 32.8 g/dl (32.0-36.0); MEAN CELL VOLUME 82.5 fl (80-96); MEAN PLT VOLUME 8.7 fl (7.5-11.1); MONO % 8.6 % (3.8-10.2); NEUT % 62.1 % (42.8-82.8); PLATELET COUNT 230 K/MM3 (134-434); RBC 4.09 M/mm3 (3.60-5.2); RDW 16.2 % (11.6-15.6); WHITE BLOOD COUNT 4.9 K/mm3 (4.0-10.0)
[2019-04-05 11:09] LABS: ALBUMIN 3.7 g/dl (3.4-5.0); BILIRUBIN,TOTAL 0.9 mg/dL (0.2-1); BLOOD UREA NITROGEN 20.2 mg/dL (7-18); CALCIUM 9.7 mg/dL (8.5-10.1); CREATININE 0.6 mg/dL (0.55-1.3); MAGNESIUM 1.7 mg/dL (1.8-2.4); POTASSIUM 4.8 mmol/L (3.5-5.1); TOT PROT 6.7 g/dl (6.4-8.2)
[2019-04-05 17:05] VITALS: BP 104/57; PULSE 74; TEMP 98.2
== END 2019-04-05 13:30 | disposition home or self-care (01) ==
LOC: JONCCHEMO 05:40 → J7W 13:01 → JONCCHEMO 13:30
PROVIDERS: ATTEND Internal Medicine Hematology & Oncology
PROC: 3E013GC Introduction of Other Therapeutic Substance into Subcutaneous Tissue, Percutaneous Approach (ICD-10-PCS; principal; 2019-04-05)
DX: C50.812 Malignant neoplasm of overlapping sites of left female breast (principal); C79.51 Secondary malignant neoplasm of bone; I10 Essential (primary) hypertension; E11.9 Type 2 diabetes mellitus without complications; Z76.89 Persons encountering health services in other specified circumstances
CPT/HCPCS: 36415; 80053; 83735; 85025; 96372; J0897

== ENCOUNTER 2019-05-03 06:14 | Day surgery (SDC) | payer OTHER, BC ==
[2019-05-03] MEDS ORDERED: DENOSUMAB 120 MG/1.7 ML VIAL SQ ONE (10:00)
[2019-05-03 11:25] LABS: EOS % 4.1 % (0-4.5); HEMATOCRIT 33.6 % (32.4-45.2); HEMOGLOBIN 10.9 GM/dL (10.7-15.3); LYMPH % 20.7 % (8-40); MCH 26.8 pg (25.7-33.7); MCHC 32.4 g/dl (32.0-36.0); MEAN CELL VOLUME 82.8 fl (80-96); MEAN PLT VOLUME 8.3 fl (7.5-11.1); MONO % 9.7 % (3.8-10.2); NEUT % 64.5 % (42.8-82.8); PLATELET COUNT 212 K/MM3 (134-434); RBC 4.06 M/mm3 (3.60-5.2); RDW 16.1 % (11.6-15.6)
[2019-05-03 11:53] LABS: ALBUMIN 3.4 g/dl (3.4-5.0); BILIRUBIN,TOTAL 0.6 mg/dL (0.2-1); BLOOD UREA NITROGEN 17.1 mg/dL (7-18); CALCIUM 9.5 mg/dL (8.5-10.1); CREATININE 0.7 mg/dL (0.55-1.3); MAGNESIUM 1.5 mg/dL (1.8-2.4); POTASSIUM 4.2 mmol/L (3.5-5.1); TOT PROT 6.5 g/dl (6.4-8.2)
[2019-05-03 14:53] VITALS: BP 122/57; PULSE 78; TEMP 97.9
== END 2019-05-03 12:50 | disposition home or self-care (01) ==
LOC: JONCCHEMO 06:14 → J7W 12:26 → JONCCHEMO 12:50
PROVIDERS: ATTEND Internal Medicine Hematology & Oncology
PROC: 3E013GC Introduction of Other Therapeutic Substance into Subcutaneous Tissue, Percutaneous Approach (ICD-10-PCS; principal; 2019-05-03)
DX: C50.812 Malignant neoplasm of overlapping sites of left female breast (principal); C79.51 Secondary malignant neoplasm of bone; I10 Essential (primary) hypertension; E11.9 Type 2 diabetes mellitus without complications; Z76.89 Persons encountering health services in other specified circumstances
CPT/HCPCS: 36415; 80053; 83735; 85025; 96372; J0897

== ENCOUNTER 2019-06-08 05:43 | Day surgery (SDC) | payer OTHER, BC ==
[2019-06-08] MEDS ORDERED: DENOSUMAB 120 MG/1.7 ML VIAL SQ ONE (10:00)
[2019-06-08 12:51] LABS: BASO % 1.2 % (0-2.0); EOS % 10.6 % (0-4.5); HEMATOCRIT 31.9 % (32.4-45.2); HEMOGLOBIN 10.5 GM/dL (10.7-15.3); LYMPH % 28.7 % (8-40); MCHC 32.8 g/dl (32.0-36.0); MEAN CELL VOLUME 82.3 fl (80-96); NEUT % 49.5 % (42.8-82.8); PLATELET COUNT 211 K/MM3 (134-434); RBC 3.87 M/mm3 (3.60-5.2); RDW 16.1 % (11.6-15.6); WHITE BLOOD COUNT 4.4 K/mm3 (4.0-10.0)
[2019-06-08 13:22] LABS: ALBUMIN 3.1 g/dl (3.4-5.0); BILIRUBIN,TOTAL 0.5 mg/dL (0.2-1); BLOOD UREA NITROGEN 18.2 mg/dL (7-18); CALCIUM 10.2 mg/dL (8.5-10.1); CREATININE 0.6 mg/dL (0.55-1.3); POTASSIUM 4.6 mmol/L (3.5-5.1); TOT PROT 6.2 g/dl (6.4-8.2)
[2019-06-08 14:47] VITALS: BP 131/57; PULSE 60; TEMP 97.8
== END 2019-06-08 14:25 | disposition home or self-care (01) ==
LOC: JONCCHEMO 05:43 → J7W 13:56 → JONCCHEMO 14:25
PROVIDERS: ATTEND Internal Medicine Hematology & Oncology
PROC: 3E013GC Introduction of Other Therapeutic Substance into Subcutaneous Tissue, Percutaneous Approach (ICD-10-PCS; principal; 2019-06-08)
DX: C50.812 Malignant neoplasm of overlapping sites of left female breast (principal); C79.51 Secondary malignant neoplasm of bone; E11.9 Type 2 diabetes mellitus without complications; I10 Essential (primary) hypertension; Z76.89 Persons encountering health services in other specified circumstances
CPT/HCPCS: 36415; 80053; 85025; 86300; 96372; J0897

== ENCOUNTER 2019-07-05 07:12 | Day surgery (SDC) | payer OTHER, BC ==
[2019-07-05 11:51] LABS: BASO % 1.3 % (0-2.0); EOS % 5.3 % (0-4.5); HEMATOCRIT 31.1 % (32.4-45.2); HEMOGLOBIN 10.3 GM/dL (10.7-15.3); LYMPH % 26.4 % (8-40); MCH 27.6 pg (25.7-33.7); MCHC 33.2 g/dl (32.0-36.0); MEAN CELL VOLUME 83.1 fl (80-96); MEAN PLT VOLUME 8.3 fl (7.5-11.1); MONO % 10.2 % (3.8-10.2); NEUT % 56.8 % (42.8-82.8); PLATELET COUNT 222 K/MM3 (134-434); RBC 3.74 M/mm3 (3.60-5.2); RDW 16.6 % (11.6-15.6); WHITE BLOOD COUNT 4.3 K/mm3 (4.0-10.0)
[2019-07-05 12:21] LABS: ALBUMIN 3.1 g/dl (3.4-5.0); BILIRUBIN,TOTAL 0.7 mg/dL (0.2-1); BLOOD UREA NITROGEN 16.3 mg/dL (7-18); CALCIUM 9.9 mg/dL (8.5-10.1); CREATININE 0.6 mg/dL (0.55-1.3); POTASSIUM 4.5 mmol/L (3.5-5.1); TOT PROT 6.1 g/dl (6.4-8.2)
[2019-07-05] MEDS ORDERED: DENOSUMAB 120 MG/1.7 ML VIAL SQ ONE (14:00)
[2019-07-05 16:35] VITALS: BP 90/45; PULSE 57; TEMP 98
== END 2019-07-05 13:50 | disposition home or self-care (01) ==
LOC: JONCCHEMO 07:12 → J7W 12:52 → JONCCHEMO 13:50
PROVIDERS: ATTEND Internal Medicine Hematology & Oncology
PROC: 3E013GC Introduction of Other Therapeutic Substance into Subcutaneous Tissue, Percutaneous Approach (ICD-10-PCS; principal; 2019-07-05)
DX: Z76.89 Persons encountering health services in other specified circumstances (principal); C50.812 Malignant neoplasm of overlapping sites of left female breast; I10 Essential (primary) hypertension; E78.5 Hyperlipidemia, unspecified; E11.9 Type 2 diabetes mellitus without complications; E03.9 Hypothyroidism, unspecified; I25.10 Atherosclerotic heart disease of native coronary artery without angina pectoris
CPT/HCPCS: 36415; 80053; 85025; 96372; J0897

== ENCOUNTER 2020-01-25 10:39 | Inpatient (IN) | payer OTHER, BC ==
[2020-01-25 12:37] LABS: BASO % 0.3 % (0-2.0); EOS % 0.4 % (0-4.5); HEMATOCRIT 26.7 % (32.4-45.2); LYMPH % 8.6 % (8-40); MCH 27.8 pg (25.7-33.7); MCHC 33.5 g/dl (32.0-36.0); MEAN CELL VOLUME 82.8 fl (80-96); MEAN PLT VOLUME 8.3 fl (7.5-11.1); MONO % 10.7 % (3.8-10.2); PLATELET COUNT 259 K/MM3 (134-434); RBC 3.23 M/mm3 (3.60-5.2); RDW 15.3 % (11.6-15.6); WHITE BLOOD COUNT 7.4 K/mm3 (4.0-10.0)
[2020-01-25 12:49] LABS: INR 1.15 (0.83-1.09); PROTHROMBIN TIME (PATIENT) 13.6 SEC (9.7-13.0)
[2020-01-25 12:51] LABS: ACTIVATED PTT 26.1 SECONDS (25.2-36.5)
--- NOTE | 2020-01-25 12:55 | CON.ID ---
Consult Consult Specialty:: infectious diseases Referred by:: Reason for Consultation:: no healing ulcer of the ffot probably osteo - History of Present Illness Chief Complaint: no healin ulcer of the heel with purulent drainage History of Present Illness: 79-year-old female with a past medical history significant for CAD s/p stents, HTN, HLD, DM, Breast CA s/p mastectomy, necrotic bowel s/p 30cm bowel resection at [facility] (colostomy in place) in the emergency department from her wound on the left heel . patient has been having left heel wound which has broken down and has been draining - History Source History Provided By: Patient Limitations to Obtaining History: No Limitations - Past Medical History EARLY MORNING: Yes: Peripheral Neuropathy (with diabetic ulcers) Cardio/Vascular: Yes: CAD, HTN ...: No Musculoskeletal: Yes: Chronic low back pain, Osteoarthritis Endocrine: Yes: Diabetes Mellitus, Hypothyroidism - Past Surgical History Past Surgical History: Yes: Cholecystectomy (open 20's), Mastectomy (left), Stent (x3 2008 and 2011) - Alcohol/Substance Use Hx Alcohol Use: No History of Substance Use: reports: None - Smoking History Smoking history: Never smoked Have you smoked in the past 12 months: No If you are a former smoker, when did you quit?: 25yrs - Social History ADL: Support Services History of Recent Travel: No Home Medications - Allergies Allergies/Adverse Reactions: Allergies Allergy/AdvReac Type Severity Reaction Status Date / Time Gold Salts Allergy Verified 01/25/20 11:27 Iodinated Contrast Media Allergy Verified 01/25/20 11:27 [Iodinated Contrast- Oral and IV Dye] silver Allergy Verified 01/25/20 11:27 contrast Allergy Uncoded 01/25/20 11:27 - Home Medications Home Medications: Ambulatory Orders Cholecalciferol (Vitamin D3) [Vitamin D -] 2,000 unit PO DAILY 03/12/16 Gabapentin 300 mg PO TID 03/12/16 Glipizide 5 mg PO BIDAC 03/12/16 Insulin Glargine,Hum.rec.anlog [Lantus Solostar PEN -] 20 units SQ HS 03/12/16 Levothyroxine [Synthroid -] 50 mcg PO DAILY@0700 03/12/16 Liraglutide [Victoza -] 1.2 mg SQ DAILY@0700 03/12/16 metFORMIN HCL [Metformin HCl] 500 mg PO BIDAC 03/12/16 Metoprolol Succinate [Toprol XL -] 50 mg PO BID 08/17/17 Ramipril 5 mg PO BID 08/17/17 Aspirin 81 mg PO DAILY 11/06/18 Anastrozole [Arimidex -] 1 tab PO DAILY 04/12/19 Becaplermin [Regranex] 15 gm TP DAILY #1 gel..gram. 04/26/19 Calcium Carbonate [Calcium] 1,000 mg PO Q48H 07/26/19 Magnesium 128 mg PO DAILY 07/26/19 Atorvastatin Ca [Lipitor] 20 mg PO HS 01/25/20 Review of Systems - Review of Systems Constitutional: reports: No Symptoms Eyes: reports: No Symptoms HENT: reports: No Symptoms Neck: reports: No Symptoms Cardiovascular: reports: No Symptoms Respiratory: reports: No Symptoms Gastrointestinal: reports: No Symptoms Genitourinary: reports: No Symptoms Musculoskeletal: reports: Other Integumentary: reports: Wound, Other (srainage) Neurological: reports: No Symptoms Endocrine: reports: No Symptoms Hematology/Lymphatic: reports: No Symptoms Psychiatric: reports: No Symptoms Physical Exam Vital Signs: Vital Signs Temperature 97.5 F L 01/25/20 10:43 Pulse Rate 93 H 01/25/20 10:43 Respiratory Rate 15 01/25/20 10:43 Blood Pressure 113/41 L 01/25/20 10:43 O2 Sat by Pulse Oximetry (%) 100 01/25/20 10:43 Constitutional: Yes: Well Nourished, Calm, Mild Distress Eyes: Yes: Conjunctiva Clear HENT: Yes: Atraumatic, Normocephalic Neck: Yes: Supple, Trachea Midline Cardiovascular: Yes: Regular Rate and Rhythm Respiratory: Yes: Regular, CTA Bilaterally Gastrointestinal: Yes: Normal Bowel Sounds, Soft Musculoskeletal: Yes: WNL Extremities: Yes: Other Neurological: Yes: Alert, Oriented Psychiatric: Yes: Alert, Oriented Labs: CBC, BMP 01/25/20 12:00 Assessment/Plan this patient with multiple medical problems coming in with probably osteo of the foot cx taken from wound care centre noted plan 1 get and mri on the patient pls get dr lino to be involved abx will be cefazolin if mrsa negative wound care get wound on board rest as per the team
[2020-01-25 13:24] LABS: ALBUMIN 2.6 g/dl (3.4-5.0); BILIRUBIN,TOTAL 0.7 mg/dL (0.2-1); BLOOD UREA NITROGEN 19.4 mg/dL (7-18); CALCIUM 9.1 mg/dL (8.5-10.1); CREATININE 0.6 mg/dL (0.55-1.3); POTASSIUM 4.5 mmol/L (3.5-5.1); TOT PROT 5.9 g/dl (6.4-8.2)
[2020-01-25] MEDS ORDERED: ACETAMINOPHEN 1000 MG/100 ML VIAL (NON FORMULARY) IVPB ONE (13:56)
--- NOTE | 2020-01-25 14:10 | PDOC ---
Documentation entered by Munira Gant SCRIBE, acting as scribe for Antoine Comer MD. Antoine Comer MD: This documentation has been prepared by the toryibeStalin Lincy, SCRIBE, under my direction and personally reviewed by me in its entirety. I confirm that the documentation accurately reflects all work, treatment, procedures, and medical decision making performed by me. History of Present Illness - General Chief Complaint: Wound Stated Complaint: WOUND Time Seen by Provider: 01/25/20 11:49 History Source: Patient Exam Limitations: No Limitations - History of Present Illness Initial Comments: 01/25/20 12:26 The patient is a 79-year-old female with a past medical history significant for CAD s/p stents, HTN, HLD, DM, Breast CA s/p mastectomy, necrotic bowel s/p 30cm bowel resection at [facility] (colostomy in place) was sent to the emergency department from wound care for admission. The patients non clinical advisor is Dr. Pitts, who was out of the office yesterday, was seen by Dr. Osorio, who sent the patient for admission for a left heel wound and left leg swelling. Denies chest pain or abdominal pain. Allergies: No known allergies to antibiotics. Surgical history: Cardiac stents, Cholecystectomy, L. Mastectomy PCP: Dr. Queen. Respite Care Provider: Dr. Pitts Oncologist: Dr. Kelley Past History - Medical History Allergies/Adverse Reactions: Allergies Allergy/AdvReac Type Severity Reaction Status Date / Time Gold Salts Allergy Verified 01/25/20 11:27 Iodinated Contrast Media Allergy Verified 01/25/20 11:27 [Iodinated Contrast- Oral and IV Dye] silver Allergy Verified 01/25/20 11:27 contrast Allergy Uncoded 01/25/20 11:27 Home Medications: Ambulatory Orders Cholecalciferol (Vitamin D3) [Vitamin D -] 1,000 unit PO DAILY 03/12/16 Gabapentin 300 mg PO TID 03/12/16 Glipizide 5 mg PO BIDAC 03/12/16 Insulin Glargine,Hum.rec.anlog [Lantus Solostar PEN -] 20 units SQ HS 03/12/16 Levothyroxine [Synthroid -] 50 mcg PO DAILY@0700 03/12/16 Liraglutide [Victoza -] 1.2 mg SQ DAILY@0700 03/12/16 metFORMIN HCL [Metformin HCl] 500 mg PO BIDAC 03/12/16 Metoprolol Succinate [Toprol XL -] 50 mg PO BID 08/17/17 Ramipril 5 mg PO BID 08/17/17 Aspirin 81 mg PO DAILY 11/06/18 Anastrozole [Arimidex -] 1 tab PO DAILY 04/12/19 Calcium Carbonate [Calcium] 1,000 mg PO Q48H 07/26/19 Magnesium 128 mg PO DAILY 07/26/19 Atorvastatin Ca [Lipitor] 20 mg PO HS 01/25/20 Anemia: No (son, tato garrison jr.) Asthma: No Cancer: Yes (L BREAST MASTECTOMY) Cardiac Disorders: Yes (CARDIAC STENT x3) CVA: No COPD: No CHF: No Dementia: No Diabetes: Yes GI Disorders: Yes (constipated) Disorders: Yes (incontinent) HTN: Yes Hypercholesterolemia: Yes Liver Disease: No Seizures: No Thyroid Disease: Yes (HYPOTHROID) - Surgical History Abdominal Surgery: No Appendectomy: No Cardiac Surgery: Yes (cardiac stents x 3) Cholecystectomy: Yes Lung Surgery: No Neurologic Surgery: No Orthopedic Surgery: Yes (left hip fx repair, LEFT ANKLE FX REPAIR, r shoulder, b knee sx, l achilles) - Reproductive History Is Patient Now?: No - Immunization History Immunization Up to Date: Yes - Psycho-Social/Smoking History Smoking History: Never smoked Have you smoked in the past 12 months: No If you are a former smoker, when did you quit?: 25yrs Information on smoking cessation initiated: No - Substance Abuse Hx (Audit-C & DAST Scrn) How often the patient has a drink containing alcohol: Never Score: In Men: 4 or > Positive; In Women: 3 or > Positive: 0 Screen Result (Pos requires Nsg. Audit-10AR): Negative Review of Systems - Review of Systems Able to Perform ROS?: Yes Comments:: 01/25/20 12:40 A complete review of 10 out of 10 review of systems is taken and is negative apart from what is previously mentioned below and in the HPI. *Physical Exam - Vital Signs Last Vital Signs Temp Pulse Resp BP Pulse Ox 97.5 F L 93 H 15 113/41 L 100 01/25/20 10:43 01/25/20 10:43 01/25/20 10:43 01/25/20 10:43 01/25/20 10:43 - Physical Exam 01/25/20 12:40 Vitals: Triage vital signs reviewed General Appearance: No acute distress, well nourished, well developed Neck: Supple; No nuchal rigidity Chest Wall: Nontender Cardiac: Regular rate and rhythm, no murmurs, no rubs, no gallops Lungs: Clear to auscultation bilateral, good air movement bilaterally Abdomen: +colostomy bag in place. Soft, nondistended, normal bowel sounds, nontender to palpation Extremities: +left calf swelling up to the knee. Full range of motion to all extremities. Skin: +1x1cm ulcer, healed in the middle and dark color outside. Left foot: warm to touch up to the knee. Rest of the skin: Warm and dry, no rashes or lesions, no rash, no petechiae Psych: Normal mood, normal affect ED Treatment Course - LABORATORY CBC & Chemistry Diagram: 01/25/20 12:00 01/25/20 12:00 Medical Decision Making - Medical Decision Making 01/25/20 14:07 The patient is a 79-year-old female with a past medical history significant for CAD s/p stents, HTN, HLD, DM, Breast CA s/p mastectomy, necrotic bowel s/p 30cm bowel resection at [facility] (colostomy in place) was sent to the emergency department from wound care for admission. The patients non clinical advisor is Dr. Pitts, who was out of the office yesterday, was seen by Dr. Osorio, who sent the patient for admission for a left heel wound and left leg swelling. Denies chest pain or abdominal pain. Regular reviewed as was down his leg to be like a lumbar nailing hands with like avoiding sent to the ED for osteomyelitis. Infectious disease aware Dr. Osorio We will start patient on vancomycin and Zosyn and admit to medicine for further management. Discharge - Discharge Information Problems reviewed: Yes Clinical Impression/Diagnosis: Osteomyelitis Qualifiers: Osteomyelitis type: unspecified type Osteomyelitis location: foot Laterality: r ight Qualified Code(s): M86.9 - Osteomyelitis, unspecified - Follow up/Referral - Patient Discharge Instructions - Post Discharge Activity
[2020-01-25] MEDS ORDERED: ACETAMINOPHEN INJECTION 100 ML IVPB ONE (14:11)
[2020-01-25] MEDS ORDERED: SODIUM CHLORIDE 1,000 ML IV SCH (14:30)
--- NOTE | 2020-01-25 15:02 | HP ---
CHIEF COMPLAINT: osteo of foot PCP: Dr. Queen HISTORY OF PRESENT ILLNESS: Patient is a 79 y/o CAD s/p stents, HTN, HLD, DM, breast CA s/p mastectomy, hx necrotic bowel s/p bowel resection who is admitted for left foot osteo. Patient has had a long time chronic ulcer and followed with Dr. Pitts and Jo. R ecent clinic swab showed MSSA. Patient reports she has had this ulcer for "years and years" it heals and then it opens back up She has pain when she walks on it. She states the diabetic foot boot is uncomfortable and rubs on it. She has no other symptoms, is compliant with her home medication. Denies fever, chills, nausea, vomiting, chest pain, or shortness of breath. ER course was notable for: (1) (2) (3) Recent Travel: PAST MEDICAL HISTORY: CAD s/p stents, HTN, HLD, DM, breast CA s/p mastectomy, hx necrotic bowel s/p bowel resection PAST SURGICAL HISTORY: mastectomy and bowel resection with colostomy bag Social History: Smoking: denies Alcohol: denies Drugs: denies Allergies Gold Salts Allergy (Verified 01/25/20 11:27) Iodinated Contrast Media [Iodinated Contrast- Oral and IV Dye] Allergy (Verified 01/25/20 11:27) silver Allergy (Verified 01/25/20 11:27) contrast Allergy (Uncoded 01/25/20 11:27) HOME MEDICATIONS: Home Medications Medication Instructions Recorded Cholecalciferol (Vitamin D3) 2,000 unit PO DAILY 03/12/16 [Vitamin D -] Gabapentin 300 mg PO TID 03/12/16 Glipizide 5 mg PO BIDAC 03/12/16 Insulin Glargine,Hum.rec.anlog 20 units SQ HS 03/12/16 [Lantus Solostar PEN -] Levothyroxine [Synthroid -] 50 mcg PO DAILY@0700 03/12/16 Liraglutide [Victoza -] 1.2 mg SQ DAILY@0700 03/12/16 metFORMIN HCL [Metformin HCl] 500 mg PO BIDAC 03/12/16 Metoprolol Succinate [Toprol XL -] 50 mg PO BID 08/17/17 Ramipril 5 mg PO BID 08/17/17 Aspirin 81 mg PO DAILY 11/06/18 Anastrozole [Arimidex -] 1 tab PO DAILY 04/12/19 Becaplermin [Regranex] 15 gm TP DAILY #1 gel..gram. 04/26/19 Calcium Carbonate [Calcium] 1,000 mg PO Q48H 07/26/19 Magnesium 128 mg PO DAILY 07/26/19 Atorvastatin Ca [Lipitor] 20 mg PO HS 01/25/20 REVIEW OF SYSTEMS CONSTITUTIONAL: Absent: fever, chills, diaphoresis, generalized weakness, malaise, loss of appetite, weight change HEENT: Absent: rhinorrhea, nasal congestion, throat pain, throat swelling, difficulty swallowing, mouth swelling, ear pain, eye pain, visual changes CARDIOVASCULAR: Absent: chest pain, syncope, palpitations, irregular heart rate, lightheadedness, peripheral edema RESPIRATORY: Absent: cough, shortness of breath, dyspnea with exertion, orthopnea, wheezing, stridor, hemoptysis GASTROINTESTINAL: Absent: abdominal pain, abdominal distension, nausea, vomiting, diarrhea, constipation, melena, hematochezia GENITOURINARY: Absent: dysuria, frequency, urgency, hesitancy, hematuria, flank pain, genital pain MUSCULOSKELETAL: Absent: myalgia, arthralgia, joint swelling, back pain, neck pain SKIN: Absent: rash, itching, pallor HEMATOLOGIC/IMMUNOLOGIC: Absent: easy bleeding, easy bruising, lymphadenopathy, frequent infections ENDOCRINE: Absent: unexplained weight gain, unexplained weight loss, heat intolerance, cold intolerance NEUROLOGIC: Absent: headache, focal weakness or paresthesias, dizziness, unsteady gait, seizure, mental status changes, bladder or bowel incontinence PSYCHIATRIC: Absent: anxiety, depression, suicidal or homicidal ideation, hallucinations. PHYSICAL EXAMINATION Vital Signs - 24 hr 01/25/20 10:43 Temperature 97.5 F L Pulse Rate 93 H Respiratory 15 Rate Blood Pressure 113/41 L O2 Sat by Pulse 100 Oximetry (%) GENERAL: Awake, alert, and fully oriented, in no acute distress. HEAD: Normal with no signs of trauma. EYES: Pupils equal, round and reactive to light, extraocular movements intact, EARS, NOSE, THROAT:Moist mucous membranes. LUNGS: Breath sounds equal, clear to auscultation bilaterally. No wheezes, and no crackles. No accessory muscle use. HEART: Regular rate and rhythm, normal S1 and S2 without murmur, rub or gallop. ABDOMEN: Soft, nontender, not distended, normoactive bowel sounds, no guarding, colonoscopy bag in place, midline scar LOWER EXTREMITIES: 2+ pulses, warm, well-perfused. warmth and redness up calf on left le SKIN: 2x2cm ulcer on bottom of left foot, no pus, stage 3, erythema surrounding CBC, BMP 01/25/20 12:00 01/25/20 12:00 ASSESSMENT/PLAN: Patient is a 79 y/o CAD s/p stents, HTN, HLD, DM, breast CA s/p mastectomy, hx necrotic bowel s/p bowel resection who is admitted for left foot osteo. #r/o left osteo of foot and cellulitis - f/u Xray and MRI - given zosyn and vancomycin, Bobde aware of patient and will continue abx, continue with Cefazolin 1 gm q8h - for pain tylenol 650 po - duplex: no DVT present - Stepanian consult - f/u blood and urine cx #DM - BGM tid - SS - Levemir 20 - gabapentin 300 tid for neuropathy #HTN/CAD - normal stress echo 08/10/2018 - continue ramipril, ASA #Hx breast CA - continue anastrozole - consider consulting Dr. Kelley if needed for medication #hypothyroidism - levothyroxine 50 mcg #HLD - continue statin DVT ppx - Lovenox 30 sq daily FEN - diabetic/ low sodium diet Dispo: monitor on med surg Family Medical History Family History: As Documented Visit type - Medication Review Med list reviewed for High Risk Meds patients 65 and older: Yes - Emergency Visit Emergency Visit: Yes ED Registration Date: 01/25/20 Care time: The patient presented to the Emergency Department on the above date and was hospitalized for further evaluation of their emergent condition. - New Patient This patient is new to me today: Yes Date on this admission: 01/28/20 - Critical Care Critical Care patient: No ATTENDING PHYSICIAN STATEMENT I saw and evaluated the patient. I reviewed the resident's note and discussed the case with the resident. I agree with the resident's findings and plan as documented. SUBJECTIVE: OBJECTIVE: ASSESSMENT AND PLAN:
--- NOTE | 2020-01-25 15:14 | EKG ---
Test Reason : Blood Pressure : / mmHG Vent. 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
[2020-01-25] MEDS ORDERED: PIPERACILLIN/TAZOB 3.375 GM 3.375 GM in DEXTROSE 5%-WATER - 50 ML IVPB ONE (15:30)
[2020-01-25] MEDS ORDERED: VANCOMYCIN 1,000 MG in DEXTROSE 5%-WATER - 250 ML IVPB ONE (15:30)
[2020-01-25] MEDS ORDERED: PIPERACILLIN/TAZOB 3.375 GM 3.375 GM/50 ML BAG IVPB ONE (15:48)
[2020-01-25] MEDS ORDERED: VANCOMYCIN 1 GRAM (PRE-DOCKED) 1,000 MG/250 ML BAG IVPB ONE (15:48)
[2020-01-25] MEDS: INSULIN SLIDING SCALE (NOVOLOG) 1 VIAL SQ SCH (17:56)
--- NOTE | 2020-01-25 18:49 | PN ---
Teaching Attending Note Name of Resident: Fela Hannah ATTENDING PHYSICIAN STATEMENT I saw and evaluated the patient. I reviewed the resident's note and discussed the case with the resident. I agree with the resident's findings and plan as documented. SUBJECTIVE: Patient seen and examined at bedside, admitted for L foot open ulcer likely 2/2 bony metastasis from underlying breast ca. ID following. OBJECTIVE: GENERAL: Awake, alert, and fully oriented, in no acute distress. HEAD: Normal with no signs of trauma. EYES: Pupils equal, round and reactive to light, extraocular movements intact, EARS, NOSE, THROAT:Moist mucous membranes. LUNGS: Breath sounds equal, clear to auscultation bilaterally. No wheezes, and no crackles. No accessory muscle use. HEART: Regular rate and rhythm, normal S1 and S2 without murmur, rub or gallop. ABDOMEN: Soft, nontender, not distended, normoactive bowel sounds, no guarding, colonoscopy bag in place, midline scar LOWER EXTREMITIES: 2+ pulses, warm, well-perfused. warmth and redness up calf on left LE SKIN: 2x2cm ulcer on bottom of left foot, no pus, stage 3, erythema surrounding ASSESSMENT AND PLAN: 79 F L foot osteomyelitis CAD s/p stents HTN HLD T2DM breast CA s/p mastectomy hx necrotic bowel s/p bowel resection Hypothyroidism Plan: Patient cannot do MRI d/t hardware in R leg, obtain X-ray images IV abx with Vancomycin/Zosyn Strict glycemic control w/ basal insulin BID and ISS Send ESR/CRP Restart Synthroid Podiatry following ID following DVT ppx: Lovenox SC
[2020-01-25 20:00] LABS: ERYTHROCYTE SEDIMENTATION RATE 65 mm/hr (0-30)
[2020-01-25] MEDS: INSULIN (LEVEMIR) 100 UNITS/ML UNITS SQ SCH (22:50)
[2020-01-25] MEDS: GABAPENTIN 300 MG CAPSULE PO SCH (22:50)
[2020-01-25] MEDS: ATORVASTATIN CA 20 MG TABLET (FP) PO SCH (22:50)
[2020-01-25] MEDS: RAMIPRIL 5 MG CAPSULE PO SCH (22:50)
[2020-01-26] MEDS: CEFAZOLIN 1 GM/D5W 1 GM/50 ML BAG IVPB SCH ×3 (00:09→17:30)
[2020-01-26 00:50] VITALS: BMI 28.7
[2020-01-26] MEDS: GABAPENTIN 300 MG CAPSULE PO SCH ×3 (06:12→21:49)
[2020-01-26] MEDS: LEVOTHYROXINE NA 50 MCG TABLET (FP) PO SCH (06:12)
[2020-01-26] MEDS: INSULIN SLIDING SCALE (NOVOLOG) 1 VIAL SQ SCH ×3 (06:14→16:43)
[2020-01-26 07:49] LABS: HEMATOCRIT 27.4 % (32.4-45.2); HEMOGLOBIN 9.2 GM/dL (10.7-15.3); LYMPH % 11.3 % (8-40); MCH 27.5 pg (25.7-33.7); MCHC 33.5 g/dl (32.0-36.0); MEAN CELL VOLUME 82.1 fl (80-96); MEAN PLT VOLUME 7.7 fl (7.5-11.1); NEUT % 72.7 % (42.8-82.8); PLATELET COUNT 270 K/MM3 (134-434); RBC 3.34 M/mm3 (3.60-5.2); RDW 15.3 % (11.6-15.6)
[2020-01-26 08:12] LABS: ALBUMIN 2.3 g/dl (3.4-5.0); CALCIUM 8.8 mg/dL (8.5-10.1); CREATININE 0.5 mg/dL (0.55-1.3); MAGNESIUM 1.4 mg/dL (1.8-2.4); PHOSPHOROUS 1.7 mg/dL (2.5-4.9); POTASSIUM 3.8 mmol/L (3.5-5.1)
[2020-01-26 08:15] LABS: BILIRUBIN,TOTAL 0.5 mg/dL (0.2-1); TOT PROT 5.7 g/dl (6.4-8.2)
[2020-01-26] MEDS: RAMIPRIL 5 MG CAPSULE PO SCH ×2 (09:57→21:49)
[2020-01-26] MEDS: ENOXAPARIN NA (PORCINE) 40 MG/0.4 ML DISP.SYRIN SQ SCH (09:57)
[2020-01-26] MEDS: CALCIUM (OYSTER SHELL) 500 MG TABLET (FP) PO SCH (09:57)
[2020-01-26] MEDS: ANASTROZOLE 1 MG TABLET PO SCH (09:58)
[2020-01-26] MEDS: ASPIRIN 81 MG CHEWABLE TABLETS PO SCH (09:58)
[2020-01-26] MEDS: MAGNESIUM OXIDE 400 MG TABLET (FP) PO SCH (09:59)
[2020-01-26] MEDS: CHOLECALCIFEROL (VIT D3) 1,000 UNIT (25 MCG) TABLET PO SCH (10:00)
[2020-01-26] MEDS ORDERED: MAGNESIUM 128 MG PO SCH (10:00)
--- NOTE | 2020-01-26 11:18 | CONSULT ---
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: Peripheral Neuropathy (with diabetic ulcers) Cardio/Vascular: Yes: CAD, HTN ...: No Musculoskeletal: Yes: Chronic low back pain, Osteoarthritis Endocrine: Yes: Diabetes Mellitus, Hypothyroidism - Past Surgical History Past Surgical History: Yes: Cholecystectomy (open 20's), Mastectomy (left), Stent (x3 2008 and 2011) - Alcohol/Substance Use Hx Alcohol Use: No History of Substance Use: reports: None - Smoking History Smoking history: Never smoked Have you smoked in the past 12 months: No If you are a former smoker, when did you quit?: 25yrs - Social History ADL: Support Services History of Recent Travel: No Home Medications - Allergies Allergies/Adverse Reactions: Allergies Allergy/AdvReac Type Severity Reaction Status Date / Time Gold Salts Allergy Verified 01/25/20 11:27 Iodinated Contrast Media Allergy Verified 01/25/20 11:27 [Iodinated Contrast- Oral and IV Dye] silver Allergy Verified 01/25/20 11:27 contrast Allergy Uncoded 01/25/20 11:27 - Home Medications Home Medications: Ambulatory Orders Cholecalciferol (Vitamin D3) [Vitamin D -] 1,000 unit PO DAILY 03/12/16 Gabapentin 300 mg PO TID 03/12/16 Glipizide 5 mg PO BIDAC 03/12/16 Insulin Glargine,Hum.rec.anlog [Lantus Solostar PEN -] 20 units SQ HS 03/12/16 Levothyroxine [Synthroid -] 50 mcg PO DAILY@0700 03/12/16 Liraglutide [Victoza -] 1.2 mg SQ DAILY@0700 03/12/16 metFORMIN HCL [Metformin HCl] 500 mg PO BIDAC 03/12/16 Metoprolol Succinate [Toprol XL -] 50 mg PO BID 08/17/17 Ramipril 5 mg PO BID 08/17/17 Aspirin 81 mg PO DAILY 11/06/18 Anastrozole [Arimidex -] 1 tab PO DAILY 04/12/19 Calcium Carbonate [Calcium] 1,000 mg PO Q48H 07/26/19 Magnesium 128 mg PO DAILY 07/26/19 Atorvastatin Ca [Lipitor] 20 mg PO HS 01/25/20 Physical Exam Vital Signs: Vital Signs Temperature 98.9 F 01/26/20 06:00 Pulse Rate 82 01/26/20 06:00 Respiratory Rate 20 01/25/20 21:45 Blood Pressure 130/63 01/26/20 06:00 O2 Sat by Pulse Oximetry (%) 97 01/26/20 06:00 Wound/Incision: Yes: Other (grade 2 wound left heel, +ascending cellulitis, +mal odor, +green discoloration, reviewed xray left) Labs: CBC, BMP 01/26/20 07:15 01/26/20 07:15 Assessment/Plan om? grade 2-3 wound left heel cellulitis Santyl to left heel. IVABX as per ID. Will follow.
[2020-01-26] MEDS: COLLAGENASE CLOSTRIDIUM HIST. 30 GRAMS TUBE TP SCH (14:00)
--- NOTE | 2020-01-26 17:25 | PN ---
Progress Note, Physician History of Present Illness: Patient is a 79 year old female with a history of CAD s/p stents, HTN, HLD, DM II, breast CA s/p mastectomy, history of necrotic bowel s/p bowel resection who was admitted for left foot osteo. - Current Medication List Current Medications: Active Medications Acetaminophen (Tylenol -) 650 mg PO Q4H PRN PRN Reason: PAIN LEVEL 6-10 Anastrozole (Arimidex -) 1 mg PO DAILY [facility] Last Admin: 01/26/20 09:58 Dose: 1 mg Documented by: Aspirin (Asa -) 81 mg PO DAILY [facility] Last Admin: 01/26/20 09:58 Dose: 81 mg Documented by: Atorvastatin Calcium (Lipitor -) 20 mg PO HS [facility] Last Admin: 01/25/20 22:50 Dose: 20 mg Documented by: Calcium Carbonate (Os-Anton 500mg -) 1,000 mg PO Q48H [facility] Last Admin: 01/26/20 09:57 Dose: 1,000 mg Documented by: Cholecalciferol (Vitamin D3 -) 1,000 unit PO DAILY [facility] Last Admin: 01/26/20 10:00 Dose: 1,000 unit Documented by: Collagenase (Santyl -) 1 applic TP DAILY [facility]; Protocol Last Admin: 01/26/20 14:00 Dose: 1 tube Documented by: Enoxaparin Sodium (Lovenox -) 40 mg SQ DAILY [facility] Last Admin: 01/26/20 09:57 Dose: 40 mg Documented by: Gabapentin (Neurontin -) 300 mg PO TID [facility] Last Admin: 01/26/20 14:09 Dose: 300 mg Documented by: Cefazolin Sodium (Ancef 1 Gm Premixed Ivpb -) 1 gm in 50 mls @ 100 mls/hr IVPB Q8H-IV [facility] Last Admin: 01/26/20 09:58 Dose: 100 mls/hr Documented by: Insulin Aspart (Novolog Vial Sliding Scale -) 1 vial SQ TIDAC [facility]; Protocol Last Admin: 01/26/20 16:43 Dose: Not Given Documented by: Insulin Detemir (Levemir Vial) 20 units SQ HS [facility] Last Admin: 01/25/20 22:50 Dose: 20 units Documented by: Levothyroxine Sodium (Synthroid -) 50 mcg PO DAILY@0700 [facility] Last Admin: 01/26/20 06:12 Dose: 50 mcg Documented by: Magnesium Oxide (Mag-Ox -) 400 mg PO DAILY [facility] Last Admin: 01/26/20 09:59 Dose: 400 mg Documented by: Metoprolol Succinate (Toprol Xl -) 50 mg PO BID [facility] Last Admin: 01/26/20 09:57 Dose: 50 mg Documented by: Ramipril (Altace -) 5 mg PO BID [facility] Last Admin: 01/26/20 09:57 Dose: 5 mg Documented by: - Objective Vital Signs: Vital Signs Temperature 99.2 F 01/26/20 09:00 Pulse Rate 88 01/26/20 09:00 Respiratory Rate 01/26/20 09:00 Blood Pressure 123/66 01/26/20 09:00 O2 Sat by Pulse Oximetry (%) 96 01/26/20 09:00 Constitutional: Yes: Well Nourished, No Distress, Calm Eyes: Yes: WNL, Conjunctiva Clear, EOM Intact HENT: Yes: WNL, Atraumatic, Normocephalic Neck: Yes: WNL, Supple Cardiovascular: Yes: WNL, Regular Rate and Rhythm Respiratory: Yes: WNL, Regular, CTA Bilaterally Gastrointestinal: Yes: WNL, Normal Bowel Sounds, Soft Musculoskeletal: Yes: WNL Extremities: Yes: WNL Edema: No Peripheral Pulses WNL: Yes Integumentary: Yes: WNL Neurological: Yes: WNL, Alert, Oriented Psychiatric: Yes: WNL, Alert, Oriented Labs: CBC, BMP 01/26/20 07:15 01/26/20 07:15 INR, PTT INR 1.15 (0.83-1.09) H 01/25/20 12:00 Impression/Plan Impression/Plan: Patient is a 79 y/o CAD s/p stents, HTN, HLD, DM, breast CA s/p mastectomy, hx n ecrotic bowel s/p bowel resection who is admitted for left foot osteo. #Rule out left osteo of foot and cellulitis - LE Duplex US: no DVT present . Xray left foot: no evidence for acute osteomyelitis - Follow-up MRI - given zosyn and vancomycin, Bobde aware of patient and will continue abx, continue with Cefazolin 1 gm q8h - for pain tylenol 650 po - Stepanian consult - Follow-up blood and urine culture #DM II - BGM tid - Insulin SS monitor accuchecks - Levemir 20 - Gabapentin 300mg tid for neuropathy #HTN/CAD - normal stress echo 08/10/2018 - continue with ramipril, ASA #History Breast Cancer - continue anastrozole #hypothyroidism - Continue on levothyroxine 50 mcg #HLD - continue statin DVT prophylaxsis - SQ Lovenox 30 sq daily FEN - diabetic/ low sodium diet Dispo: monitor on med surg Visit type - Emergency Visit Emergency Visit: Yes ED Registration Date: 01/25/20 Care time: The patient presented to the Emergency Department on the above date and was hospitalized for further evaluation of their emergent condition. - New Patient This patient is new to me today: Yes Date on this admission: 01/26/20 - Critical Care Critical Care patient: No - Discharge Referral Referred to [facility] Med P.C.: No - Medication Review Med list reviewed for High Risk Meds patients 65 and older: No
--- NOTE | 2020-01-26 19:50 | CON.HO ---
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 for a left heel wound and left leg swelling. Allergies: No known allergies to antibiotics. Surgical history: Cardiac stents, Cholecystectomy, L. Mastectomy - Medical History Allergies/Adverse Reactions: Allergies Allergy/AdvReac Type Severity Reaction Status Date / Time Gold Salts Allergy Verified 01/25/20 11: Iodinated Contrast Media Allergy Verified 01/25/20 11: [Iodinated Contrast- Oral and IV Dye] silver Allergy Verified 01/25/20 11: contrast Allergy Uncoded 01/25/20 11:27 Home Medications: Ambulatory Orders Cholecalciferol (Vitamin D3) [Vitamin D -] 1,000 unit PO DAILY 03/12/16 Gabapentin 300 mg PO TID 03/12/16 Glipizide 5 mg PO BIDAC 03/12/16 Insulin Glargine,Hum.rec.anlog [Lantus Solostar PEN -] 20 units SQ HS 03/12/16 Levothyroxine [Synthroid -] 50 mcg PO DAILY@0700 03/12/16 Liraglutide [Victoza -] 1.2 mg SQ DAILY@0700 03/12/16 metFORMIN HCL [Metformin HCl] 500 mg PO BIDAC 03/12/16 Metoprolol Succinate [Toprol XL -] 50 mg PO BID 08/17/17 Ramipril 5 mg PO BID 08/17/17 Aspirin 81 mg PO DAILY 11/06/18 Anastrozole [Arimidex -] 1 tab PO DAILY 04/12/19 Calcium Carbonate [Calcium] 1,000 mg PO Q48H 07/26/19 Magnesium 128 mg PO DAILY 07/26/19 Atorvastatin Ca [Lipitor] 20 mg PO HS 01/25/20 - Vital Signs AFVSS General Appearance: No acute distress, well nourished, well developed Neck: Supple; No nuchal rigidity Chest Wall: Nontender Cardiac: Regular rate and rhythm, no murmurs, no rubs, no gallops Lungs: Clear to auscultation bilateral, good air movement bilaterally Abdomen: +colostomy bag in place. Soft, nondistended, normal bowel sounds, nontender to palpation A/P The patient is a 79-year-old female with a past medical history significant for CAD s/p stents, HTN, HLD, DM, Breast CA s/p mastectomy, necrotic bowel s/p bowel resection at [facility] (colostomy in place) was sent to the emergency department from wound care for admission. Patient was sent for admission for a left heel wound and left leg swelling. On cefazolin Metastatic lobular cancer -- on anastrozole and monthly denosumab CA27.29 wnl given ongoing back pain check CT c/T/L spine and b/l hips oxycodone prn for pain ( home med)
--- NOTE | 2020-01-26 21:08 | PN ---
Progress Note, Physician History of Present Illness: Pt is comfortable, without distress. Tmax 99.2, currently afebrile. - Current Medication List Current Medications: Active Medications Acetaminophen (Tylenol -) 650 mg PO Q4H PRN PRN Reason: PAIN LEVEL 6-10 Anastrozole (Arimidex -) 1 mg PO DAILY [facility] Last Admin: 01/26/20 09:58 Dose: 1 mg Documented by: Aspirin (Asa -) 81 mg PO DAILY [facility] Last Admin: 01/26/20 09:58 Dose: 81 mg Documented by: Atorvastatin Calcium (Lipitor -) 20 mg PO HS [facility] Last Admin: 01/25/20 22:50 Dose: 20 mg Documented by: Calcium Carbonate (Os-Anton 500mg -) 1,000 mg PO Q48H [facility] Last Admin: 01/26/20 09:57 Dose: 1,000 mg Documented by: Cholecalciferol (Vitamin D3 -) 1,000 unit PO DAILY [facility] Last Admin: 01/26/20 10:00 Dose: 1,000 unit Documented by: Collagenase (Santyl -) 1 applic TP DAILY [facility]; Protocol Last Admin: 01/26/20 14:00 Dose: 1 tube Documented by: Enoxaparin Sodium (Lovenox -) 40 mg SQ DAILY [facility] Last Admin: 01/26/20 09:57 Dose: 40 mg Documented by: Gabapentin (Neurontin -) 300 mg PO TID [facility] Last Admin: 01/26/20 14:09 Dose: 300 mg Documented by: Cefazolin Sodium (Ancef 1 Gm Premixed Ivpb -) 1 gm in 50 mls @ 100 mls/hr IVPB Q8H-IV [facility] Last Admin: 01/26/20 17:30 Dose: 100 mls/hr Documented by: Insulin Aspart (Novolog Vial Sliding Scale -) 1 vial SQ TIDAC [facility]; Protocol Last Admin: 01/26/20 16:43 Dose: Not Given Documented by: Insulin Detemir (Levemir Vial) 20 units SQ [facility] Last Admin: 01/25/20 22:50 Dose: 20 units Documented by: Levothyroxine Sodium (Synthroid -) 50 mcg PO DAILY@0700 [facility] Last Admin: 01/26/20 06:12 Dose: 50 mcg Documented by: Magnesium Oxide (Mag-Ox -) 400 mg PO DAILY [facility] Last Admin: 09/26/20 09:59 Dose: 400 mg Documented by: Metoprolol Succinate (Toprol Xl -) 50 mg PO BID [facility] Last Admin: 01/26/20 09:57 Dose: 50 mg Documented by: Ramipril (Altace -) 5 mg PO BID [facility] Last Admin: 01/26/20 09:57 Dose: 5 mg Documented by: - Objective Vital Signs: Vital Signs Temperature 99.2 F 01/26/20 09:00 Pulse Rate 88 01/26/20 09:00 Respiratory Rate 20 01/26/20 09:00 Blood Pressure 123/66 01/26/20 09:00 O2 Sat by Pulse Oximetry (%) 96 01/26/20 09:00 Constitutional: Yes: No Distress, Calm Cardiovascular: Yes: Regular Rate and Rhythm Respiratory: Yes: Regular Gastrointestinal: Yes: Normal Bowel Sounds, Soft Wound/Incision: Yes: Other (Lt heel ulcer with malodorous d/c, St II, +edema/erythema of foot) Neurological: Yes: Alert Labs: CBC, BMP 01/26/20 07:15 01/26/20 07:15 INR, PTT INR 1.15 (0.83-1.09) H 01/25/20 12:00 Laboratory Last Values WBC 5.0 K/mm3 (4.0-10.0) 01/26/20 07:15 RBC 3.34 M/mm3 (3.60-5.2) L 01/26/20 07:15 Hgb 9.2 GM/dL (10.7-15.3) L 01/26/20 07:15 Hct 27.4 % (32.4-45.2) L 01/26/20 07:15 MCV 82.1 fl (80-96) 01/26/20 07:15 MCH 27.5 pg (25.7-33.7) 01/26/20 07:15 MCHC 33.5 g/dl (32.0-36.0) 01/26/20 07:15 RDW 15.3 % (11.6-15.6) 01/26/20 07:15 Plt Count 270 K/MM3 (134-434) 01/26/20 07:15 MPV 7.7 fl (7.5-11.1) 01/26/20 07:15 Absolute Neuts (auto) 3.7 K/mm3 (1.5-8.0) 01/26/20 07:15 Neutrophils % 72.7 % (42.8-82.8) 01/26/20 07:15 Lymphocytes % 11.3 % (8-40) D 01/26/20 07:15 Monocytes % 10.0 % (3.8-10.2) 01/26/20 07:15 Eosinophils % 5.0 % (0-4.5) H D 01/26/20 07:15 Basophils % 1.0 % (0-2.0) D 01/26/20 07:15 Nucleated RBC % 0 % (0-0) 01/26/20 07:15 ESR 65 mm/hr (0-30) H 01/25/20 12:00 PT with INR 13.60 SEC (9.7-13.0) H 01/25/20 12:00 INR 1.15 (0.83-1.09) H 01/25/20 12:00 PTT (Actin FS) 26.1 SECONDS (25.2-36.5) 01/25/20 12:00 Sodium 139 mmol/L (136-145) 01/26/20 07:15 Potassium 3.8 mmol/L (3.5-5.1) 01/26/20 07:15 Chloride 109 mmol/L (98-107) H 01/26/20 07:15 Carbon Dioxide 26 mmol/L (21-32) 01/26/20 07:15 Anion Gap 4 MMOL/L (8-16) L 01/26/20 07:15 BUN 11.0 mg/dL (7-18) 01/26/20 07:15 Creatinine 0.5 mg/dL (0.55-1.3) L 01/26/20 07:15 Est GFR (CKD-EPI)AfAm 106.69 01/26/20 07:15 Est GFR (CKD-EPI)NonAf 92.05 01/26/20 07:15 POC Glucometer 127 UNITS (80-120) 01/26/20 16:40 Random Glucose 116 mg/dL (74-106) H 01/26/20 07:15 Lactic Acid 1.8 mmol/L (0.4-2.0) 01/25/20 15:10 Calcium 8.8 mg/dL (8.5-10.1) 01/26/20 07:15 Phosphorus 1.7 mg/dL (2.5-4.9) L 01/26/20 07:15 Magnesium 1.4 mg/dL (1.8-2.4) L 01/26/20 07:15 Total Bilirubin 0.5 mg/dL (0.2-1) 01/26/20 07:15 AST 19 U/L (15-37) 01/26/20 07:15 ALT 21 U/L (13-61) 01/26/20 07:15 Alkaline Phosphatase 95 U/L (45-117) 01/26/20 07:15 C-Reactive Protein 8.1 MG/DL (0.00-0.3) H 01/25/20 12:00 Total Protein 5.7 g/dl (6.4-8.2) L 01/26/20 07:15 Albumin 2.3 g/dl (3.4-5.0) L 01/26/20 07:15 COVID-19 (MARLENY) Not detected (Not Detected) 01/25/20 12:00 Microbiology 01/25/20 12:03 Blood - Peripheral Venous Blood Culture - Preliminary NO GROWTH OBTAINED AFTER 24 HOURS, INCUBATION TO CONTINUE FOR 4 DAYS. 01/25/20 12:03 Blood - Peripheral Venous Blood Culture - Preliminary NO GROWTH OBTAINED AFTER 24 HOURS, INCUBATION TO CONTINUE FOR 4 DAYS. - ....Imaging X-ray: Report Reviewed Problem List - Problems (1) CAD (coronary artery disease) Code(s): I25.10 - ATHSCL HEART DISEASE OF [place] CORONARY ARTERY W/O ANG PCTRS Qualifiers: [place] vs. transplanted heart: [place] heart Associated angina: without angina (2) CHF (congestive heart failure) Code(s): I50.9 - HEART FAILURE, UNSPECIFIED Qualifiers: Heart failure type: systolic Heart failure chronicity: chronic Qualified Code(s): I50.22 - Chronic systolic (congestive) heart failure (3) Diabetes Code(s): E11.9 - TYPE 2 DIABETES MELLITUS WITHOUT COMPLICATIONS Qualifiers: Diabetes mellitus type: type 2 Diabetes mellitus manager long term care insulin use: with manager long term care use Diabetes mellitus complication status: with skin complications Diabetes mellitus complication detail: with foot ulcer Qualified Code(s): E11.621 - Type 2 diabetes mellitus with foot ulcer; L97.509 - Non-pressure chronic ulcer of other part of unspecified foot with unspecified severity; Z79.4 - detention (current) use of insulin (4) HTN (hypertension) Code(s): I10 - ESSENTIAL (PRIMARY) HYPERTENSION Qualifiers: Hypertension type: essential hypertension Qualified Code(s): I10 - Essential (primary) hypertension (5) Hyperlipidemia Code(s): E78.5 - HYPERLIPIDEMIA, UNSPECIFIED (6) Hypothyroidism Code(s): E03.9 - HYPOTHYROIDISM, UNSPECIFIED (7) Obesity (BMI 30.0-34.9) Code(s): E66.9 - OBESITY, UNSPECIFIED (8) Wound infection Code(s): T14.8XXA - OTHER INJURY OF UNSPECIFIED BODY REGION, INITIAL ENCOUNTER; L08.9 - LOCAL INFECTION OF THE SKIN AND SUBCUTANEOUS TISSUE, UNSP Assessment/Plan Infected Lt heel ulcer r/o OM -- wound cx - with GNB, isolate pending -- will switch back to Zosyn IV for better gram neg coverage -- needs further imaging to r/o OM -- continue wound care -- continue monitor temps/vitals -- Podiatry following
[2020-01-26] MEDS: ATORVASTATIN CA 20 MG TABLET (FP) PO SCH (21:49)
[2020-01-26] MEDS: INSULIN (LEVEMIR) 100 UNITS/ML UNITS SQ SCH (21:49)
[2020-01-26] MEDS: oxyCODONE HCL 5 MG TABLET PO PRN (21:51)
[2020-01-27] MEDS: CEFAZOLIN 1 GM/D5W 1 GM/50 ML BAG IVPB SCH ×2 (01:11→11:03)
[2020-01-27] MEDS: LEVOTHYROXINE NA 50 MCG TABLET (FP) PO SCH (06:07)
[2020-01-27] MEDS: GABAPENTIN 300 MG CAPSULE PO SCH ×3 (06:07→21:26)
[2020-01-27] MEDS: INSULIN SLIDING SCALE (NOVOLOG) 1 VIAL SQ SCH ×3 (06:07→18:50)
[2020-01-27 08:00] LABS: HEMATOCRIT 26.4 % (32.4-45.2); HEMOGLOBIN 8.7 GM/dL (10.7-15.3); MCH 27.2 pg (25.7-33.7); MEAN CELL VOLUME 82.4 fl (80-96); MEAN PLT VOLUME 7.5 fl (7.5-11.1); PLATELET COUNT 282 K/MM3 (134-434); RDW 15.5 % (11.6-15.6); WHITE BLOOD COUNT 5.8 K/mm3 (4.0-10.0)
[2020-01-27 09:27] LABS: BLOOD UREA NITROGEN 11.1 mg/dL (7-18); CALCIUM 9.2 mg/dL (8.5-10.1); CREATININE 0.4 mg/dL (0.55-1.3); POTASSIUM 3.7 mmol/L (3.5-5.1)
[2020-01-27] MEDS ORDERED: PT OWN MED DRAWER 7, Y5N ONE (10:34)
[2020-01-27] MEDS: ASPIRIN 81 MG CHEWABLE TABLETS PO SCH (11:03)
[2020-01-27] MEDS: ENOXAPARIN NA (PORCINE) 40 MG/0.4 ML DISP.SYRIN SQ SCH (11:03)
[2020-01-27] MEDS: MAGNESIUM OXIDE 400 MG TABLET (FP) PO SCH (11:04)
[2020-01-27] MEDS: COLLAGENASE CLOSTRIDIUM HIST. 30 GRAMS TUBE TP SCH (11:04)
[2020-01-27] MEDS: CHOLECALCIFEROL (VIT D3) 1,000 UNIT (25 MCG) TABLET PO SCH (11:04)
[2020-01-27] MEDS: RAMIPRIL 5 MG CAPSULE PO SCH ×2 (11:04→21:19)
[2020-01-27] MEDS: ANASTROZOLE 1 MG TABLET PO SCH (11:04)
--- NOTE | 2020-01-27 14:34 | PN ---
Progress Note, Physician Chief Complaint: No acute events, remains afebrile History of Present Illness: Patient is a 79 year old female with a history of CAD s/p stents, HTN, HLD, DM II, chronic anemia, breast CA s/p mastectomy, history of necrotic bowel s/p bowel resection who was admitted for left foot osteo. - Current Medication List Current Medications: Active Medications Acetaminophen (Tylenol -) 650 mg PO Q4H PRN PRN Reason: PAIN LEVEL 6-10 Anastrozole (Arimidex -) 1 mg PO DAILY [facility] Last Admin: 01/27/20 11:04 Dose: 1 mg Documented by: Aspirin (Asa -) 81 mg PO DAILY [facility] Last Admin: 01/27/20 11:03 Dose: 81 mg Documented by: Atorvastatin Calcium (Lipitor -) 20 mg PO HS [facility] Last Admin: 01/26/20 21:49 Dose: 20 mg Documented by: Calcium Carbonate (Os-Anton 500mg -) 1,000 mg PO Q48H [facility] Last Admin: 01/26/20 09:57 Dose: 1,000 mg Documented by: Cholecalciferol (Vitamin D3 -) 1,000 unit PO DAILY [facility] Last Admin: 01/27/20 11:04 Dose: 1,000 unit Documented by: Collagenase (Santyl -) 1 applic TP DAILY [facility]; Protocol Last Admin: 01/27/20 11:04 Dose: 1 tube Documented by: Enoxaparin Sodium (Lovenox -) 40 mg SQ DAILY [facility] Last Admin: 01/27/20 11:03 Dose: 40 mg Documented by: Gabapentin (Neurontin -) 300 mg PO TID [facility] Last Admin: 01/27/20 06:07 Dose: 300 mg Documented by: Cefazolin Sodium (Ancef 1 Gm Premixed Ivpb -) 1 gm in 50 mls @ 100 mls/hr IVPB Q8H-IV [facility] Last Admin: 01/27/20 11:03 Dose: 100 mls/hr Documented by: Insulin Aspart (Novolog Vial Sliding Scale -) 1 vial SQ TIDAC [facility]; Protocol Last Admin: 01/27/20 11:56 Dose: 4 units Documented by: Insulin Detemir (Levemir Vial) 20 units SQ HS [facility] Last Admin: 01/26/20 21:49 Dose: 20 units Documented by: Levothyroxine Sodium (Synthroid -) 50 mcg PO DAILY@0700 [facility] Last Admin: 01/27/20 06:07 Dose: 50 mcg Documented by: Magnesium Oxide (Mag-Ox -) 400 mg PO DAILY [facility] Last Admin: 01/27/20 11:04 Dose: 400 mg Documented by: Metoprolol Succinate (Toprol Xl -) 50 mg PO BID [facility] Last Admin: 01/27/20 11:03 Dose: 50 mg Documented by: Oxycodone HCl (Roxicodone -) 5 mg PO Q6H PRN PRN Reason: PAIN LEVEL 6-10 Last Admin: 01/26/20 21:51 Dose: 5 mg Documented by: Ramipril (Altace -) 5 mg PO BID [facility] Last Admin: 01/27/20 11:04 Dose: 5 mg Documented by: - Objective Vital Signs: Vital Signs Temperature 98.2 F 01/27/20 06:08 Pulse Rate 89 01/27/20 06:08 Respiratory Rate 20 01/27/20 06:08 Blood Pressure 116/66 01/27/20 06:08 O2 Sat by Pulse Oximetry (%) 97 01/27/20 06:08 Constitutional: Yes: Well Nourished, No Distress, Calm Eyes: Yes: WNL, Conjunctiva Clear, EOM Intact HENT: Yes: WNL, Atraumatic, Normocephalic Neck: Yes: WNL, Supple, Trachea Midline Cardiovascular: Yes: WNL, Regular Rate and Rhythm Respiratory: Yes: WNL, Regular Gastrointestinal: Yes: WNL, Normal Bowel Sounds, Soft Musculoskeletal: Yes: WNL Extremities: Yes: WNL Edema: No Peripheral Pulses WNL: Yes Integumentary: Yes: WNL Neurological: Yes: WNL, Alert, Oriented Psychiatric: Yes: WNL, Alert, Oriented Labs: CBC, BMP 01/27/20 07:37 01/27/20 07:37 INR, PTT INR 1.15 (0.83-1.09) H 01/25/20 12:00 Impression/Plan Impression/Plan: Patient is a 79 y/o CAD s/p stents, HTN, HLD, DM II, breast CA s/p mastectomy, anemia, hx necrotic bowel s/p bowel resection who was admitted for left foot osteo. #Rule out osteo of foot and cellulitis - LE Duplex US (10/24): no DVT present . Xray left foot (9/25): no evidence for acute osteomyelitis - Follow-up MRI - given zosyn and vancomycin, Jo aware of patient and will continue abx, continue with Cefazolin 1 gm q8h - for pain tylenol 650 po - Stepanian consult - Follow-up blood and urine culture #DM II - BGM tid - Insulin SS monitor accuchecks - Levemir 20 - Gabapentin 300mg tid for neuropathy #HTN/CAD - normal stress echo 08/10/2018 - continue with ramipril, ASA #History Breast Cancer - continue anastrozole - outpatient follow-up #hypothyroidism - Continue on levothyroxine 50 mcg daily #HLD - continue statin # Anemia - likely chronic monitor Hgb/Hct DVT prophylaxsis - SQ Lovenox 30 sq daily FEN - Diabetic/ low sodium diet Dispo: monitor on med surg Visit type - Emergency Visit Emergency Visit: Yes ED Registration Date: 01/25/20 Care time: The patient presented to the Emergency Department on the above date and was hospitalized for further evaluation of their emergent condition. - New Patient This patient is new to me today: No - Critical Care Critical Care patient: No - Discharge Referral Referred to [facility] Med P.C.: No - Medication Review Med list reviewed for High Risk Meds patients 65 and older: No
[2020-01-27] MEDS: oxyCODONE HCL 5 MG TABLET PO PRN (15:15)
--- NOTE | 2020-01-27 16:02 | PN.HO ---
Progress Note (short form) - Note Progress Note: Patient seen and examined No new complaints AFVSS Cor: RSR, No murmurs, No gallops Lungs: Clear to P&A Abd: Soft, Normal bowel sounds, No organomegaly Ext:No significant edema LAbs/MEds reviewed A/P The patient is a 79-year-old female with a past medical history significant for CAD s/p stents, HTN, HLD, DM, Breast CA s/p mastectomy, necrotic bowel s/p bowel resection at [facility] (colostomy in place) was sent to the emergency department from wound care for admission. Patient was sent for admission for a left heel wound and left leg swelling. Left heel osteo ? On cefazolin Metastatic lobular cancer -- on anastrozole and monthly denosumab CA27.29 wnl given ongoing back pain check CT c/T/L spine and b/l hips oxycodone prn for pain ( home med)
--- NOTE | 2020-01-27 17:38 | PN ---
Progress Note (short form) - Note Progress Note: Lt heel ulcer/r/o OM Breast CA s/p mastectomy, stage IV invasive lobular carcinoma with bone mets CAD s/p stent HTN HLD DM Pt in radiology for CT spine for c/o back pain, and CT LE to r/o OM Afebrile, vitals stable Zosyn IV f/u imaging results continue wound care Problem List - Problems (1) CAD (coronary artery disease) Code(s): I25.10 - ATHSCL HEART DISEASE OF [place] CORONARY ARTERY W/O ANG PCTRS Qualifiers: [place] vs. 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 watermelon inspector insulin use: with usp use Diabetes mellitus complication status: with skin complications Diabetes mellitus complication detail: with foot ulcer Qualified Code(s): E11.621 - Type 2 diabetes mellitus with foot ulcer; L97.509 - Non-pressure chronic ulcer of other part of unspecified foot with unspecified severity; Z79.4 - care home (current) use of insulin (4) HTN (hypertension) Code(s): I10 - ESSENTIAL (PRIMARY) HYPERTENSION Qualifiers: Hypertension type: essential hypertension Qualified Code(s): I10 - Essential (primary) hypertension (5) Hyperlipidemia Code(s): E78.5 - HYPERLIPIDEMIA, UNSPECIFIED (6) Hypothyroidism Code(s): E03.9 - HYPOTHYROIDISM, UNSPECIFIED (7) Obesity (BMI 30.0-34.9) Code(s): E66.9 - OBESITY, UNSPECIFIED (8) Wound infection Code(s): T14.8XXA - OTHER INJURY OF UNSPECIFIED BODY REGION, INITIAL ENCOUNTER; L08.9 - LOCAL INFECTION OF THE SKIN AND SUBCUTANEOUS TISSUE, UNSP
[2020-01-27] MEDS ORDERED: PIPERACILLIN/TAZOBACTAM 3.375 GM VIAL IVPB ONE (18:25)
[2020-01-27] MEDS ORDERED: DEXTROSE 5%-WATER - 50 ML IVPB ONE (18:25)
[2020-01-27] MEDS: PIPERACILLIN/TAZOB 3.375 GM 3.375 GM in DEXTROSE 5%-WATER - 50 ML IVPB SCH (18:50)
[2020-01-27] MEDS: ATORVASTATIN CA 20 MG TABLET (FP) PO SCH (21:19)
[2020-01-27] MEDS: INSULIN (LEVEMIR) 100 UNITS/ML UNITS SQ SCH (21:22)
[2020-01-28] MEDS ORDERED: PIPERACILLIN/TAZOBACTAM 3.375 GM VIAL IVPB ONE ×3 (01:21→17:07)
[2020-01-28] MEDS ORDERED: DEXTROSE 5%-WATER - 50 ML IVPB ONE ×3 (01:21→17:08)
[2020-01-28] MEDS: PIPERACILLIN/TAZOB 3.375 GM 3.375 GM in DEXTROSE 5%-WATER - 50 ML IVPB SCH ×3 (01:39→17:39)
[2020-01-28] MEDS: INSULIN SLIDING SCALE (NOVOLOG) 1 VIAL SQ SCH ×3 (06:08→16:39)
[2020-01-28] MEDS: GABAPENTIN 300 MG CAPSULE PO SCH ×3 (06:08→21:38)
[2020-01-28] MEDS: LEVOTHYROXINE NA 50 MCG TABLET (FP) PO SCH (06:08)
[2020-01-28 09:12] LABS: HEMATOCRIT 27.9 % (32.4-45.2); HEMOGLOBIN 9.3 GM/dL (10.7-15.3); MCH 27.7 pg (25.7-33.7); MCHC 33.2 g/dl (32.0-36.0); MEAN CELL VOLUME 83.4 fl (80-96); MEAN PLT VOLUME 7.7 fl (7.5-11.1); PLATELET COUNT 311 K/MM3 (134-434); RBC 3.34 M/mm3 (3.60-5.2); RDW 15.4 % (11.6-15.6); WHITE BLOOD COUNT 4.8 K/mm3 (4.0-10.0)
[2020-01-28] MEDS ORDERED: PT OWN MED DRAWER 7, Y5N ONE (09:34)
[2020-01-28] MEDS: ENOXAPARIN NA (PORCINE) 40 MG/0.4 ML DISP.SYRIN SQ SCH (09:46)
[2020-01-28] MEDS: ANASTROZOLE 1 MG TABLET PO SCH (09:47)
--- NOTE | 2020-01-28 09:48 | PN ---
Physical Exam: SUBJECTIVE: Patient seen and examined this AM. No new complaints. No acute overnight events as per nursing. OBJECTIVE: Vital Signs Period Temp Pulse Resp BP Sys/Jonas Pulse Ox Last 24 Hr 98.1 F-99.5 F 72-78 18-18 118-142/40-72 97-98 GENERAL: A&Ox3, NAD HEAD: NCAT EYES: PERRL, EOMI ENT: moist mucous membranes NECK: Supple, No JVD LUNGS: Diminished breath sounds at the bases, no wheezes HEART: Regular rate and rhythm, S1, S2 without murmur ABDOMEN: Soft, nontender, nondistended, + bowel sounds, no guarding, Colostomy bag in place with no surrounding erythema EXTREMITIES: No edema. NEUROLOGICAL: Cranial nerves II through XII grossly intact. SKIN: Warm, dry, Midline abdominal scar, Left foot plantar surface ulceration with surrounding erythema, No active drainage. Laboratory Last Values WBC 4.8 K/mm3 (4.0-10.0) 01/28/20 08:30 RBC 3.34 M/mm3 (3.60-5.2) L 01/28/20 08:30 Hgb 9.3 GM/dL (10.7-15.3) L 01/28/20 08:30 Hct 27.9 % (32.4-45.2) L 01/28/20 08:30 MCV 83.4 fl (80-96) 01/28/20 08:30 MCH 27.7 pg (25.7-33.7) 01/28/20 08:30 MCHC 33.2 g/dl (32.0-36.0) 01/28/20 08:30 RDW 15.4 % (11.6-15.6) 01/28/20 08:30 Plt Count 311 K/MM3 (134-434) 01/28/20 08:30 MPV 7.7 fl (7.5-11.1) 01/28/20 08:30 Absolute Neuts (auto) 3.7 K/mm3 (1.5-8.0) 01/26/20 07:15 Neutrophils % 72.7 % (42.8-82.8) 01/26/20 07:15 Lymphocytes % 11.3 % (8-40) D 01/26/20 07:15 Monocytes % 10.0 % (3.8-10.2) 01/26/20 07:15 Eosinophils % 5.0 % (0-4.5) H D 01/26/20 07:15 Basophils % 1.0 % (0-2.0) D 01/26/20 07:15 Nucleated RBC % 0 % (0-0) 01/26/20 07:15 ESR 65 mm/hr (0-30) H 01/25/20 12:00 PT with INR 13.60 SEC (9.7-13.0) H 01/25/20 12:00 INR 1.15 (0.83-1.09) H 01/25/20 12:00 PTT (Actin FS) 26.1 SECONDS (25.2-36.5) 01/25/20 12:00 Sodium 138 mmol/L (136-145) 01/27/20 07:37 Potassium 3.7 mmol/L (3.5-5.1) 01/27/20 07:37 Chloride 104 mmol/L (98-107) 01/27/20 07:37 Carbon Dioxide 25 mmol/L (21-32) 01/27/20 07:37 Anion Gap 8 MMOL/L (8-16) 01/27/20 07:37 BUN 11.1 mg/dL (7-18) 01/27/20 07:37 Creatinine 0.4 mg/dL (0.55-1.3) L 01/27/20 07:37 Est GFR (CKD-EPI)AfAm 114.81 01/27/20 07:37 Est GFR (CKD-EPI)NonAf 99.06 01/27/20 07:37 POC Glucometer 124 UNITS (80-120) 01/28/20 05:56 Random Glucose 97 mg/dL (74-106) 01/27/20 07:37 Lactic Acid 1.8 mmol/L (0.4-2.0) 01/25/20 15:10 Calcium 9.2 mg/dL (8.5-10.1) 01/27/20 07:37 Phosphorus 1.7 mg/dL (2.5-4.9) L 01/26/20 07:15 Magnesium 1.4 mg/dL (1.8-2.4) L 01/26/20 07:15 Total Bilirubin 0.5 mg/dL (0.2-1) 01/26/20 07:15 AST 19 U/L (15-37) 01/26/20 07:15 ALT 21 U/L (13-61) 01/26/20 07:15 Alkaline Phosphatase 95 U/L (45-117) 01/26/20 07:15 C-Reactive Protein 8.1 MG/DL (0.00-0.3) H 01/25/20 12:00 Total Protein 5.7 g/dl (6.4-8.2) L 01/26/20 07:15 Albumin 2.3 g/dl (3.4-5.0) L 01/26/20 07:15 COVID-19 (MARLENY) Not detected (Not Detected) 01/25/20 12:00 Microbiology 01/25/20 19:30 Urine - Urine Clean Catch Urine Culture - Final Escherichia Coli 01/25/20 12:03 Blood - Peripheral Venous Blood Culture - Preliminary NO GROWTH OBTAINED AFTER 48 HOURS, INCUBATION TO CONTINUE FOR 3 DAYS. 01/25/20 12:03 Blood - Peripheral Venous Blood Culture - Preliminary NO GROWTH OBTAINED AFTER 48 HOURS, INCUBATION TO CONTINUE FOR 3 DAYS. Active Medications Acetaminophen (Tylenol -) 650 mg PO Q4H PRN PRN Reason: PAIN LEVEL 6-10 Anastrozole (Arimidex -) 1 mg PO DAILY REPLACED BY [facility] Last Admin: 01/27/20 11:04 Dose: 1 mg Documented by: Aspirin (Asa -) 81 mg PO DAILY REPLACED BY [facility] Last Admin: 01/27/20 11:03 Dose: 81 mg Documented by: Atorvastatin Calcium (Lipitor -) 20 mg PO HS REPLACED BY [facility] Last Admin: 01/27/20 21:19 Dose: 20 mg Documented by: Calcium Carbonate (Os-Anton 500mg -) 1,000 mg PO Q48H REPLACED BY [facility] Last Admin: 01/26/20 09:57 Dose: 1,000 mg Documented by: Cholecalciferol (Vitamin D3 -) 1,000 unit PO DAILY REPLACED BY [facility] Last Admin: 01/27/20 11:04 Dose: 1,000 unit Documented by: Collagenase (Santyl -) 1 applic TP DAILY REPLACED BY [facility]; Protocol Last Admin: 01/27/20 11:04 Dose: 1 tube Documented by: Enoxaparin Sodium (Lovenox -) 40 mg SQ DAILY REPLACED BY [facility] Last Admin: 01/27/20 11:03 Dose: 40 mg Documented by: Gabapentin (Neurontin -) 300 mg PO TID REPLACED BY [facility] Last Admin: 01/28/20 06:08 Dose: 300 mg Documented by: Piperacillin Sod/Tazobactam (Sod 3.375 gm/ Dextrose) 50 mls @ 100 mls/hr IVPB Q8H-IV REPLACED BY [facility]; Protocol Last Admin: 01/28/20 01:39 Dose: 100 mls/hr Documented by: Insulin Aspart (Novolog Vial Sliding Scale -) 1 vial SQ TIDAC REPLACED BY [facility]; Protocol Last Admin: 01/28/20 06:08 Dose: Not Given Documented by: Insulin Detemir (Levemir Vial) 20 units SQ HS REPLACED BY [facility] Last Admin: 01/27/20 21:22 Dose: 20 units Documented by: Levothyroxine Sodium (Synthroid -) 50 mcg PO DAILY@0700 REPLACED BY [facility] Last Admin: 01/28/20 06:08 Dose: 50 mcg Documented by: Magnesium Oxide (Mag-Ox -) 400 mg PO DAILY REPLACED BY [facility] Last Admin: 01/27/20 11:04 Dose: 400 mg Documented by: Metoprolol Succinate (Toprol Xl -) 50 mg PO BID REPLACED BY [facility] Last Admin: 01/27/20 21:20 Dose: 50 mg Documented by: Oxycodone HCl (Roxicodone -) 5 mg PO Q6H PRN PRN Reason: PAIN LEVEL 6-10 Last Admin: 01/27/20 15:15 Dose: 5 mg Documented by: Ramipril (Altace -) 5 mg PO BID REPLACED BY [facility] Last Admin: 01/27/20 21:19 Dose: 5 mg Documented by: ASSESSMENT/PLAN: 79 y/o F PMHx CAD (s/p stents), HTN, HLD, DM, Stage IV invasive lobular carcinoma with bone mets (s/p mastectomy on anastrozole), Recent [facility] admission for Necrotic bowel s/p bowel resection admitted for left foot OM. #LLE Ulceration -Concerning for OM VS cellulitis given riskfactors including DM -Podiatry, ID Rec's appreciated -Follow MRI, Cultures -Zosyn/Vanco (Abx course started on 01/24) -Wound Care #Metastatic Stage IV invasive lobular carcinoma -Bone mets s/p mastectomy on anastrozole, Monthly Denosumab -CT C/T/L Spine + B/L Hips pending final read -Analgesia -DVT PPx #Normocytic Normochromic Anemia -Likely Anemia of chronic inflammation in the setting of Metastatic Disease -Transfuse to keep Hgb > 8.0 Visit type - Emergency Visit Emergency Visit: Yes ED Registration Date: 01/25/20 Care time: The patient presented to the Emergency Department on the above date and was hospitalized for further evaluation of their emergent condition. - New Patient This patient is new to me today: Yes Date on this admission: 01/29/20 - Critical Care Critical Care patient: No - Discharge Referral Referred to [facility] Med P.C.: No - Medication Review Med list reviewed for High Risk Meds patients 65 and older: Yes ATTENDING PHYSICIAN STATEMENT I saw and evaluated the patient. I reviewed the resident's note and discussed the case with the resident. I agree with the resident's findings and plan as documented. SUBJECTIVE: OBJECTIVE: ASSESSMENT AND PLAN:
[2020-01-28 09:49] LABS: BLOOD UREA NITROGEN 8.9 mg/dL (7-18); CALCIUM 9.5 mg/dL (8.5-10.1); CREATININE 0.5 mg/dL (0.55-1.3); POTASSIUM 4.7 mmol/L (3.5-5.1)
[2020-01-28] MEDS: RAMIPRIL 5 MG CAPSULE PO SCH ×2 (09:50→21:37)
[2020-01-28] MEDS: CALCIUM (OYSTER SHELL) 500 MG TABLET (FP) PO SCH (09:51)
[2020-01-28] MEDS: CHOLECALCIFEROL (VIT D3) 1,000 UNIT (25 MCG) TABLET PO SCH (09:51)
[2020-01-28] MEDS: MAGNESIUM OXIDE 400 MG TABLET (FP) PO SCH (09:51)
[2020-01-28] MEDS: ASPIRIN 81 MG CHEWABLE TABLETS PO SCH (09:51)
[2020-01-28] MEDS: COLLAGENASE CLOSTRIDIUM HIST. 30 GRAMS TUBE TP SCH (10:03)
--- NOTE | 2020-01-28 13:00 | PN ---
Physical Exam: SUBJECTIVE: Patient seen and examined OBJECTIVE: Vital Signs Period Temp Pulse Resp BP Sys/Jonas Pulse Ox Last 24 Hr 98.1 F-99.5 F 71-78 18-18 98-142/40-72 97-98 GENERAL: The patient is awake, alert, and fully oriented, in no acute distress. LUNGS: Breath sounds equal, clear to auscultation bilaterally, no wheezes, no crackles, no accessory muscle use. HEART: Regular rate and rhythm, S1, S2 without murmur, rub or gallop. ABDOMEN: Soft, nontender, nondistended, normoactive bowel sounds, no guarding, no rebound, no hepatosplenomegaly, no masses. EXTREMITIES: 2+ pulses, warm, well-perfused, no edema. NEUROLOGICAL: Cranial nerves II through XII grossly intact. Normal speech, gait not observed. PSYCH: Normal mood, normal affect. SKIN: Warm, dry, normal turgor, no rashes or lesions noted, lt foot wrapped in surgical dressing. grade 2 wound left heel, cellulitis, malodorous, green discoloration Laboratory Results - last 24 hr 01/27/20 01/27/20 01/28/20 17:29 21:18 05:56 WBC RBC Hgb Hct MCV MCH MCHC RDW Plt Count MPV Sodium Potassium Chloride Carbon Dioxide Anion Gap BUN Creatinine Est GFR (CKD-EPI)AfAm Est GFR (CKD-EPI)NonAf POC Glucometer 155 188 124 Random Glucose Calcium 01/28/20 01/28/20 01/28/20 08:30 08:30 12:08 WBC 4.8 RBC 3.34 L Hgb 9.3 L Hct 27.9 L MCV 83.4 MCH 27.7 MCHC 33.2 RDW 15.4 Plt Count 311 MPV 7.7 Sodium 140 Potassium 4.7 Chloride 107 Carbon Dioxide 31 Anion Gap 2 L BUN 8.9 Creatinine 0.5 L Est GFR (CKD-EPI)AfAm 106.69 Est GFR (CKD-EPI)NonAf 92.05 POC Glucometer 182 Random Glucose 108 H Calcium 9.5 Active Medications Generic Name Dose Route Start Last Admin Trade Name Freq PRN Reason Stop Dose Admin Acetaminophen 650 mg 01/25/20 14:30 Tylenol - PO Q4H PRN PAIN LEVEL 6-10 Anastrozole 1 mg 01/26/20 10:00 01/28/20 09:47 Arimidex - PO 1 mg DAILY [facility] Administration Aspirin 81 mg 01/26/20 10:00 01/28/20 09:51 Asa - PO 81 mg DAILY [facility] Administration Atorvastatin Calcium 20 mg 01/25/20 22:00 01/27/20 21:19 Lipitor - PO 20 mg HS [facility] Administration Calcium Carbonate 1,000 mg 01/26/20 10:00 01/28/20 09:51 Os-Anton 500mg - PO 1,000 mg Q48H [facility] Administration Cholecalciferol 1,000 unit 01/26/20 10:00 01/28/20 09:51 Vitamin D3 - PO 1,000 unit DAILY [facility] Administration Collagenase 1 applic 01/26/20 11:30 01/28/20 10:03 Santyl - TP 1 applic DAILY [facility] Administration Protocol Enoxaparin Sodium 40 mg 01/26/20 10:00 01/28/20 09:46 Lovenox - SQ 40 mg DAILY [facility] Administration Gabapentin 300 mg 01/25/20 22:00 01/28/20 06:08 Neurontin - PO 300 mg TID [facility] Administration Piperacillin Sod/Tazobactam 50 mls @ 100 mls/hr 01/27/20 18:00 01/28/20 09:45 Sod 3.375 gm/ Dextrose IVPB 100 mls/hr Q8H-IV [facility] Administration Protocol Insulin Aspart 1 vial 01/25/20 16:30 01/28/20 12:09 Novolog Vial Sliding Scale - SQ 2 units TIDAC [facility] Administration Protocol Insulin Detemir 20 units 01/25/20 22:00 01/27/20 21:22 Levemir Vial SQ 20 units HS [facility] Administration Levothyroxine Sodium 50 mcg 01/26/20 07:00 01/28/20 06:08 Synthroid - PO 50 mcg DAILY@0700 [facility] Administration Magnesium Oxide 400 mg 01/26/20 10:00 01/28/20 09:51 Mag-Ox - PO 400 mg DAILY [facility] Administration Metoprolol Succinate 50 mg 01/25/20 22:00 01/28/20 09:51 Toprol Xl - PO 50 mg BID [facility] Administration Oxycodone HCl 5 mg 01/26/20 21:16 01/27/20 15:15 Roxicodone - PO 5 mg Q6H PRN Administration PAIN LEVEL 6-10 Ramipril 5 mg 01/25/20 22:00 01/28/20 09:50 Altace - PO Not Given BID [facility] ASSESSMENT/PLAN: 79 y/o lady with Mhx of CAD s/p stents, HTN, HLD, DM II, breast CA (s/p mastectomy, stage 4 with bone mets), hypothyroidism, anemia, hx necrotic bowel s/p bowel resection who was admitted for left heel wound and suspected Osteomyelitis # To rule out Osteomyelitis, lt heel wound LE Duplex US (10/24): no DVT present . Xray left foot (01/24): no evidence for acute osteomyelitis scheduled for MRI, however, pt reported that she was told to avoid MRI due to prosthesis Will order bone scan Abx per ID case discussed with ID, recommendation appreciated Pain management Podiatry following ID following DM HTN Breast CA, stage 4 with bone mets hypothyroidism HLD Anemia DVT prophylaxis Visit type - Emergency Visit Emergency Visit: Yes ED Registration Date: 01/25/20 Care time: The patient presented to the Emergency Department on the above date and was hospitalized for further evaluation of their emergent condition. - New Patient This patient is new to me today: Yes Date on this admission: 01/28/20 - Critical Care Critical Care patient: No - Discharge Referral Referred to [facility] Med P.C.: No - Medication Review Med list reviewed for High Risk Meds patients 65 and older: Yes (yes)
--- NOTE | 2020-01-28 13:05 | PN ---
Progress Note, Physician Chief Complaint: left heel wound with cellulitis - Current Medication List Current Medications: Active Medications Acetaminophen (Tylenol -) 650 mg PO Q4H PRN PRN Reason: PAIN LEVEL 6-10 Anastrozole (Arimidex -) 1 mg PO DAILY [facility] Last Admin: 01/28/20 09:47 Dose: 1 mg Documented by: Aspirin (Asa -) 81 mg PO DAILY [facility] Last Admin: 01/28/20 09:51 Dose: 81 mg Documented by: Atorvastatin Calcium (Lipitor -) 20 mg PO HS [facility] Last Admin: 01/27/20 21:19 Dose: 20 mg Documented by: Calcium Carbonate (Os-Anton 500mg -) 1,000 mg PO Q48H [facility] Last Admin: 01/28/20 09:51 Dose: 1,000 mg Documented by: Cholecalciferol (Vitamin D3 -) 1,000 unit PO DAILY [facility] Last Admin: 01/28/20 09:51 Dose: 1,000 unit Documented by: Collagenase (Santyl -) 1 applic TP DAILY [facility]; Protocol Last Admin: 01/28/20 10:03 Dose: 1 applic Documented by: Enoxaparin Sodium (Lovenox -) 40 mg SQ DAILY [facility] Last Admin: 01/28/20 09:46 Dose: 40 mg Documented by: Gabapentin (Neurontin -) 300 mg PO TID [facility] Last Admin: 01/28/20 06:08 Dose: 300 mg Documented by: Piperacillin Sod/Tazobactam (Sod 3.375 gm/ Dextrose) 50 mls @ 100 mls/hr IVPB Q8H-IV [facility]; Protocol Last Admin: 01/28/20 09:45 Dose: 100 mls/hr Documented by: Insulin Aspart (Novolog Vial Sliding Scale -) 1 vial SQ TIDAC [facility]; Protocol Last Admin: 01/28/20 12:09 Dose: 2 units Documented by: Insulin Detemir (Levemir Vial) 20 units SQ [facility] Last Admin: 01/27/20 21:22 Dose: 20 units Documented by: Levothyroxine Sodium (Synthroid -) 50 mcg PO DAILY@0700 [facility] Last Admin: 01/28/20 06:08 Dose: 50 mcg Documented by: Magnesium Oxide (Mag-Ox -) 400 mg PO DAILY [facility] Last Admin: 01/28/20 09:51 Dose: 400 mg Documented by: Metoprolol Succinate (Toprol Xl -) 50 mg PO BID [facility] Last Admin: 01/28/20 09:51 Dose: 50 mg Documented by: Oxycodone HCl (Roxicodone -) 5 mg PO Q6H PRN PRN Reason: PAIN LEVEL 6-10 Last Admin: 01/27/20 15:15 Dose: 5 mg Documented by: Ramipril (Altace -) 5 mg PO BID [facility] Last Admin: 01/28/20 09:50 Dose: Not Given Documented by: - Objective Vital Signs: Vital Signs Temperature 99.1 F 01/28/20 10:40 Pulse Rate 71 01/28/20 10:40 Respiratory Rate 18 01/28/20 10:40 Blood Pressure 98/51 L 01/28/20 10:40 O2 Sat by Pulse Oximetry (%) 97 01/28/20 10:40 Wound/Incision: Yes: Other (minimal improvement noted left heel and ankle, +cellulitis, +drainage) Labs: CBC, BMP 01/28/20 08:30 01/28/20 08:30 INR, PTT INR 1.15 (0.83-1.09) H 01/25/20 12:00 Assessment/Plan om? grade 2-3 wound left heel cellulitis DC Santyl to left heel. Change to beatdine dressing change to dry out blister and heel wound. IVABX as per ID. Will follow.
--- NOTE | 2020-01-28 13:20 | PN ---
Progress Note, Physician History of Present Illness: stable no new issues d/w with podiatry - Current Medication List Current Medications: Active Medications Acetaminophen (Tylenol -) 650 mg PO Q4H PRN PRN Reason: PAIN LEVEL 6-10 Anastrozole (Arimidex -) 1 mg PO DAILY [facility] Last Admin: 01/28/20 09:47 Dose: 1 mg Documented by: Aspirin (Asa -) 81 mg PO DAILY [facility] Last Admin: 01/28/20 09:51 Dose: 81 mg Documented by: Atorvastatin Calcium (Lipitor -) 20 mg PO HS [facility] Last Admin: 01/27/20 21:19 Dose: 20 mg Documented by: Calcium Carbonate (Os-Anton 500mg -) 1,000 mg PO Q48H [facility] Last Admin: 01/28/20 09:51 Dose: 1,000 mg Documented by: Cholecalciferol (Vitamin D3 -) 1,000 unit PO DAILY [facility] Last Admin: 01/28/20 09:51 Dose: 1,000 unit Documented by: Enoxaparin Sodium (Lovenox -) 40 mg SQ DAILY [facility] Last Admin: 01/28/20 09:46 Dose: 40 mg Documented by: Gabapentin (Neurontin -) 300 mg PO TID [facility] Last Admin: 01/28/20 13:09 Dose: 300 mg Documented by: Piperacillin Sod/Tazobactam (Sod 3.375 gm/ Dextrose) 50 mls @ 100 mls/hr IVPB Q8H-IV [facility]; Protocol Last Admin: 01/28/20 09:45 Dose: 100 mls/hr Documented by: Insulin Aspart (Novolog Vial Sliding Scale -) 1 vial SQ TIDAC [facility]; Protocol Last Admin: 01/28/20 12:09 Dose: 2 units Documented by: Insulin Detemir (Levemir Vial) 20 units SQ [facility] Last Admin: 01/27/20 21:22 Dose: 20 units Documented by: Levothyroxine Sodium (Synthroid -) 50 mcg PO DAILY@0700 [facility] Last Admin: 01/28/20 06:08 Dose: 50 mcg Documented by: Magnesium Oxide (Mag-Ox -) 400 mg PO DAILY [facility] Last Admin: 01/28/20 09:51 Dose: 400 mg Documented by: Metoprolol Succinate (Toprol Xl -) 50 mg PO BID [facility] Last Admin: 01/28/20 09:51 Dose: 50 mg Documented by: Oxycodone HCl (Roxicodone -) 5 mg PO Q6H PRN PRN Reason: PAIN LEVEL 6-10 Last Admin: 01/27/20 15:15 Dose: 5 mg Documented by: Ramipril (Altace -) 5 mg PO BID [facility] Last Admin: 01/28/20 09:50 Dose: Not Given Documented by: - Objective Vital Signs: Vital Signs Temperature 99.1 F 01/28/20 10:40 Pulse Rate 71 01/28/20 10:40 Respiratory Rate 18 01/28/20 10:40 Blood Pressure 98/51 L 01/28/20 10:40 O2 Sat by Pulse Oximetry (%) 97 01/28/20 10:40 Constitutional: Yes: No Distress, Calm Cardiovascular: Yes: Regular Rate and Rhythm Respiratory: Yes: Regular, CTA Bilaterally Gastrointestinal: Yes: Normal Bowel Sounds, Soft Musculoskeletal: Yes: WNL Extremities: Yes: Other Wound/Incision: Yes: Dressing Removed, Other Neurological: Yes: Alert, Oriented Psychiatric: Yes: Alert, Oriented Labs: CBC, BMP 01/28/20 08:30 01/28/20 08:30 INR, PTT INR 1.15 (0.83-1.09) H 01/25/20 12:00 Assessment/Plan this patient with multiple medical problems coming in with probably osteo of the foot cx taken from wound care centre noted plan please get bone scan if if the ct scans are negative once we have all the results then we will decide further continue abx
[2020-01-28] MEDS: oxyCODONE HCL 5 MG TABLET PO PRN (15:23)
--- NOTE | 2020-01-28 16:17 | PN ---
Teaching Attending Note Name of Resident: Gina Nguyen ATTENDING PHYSICIAN STATEMENT I saw and evaluated the patient. I reviewed the resident's note and discussed the case with the resident. I agree with the resident's findings and plan as documented. 79F with metastatic lobular breast ca on AI/Denosumab, CAD, HTN, DM admitted for left heel wound care; r/o osteo. Currently on cefazolin. CT c/t/l spine pending read as patient complaining of worsening back pain
[2020-01-28] MEDS: ATORVASTATIN CA 20 MG TABLET (FP) PO SCH (21:37)
[2020-01-28] MEDS: INSULIN (LEVEMIR) 100 UNITS/ML UNITS SQ SCH (21:37)
[2020-01-29] MEDS ORDERED: PIPERACILLIN/TAZOBACTAM 3.375 GM VIAL IVPB ONE ×3 (01:37→16:51)
[2020-01-29] MEDS ORDERED: DEXTROSE 5%-WATER - 50 ML IVPB ONE ×3 (01:38→16:51)
[2020-01-29] MEDS: oxyCODONE HCL 5 MG TABLET PO PRN ×3 (01:56→17:41)
[2020-01-29] MEDS: PIPERACILLIN/TAZOB 3.375 GM 3.375 GM in DEXTROSE 5%-WATER - 50 ML IVPB SCH ×4 (01:56→17:58)
[2020-01-29] MEDS: INSULIN SLIDING SCALE (NOVOLOG) 1 VIAL SQ SCH ×3 (06:22→16:19)
[2020-01-29] MEDS: GABAPENTIN 300 MG CAPSULE PO SCH ×3 (06:22→21:59)
[2020-01-29] MEDS: LEVOTHYROXINE NA 50 MCG TABLET (FP) PO SCH (06:22)
[2020-01-29 08:24] LABS: BASO % 1.4 % (0-2.0); EOS % 10.8 % (0-4.5); HEMATOCRIT 26.4 % (32.4-45.2); HEMOGLOBIN 8.7 GM/dL (10.7-15.3); LYMPH % 27.2 % (8-40); MCH 27.5 pg (25.7-33.7); MCHC 33.1 g/dl (32.0-36.0); MEAN CELL VOLUME 82.9 fl (80-96); MEAN PLT VOLUME 7.5 fl (7.5-11.1); MONO % 10.3 % (3.8-10.2); NEUT % 50.3 % (42.8-82.8); PLATELET COUNT 309 K/MM3 (134-434); RBC 3.18 M/mm3 (3.60-5.2); RDW 15.3 % (11.6-15.6); WHITE BLOOD COUNT 3.6 K/mm3 (4.0-10.0)
[2020-01-29 08:28] LABS: ALBUMIN 2.2 g/dl (3.4-5.0); BLOOD UREA NITROGEN 10.6 mg/dL (7-18); CALCIUM 8.9 mg/dL (8.5-10.1); CREATININE 0.5 mg/dL (0.55-1.3); POTASSIUM 3.7 mmol/L (3.5-5.1); TOT PROT 5.9 g/dl (6.4-8.2)
[2020-01-29] MEDS: ACETAMINOPHEN 325 MG TABLET (FP) PO PRN ×2 (08:36→17:41)
[2020-01-29] MEDS: ASPIRIN 81 MG CHEWABLE TABLETS PO SCH ×2 (08:37→09:03)
[2020-01-29] MEDS: RAMIPRIL 5 MG CAPSULE PO SCH ×2 (09:03→21:57)
[2020-01-29] MEDS: ENOXAPARIN NA (PORCINE) 40 MG/0.4 ML DISP.SYRIN SQ SCH (09:03)
[2020-01-29] MEDS: CHOLECALCIFEROL (VIT D3) 1,000 UNIT (25 MCG) TABLET PO SCH (09:04)
[2020-01-29] MEDS: MAGNESIUM OXIDE 400 MG TABLET (FP) PO SCH (09:04)
[2020-01-29] MEDS: ANASTROZOLE 1 MG TABLET PO SCH (11:40)
[2020-01-29] MEDS ORDERED: INSULIN (NOVOLOG) ASPART 100 UNITS/ML 10ML VIAL ONE (11:46)
--- NOTE | 2020-01-29 11:48 | PN ---
Physical Exam: SUBJECTIVE: Patient seen and examined at the bedside. per patient, no bm x 3 days. she had colostomy placed on 10/22/2019 for history of necrotic bowels s/p bowel resection with Dr. Gay ([facility]) OBJECTIVE: Patient is a 79 y/o lady with Mhx of CAD s/p stents, HTN, HLD, DM II, breast CA (s/p mastectomy, stage 4 with bone mets), hypothyroidism, anemia, hx necrotic bowel s/p bowel resection who was admitted on 09/24/2019 for left heel wound and suspected osteomyelitis. For abdominal xray for constipation x 3 days. abdominal xray 01/28: retained stool consistent with constipation. Vital Signs Period Temp Pulse Resp BP Sys/Jonas Pulse Ox Last 24 Hr 97.9 F-99.1 F 65-73 18-18 91-106/48-66 98-99 GENERAL: The patient is awake, alert, and fully oriented, in no acute distress. HEAD: Normal with no signs of trauma. EYES: PERRL, extraocular movements intact, sclera anicteric, conjunctiva clear. No ptosis. ENT: Ears normal, nares patent, oropharynx clear without exudates, moist mucous membranes. NECK: Trachea midline, full range of motion, supple. LUNGS: Breath sounds equal, clear to auscultation bilaterally, no wheezes HEART: Regular rate and rhythm ABDOMEN: Soft, nontender, nondistended, she denies any nausea/vomiting. no abdominal pain. + bowel sounds EXTREMITIES: no edema. left heal wound, dressing intact, NEUROLOGICAL: Normal speech, gait not observed. PSYCH: Normal mood, normal affect. SKIN: Warm, dry, normal turgor, no rashes or lesions noted Laboratory Results - last 24 hr 01/28/20 01/28/20 01/28/20 12:08 16:37 21:29 WBC RBC Hgb Hct MCV MCH MCHC RDW Plt Count MPV Absolute Neuts (auto) Neutrophils % Lymphocytes % Monocytes % Eosinophils % Basophils % Nucleated RBC % Sodium Potassium Chloride Carbon Dioxide Anion Gap BUN Creatinine Est GFR (CKD-EPI)AfAm Est GFR (CKD-EPI)NonAf POC Glucometer 182 176 198 Random Glucose Calcium Total Bilirubin AST ALT Alkaline Phosphatase Total Protein Albumin 01/29/20 01/29/20 01/29/20 05:42 07:36 07:36 WBC 3.6 L RBC 3.18 L Hgb 8.7 L Hct 26.4 L MCV 82.9 MCH 27.5 MCHC 33.1 RDW 15.3 Plt Count 309 MPV 7.5 Absolute Neuts (auto) 1.8 Neutrophils % 50.3 D Lymphocytes % 27.2 D Monocytes % 10.3 H Eosinophils % 10.8 H D Basophils % 1.4 Nucleated RBC % 0 Sodium 138 Potassium 3.7 Chloride 104 Carbon Dioxide 32 Anion Gap 3 L BUN 10.6 Creatinine 0.5 L Est GFR (CKD-EPI)AfAm 106.69 Est GFR (CKD-EPI)NonAf 92.05 POC Glucometer 98 Random Glucose 72 L Calcium 8.9 Total Bilirubin 1.0 AST 40 H ALT 35 Alkaline Phosphatase 129 H Total Protein 5.9 L Albumin 2.2 L 01/29/20 11:39 WBC RBC Hgb Hct MCV MCH MCHC RDW Plt Count MPV Absolute Neuts (auto) Neutrophils % Lymphocytes % Monocytes % Eosinophils % Basophils % Nucleated RBC % Sodium Potassium Chloride Carbon Dioxide Anion Gap BUN Creatinine Est GFR (CKD-EPI)AfAm Est GFR (CKD-EPI)NonAf POC Glucometer 158 Random Glucose Calcium Total Bilirubin AST ALT Alkaline Phosphatase Total Protein Albumin Active Medications Generic Name Dose Route Start Last Admin Trade Name Freq PRN Reason Stop Dose Admin Acetaminophen 650 mg 01/25/20 14:30 01/29/20 08:36 Tylenol - PO 650 mg Q4H PRN Administration PAIN LEVEL 6-10 Anastrozole 1 mg 01/26/20 10:00 01/29/20 11:40 Arimidex - PO 1 mg DAILY [facility] Administration Aspirin 81 mg 01/26/20 10:00 01/29/20 09:03 Asa - PO Not Given DAILY [facility] Atorvastatin Calcium 20 mg 01/25/20 22:00 01/28/20 21:37 Lipitor - PO 20 mg HS [facility] Administration Calcium Carbonate 1,000 mg 01/26/20 10:00 01/28/20 09:51 Os-Anton 500mg - PO 1,000 mg Q48H [facility] Administration Cholecalciferol 1,000 unit 01/26/20 10:00 01/29/20 09:04 Vitamin D3 - PO 1,000 unit DAILY [facility] Administration Enoxaparin Sodium 40 mg 01/26/20 10:00 01/29/20 09:03 Lovenox - SQ 40 mg DAILY [facility] Administration Gabapentin 300 mg 01/25/20 22:00 01/29/20 06:22 Neurontin - PO 300 mg TID [facility] Administration Piperacillin Sod/Tazobactam 50 mls @ 100 mls/hr 01/27/20 18:00 01/29/20 09:04 Sod 3.375 gm/ Dextrose IVPB Not Given Q8H-IV [facility] Protocol Insulin Aspart 1 vial 01/25/20 16:30 01/29/20 06:22 Novolog Vial Sliding Scale - SQ Not Given TIDAC [facility] Protocol Insulin Detemir 20 units 01/25/20 22:00 01/28/20 21:37 Levemir Vial SQ 20 units HS [facility] Administration Levothyroxine Sodium 50 mcg 01/26/20 07:00 01/29/20 06:22 Synthroid - PO 50 mcg DAILY@0700 [facility] Administration Magnesium Oxide 400 mg 01/26/20 10:00 01/29/20 09:04 Mag-Ox - PO 400 mg DAILY [facility] Administration Metoprolol Succinate 50 mg 01/25/20 22:00 01/29/20 09:04 Toprol Xl - PO 50 mg BID [facility] Administration Oxycodone HCl 5 mg 01/26/20 21:16 01/29/20 08:39 Roxicodone - PO 5 mg Q6H PRN Administration PAIN LEVEL 6-10 Ramipril 5 mg 01/25/20 22:00 01/29/20 09:03 Altace - PO Not Given BID [facility] ASSESSMENT/PLAN: Problem List - Problems (1) Constipated Assessment/Plan: per patient, no output from her colostomy x 3 days. abdominal xray shows no fecal impaction but constipation. patient is on opiods will start Code(s): K59.00 - CONSTIPATION, UNSPECIFIED (2) Osteomyelitis Assessment/Plan: Patient for a bone scan to rule out osteomyelitis to left heel wound No dvt per lower ext duplex. patient unable to have MRi due to prosthesis. for a bone scan today on Zosyn per ID podiatry following pain management with bowel regimen ID following Code(s): M86.9 - OSTEOMYELITIS, UNSPECIFIED Qualifiers: Osteomyelitis type: unspecified type Osteomyelitis location: foot Laterality: right Qualified Code(s): M86.9 - Osteomyelitis, unspecified (3) Breast cancer, left breast Assessment/Plan: breast cancer with bone mets oncology following Code(s): C50.912 - MALIGNANT NEOPLASM OF UNSPECIFIED SITE OF LEFT FEMALE BREAST Qualifiers: Breast location: upper outer quadrant of breast Estrogen receptor status: positive Patient sex: female Qualified Code(s): C50.412 - Malignant neoplasm of upper-outer quadrant of left female breast; Z17.0 - Estrogen receptor positive status [ER+] (4) Diabetes Assessment/Plan: on levemir and novolog based on ss Code(s): E11.9 - TYPE 2 DIABETES MELLITUS WITHOUT COMPLICATIONS Qualifiers: Diabetes mellitus type: type 2 Diabetes mellitus usp insulin use: with usp use Diabetes mellitus complication status: with skin complications Diabetes mellitus complication detail: with foot ulcer Qualified Code(s): E11.621 - Type 2 diabetes mellitus with foot ulcer; L97.509 - Non-pressure chronic ulcer of other part of unspecified foot with unspecified severity; Z79.4 - retirement (current) use of insulin (5) HTN (hypertension) Assessment/Plan: bp stable, monitor Code(s): I10 - ESSENTIAL (PRIMARY) HYPERTENSION Qualifiers: Hypertension type: essential hypertension Qualified Code(s): I10 - Essential (primary) hypertension (6) 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 - New Patient This patient is new to me today: Yes Date on this admission: 01/29/20 - Critical Care Critical Care patient: No - Discharge Referral Referred to [facility] Med P.C.: No - Medication Review Med list reviewed for High Risk Meds patients 65 and older: Yes
--- NOTE | 2020-01-29 13:53 | PN ---
Progress Note, Physician History of Present Illness: stable no new issues - Current Medication List Current Medications: Active Medications Acetaminophen (Tylenol -) 650 mg PO Q4H PRN PRN Reason: PAIN LEVEL 6-10 Last Admin: 01/29/20 08:36 Dose: 650 mg Documented by: Anastrozole (Arimidex -) 1 mg PO DAILY [facility] Last Admin: 01/29/20 11:40 Dose: 1 mg Documented by: Aspirin (Asa -) 81 mg PO DAILY [facility] Last Admin: 01/29/20 09:03 Dose: Not Given Documented by: Atorvastatin Calcium (Lipitor -) 20 mg PO HS [facility] Last Admin: 01/28/20 21:37 Dose: 20 mg Documented by: Calcium Carbonate (Os-Anton 500mg -) 1,000 mg PO Q48H [facility] Last Admin: 01/28/20 09:51 Dose: 1,000 mg Documented by: Cholecalciferol (Vitamin D3 -) 1,000 unit PO DAILY [facility] Last Admin: 01/29/20 09:04 Dose: 1,000 unit Documented by: Enoxaparin Sodium (Lovenox -) 40 mg SQ DAILY [facility] Last Admin: 01/29/20 09:03 Dose: 40 mg Documented by: Gabapentin (Neurontin -) 300 mg PO TID [facility] Last Admin: 01/29/20 06:22 Dose: 300 mg Documented by: Piperacillin Sod/Tazobactam (Sod 3.375 gm/ Dextrose) 50 mls @ 100 mls/hr IVPB Q8H-IV [facility]; Protocol Last Admin: 01/29/20 09:04 Dose: Not Given Documented by: Insulin Aspart (Novolog Vial Sliding Scale -) 1 vial SQ TIDAC [facility]; Protocol Last Admin: 01/29/20 11:50 Dose: 2 units Documented by: Insulin Detemir (Levemir Vial) 20 units SQ [facility] Last Admin: 01/28/20 21:37 Dose: 20 units Documented by: Levothyroxine Sodium (Synthroid -) 50 mcg PO DAILY@0700 [facility] Last Admin: 01/29/20 06:22 Dose: 50 mcg Documented by: Magnesium Oxide (Mag-Ox -) 400 mg PO DAILY [facility] Last Admin: 01/29/20 09:04 Dose: 400 mg Documented by: Metoprolol Succinate (Toprol Xl -) 50 mg PO BID [facility] Last Admin: 01/29/20 09:04 Dose: 50 mg Documented by: Oxycodone HCl (Roxicodone -) 5 mg PO Q6H PRN PRN Reason: PAIN LEVEL 6-10 Last Admin: 01/29/20 08:39 Dose: 5 mg Documented by: Ramipril (Altace -) 5 mg PO BID [facility] Last Admin: 01/29/20 09:03 Dose: Not Given Documented by: - Objective Vital Signs: Vital Signs Temperature 99 F 01/29/20 08:46 Pulse Rate 73 01/29/20 08:46 Respiratory Rate 18 01/29/20 09:00 Blood Pressure 106/66 01/29/20 08:46 O2 Sat by Pulse Oximetry (%) 98 01/29/20 09:00 Constitutional: Yes: No Distress, Calm Cardiovascular: Yes: S1, S2 Respiratory: Yes: Regular, CTA Bilaterally Gastrointestinal: Yes: Normal Bowel Sounds, Soft Musculoskeletal: Yes: WNL Extremities: Yes: Other Neurological: Yes: Alert, Oriented Psychiatric: Yes: Alert, Oriented Labs: CBC, BMP 01/29/20 07:36 01/29/20 07:36 INR, PTT INR 1.15 (0.83-1.09) H 01/25/20 12:00 Assessment/Plan Problem List - Problems (1) CAD (coronary artery disease) Code(s): I25.10 - ATHSCL HEART DISEASE OF [place] CORONARY ARTERY W/O ANG PCTRS Qualifiers: [place] vs. transplanted heart: [place] heart Associated angina: without angina (2) CHF (congestive heart failure) Code(s): I50.9 - HEART FAILURE, UNSPECIFIED Qualifiers: Heart failure type: systolic Heart failure chronicity: chronic Qualified Code(s): I50.22 - Chronic systolic (congestive) heart failure (3) Diabetes Code(s): E11.9 - TYPE 2 DIABETES MELLITUS WITHOUT COMPLICATIONS Qualifiers: Diabetes mellitus type: type 2 Diabetes mellitus intermediate card tender insulin use: with halfway use Diabetes mellitus complication status: with skin c omplications Diabetes mellitus complication detail: with foot ulcer Qualified Code(s): E11.621 - Type 2 diabetes mellitus with foot ulcer; L97.509 - Non-pressure chronic ulcer of other part of unspecified foot with unspecified severity; Z79.4 - shelter (current) use of insulin (4) HTN (hypertension) Code(s): I10 - ESSENTIAL (PRIMARY) HYPERTENSION Qualifiers: Hypertension type: essential hypertension Qualified Code(s): I10 - Essential (primary) hypertension (5) Hyperlipidemia Code(s): E78.5 - HYPERLIPIDEMIA, UNSPECIFIED (6) Hypothyroidism Code(s): E03.9 - HYPOTHYROIDISM, UNSPECIFIED (7) Obesity (BMI 30.0-34.9) Code(s): E66.9 - OBESITY, UNSPECIFIED (8) Wound infection Code(s): T14.8XXA - OTHER INJURY OF UNSPECIFIED BODY REGION, INITIAL ENCOUNTER; L08.9 - LOCAL INFECTION OF THE SKIN AND SUBCUTANEOUS TISSUE, UNSP 9 osteo of the foot plan patient will need 6 weeks of abx await for cx reports will decide after that rest as per the team
--- NOTE | 2020-01-29 15:50 | PN.HO ---
Progress Note (short form) - Note Progress Note: Pt seen and examined S: Doing well. Mentioned still has back pain and mentioned she thinks her colostomy is not working well. O: Gen: NAD HEENT: MMM CVS: S1, S2 Lungs: CTAB Abd: Soft, NT, ND, colostomy bag notes Ext: No edema. Labs reviewed 01/29/20 07:36 01/29/20 07:36 Meds reviewed Current Medications Generic Name Dose Route Start Last Admin Trade Name Freq PRN Reason Stop Dose Admin Acetaminophen 650 mg 01/25/20 14:30 01/29/20 08:36 Tylenol - PO 650 mg Q4H PRN Administration PAIN LEVEL 6-10 Anastrozole 1 mg 01/26/20 10:00 01/29/20 11:40 Arimidex - PO 1 mg DAILY [facility] Administration Aspirin 81 mg 01/26/20 10:00 01/29/20 09:03 Asa - PO Not Given DAILY [facility] Atorvastatin Calcium 20 mg 01/25/20 22:00 01/28/20 21:37 Lipitor - PO 20 mg HS [facility] Administration Calcium Carbonate 1,000 mg 01/26/20 10:00 01/28/20 09:51 Os-Anton 500mg - PO 1,000 mg Q48H [facility] Administration Cholecalciferol 1,000 unit 01/26/20 10:00 01/29/20 09:04 Vitamin D3 - PO 1,000 unit DAILY [facility] Administration Enoxaparin Sodium 40 mg 01/26/20 10:00 01/29/20 09:03 Lovenox - SQ 40 mg DAILY [facility] Administration Gabapentin 300 mg 01/25/20 22:00 01/29/20 14:43 Neurontin - PO 300 mg TID [facility] Administration Piperacillin Sod/Tazobactam 50 mls @ 100 mls/hr 01/27/20 18:00 01/29/20 09:04 Sod 3.375 gm/ Dextrose IVPB Not Given Q8H-IV [facility] Protocol Insulin Aspart 1 vial 01/25/20 16:30 01/29/20 11:50 Novolog Vial Sliding Scale - SQ 2 units TIDAC [facility] Administration Protocol Insulin Detemir 20 units 01/25/20 22:00 01/28/20 21:37 Levemir Vial SQ 20 units HS [facility] Administration Levothyroxine Sodium 50 mcg 01/26/20 07:00 01/29/20 06:22 Synthroid - PO 50 mcg DAILY@0700 [facility] Administration Magnesium Oxide 400 mg 01/26/20 10:00 01/29/20 09:04 Mag-Ox - PO 400 mg DAILY [facility] Administration Metoprolol Succinate 50 mg 01/25/20 22:00 01/29/20 09:04 Toprol Xl - PO 50 mg BID [facility] Administration Oxycodone HCl 5 mg 01/26/20 21:16 01/29/20 08:39 Roxicodone - PO 5 mg Q6H PRN Administration PAIN LEVEL 6-10 Ramipril 5 mg 01/25/20 22:00 01/29/20 09:03 Altace - PO Not Given BID [facility] 79-year-old lady with a past medical history significant for CAD s/p stents, HTN, HLD, DM, Breast CA s/p mastectomy, necrotic bowel s/p bowel resection at [facility] (colostomy in place) was sent to the emergency department from wound care for admission. Patient was sent for admission for a left heel wound and left leg swelling. On cefazolin Metastatic lobular cancer -- on anastrozole and monthly denosumab CA27.29 wnl given ongoing back pain check CT c/T/L spine and b/l hips--> Obtained reading pending colostomy--> Gen Surgery evaluating oxycodone prn for pain ( home med)
[2020-01-29] MEDS ORDERED: POLYETHYLENE GLYCOL 3350 119 GM BTL PO ONE (16:37)
--- NOTE | 2020-01-29 19:43 | PN ---
Progress Note, Physician Chief Complaint: Pt seen in bed this morning. Resting comfortably. - Current Medication List Current Medications: Active Medications Acetaminophen (Tylenol -) 650 mg PO Q4H PRN PRN Reason: PAIN LEVEL 6-10 Last Admin: 01/29/20 17:41 Dose: 650 mg Documented by: Anastrozole (Arimidex -) 1 mg PO DAILY [facility] Last Admin: 01/29/20 11:40 Dose: 1 mg Documented by: Aspirin (Asa -) 81 mg PO DAILY [facility] Last Admin: 01/29/20 09:03 Dose: Not Given Documented by: Atorvastatin Calcium (Lipitor -) 20 mg PO [facility] Last Admin: 01/28/20 21:37 Dose: 20 mg Documented by: Calcium Carbonate (Os-Anton 500mg -) 1,000 mg PO Q48H [facility] Last Admin: 01/28/20 09:51 Dose: 1,000 mg Documented by: Cholecalciferol (Vitamin D3 -) 1,000 unit PO DAILY [facility] Last Admin: 01/29/20 09:04 Dose: 1,000 unit Documented by: Docusate Sodium (Colace -) 100 mg PO TID [facility] Enoxaparin Sodium (Lovenox -) 40 mg SQ DAILY [facility] Last Admin: 01/29/20 09:03 Dose: 40 mg Documented by: Gabapentin (Neurontin -) 300 mg PO TID [facility] Last Admin: 01/29/20 14:43 Dose: 300 mg Documented by: Piperacillin Sod/Tazobactam (Sod 3.375 gm/ Dextrose) 50 mls @ 100 mls/hr IVPB Q8H-IV [facility]; Protocol Last Admin: 01/29/20 17:58 Dose: 100 mls/hr Documented by: Insulin Aspart (Novolog Vial Sliding Scale -) 1 vial SQ TIDAC [facility]; Protocol Last Admin: 01/29/20 16:19 Dose: 6 units Documented by: Insulin Detemir (Levemir Vial) 20 units SQ [facility] Last Admin: 01/28/20 21:37 Dose: 20 units Documented by: Levothyroxine Sodium (Synthroid -) 50 mcg PO DAILY@0700 [facility] Last Admin: 01/29/20 06:22 Dose: 50 mcg Documented by: Magnesium Oxide (Mag-Ox -) 400 mg PO DAILY [facility] Last Admin: 01/29/20 09:04 Dose: 400 mg Documented by: Metoprolol Succinate (Toprol Xl -) 50 mg PO BID [facility] Last Admin: 01/29/20 09:04 Dose: 50 mg Documented by: Oxycodone HCl (Roxicodone -) 5 mg PO Q6H PRN PRN Reason: PAIN LEVEL 6-10 Last Admin: 01/29/20 17:41 Dose: 5 mg Documented by: Ramipril (Altace -) 5 mg PO BID [facility] Last Admin: 01/29/20 09:03 Dose: Not Given Documented by: Senna (Senna -) 2 tab PO HS [facility] - Objective Vital Signs: Vital Signs Temperature 98.4 F 01/29/20 19:19 Pulse Rate 71 01/29/20 19:19 Respiratory Rate 18 01/29/20 19:19 Blood Pressure 92/48 L 01/29/20 19:19 O2 Sat by Pulse Oximetry (%) 99 01/29/20 19:19 Wound/Incision: Yes: Other (+improved cellulitis left heel/ankle, +granulating wound plantar heel) Labs: CBC, BMP 01/29/20 07:36 01/29/20 07:36 INR, PTT INR 1.15 (0.83-1.09) H 01/25/20 12:00 Assessment/Plan om left heel (bone scan) grade 2-3 wound left heel cellulitis DC Santyl to left heel. Change to beatdine dressing change to dry out blister and heel wound. Dressing done by me today. IVABX as per ID. Will follow. HBO consult.
[2020-01-29] MEDS: SENNOSIDES 8.6MG TABLET (FP) PO SCH (21:58)
[2020-01-29] MEDS: DOCUSATE SODIUM 100 MG CAPSULE (FP) PO SCH (21:58)
[2020-01-29] MEDS: ATORVASTATIN CA 20 MG TABLET (FP) PO SCH (21:58)
[2020-01-29] MEDS: INSULIN (LEVEMIR) 100 UNITS/ML UNITS SQ SCH (21:59)
[2020-01-30] MEDS ORDERED: DEXTROSE 5%-WATER - 50 ML IVPB ONE ×3 (00:18→17:20)
[2020-01-30] MEDS ORDERED: PIPERACILLIN/TAZOBACTAM 3.375 GM VIAL IVPB ONE ×3 (00:18→17:20)
[2020-01-30] MEDS: PIPERACILLIN/TAZOB 3.375 GM 3.375 GM in DEXTROSE 5%-WATER - 50 ML IVPB SCH ×3 (01:30→17:36)
[2020-01-30] MEDS: DOCUSATE SODIUM 100 MG CAPSULE (FP) PO SCH ×4 (05:59→21:51)
[2020-01-30] MEDS: GABAPENTIN 300 MG CAPSULE PO SCH ×3 (06:00→21:41)
[2020-01-30] MEDS: oxyCODONE HCL 5 MG TABLET PO PRN ×2 (06:00→21:55)
[2020-01-30] MEDS: LEVOTHYROXINE NA 50 MCG TABLET (FP) PO SCH (06:00)
[2020-01-30] MEDS: INSULIN SLIDING SCALE (NOVOLOG) 1 VIAL SQ SCH ×3 (06:50→17:26)
--- NOTE | 2020-01-30 09:20 | PN ---
Progress Note, Physician History of Present Illness: stable no new issues - Current Medication List Current Medications: Active Medications Acetaminophen (Tylenol -) 650 mg PO Q4H PRN PRN Reason: PAIN LEVEL 6-10 Last Admin: 01/29/20 17:41 Dose: 650 mg Documented by: Anastrozole (Arimidex -) 1 mg PO DAILY [facility] Last Admin: 01/29/20 11:40 Dose: 1 mg Documented by: Aspirin (Asa -) 81 mg PO DAILY [facility] Last Admin: 01/29/20 09:03 Dose: Not Given Documented by: Atorvastatin Calcium (Lipitor -) 20 mg PO HS [facility] Last Admin: 01/29/20 21:58 Dose: 20 mg Documented by: Calcium Carbonate (Os-Anton 500mg -) 1,000 mg PO Q48H [facility] Last Admin: 01/28/20 09:51 Dose: 1,000 mg Documented by: Cholecalciferol (Vitamin D3 -) 1,000 unit PO DAILY [facility] Last Admin: 01/29/20 09:04 Dose: 1,000 unit Documented by: Docusate Sodium (Colace -) 100 mg PO TID [facility] Last Admin: 01/30/20 05:59 Dose: 100 mg Documented by: Enoxaparin Sodium (Lovenox -) 40 mg SQ DAILY [facility] Last Admin: 01/29/20 09:03 Dose: 40 mg Documented by: Gabapentin (Neurontin -) 300 mg PO TID [facility] Last Admin: 01/30/20 06:00 Dose: 300 mg Documented by: Piperacillin Sod/Tazobactam (Sod 3.375 gm/ Dextrose) 50 mls @ 100 mls/hr IVPB Q8H-IV [facility]; Protocol Last Admin: 01/30/20 01:30 Dose: 100 mls/hr Documented by: Insulin Aspart (Novolog Vial Sliding Scale -) 1 vial SQ TIDAC [facility]; Protocol Last Admin: 01/30/20 06:50 Dose: 4 units Documented by: Insulin Detemir (Levemir Vial) [address] [facility] Last Admin: 01/29/20 21:59 Dose: 20 units Documented by: Levothyroxine Sodium (Synthroid -) 50 mcg PO DAILY@0700 [facility] Last Admin: 01/30/20 06:00 Dose: 50 mcg Documented by: Magnesium Oxide (Mag-Ox -) 400 mg PO DAILY [facility] Last Admin: 01/29/20 09:04 Dose: 400 mg Documented by: Metoprolol Succinate (Toprol Xl -) 50 mg PO BID [facility] Last Admin: 01/29/20 22:00 Dose: Not Given Documented by: Oxycodone HCl (Roxicodone -) 5 mg PO Q6H PRN PRN Reason: PAIN LEVEL 6-10 Last Admin: 01/30/20 06:00 Dose: 5 mg Documented by: Ramipril (Altace -) 5 mg PO BID [facility] Last Admin: 01/29/20 21:57 Dose: Not Given Documented by: Senna (Senna -) 2 tab PO HS [facility] Last Admin: 01/29/20 21:58 Dose: 2 tab Documented by: - Objective Vital Signs: Vital Signs Temperature 98.4 F 01/29/20 19:19 Pulse Rate 71 01/29/20 19:19 Respiratory Rate 18 01/29/20 20:22 Blood Pressure 92/48 L 01/29/20 19:19 O2 Sat by Pulse Oximetry (%) 99 01/29/20 20:22 Constitutional: Yes: No Distress, Calm Cardiovascular: Yes: S1, S2 Respiratory: Yes: Regular, CTA Bilaterally Gastrointestinal: Yes: Normal Bowel Sounds, Soft Musculoskeletal: Yes: WNL Extremities: Yes: Other Wound/Incision: Yes: Dressing Dry and Intact Neurological: Yes: Alert, Oriented Psychiatric: Yes: Alert, Oriented Labs: CBC, BMP 01/29/20 07:36 01/29/20 07:36 INR, PTT INR 1.15 (0.83-1.09) H 01/25/20 12:00 Assessment/Plan Problem List - Problems (1) CAD (coronary artery disease) Code(s): I25.10 - ATHSCL HEART DISEASE OF [place] CORONARY ARTERY W/O ANG PCTRS Qualifiers: [place] vs. transplanted heart: [place] heart Associated angina: without angina (2) CHF (congestive heart failure) Code(s): I50.9 - HEART FAILURE, UNSPECIFIED Qualifiers: Heart failure type: systolic Heart failure chronicity: chronic Qualified Code(s): I50.22 - Chronic systolic (congestive) heart failure (3) Diabetes Code(s): E11.9 - TYPE 2 DIABETES MELLITUS WITHOUT COMPLICATIONS Qualifiers: Diabetes mellitus type: type 2 Diabetes mellitus mcfp insulin use: with mcfp use Diabetes mellitus complication status: with skin complications Diabetes mellitus complication detail: with foot ulcer Qualified Code(s): E11.621 - Type 2 diabetes mellitus with foot ulcer; L97.509 - Non-pressure chronic ulcer of other part of unspecified foot with unspecified severity; Z79.4 - manager long term care (current) use of insulin (4) HTN (hypertension) Code(s): I10 - ESSENTIAL (PRIMARY) HYPERTENSION Qualifiers: Hypertension type: essential hypertension Qualified Code(s): I10 - Essential (primary) hypertension (5) Hyperlipidemia Code(s): E78.5 - HYPERLIPIDEMIA, UNSPECIFIED (6) Hypothyroidism Code(s): E03.9 - HYPOTHYROIDISM, UNSPECIFIED (7) Obesity (BMI 30.0-34.9) Code(s): E66.9 - OBESITY, UNSPECIFIED (8) Wound infection Code(s): T14.8XXA - OTHER INJURY OF UNSPECIFIED BODY REGION, INITIAL ENCOUNTER; L08.9 - LOCAL INFECTION OF THE SKIN AND SUBCUTANEOUS TISSUE, UNSP 9 osteo of the foot plan patient will need 6 weeks of abx awaiting cx for pseudomonas will decide after that rest as per the team
[2020-01-30] MEDS ORDERED: PT OWN MED DRAWER 7, Y5N ONE (09:24)
[2020-01-30] MEDS: ENOXAPARIN NA (PORCINE) 40 MG/0.4 ML DISP.SYRIN SQ SCH (09:38)
[2020-01-30] MEDS: ANASTROZOLE 1 MG TABLET PO SCH (09:40)
[2020-01-30] MEDS: RAMIPRIL 5 MG CAPSULE PO SCH ×2 (09:40→21:41)
[2020-01-30] MEDS: ASPIRIN 81 MG CHEWABLE TABLETS PO SCH (09:40)
[2020-01-30] MEDS: CALCIUM (OYSTER SHELL) 500 MG TABLET (FP) PO SCH (09:40)
[2020-01-30] MEDS: CHOLECALCIFEROL (VIT D3) 1,000 UNIT (25 MCG) TABLET PO SCH (09:40)
[2020-01-30] MEDS: MAGNESIUM OXIDE 400 MG TABLET (FP) PO SCH (09:40)
[2020-01-30 11:16] LABS: BASO % 1.2 % (0-2.0); EOS % 10.5 % (0-4.5); HEMATOCRIT 27.1 % (32.4-45.2); HEMOGLOBIN 8.8 GM/dL (10.7-15.3); LYMPH % 21.9 % (8-40); MCHC 32.6 g/dl (32.0-36.0); MEAN CELL VOLUME 82.8 fl (80-96); MEAN PLT VOLUME 7.4 fl (7.5-11.1); MONO % 10.3 % (3.8-10.2); NEUT % 56.1 % (42.8-82.8); PLATELET COUNT 300 K/MM3 (134-434); RBC 3.27 M/mm3 (3.60-5.2); RDW 15.3 % (11.6-15.6); WHITE BLOOD COUNT 3.6 K/mm3 (4.0-10.0)
[2020-01-30 11:38] LABS: ALBUMIN 2.2 g/dl (3.4-5.0); BILIRUBIN,TOTAL 0.3 mg/dL (0.2-1); CALCIUM 8.8 mg/dL (8.5-10.1); CREATININE 0.5 mg/dL (0.55-1.3); MAGNESIUM 1.5 mg/dL (1.8-2.4); POTASSIUM 3.8 mmol/L (3.5-5.1); TOT PROT 6.2 g/dl (6.4-8.2)
--- NOTE | 2020-01-30 14:11 | PN ---
Physical Exam: SUBJECTIVE: Patient seen and examined at the bedside. patient denies any malaise. now having bowel movements after starting bowel regimen. OBJECTIVE: Patient is a 79 year old female with a significant past medical history of CAD s/p stents, HTN, HLD, DM II, breast CA (s/p mastectomy, stage 4 with bone mets), hypothyroidism, anemia, hx necrotic bowel s/p bowel resection on October 2019, who was admitted on 01/25/2020 for left heel wound and suspected osteomyelitis. per bone scan 01/29/2020, patient has osteo of left heel/posterior aspect of the calcaneal bone. abdominal xray 01/28: retained stool consistent with constipation. Vital Signs Period Temp Pulse Resp BP Sys/Jonas Pulse Ox Last 24 Hr 98.4 F 71 18-18 92/48 99-99 GENERAL: The patient is awake, alert, and fully oriented, in no acute distress. HEAD: Normal with no signs of trauma. EYES: PERRL, extraocular movements intact, sclera anicteric, conjunctiva clear. No ptosis. ENT: Ears normal, nares patent, oropharynx clear without exudates, moist mucous membranes. NECK: Trachea midline, full range of motion, supple. LUNGS: Breath sounds equal, clear to auscultation bilaterally, no wheezes HEART: Regular rate and rhythm ABDOMEN: Soft, nontender, nondistended, she denies any nausea/vomiting. no abdominal pain. + bowel sounds EXTREMITIES: no edema. left heal wound, dressing intact, NEUROLOGICAL: Normal speech, gait not observed. PSYCH: Normal mood, normal affect. SKIN: Warm, dry, normal turgor, no rashes or lesions noted Laboratory Results - last 24 hr 01/29/20 01/29/20 01/30/20 16:11 21:46 05:56 WBC RBC Hgb Hct MCV MCH MCHC RDW Plt Count MPV Absolute Neuts (auto) Neutrophils % Lymphocytes % Monocytes % Eosinophils % Basophils % Nucleated RBC % Sodium Potassium Chloride Carbon Dioxide Anion Gap BUN Creatinine Est GFR (CKD-EPI)AfAm Est GFR (CKD-EPI)NonAf POC Glucometer 253 311 205 Random Glucose Calcium Magnesium Total Bilirubin AST ALT Alkaline Phosphatase Total Protein Albumin 01/30/20 01/30/20 01/30/20 10:20 10:20 11:47 WBC 3.6 L RBC 3.27 L Hgb 8.8 L Hct 27.1 L MCV 82.8 MCH 27.0 MCHC 32.6 RDW 15.3 Plt Count 300 MPV 7.4 L Absolute Neuts (auto) 2.0 Neutrophils % 56.1 Lymphocytes % 21.9 Monocytes % 10.3 H Eosinophils % 10.5 H Basophils % 1.2 Nucleated RBC % 0 Sodium 140 Potassium 3.8 Chloride 103 Carbon Dioxide 29 Anion Gap 8 BUN 11.0 Creatinine 0.5 L Est GFR (CKD-EPI)AfAm 106.69 Est GFR (CKD-EPI)NonAf 92.05 POC Glucometer 172 Random Glucose 191 H Calcium 8.8 Magnesium 1.5 L Total Bilirubin 0.3 AST 27 ALT 35 Alkaline Phosphatase 134 H Total Protein 6.2 L Albumin 2.2 L 01/30/20 11:50 WBC RBC Hgb Hct MCV MCH MCHC RDW Plt Count MPV Absolute Neuts (auto) Neutrophils % Lymphocytes % Monocytes % Eosinophils % Basophils % Nucleated RBC % Sodium Potassium Chloride Carbon Dioxide Anion Gap BUN Creatinine Est GFR (CKD-EPI)AfAm Est GFR (CKD-EPI)NonAf POC Glucometer 171 Random Glucose Calcium Magnesium Total Bilirubin AST ALT Alkaline Phosphatase Total Protein Albumin Active Medications Generic Name Dose Route Start Last Admin Trade Name Freq PRN Reason Stop Dose Admin Acetaminophen 650 mg 01/25/20 14:30 01/29/20 17:41 Tylenol - PO 650 mg Q4H PRN Administration PAIN LEVEL 6-10 Anastrozole 1 mg 01/26/20 10:00 01/30/20 09:40 Arimidex - PO 1 mg DAILY CHANDRAKANT Administration Aspirin 81 mg 01/26/20 10:00 01/30/20 09:40 Asa - PO 81 mg DAILY CHANDRAKANT Administration Atorvastatin Calcium 20 mg 01/25/20 22:00 01/29/20 21:58 Lipitor - PO 20 mg HS CHANDRAKANT Administration Calcium Carbonate 1,000 mg 01/26/20 10:00 01/30/20 09:40 Os-Anton 500mg - PO 1,000 mg Q48H CHANDRAKANT Administration Cholecalciferol 1,000 unit 01/26/20 10:00 01/30/20 09:40 Vitamin D3 - PO 1,000 unit DAILY CHANDRAKANT Administration Docusate Sodium 100 mg 01/29/20 22:00 01/30/20 05:59 Colace - PO 100 mg TID CHANDRAKANT Administration Enoxaparin Sodium 40 mg 01/26/20 10:00 01/30/20 09:38 Lovenox - SQ 40 mg DAILY CHANDRAKANT Administration Gabapentin 300 mg 01/25/20 22:00 01/30/20 06:00 Neurontin - PO 300 mg TID CHANDRAKANT Administration Piperacillin Sod/Tazobactam 50 mls @ 100 mls/hr 01/27/20 18:00 01/30/20 09:38 Sod 3.375 gm/ Dextrose IVPB 100 mls/hr Q8H-IV CHANDRAKANT Administration Protocol Insulin Aspart 1 vial 01/30/20 14:09 Novolog Vial Sliding Scale - SQ TIDAC [facility] Protocol Insulin Detemir 20 units 01/25/20 22:00 01/29/20 21:59 Levemir Vial SQ 20 units HS CHANDRAKANT Administration Levothyroxine Sodium 50 mcg 01/26/20 07:00 01/30/20 06:00 Synthroid - PO 50 mcg DAILY@0700 [facility] Administration Magnesium Oxide 400 mg 01/26/20 10:00 01/30/20 09:40 Mag-Ox - PO 400 mg DAILY CHANDRAKANT Administration Metoprolol Succinate 50 mg 01/25/20 22:00 01/30/20 09:41 Toprol Xl - PO 50 mg BID CHANDRAKANT Administration Oxycodone HCl 5 mg 01/26/20 21:16 01/30/20 06:00 Roxicodone - PO 5 mg Q6H PRN Administration PAIN LEVEL 6-10 Ramipril 5 mg 01/25/20 22:00 01/30/20 09:40 Altace - PO 5 mg BID CHANDRAKANT Administration Senna 2 tab 01/29/20 22:00 01/29/20 21:58 Senna - PO 2 tab HS CHANDRAKANT Administration ASSESSMENT/PLAN: Problem List - Problems (1) Constipated Assessment/Plan: resolved Code(s): K59.00 - CONSTIPATION, UNSPECIFIED (2) Osteomyelitis Assessment/Plan: bone scan shows osteomyelitis of left foot. per ID, patient will need 6 weeks of IV antibiotics. on Zosyn per ID podiatry following pain management with bowel regimen Code(s): M86.9 - OSTEOMYELITIS, UNSPECIFIED Qualifiers: Osteomyelitis type: unspecified type Osteomyelitis location: foot Laterality: right Qualified Code(s): M86.9 - Osteomyelitis, unspecified (3) Breast cancer, left breast Assessment/Plan: breast cancer with bone mets on anastrozole and monthly denosumab. oncology following Code(s): C50.912 - MALIGNANT NEOPLASM OF UNSPECIFIED SITE OF LEFT FEMALE BREAST Qualifiers: Breast location: upper outer quadrant of breast Estrogen receptor status: positive Patient sex: female Qualified Code(s): C50.412 - Malignant neoplasm of upper-outer quadrant of left female breast; Z17.0 - Estrogen receptor positive status [ER+] (4) Diabetes Assessment/Plan: on levemir and novolog based on ss Code(s): E11.9 - TYPE 2 DIABETES MELLITUS WITHOUT COMPLICATIONS Qualifiers: Diabetes mellitus type: type 2 Diabetes mellitus keno terminal operator insulin use: with keno terminal operator use Diabetes mellitus complication status: with skin complications Diabetes mellitus complication detail: with foot ulcer Qualified Code(s): E11.621 - Type 2 diabetes mellitus with foot ulcer; L97.509 - Non-pressure chronic ulcer of other part of unspecified foot with unspecified severity; Z79.4 - intermediate (current) use of insulin (5) HTN (hypertension) Assessment/Plan: bp stable, monitor Code(s): I10 - ESSENTIAL (PRIMARY) HYPERTENSION Qualifiers: Hypertension type: essential hypertension Qualified Code(s): I10 - Essential (primary) hypertension (6) 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 - New Patient This patient is new to me today: No - Critical Care Critical Care patient: No - Discharge Referral Referred to [facility] Yes - Medication Review Med list reviewed for High Risk Meds patients 65 and older: Yes
--- NOTE | 2020-01-30 21:27 | PN ---
Progress Note, Physician Chief Complaint: Pt seen in bed this morning. Resting comfortably. - Current Medication List Current Medications: Active Medications Acetaminophen (Tylenol -) 650 mg PO Q4H PRN PRN Reason: PAIN LEVEL 6-10 Last Admin: 01/29/20 17:41 Dose: 650 mg Documented by: Anastrozole (Arimidex -) 1 mg PO DAILY [facility] Last Admin: 01/30/20 09:40 Dose: 1 mg Documented by: Aspirin (Asa -) 81 mg PO DAILY [facility] Last Admin: 01/30/20 09:40 Dose: 81 mg Documented by: Atorvastatin Calcium (Lipitor -) 20 mg PO HS [facility] Last Admin: 01/29/20 21:58 Dose: 20 mg Documented by: Calcium Carbonate (Os-Anton 500mg -) 1,000 mg PO Q48H [facility] Last Admin: 01/30/20 09:40 Dose: 1,000 mg Documented by: Cholecalciferol (Vitamin D3 -) 1,000 unit PO DAILY [facility] Last Admin: 01/30/20 09:40 Dose: 1,000 unit Documented by: Docusate Sodium (Colace -) 100 mg PO TID [facility] Last Admin: 01/30/20 17:26 Dose: 100 mg Documented by: Enoxaparin Sodium (Lovenox -) 40 mg SQ DAILY [facility] Last Admin: 01/30/20 09:38 Dose: 40 mg Documented by: Gabapentin (Neurontin -) 300 mg PO TID [facility] Last Admin: 01/30/20 17:26 Dose: 300 mg Documented by: Piperacillin Sod/Tazobactam (Sod 3.375 gm/ Dextrose) 50 mls @ 100 mls/hr IVPB Q8H-IV [facility]; Protocol Last Admin: 01/30/20 17:36 Dose: 100 mls/hr Documented by: Insulin Aspart (Novolog Vial Sliding Scale -) 1 vial SQ TIDAC [facility]; Protocol Last Admin: 01/30/20 17:26 Dose: 4 units Documented by: Insulin Detemir (Levemir Vial) 20 units SQ [facility] Last Admin: 01/29/20 21:59 Dose: 20 units Documented by: Levothyroxine Sodium (Synthroid -) 50 mcg PO DAILY@0700 [facility] Last Admin: 01/30/20 06:00 Dose: 50 mcg Documented by: Magnesium Oxide (Mag-Ox -) 400 mg PO DAILY [facility] Last Admin: 01/30/20 09:40 Dose: 400 mg Documented by: Metoprolol Succinate (Toprol Xl -) 50 mg PO BID [facility] Last Admin: 01/30/20 09:41 Dose: 50 mg Documented by: Oxycodone HCl (Roxicodone -) 5 mg PO Q6H PRN PRN Reason: PAIN LEVEL 6-10 Last Admin: 01/30/20 06:00 Dose: 5 mg Documented by: Ramipril (Altace -) 5 mg PO BID [facility] Last Admin: 01/30/20 09:40 Dose: 5 mg Documented by: Senna (Senna -) 2 tab PO HS [facility] Last Admin: 01/29/20 21:58 Dose: 2 tab Documented by: - Objective Vital Signs: Vital Signs Temperature 98.3 F 01/30/20 19:09 Pulse Rate 73 01/30/20 19:09 Respiratory Rate 18 01/30/20 19:09 Blood Pressure 136/58 L 01/30/20 19:09 O2 Sat by Pulse Oximetry (%) 97 01/30/20 19:09 Wound/Incision: Yes: Other (+resolving cellulitis left heel, +om, -mal odor) Labs: CBC, BMP 01/30/20 10:20 01/30/20 10:20 INR, PTT INR 1.15 (0.83-1.09) H 01/25/20 12:00 Assessment/Plan om left heel (bone scan) grade 2-3 wound left heel cellulitis beatdine dressing change daily. Dressing done by me today. IVABX as per ID. Will follow. HBO consult.
[2020-01-30] MEDS: SENNOSIDES 8.6MG TABLET (FP) PO SCH ×2 (21:41→21:52)
[2020-01-30] MEDS: ATORVASTATIN CA 20 MG TABLET (FP) PO SCH (21:41)
[2020-01-30] MEDS: INSULIN (LEVEMIR) 100 UNITS/ML UNITS SQ SCH (21:42)
[2020-01-31] MEDS ORDERED: DEXTROSE 5%-WATER - 50 ML IVPB ONE ×3 (00:14→16:33)
[2020-01-31] MEDS ORDERED: PIPERACILLIN/TAZOBACTAM 3.375 GM VIAL IVPB ONE ×3 (00:14→16:33)
[2020-01-31] MEDS: PIPERACILLIN/TAZOB 3.375 GM 3.375 GM in DEXTROSE 5%-WATER - 50 ML IVPB SCH ×3 (01:30→16:59)
[2020-01-31] MEDS: DOCUSATE SODIUM 100 MG CAPSULE (FP) PO SCH ×3 (06:15→21:03)
[2020-01-31] MEDS: INSULIN SLIDING SCALE (NOVOLOG) 1 VIAL SQ SCH ×3 (06:16→17:00)
[2020-01-31] MEDS: LEVOTHYROXINE NA 50 MCG TABLET (FP) PO SCH (06:16)
[2020-01-31] MEDS: GABAPENTIN 300 MG CAPSULE PO SCH ×3 (06:16→21:05)
[2020-01-31] MEDS: oxyCODONE HCL 5 MG TABLET PO PRN ×2 (06:20→21:03)
[2020-01-31 07:33] LABS: BASO % 1.8 % (0-2.0); EOS % 11.3 % (0-4.5); HEMATOCRIT 29.1 % (32.4-45.2); HEMOGLOBIN 9.7 GM/dL (10.7-15.3); LYMPH % 29.3 % (8-40); MCH 27.7 pg (25.7-33.7); MCHC 33.2 g/dl (32.0-36.0); MEAN CELL VOLUME 83.6 fl (80-96); MEAN PLT VOLUME 7.7 fl (7.5-11.1); NEUT % 48.6 % (42.8-82.8); PLATELET COUNT 344 K/MM3 (134-434); RBC 3.48 M/mm3 (3.60-5.2); RDW 15.2 % (11.6-15.6); WHITE BLOOD COUNT 3.5 K/mm3 (4.0-10.0)
[2020-01-31 07:56] LABS: ALBUMIN 2.4 g/dl (3.4-5.0); BLOOD UREA NITROGEN 9.8 mg/dL (7-18); CALCIUM 9.6 mg/dL (8.5-10.1); MAGNESIUM 1.5 mg/dL (1.8-2.4)
[2020-01-31 08:00] LABS: BILIRUBIN,TOTAL 0.4 mg/dL (0.2-1); CREATININE 0.5 mg/dL (0.55-1.3); TOT PROT 6.5 g/dl (6.4-8.2)
--- NOTE | 2020-01-31 08:29 | PN ---
Progress Note, Physician History of Present Illness: stable no new issues podiatry note noted - Current Medication List Current Medications: Active Medications Acetaminophen (Tylenol -) 650 mg PO Q4H PRN PRN Reason: PAIN LEVEL 6-10 Last Admin: 01/29/20 17:41 Dose: 650 mg Documented by: Anastrozole (Arimidex -) 1 mg PO DAILY [facility] Last Admin: 01/30/20 09:40 Dose: 1 mg Documented by: Aspirin (Asa -) 81 mg PO DAILY [facility] Last Admin: 01/30/20 09:40 Dose: 81 mg Documented by: Atorvastatin Calcium (Lipitor -) 20 mg PO HS [facility] Last Admin: 01/30/20 21:41 Dose: 20 mg Documented by: Calcium Carbonate (Os-Anton 500mg -) 1,000 mg PO Q48H [facility] Last Admin: 01/30/20 09:40 Dose: 1,000 mg Documented by: Cholecalciferol (Vitamin D3 -) 1,000 unit PO DAILY [facility] Last Admin: 01/30/20 09:40 Dose: 1,000 unit Documented by: Docusate Sodium (Colace -) 100 mg PO TID [facility] Last Admin: 01/31/20 06:15 Dose: 100 mg Documented by: Enoxaparin Sodium (Lovenox -) 40 mg SQ DAILY [facility] Last Admin: 01/30/20 09:38 Dose: 40 mg Documented by: Gabapentin (Neurontin -) 300 mg PO TID [facility] Last Admin: 01/31/20 06:16 Dose: 300 mg Documented by: Piperacillin Sod/Tazobactam (Sod 3.375 gm/ Dextrose) 50 mls @ 100 mls/hr IVPB Q8H-IV [facility]; Protocol Last Admin: 01/31/20 01:30 Dose: 100 mls/hr Documented by: Insulin Aspart (Novolog Vial Sliding Scale -) 1 vial SQ TIDAC [facility]; Protocol Last Admin: 01/31/20 06:16 Dose: 4 units Documented by: Insulin Detemir (Levemir Vial) 20 units SQ [facility] Last Admin: 01/30/20 21:42 Dose: 20 units Documented by: Levothyroxine Sodium (Synthroid -) 50 mcg PO DAILY@0700 [facility] Last Admin: 01/31/20 06:16 Dose: 50 mcg Documented by: Magnesium Oxide (Mag-Ox -) 400 mg PO DAILY [facility] Last Admin: 01/30/20 09:40 Dose: 400 mg Documented by: Metoprolol Succinate (Toprol Xl -) 50 mg PO BID [facility] Last Admin: 01/30/20 21:40 Dose: 50 mg Documented by: Oxycodone HCl (Roxicodone -) 5 mg PO Q6H PRN PRN Reason: PAIN LEVEL 6-10 Last Admin: 01/31/20 06:20 Dose: 5 mg Documented by: Ramipril (Altace -) 5 mg PO BID [facility] Last Admin: 01/30/20 21:41 Dose: 5 mg Documented by: Senna (Senna -) 2 tab PO HS [facility] Last Admin: 01/30/20 21:52 Dose: Not Given Documented by: - Objective Vital Signs: Vital Signs Temperature 98.6 F 01/31/20 07:00 Pulse Rate 58 L 01/31/20 07:00 Respiratory Rate 18 01/31/20 07:00 Blood Pressure 107/67 01/31/20 07:00 O2 Sat by Pulse Oximetry (%) 99 01/31/20 07:00 Constitutional: Yes: No Distress, Calm Cardiovascular: Yes: S1, S2 Respiratory: Yes: Regular, CTA Bilaterally Gastrointestinal: Yes: Normal Bowel Sounds, Soft Musculoskeletal: Yes: Other Extremities: Yes: Other Wound/Incision: Yes: Dressing Dry and Intact Neurological: Yes: Alert, Oriented Psychiatric: Yes: Alert, Oriented Labs: CBC, BMP 01/31/20 06:50 01/31/20 06:50 INR, PTT INR 1.15 (0.83-1.09) H 01/25/20 12:00 Assessment/Plan Problem List - Problems (1) CAD (coronary artery disease) Code(s): I25.10 - ATHSCL HEART DISEASE OF [place] CORONARY ARTERY W/O ANG PCTRS Qualifiers: [place] vs. transplanted heart: [place] heart Associated angina: without angina (2) CHF (congestive heart failure) Code(s): I50.9 - HEART FAILURE, UNSPECIFIED Qualifiers: Heart failure type: systolic Heart failure chronicity: chronic Qualified Code(s): I50.22 - Chronic systolic (congestive) heart failure (3) Diabetes Code(s): E11.9 - TYPE 2 DIABETES MELLITUS WITHOUT COMPLICATIONS Qualifiers: Diabetes mellitus type: type 2 Diabetes mellitus fdc insulin use: with fdc use Diabetes mellitus complication status: with skin complications Diabetes mellitus complication detail: with foot ulcer [place] lified Code(s): E11.621 - Type 2 diabetes mellitus with foot ulcer; L97.509 - Non-pressure chronic ulcer of other part of unspecified foot with unspecified severity; Z79.4 - halfway (current) use of insulin (4) HTN (hypertension) Code(s): I10 - ESSENTIAL (PRIMARY) HYPERTENSION Qualifiers: Hypertension type: essential hypertension Qualified Code(s): I10 - Essential (primary) hypertension (5) Hyperlipidemia Code(s): E78.5 - HYPERLIPIDEMIA, UNSPECIFIED (6) Hypothyroidism Code(s): E03.9 - HYPOTHYROIDISM, UNSPECIFIED (7) Obesity (BMI 30.0-34.9) Code(s): E66.9 - OBESITY, UNSPECIFIED (8) Wound infection Code(s): T14.8XXA - OTHER INJURY OF UNSPECIFIED BODY REGION, INITIAL ENCOUNTER; L08.9 - LOCAL INFECTION OF THE SKIN AND SUBCUTANEOUS TISSUE, UNSP 9 osteo of the foot plan patient will need 6 weeks of abx awaiting cx for pseudomonas spoke with the lab will decide after that rest as per the team
[2020-01-31] MEDS ORDERED: PT OWN MED DRAWER 7, Y5N ONE (10:08)
[2020-01-31] MEDS: ASPIRIN 81 MG CHEWABLE TABLETS PO SCH (10:13)
[2020-01-31] MEDS: MAGNESIUM OXIDE 400 MG TABLET (FP) PO SCH (10:14)
[2020-01-31] MEDS: CHOLECALCIFEROL (VIT D3) 1,000 UNIT (25 MCG) TABLET PO SCH (10:14)
[2020-01-31] MEDS: ANASTROZOLE 1 MG TABLET PO SCH (10:15)
[2020-01-31] MEDS: ENOXAPARIN NA (PORCINE) 40 MG/0.4 ML DISP.SYRIN SQ SCH (10:16)
[2020-01-31] MEDS: RAMIPRIL 5 MG CAPSULE PO SCH ×2 (10:16→21:02)
--- NOTE | 2020-01-31 11:01 | PN ---
Physical Exam: SUBJECTIVE: Patient seen and examined this AM. No new complaints. No acute overnight events as per nursing. OBJECTIVE: Vital Signs Period Temp Pulse Resp BP Sys/Jonas Pulse Ox Last 24 Hr 98.3 F-98.6 F 58-73 18-18 107-143/58-74 97-99 GENERAL: A&Ox3, NAD HEAD: NCAT EYES: PERRL, EOMI ENT: moist mucous membranes NECK: Supple, No JVD LUNGS: Diminished breath sounds at the bases, no wheezes HEART: Regular rate and rhythm, S1, S2 without murmur ABDOMEN: Soft, nontender, nondistended, + bowel sounds, no guarding, Colostomy bag in place with no surrounding erythema EXTREMITIES: No edema. NEUROLOGICAL: Cranial nerves II through XII grossly intact. SKIN: Warm, dry, Midline abdominal scar, Left foot plantar surface ulceration with surrounding erythema, No active drainage. Laboratory Last Values WBC 3.5 K/mm3 (4.0-10.0) L 01/31/20 06:50 RBC 3.48 M/mm3 (3.60-5.2) L 01/31/20 06:50 Hgb 9.7 GM/dL (10.7-15.3) L 01/31/20 06:50 Hct 29.1 % (32.4-45.2) L 01/31/20 06:50 MCV 83.6 fl (80-96) 01/31/20 06:50 MCH 27.7 pg (25.7-33.7) 01/31/20 06:50 MCHC 33.2 g/dl (32.0-36.0) 01/31/20 06:50 RDW 15.2 % (11.6-15.6) 01/31/20 06:50 Plt Count 344 K/MM3 (134-434) 01/31/20 06:50 MPV 7.7 fl (7.5-11.1) 01/31/20 06:50 Absolute Neuts (auto) 1.7 K/mm3 (1.5-8.0) 01/31/20 06:50 Neutrophils % 48.6 % (42.8-82.8) 01/31/20 06:50 Lymphocytes % 29.3 % (8-40) D 01/31/20 06:50 Monocytes % 9.0 % (3.8-10.2) 01/31/20 06:50 Eosinophils % 11.3 % (0-4.5) H 01/31/20 06:50 Basophils % 1.8 % (0-2.0) 01/31/20 06:50 Nucleated RBC % 0 % (0-0) 01/31/20 06:50 ESR 65 mm/hr (0-30) H 01/25/20 12:00 PT with INR 13.60 SEC (9.7-13.0) H 01/25/20 12:00 INR 1.15 (0.83-1.09) H 01/25/20 12:00 PTT (Actin FS) 26.1 SECONDS (25.2-36.5) 01/25/20 12:00 Sodium 139 mmol/L (136-145) 01/31/20 06:50 Potassium 4.0 mmol/L (3.5-5.1) 01/31/20 06:50 Chloride 104 mmol/L (98-107) 01/31/20 06:50 Carbon Dioxide 30 mmol/L (21-32) 01/31/20 06:50 Anion Gap 5 MMOL/L (8-16) L 01/31/20 06:50 BUN 9.8 mg/dL (7-18) 01/31/20 06:50 Creatinine 0.5 mg/dL (0.55-1.3) L 01/31/20 06:50 Est GFR (CKD-EPI)AfAm 106.69 01/31/20 06:50 Est GFR (CKD-EPI)NonAf 92.05 01/31/20 06:50 POC Glucometer 164 UNITS (80-120) 01/31/20 06:14 Random Glucose 167 mg/dL (74-106) H 01/31/20 06:50 Lactic Acid 1.8 mmol/L (0.4-2.0) 01/25/20 15:10 Calcium 9.6 mg/dL (8.5-10.1) 01/31/20 06:50 Phosphorus 1.7 mg/dL (2.5-4.9) L 01/26/20 07:15 Magnesium 1.5 mg/dL (1.8-2.4) L 01/31/20 06:50 Total Bilirubin 0.4 mg/dL (0.2-1) 01/31/20 06:50 AST 18 U/L (15-37) 01/31/20 06:50 ALT 32 U/L (13-61) 01/31/20 06:50 Alkaline Phosphatase 130 U/L (45-117) H 01/31/20 06:50 C-Reactive Protein 8.1 MG/DL (0.00-0.3) H 01/25/20 12:00 Total Protein 6.5 g/dl (6.4-8.2) 01/31/20 06:50 Albumin 2.4 g/dl (3.4-5.0) L 01/31/20 06:50 COVID-19 (MARLENY) Not detected (Not Detected) 01/25/20 12:00 ASSESSMENT/PLAN: 79 y/o F PMHx CAD (s/p stents), HTN, HLD, DM, Stage IV invasive lobular carcinoma with bone mets (s/p mastectomy on anastrozole), Recent [facility] admission for Necrotic bowel s/p bowel resection admitted for left foot OM. #LLE Ulceration -Concerning for OM VS cellulitis given riskfactors including DM -Podiatry, ID Rec's appreciated -Follow Cultures -Zosyn/Vanco (Abx course started on 01/24) -Wound Care #Metastatic Stage IV invasive lobular carcinoma -Bone mets s/p mastectomy on anastrozole, Monthly Denosumab -CT C/T/L Spine + B/L Hips pending final read -Analgesia -DVT PPx #Normocytic Normochromic Anemia -Likely Anemia of chronic inflammation in the setting of Metastatic Disease -Transfuse to keep Hgb > 8.0 Visit type - Emergency Visit Emergency Visit: Yes ED Registration Date: 01/25/20 Care time: The patient presented to the Emergency Department on the above date and was hospitalized for further evaluation of their emergent condition. - New Patient This patient is new to me today: Yes Date on this admission: 02/04/20 - Critical Care Critical Care patient: No - Discharge Referral Referred to [facility] No - Medication Review Med list reviewed for High Risk Meds patients 65 and older: Yes ATTENDING PHYSICIAN STATEMENT I saw and evaluated the patient. I reviewed the resident's note and discussed the case with the resident. I agree with the resident's findings and plan as documented. SUBJECTIVE: OBJECTIVE: ASSESSMENT AND PLAN:
[2020-01-31] MEDS ORDERED: INSULIN (NOVOLOG) ASPART 100 UNITS/ML 10ML VIAL ONE ×2 (11:41→20:44)
--- NOTE | 2020-01-31 13:57 | PN ---
Physical Exam: SUBJECTIVE: Patient seen and examined at the bedside. feels well, denies any malaise. OBJECTIVE: Patient is a 79 year old female with a significant past medical history of CAD s/p stents, HTN, HLD, DM II, breast CA (s/p mastectomy, stage 4 with bone mets), hypothyroidism, anemia, hx necrotic bowel s/p bowel resection on October 2019, who was admitted on 01/25/2020 for left heel wound and suspected osteomyelitis. per bone scan 01/29/2020, patient has osteo of left heel/posterior aspect of the calcaneal bone. abdominal xray 01/28: retained stool consistent with constipation. Vital Signs Period Temp Pulse Resp BP Sys/Jonas Pulse Ox Last 24 Hr 98.3 F-98.6 F 58-73 18-18 107-143/58-74 97-100 GENERAL: The patient is awake, alert, and fully oriented, in no acute distress. HEAD: Normal with no signs of trauma. EYES: PERRL, extraocular movements intact, sclera anicteric, conjunctiva clear. No ptosis. ENT: Ears normal, nares patent, oropharynx clear without exudates, moist mucous membranes. NECK: Trachea midline, full range of motion, supple. LUNGS: Breath sounds equal, clear to auscultation bilaterally, no wheezes HEART: Regular rate and rhythm ABDOMEN: Soft, nontender, nondistended, she denies any nausea/vomiting. no abdominal pain. + bowel sounds-colostomy bag in place with pink stoma EXTREMITIES: no edema. left heal wound, dressing intact, NEUROLOGICAL: Normal speech, gait not observed. PSYCH: Normal mood, normal affect. SKIN: Warm, dry, normal turgor, no rashes or lesions noted Laboratory Results - last 24 hr 01/30/20 01/30/20 01/31/20 16:52 21:39 06:14 WBC RBC Hgb Hct MCV MCH MCHC RDW Plt Count MPV Absolute Neuts (auto) Neutrophils % Lymphocytes % Monocytes % Eosinophils % Basophils % Nucleated RBC % Sodium Potassium Chloride Carbon Dioxide Anion Gap BUN Creatinine Est GFR (CKD-EPI)AfAm Est GFR (CKD-EPI)NonAf POC Glucometer 188 245 164 Random Glucose Calcium Magnesium Total Bilirubin AST ALT Alkaline Phosphatase Total Protein Albumin 01/31/20 01/31/20 01/31/20 06:50 06:50 11:29 WBC 3.5 L RBC 3.48 L Hgb 9.7 L Hct 29.1 L MCV 83.6 MCH 27.7 MCHC 33.2 RDW 15.2 Plt Count 344 MPV 7.7 Absolute Neuts (auto) 1.7 Neutrophils % 48.6 Lymphocytes % 29.3 D Monocytes % 9.0 Eosinophils % 11.3 H Basophils % 1.8 Nucleated RBC % 0 Sodium 139 Potassium 4.0 Chloride 104 Carbon Dioxide 30 Anion Gap 5 L BUN 9.8 Creatinine 0.5 L Est GFR (CKD-EPI)AfAm 106.69 Est GFR (CKD-EPI)NonAf 92.05 POC Glucometer 247 Random Glucose 167 H Calcium 9.6 Magnesium 1.5 L Total Bilirubin 0.4 AST 18 ALT 32 Alkaline Phosphatase 130 H Total Protein 6.5 Albumin 2.4 L Active Medications Generic Name Dose Route Start Last Admin Trade Name Freq PRN Reason Stop Dose Admin Acetaminophen 650 mg 01/25/20 14:30 01/29/20 17:41 Tylenol - PO 650 mg Q4H PRN Administration PAIN LEVEL 6-10 Anastrozole 1 mg 01/26/20 10:00 01/31/20 10:15 Arimidex - PO 1 mg DAILY [facility] Administration Aspirin 81 mg 01/26/20 10:00 01/31/20 10:13 Asa - PO 81 mg DAILY [facility] Administration Atorvastatin Calcium 20 mg 01/25/20 22:00 01/30/20 21:41 Lipitor - PO 20 mg HS CHANDRAK[facility] Administration Calcium Carbonate 1,000 mg 01/26/20 10:00 01/30/20 09:40 Os-Anton 500mg - PO 1,000 mg Q48H [facility] Administration Cholecalciferol 1,000 unit 01/26/20 10:00 01/31/20 10:14 Vitamin D3 - PO 1,000 unit DAILY [facility] Administration Docusate Sodium 100 mg 01/29/20 22:00 01/31/20 13:48 Colace - PO Not Given TID [facility]AN[facility]AK[facility] Enoxaparin Sodium 40 mg 01/26/20 10:00 01/31/20 10:16 Lovenox - SQ 40 mg DAILY [facility] Administration Gabapentin 300 mg 01/25/20 22:00 01/31/20 13:48 Neurontin - PO 300 mg TID [facility]ANDR[facility] Administration Piperacillin Sod/Tazobactam 50 mls @ 100 mls/hr 01/27/20 18:00 01/31/20 10:12 Sod 3.375 gm/ Dextrose IVPB 100 mls/hr Q8H-IV [facility] Administration Protocol Insulin Aspart 1 vial 01/30/20 14:09 01/31/20 11:44 Novolog Vial Sliding Scale - SQ 6 units TIDAC [facility] Administration Protocol Insulin Detemir 20 units 01/25/20 22:00 01/30/20 21:42 Levemir Vial SQ 20 units HS [facility] Administration Levothyroxine Sodium 50 mcg 01/26/20 07:00 01/31/20 06:16 Synthroid - PO 50 mcg DAILY@0700 [facility] Administration Magnesium Oxide 400 mg 01/26/20 10:00 01/31/20 10:14 Mag-Ox - PO 400 mg DAILY [facility] Administration Metoprolol Succinate 50 mg 01/25/20 22:00 01/31/20 10:14 Toprol Xl - PO 50 mg BID [facility] Administration Oxycodone HCl 5 mg 01/26/20 21:16 01/31/20 06:20 Roxicodone - PO 5 mg Q6H PRN Administration PAIN LEVEL 6-10 Ramipril 5 mg 01/25/20 22:00 01/31/20 10:16 Altace - PO 5 mg BID [facility] Administration Senna 2 tab 01/29/20 22:00 01/30/20 21:52 Senna - PO Not Given [facility] ASSESSMENT/PLAN: Problem List - Problems (1) Constipated Assessment/Plan: resolved Code(s): K59.00 - CONSTIPATION, UNSPECIFIED (2) Osteomyelitis Assessment/Plan: bone scan shows osteomyelitis of left foot. per ID, patient will need 6 weeks of IV antibiotics. on Zosyn per ID podiatry following pain management with bowel regimen Code(s): M86.9 - OSTEOMYELITIS, UNSPECIFIED Qualifiers: Osteomyelitis type: unspecified type Osteomyelitis location: foot Laterality: right Qualified Code(s): M86.9 - Osteomyelitis, unspecified (3) Breast cancer, left breast Assessment/Plan: breast cancer with bone mets on anastrozole and monthly denosumab. oncology following Code(s): C50.912 - MALIGNANT NEOPLASM OF UNSPECIFIED SITE OF LEFT FEMALE BREAST Qualifiers: Breast location: upper outer quadrant of breast Estrogen receptor status: positive Patient sex: female Qualified Code(s): C50.412 - Malignant neoplasm of upper-outer quadrant of left female breast; Z17.0 - Estrogen receptor positive status [ER+] (4) Diabetes Assessment/Plan: on levemir and novolog based on ss Code(s): E11.9 - TYPE 2 DIABETES MELLITUS WITHOUT COMPLICATIONS Qualifiers: Diabetes mellitus type: type 2 Diabetes mellitus mcc insulin use: with director long term care use Diabetes mellitus complication status: with skin complications Diabetes mellitus complication detail: with foot ulcer Qualified Code(s): E11.621 - Type 2 diabetes mellitus with foot ulcer; L97.509 - Non-pressure chronic ulcer of other part of unspecified foot with unspecified severity; Z79.4 - buttermaker continuous churn (current) use of insulin (5) HTN (hypertension) Assessment/Plan: bp stable, monitor Code(s): I10 - ESSENTIAL (PRIMARY) HYPERTENSION Qualifiers: Hypertension type: essential hypertension Qualified Code(s): I10 - Essential (primary) hypertension (6) 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 - New Patient This patient is new to me today: No - Critical Care Critical Care patient: No - Discharge Referral [facility] No - Medication Review Med list reviewed for High Risk Meds patients 65 and older: Yes
--- NOTE | 2020-01-31 16:08 | PN ---
Teaching Attending Note Name of Resident: Gina Nguyen ATTENDING PHYSICIAN STATEMENT I saw and evaluated the patient. I reviewed the resident's note and discussed the case with the resident. I agree with the resident's findings and plan as documented. 79F with metastatic lobular ca on AI/Denosomab, CAD, HTN, DM admitted for left heel wound care/concern for osteo. Currently planning on 6 weeks duration of IV antibiotics. CT spine for worsening back pain also revealing for progression of spinal mets. Will need xrt evaluation as outpatient and can follow with primary oncologist about plan of care once discharged.
--- NOTE | 2020-01-31 16:34 | PN ---
Progress Note, Physician Chief Complaint: Pt seen. Resting comfortably. - Current Medication List Current Medications: Active Medications Acetaminophen (Tylenol -) 650 mg PO Q4H PRN PRN Reason: PAIN LEVEL 6-10 Last Admin: 01/29/20 17:41 Dose: 650 mg Documented by: Anastrozole (Arimidex -) 1 mg PO DAILY [facility] Last Admin: 01/31/20 10:15 Dose: 1 mg Documented by: Aspirin (Asa -) 81 mg PO DAILY [facility] Last Admin: 01/31/20 10:13 Dose: 81 mg Documented by: Atorvastatin Calcium (Lipitor -) 20 mg PO HS [facility] Last Admin: 01/30/20 21:41 Dose: 20 mg Documented by: Calcium Carbonate (Os-Anton 500mg -) 1,000 mg PO Q48H [facility] Last Admin: 01/30/20 09:40 Dose: 1,000 mg Documented by: Cholecalciferol (Vitamin D3 -) 1,000 unit PO DAILY [facility] Last Admin: 01/31/20 10:14 Dose: 1,000 unit Documented by: Docusate Sodium (Colace -) 100 mg PO TID [facility] Last Admin: 01/31/20 13:48 Dose: Not Given Documented by: Enoxaparin Sodium (Lovenox -) 40 mg SQ DAILY [facility] Last Admin: 01/31/20 10:16 Dose: 40 mg Documented by: Gabapentin (Neurontin -) 300 mg PO TID [facility] Last Admin: 01/31/20 13:48 Dose: 300 mg Documented by: Piperacillin Sod/Tazobactam (Sod 3.375 gm/ Dextrose) 50 mls @ 100 mls/hr IVPB Q8H-IV [facility]; Protocol Last Admin: 01/31/20 10:12 Dose: 100 mls/hr Documented by: Insulin Aspart (Novolog Vial Sliding Scale -) 1 vial SQ TIDAC [facility]; Protocol Last Admin: 01/31/20 11:44 Dose: 6 units Documented by: Insulin Detemir (Levemir Vial) 20 units SQ [facility] Last Admin: 01/30/20 21:42 Dose: 20 units Documented by: Levothyroxine Sodium (Synthroid -) 50 mcg PO DAILY@0700 [facility] Last Admin: 01/31/20 06:16 Dose: 50 mcg Documented by: Magnesium Oxide (Mag-Ox -) 400 mg PO DAILY [facility] Last Admin: 01/31/20 10:14 Dose: 400 mg Documented by: Metoprolol Succinate (Toprol Xl -) 50 mg PO BID [facility] Last Admin: 01/31/20 10:14 Dose: 50 mg Documented by: Oxycodone HCl (Roxicodone -) 5 mg PO Q6H PRN PRN Reason: PAIN LEVEL 6-10 Last Admin: 01/31/20 06:20 Dose: 5 mg Documented by: Ramipril (Altace -) 5 mg PO BID [facility] Last Admin: 01/31/20 10:16 Dose: 5 mg Documented by: Senna (Senna -) 2 tab PO HS [facility] Last Admin: 01/30/20 21:52 Dose: Not Given Documented by: - Objective Vital Signs: Vital Signs Temperature 98.7 F 01/31/20 14:12 Pulse Rate 62 01/31/20 14:12 Respiratory Rate 18 01/31/20 14:12 Blood Pressure 100/55 L 01/31/20 14:12 O2 Sat by Pulse Oximetry (%) 100 01/31/20 10:00 Wound/Incision: Yes: Other (improved cellulitis, +serosanguinous drainage) Labs: CBC, BMP 01/31/20 06:50 01/31/20 06:50 INR, PTT INR 1.15 (0.83-1.09) H 01/25/20 12:00 Assessment/Plan om left heel (bone scan) grade 2-3 wound left heel cellulitis improving beatdine dressing change done. Dressing done by me today. IVABX as per ID. W ill follow. HBO consult ordered.
[2020-01-31] MEDS: ATORVASTATIN CA 20 MG TABLET (FP) PO SCH (21:02)
[2020-01-31] MEDS: INSULIN (LEVEMIR) 100 UNITS/ML UNITS SQ SCH (21:02)
[2020-01-31] MEDS: MINERAL OIL/PET HY-PHL TOPICAL OINTMENT 454 GM JAR TP SCH ×2 (21:05)
[2020-01-31] MEDS: SENNOSIDES 8.6MG TABLET (FP) PO SCH (21:09)
[2020-01-31] MEDS ORDERED: diphenhydrAMINE HCL 25 MG CAPSULE (FP) PO ONE (23:33)
[2020-02-01] MEDS ORDERED: DEXTROSE 5%-WATER - 50 ML IVPB ONE ×2 (00:58→10:14)
[2020-02-01] MEDS ORDERED: PIPERACILLIN/TAZOBACTAM 3.375 GM VIAL IVPB ONE ×2 (00:58→10:14)
[2020-02-01] MEDS: PIPERACILLIN/TAZOB 3.375 GM 3.375 GM in DEXTROSE 5%-WATER - 50 ML IVPB SCH ×2 (01:02→10:20)
[2020-02-01 06:25] VITALS: PULSE 66; TEMP 98.5
[2020-02-01] MEDS: DOCUSATE SODIUM 100 MG CAPSULE (FP) PO SCH ×2 (06:26→14:45)
[2020-02-01] MEDS: INSULIN SLIDING SCALE (NOVOLOG) 1 VIAL SQ SCH (06:26)
[2020-02-01] MEDS: GABAPENTIN 300 MG CAPSULE PO SCH ×2 (06:26→14:45)
[2020-02-01] MEDS: LEVOTHYROXINE NA 50 MCG TABLET (FP) PO SCH (06:26)
[2020-02-01 08:21] LABS: BASO % 1.9 % (0-2.0); EOS % 9.8 % (0-4.5); HEMATOCRIT 27.8 % (32.4-45.2); HEMOGLOBIN 9.2 GM/dL (10.7-15.3); MCH 27.6 pg (25.7-33.7); MCHC 33.2 g/dl (32.0-36.0); MEAN CELL VOLUME 83.3 fl (80-96); MEAN PLT VOLUME 7.8 fl (7.5-11.1); MONO % 9.6 % (3.8-10.2); NEUT % 48.7 % (42.8-82.8); PLATELET COUNT 279 K/MM3 (134-434); RBC 3.34 M/mm3 (3.60-5.2); RDW 15.6 % (11.6-15.6); WHITE BLOOD COUNT 3.6 K/mm3 (4.0-10.0)
[2020-02-01 08:49] LABS: ALBUMIN 2.3 g/dl (3.4-5.0); BILIRUBIN,TOTAL 0.5 mg/dL (0.2-1); BLOOD UREA NITROGEN 11.6 mg/dL (7-18); CALCIUM 9.1 mg/dL (8.5-10.1); CREATININE 0.5 mg/dL (0.55-1.3); MAGNESIUM 1.6 mg/dL (1.8-2.4); POTASSIUM 4.2 mmol/L (3.5-5.1)
[2020-02-01] MEDS ORDERED: diphenhydrAMINE HCL 25 MG CAPSULE (FP) PO PRN (10:01)
--- NOTE | 2020-02-01 10:11 | PN ---
Progress Note, Physician History of Present Illness: stable all cx results noted - Current Medication List Current Medications: Active Medications Acetaminophen (Tylenol -) 650 mg PO Q4H PRN PRN Reason: PAIN LEVEL 6-10 Last Admin: 01/29/20 17:41 Dose: 650 mg Documented by: Anastrozole (Arimidex -) 1 mg PO DAILY [facility] Last Admin: 01/31/20 10:15 Dose: 1 mg Documented by: Aspirin (Asa -) 81 mg PO DAILY [facility] Last Admin: 01/31/20 10:13 Dose: 81 mg Documented by: Atorvastatin Calcium (Lipitor -) 20 mg PO HS [facility] Last Admin: 01/31/20 21:02 Dose: 20 mg Documented by: Calcium Carbonate (Os-Anton 500mg -) 1,000 mg PO Q48H [facility] Last Admin: 01/30/20 09:40 Dose: 1,000 mg Documented by: Cholecalciferol (Vitamin D3 -) 1,000 unit PO DAILY [facility] Last Admin: 01/31/20 10:14 Dose: 1,000 unit Documented by: Diphenhydramine HCl (Benadryl -) 25 mg PO Q6H PRN PRN Reason: FOR ITCHING Docusate Sodium (Colace -) 100 mg PO TID [facility] Last Admin: 02/01/20 06:26 Dose: 100 mg Documented by: Emollient Ointment (Aquaphor -) 1 applic TP BID [facility] Last Admin: 01/31/20 21:05 Dose: 1 applic Documented by: Enoxaparin Sodium (Lovenox -) 40 mg SQ DAILY [facility] Last Admin: 01/31/20 10:16 Dose: 40 mg Documented by: Gabapentin (Neurontin -) 300 mg PO TID [facility] Last Admin: 02/01/20 06:26 Dose: 300 mg Documented by: Piperacillin Sod/Tazobactam (Sod 3.375 gm/ Dextrose) 50 mls @ 100 mls/hr IVPB Q8H-IV [facility]; Protocol Last Admin: 02/01/20 01:02 Dose: 100 mls/hr Documented by: Insulin Aspart (Novolog Vial Sliding Scale -) 1 vial SQ TIDAC [facility]; Protocol Last Admin: 02/01/20 06:26 Dose: 4 units Documented by: Insulin Detemir (Levemir Vial) 20 units SQ [facility] Last Admin: 01/31/20 21:02 Dose: 20 units Documented by: Levothyroxine Sodium (Synthroid -) 50 mcg PO DAILY@0700 [facility] Last Admin: 02/01/20 06:26 Dose: 50 mcg Documented by: Magnesium Oxide (Mag-Ox -) 400 mg PO DAILY [facility] Last Admin: 01/31/20 10:14 Dose: 400 mg Documented by: Metoprolol Succinate (Toprol Xl -) 50 mg PO BID [facility] Last Admin: 01/31/20 21:02 Dose: 50 mg Documented by: Oxycodone HCl (Roxicodone -) 5 mg PO Q6H PRN PRN Reason: PAIN LEVEL 6-10 Last Admin: 01/31/20 21:03 Dose: 5 mg Documented by: Ramipril (Altace -) 5 mg PO BID [facility] Last Admin: 01/31/20 21:02 Dose: 5 mg Documented by: Senna (Senna -) 2 tab PO HS [facility] Last Admin: 01/31/20 21:09 Dose: Not Given Documented by: - Objective Vital Signs: Vital Signs Temperature 98.5 F 02/01/20 06:00 Pulse Rate 66 02/01/20 06:00 Respiratory Rate 18 01/31/20 22:00 Blood Pressure 130/63 02/01/20 06:00 O2 Sat by Pulse Oximetry (%) 97 02/01/20 06:00 Constitutional: Yes: No Distress, Calm Cardiovascular: Yes: S1, S2 Respiratory: Yes: Regular, CTA Bilaterally Gastrointestinal: Yes: Normal Bowel Sounds, Soft Musculoskeletal: Yes: WNL Extremities: Yes: Other Neurological: Yes: Alert, Oriented Psychiatric: Yes: Alert, Oriented Labs: CBC, BMP 02/01/20 07:15 02/01/20 07:15 INR, PTT INR 1.15 (0.83-1.09) H 01/25/20 12:00 Assessment/Plan Problem List - Problems (1) CAD (coronary artery disease) Code(s): I25.10 - ATHSCL HEART DISEASE OF [place] CORONARY ARTERY W/O ANG PCTRS Qualifiers: [place] vs[place] transplanted heart: [place] heart Associated angina: without angina (2) CHF (congestive heart failure) Code(s): I50.9 - HEART FAILURE, UNSPECIFIED Qualifiers: Heart failure type: systolic Heart failure chronicity: chronic Qualified Code(s): I50.22 - Chronic systolic (congestive) heart failure (3) Diabetes Code(s): E11.9 - TYPE 2 DIABETES MELLITUS WITHOUT COMPLICATIONS Qualifiers: Diabetes mellitus type: type 2 Diabetes mellitus argon tester insulin use: with argon tester use Diabetes mellitus complication status: with skin complicati ons Diabetes mellitus complication detail: with foot ulcer Qualified Code(s): E11.621 - Type 2 diabetes mellitus with foot ulcer; L97.509 - Non-pr essure chronic ulcer of other part of unspecified foot with unspecified severity; Z79.4 - bag shaker (current) use of insulin (4) HTN (hypertension) Code(s): I10 - ESSENTIAL (PRIMARY) HYPERTENSION Qualifiers: Hypertension type: essential hypertension Qualified Code(s): I10 - Essential (primary) hypertension (5) Hyperlipidemia Code(s): E78.5 - HYPERLIPIDEMIA, UNSPECIFIED (6) Hypothyroidism Code(s): E03.9 - HYPOTHYROIDISM, UNSPECIFIED (7) Obesity (BMI 30.0-34.9) Code(s): E66.9 - OBESITY, UNSPECIFIED (8) Wound infection Code(s): T14.8XXA - OTHER INJURY OF UNSPECIFIED BODY REGION, INITIAL ENCOUNTER; L08.9 - LOCAL INFECTION OF THE SKIN AND SUBCUTANEOUS TISSUE, UNSP 9 osteo of the foot plan patient will need 6 weeks of abx cx results noted will decide after that rest as per the team
[2020-02-01] MEDS: CHOLECALCIFEROL (VIT D3) 1,000 UNIT (25 MCG) TABLET PO SCH (10:21)
[2020-02-01] MEDS: CALCIUM (OYSTER SHELL) 500 MG TABLET (FP) PO SCH (10:21)
[2020-02-01] MEDS: RAMIPRIL 5 MG CAPSULE PO SCH (10:21)
[2020-02-01] MEDS: ASPIRIN 81 MG CHEWABLE TABLETS PO SCH (10:22)
[2020-02-01] MEDS: MAGNESIUM OXIDE 400 MG TABLET (FP) PO SCH (10:22)
[2020-02-01] MEDS: ANASTROZOLE 1 MG TABLET PO SCH (10:22)
[2020-02-01] MEDS: oxyCODONE HCL 5 MG TABLET PO PRN (10:22)
[2020-02-01] MEDS: ENOXAPARIN NA (PORCINE) 40 MG/0.4 ML DISP.SYRIN SQ SCH (10:23)
[2020-02-01] MEDS: MINERAL OIL/PET HY-PHL TOPICAL OINTMENT 454 GM JAR TP SCH (10:23)
--- NOTE | 2020-02-01 10:23 | DS ---
Physical Exam: SUBJECTIVE: Patient seen and examined at the bedside. denies pain or malaise. OBJECTIVE: Patient is a 79 year old female with a significant past medical history of CAD s/p stents, HTN, HLD, DM II, breast CA (s/p mastectomy, stage 4 with bone mets), hypothyroidism, anemia, hx necrotic bowel s/p bowel resection on October 2019, who was admitted on 01/25/2020 for left heel wound and suspected osteomyelitis. per bone scan 01/29/2020, patient has osteo of left heel/posterior aspect of the calcaneal bone. She will be sent home today with [facility] for 5 more weeks of Zosyn antibiotics for left heel osteomyelitis via central line (tunneled catheter). abdominal xray 01/28: retained stool consistent with constipation. constipation resolved with bowel regimen. Vital Signs Period Temp Pulse Resp BP Sys/Jonas Pulse Ox Last 24 Hr 97.5 F-99.7 F 62-71 18-18 100-139/42-70 97-100 PHYSICAL EXAM GENERAL: The patient is awake, alert, and fully oriented, in no acute distress. HEAD: Normal with no signs of trauma. EYES: PERRL, extraocular movements intact, sclera anicteric, conjunctiva clear. No ptosis. ENT: Ears normal, nares patent, oropharynx clear without exudates, moist mucous membranes. NECK: Trachea midline, full range of motion, supple. LUNGS: Breath sounds equal, clear to auscultation bilaterally, no wheezes HEART: Regular rate and rhythm ABDOMEN: Soft, nontender, nondistended, she denies any nausea/vomiting. no abdominal pain. + bowel sounds-colostomy bag in place with pink stoma EXTREMITIES: no edema. left heal wound, dressing intact, NEUROLOGICAL: Normal speech, gait not observed. PSYCH: Normal mood, normal affect. SKIN: Warm, dry, normal turgor, no rashes or lesions noted LABS Laboratory Results - last 24 hr 01/31/20 01/31/20 01/31/20 11:29 16:30 20:52 WBC RBC Hgb Hct MCV MCH MCHC RDW Plt Count MPV Absolute Neuts (auto) Neutrophils % Lymphocytes % Monocytes % Eosinophils % Basophils % Nucleated RBC % Sodium Potassium Chloride Carbon Dioxide Anion Gap BUN Creatinine Est GFR (CKD-EPI)AfAm Est GFR (CKD-EPI)NonAf POC Glucometer 247 207 225 Random Glucose Calcium Magnesium Total Bilirubin AST ALT Alkaline Phosphatase Total Protein Albumin 02/01/20 02/01/20 02/01/20 06:22 07:15 07:15 WBC 3.6 L RBC 3.34 L Hgb 9.2 L Hct 27.8 L MCV 83.3 MCH 27.6 MCHC 33.2 RDW 15.6 Plt Count 279 MPV 7.8 Absolute Neuts (auto) 1.8 Neutrophils % 48.7 Lymphocytes % 30.0 Monocytes % 9.6 Eosinophils % 9.8 H Basophils % 1.9 Nucleated RBC % 0 Sodium 141 Potassium 4.2 Chloride 106 Carbon Dioxide 32 Anion Gap 3 L BUN 11.6 Creatinine 0.5 L Est GFR (CKD-EPI)AfAm 106.69 Est GFR (CKD-EPI)NonAf 92.05 POC Glucometer 155 Random Glucose 139 H Calcium 9.1 Magnesium 1.6 L Total Bilirubin 0.5 AST 17 ALT 27 Alkaline Phosphatase 104 Total Protein 6.0 L Albumin 2.3 L HOSPITAL COURSE: Date of Admission:01/25/20 Date of Discharge: 02/01/20 Minutes to complete discharge: 60 Discharge Summary Problems reviewed: Yes Reason For Visit: OSTEOMYELITIS Current Active Problems Constipated (Acute) DVT prophylaxis (Acute) Osteomyelitis (Acute) Condition: Stable - Instructions Diet, Activity, Other Instructions: Mrs Prince: You will be sent home today with intermediate card tender antibiotics infusion of Zosyn through your tunneled catheter. You will need a total of 5 more weeks to complete the antibibiotic therapy for your foot infection. Please follow up with your primary care doctor within 1 week after discharge for post hospital blood work. Thank you for allowing us to care for you. Referrals: Matt Queen MD [Primary Care Provider] - Disposition: [facility]/HOME HEALTH CARE - Home Medications Comprehensive Discharge Medication List: Ambulatory Orders Cholecalciferol (Vitamin D3) [Vitamin D -] 1,000 unit PO DAILY 03/12/16 Gabapentin 300 mg PO TID 03/12/16 Glipizide 5 mg PO BIDAC 03/12/16 Insulin Glargine,Hum.rec.anlog [Lantus Solostar PEN -] 20 units SQ HS 03/12/16 Levothyroxine [Synthroid -] 50 mcg PO DAILY@0700 03/12/16 Liraglutide [Victoza -] 1.2 mg SQ DAILY@0700 03/12/16 metFORMIN HCL [Metformin HCl] 500 mg PO BIDAC 03/12/16 Metoprolol Succinate [Toprol XL -] 50 mg PO BID 08/17/17 Ramipril 5 mg PO BID 08/17/17 Aspirin 81 mg PO DAILY 11/06/18 Anastrozole [Arimidex -] 1 tab PO DAILY 04/12/19 Calcium Carbonate [Calcium] 1,000 mg PO Q48H 07/26/19 Magnesium 128 mg PO DAILY 07/26/19 Atorvastatin Ca [Lipitor] 20 mg PO HS 01/25/20 Docusate Sodium [Colace -] 100 mg PO TID capsule 02/01/20 Piperacillin/Tazob 3.375 gm [Zosyn -] 3.375 gm IVPB Q8H-IV vial 02/01/20 Problem List - Problems (1) Constipated Assessment/Plan: resolved Code(s): K59.00 - CONSTIPATION, UNSPECIFIED (2) Osteomyelitis Assessment/Plan: bone scan shows osteomyelitis of left foot. per ID, patient will need a total of 6 weeks of IV antibiotics. on Zosyn per ID podiatry following pain management with bowel regimen Code(s): M86.9 - OSTEOMYELITIS, UNSPECIFIED Qualifiers: Osteomyelitis type: unspecified type Osteomyelitis location: foot Laterality: right Qualified Code(s): M86.9 - Osteomyelitis, unspecified (3) Breast cancer, left breast Assessment/Plan: breast cancer with bone mets on anastrozole and monthly denosumab. oncology following Code(s): C50.912 - MALIGNANT NEOPLASM OF UNSPECIFIED SITE OF LEFT FEMALE BREAST Qualifiers: Breast location: upper outer quadrant of breast Estrogen receptor status: positive Patient sex: female Qualified Code(s): C50.412 - Malignant neoplasm of upper-outer quadrant of left female breast; Z17.0 - Estrogen receptor posit araseli status [ER+] (4) Diabetes Assessment/Plan: on levemir and novolog based on ss Code(s): E11.9 - TYPE 2 DIABETES MELLITUS WITHOUT COMPLICATIONS Qualifiers: Diabetes mellitus type: type 2 Diabetes mellitus intermediate card tender insulin use: with mcc use Diabetes mellitus complication status: with skin complications Diabetes mellitus complication detail: with foot ulcer Qualified Code(s): E11.621 - Type 2 diabetes mellitus with foot ulcer; L97.509 - Non-pressure chronic ulcer of other part of unspecified foot with unspecified severity; Z79.4 - rodent exterminator (current) use of insulin (5) HTN (hypertension) Assessment/Plan: bp stable, monitor Code(s): I10 - ESSENTIAL (PRIMARY) HYPERTENSION Qualifiers: Hypertension type: essential hypertension Qualified Code(s): I10 - Essential (primary) hypertension (6) 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
--- NOTE | 2020-02-01 11:13 | PN ---
Progress Note, Physician Chief Complaint: Pt being dc today. - Current Medication List Current Medications: Active Medications Acetaminophen (Tylenol -) 650 mg PO Q4H PRN PRN Reason: PAIN LEVEL 6-10 Last Admin: 01/29/20 17:41 Dose: 650 mg Documented by: Anastrozole (Arimidex -) 1 mg PO DAILY [facility] Last Admin: 02/01/20 10:22 Dose: 1 mg Documented by: Aspirin (Asa -) 81 mg PO DAILY [facility] Last Admin: 02/01/20 10:22 Dose: 81 mg Documented by: Atorvastatin Calcium (Lipitor -) 20 mg PO HS [facility] Last Admin: 01/31/20 21:02 Dose: 20 mg Documented by: Calcium Carbonate (Os-Anton 500mg -) 1,000 mg PO Q48H [facility] Last Admin: 02/01/20 10:21 Dose: 1,000 mg Documented by: Cholecalciferol (Vitamin D3 -) 1,000 unit PO DAILY [facility] Last Admin: 02/01/20 10:21 Dose: 1,000 unit Documented by: Diphenhydramine HCl (Benadryl -) 25 mg PO Q6H PRN PRN Reason: FOR ITCHING Last Admin: 02/01/20 10:21 Dose: 25 mg Documented by: Docusate Sodium (Colace -) 100 mg PO TID [facility] Last Admin: 02/01/20 06:26 Dose: 100 mg Documented by: Emollient Ointment (Aquaphor -) 1 applic TP BID [facility] Last Admin: 02/01/20 10:23 Dose: 1 applic Documented by: Enoxaparin Sodium (Lovenox -) 40 mg SQ DAILY [facility] Last Admin: 02/01/20 10:23 Dose: 40 mg Documented by: Gabapentin (Neurontin -) 300 mg PO TID [facility] Last Admin: 02/01/20 06:26 Dose: 300 mg Documented by: Piperacillin Sod/Tazobactam (Sod 3.375 gm/ Dextrose) 50 mls @ 100 mls/hr IVPB Q8H-IV [facility]; Protocol Last Admin: 02/01/20 10:20 Dose: 100 mls/hr Documented by: Insulin Aspart (Novolog Vial Sliding Scale -) 1 vial SQ TIDAC [facility]; Protocol Last Admin: 02/01/20 06:26 Dose: 4 units Documented by: Insulin Detemir (Levemir Vial) 20 units SQ [facility] Last Admin: 01/31/20 21:02 Dose: 20 units Documented by: Levothyroxine Sodium (Synthroid -) 50 mcg PO DAILY@0700 [facility] Last Admin: 02/01/20 06:26 Dose: 50 mcg Documented by: Magnesium Oxide (Mag-Ox -) 400 mg PO DAILY [facility] Last Admin: 02/01/20 10:22 Dose: 400 mg Documented by: Metoprolol Succinate (Toprol Xl -) 50 mg PO BID [facility] Last Admin: 02/01/20 10:21 Dose: 50 mg Documented by: Oxycodone HCl (Roxicodone -) 5 mg PO Q6H PRN PRN Reason: PAIN LEVEL 6-10 Last Admin: 02/01/20 10:22 Dose: 5 mg Documented by: Ramipril (Altace -) 5 mg PO BID [facility] Last Admin: 02/01/20 10:21 Dose: 5 mg Documented by: Senna (Senna -) 2 tab PO [facility] Last Admin: 01/31/20 21:09 Dose: Not Given Documented by: - Objective Vital Signs: Vital Signs Temperature 98.5 F 02/01/20 06:00 Pulse Rate 66 02/01/20 06:00 Respiratory Rate 18 01/31/20 22:00 Blood Pressure 130/63 02/01/20 06:00 O2 Sat by Pulse Oximetry (%) 97 02/01/20 06:00 Wound/Incision: Yes: Other (improving wound and cellulitis) Labs: CBC, BMP 02/01/20 07:15 02/01/20 07:15 INR, PTT INR 1.15 (0.83-1.09) H 01/25/20 12:00 Assessment/Plan om left heel (bone scan) grade 2-3 wound left heel cellulitis improving beatdine dressing change daily. FUV in [facility]. IVABX as per ID.
[2020-02-01 11:46] VITALS: BP 108/52
== END 2020-02-01 15:42 | disposition home health service (06) | DRG 638 ==
LOC: JER 10:39 → JERBED 14:31 → J6S 20:56
PROVIDERS: ATTEND Nurse Practitioner Family
PROC: B543ZZA Ultrasonography of Right Jugular Veins, Guidance (ICD-10-PCS; principal; 2020-02-01)
PROC: 05HM33Z Insertion of Infusion Device into Right Internal Jugular Vein, Percutaneous Approach (ICD-10-PCS; 2020-02-01)
PROC: 0JH63XZ Insertion of Tunneled Vascular Access Device into Chest Subcutaneous Tissue and Fascia, Percutaneous Approach (ICD-10-PCS; 2020-02-01)
DX: E11.69 Type 2 diabetes mellitus with other specified complication (principal); C79.51 Secondary malignant neoplasm of bone; M86.9 Osteomyelitis, unspecified; L03.116 Cellulitis of left lower limb; E11.621 Type 2 diabetes mellitus with foot ulcer; I25.10 Atherosclerotic heart disease of native coronary artery without angina pectoris; E03.9 Hypothyroidism, unspecified; C50.412 Malignant neoplasm of upper-outer quadrant of left female breast; D63.0 Anemia in neoplastic disease; L97.509 Non-pressure chronic ulcer of other part of unspecified foot with unspecified severity; K59.00 Constipation, unspecified; Z95.5 Presence of coronary angioplasty implant and graft; I10 Essential (primary) hypertension; E78.5 Hyperlipidemia, unspecified; D64.9 Anemia, unspecified
CPT/HCPCS: 36415; 36558; 71045-TC-FY; 72125-TC; 72128-TC; 72131-TC; 73630-TC-LT; 73700-TC-RT; 74019-TC-FY; 77001-TC-FY; 78315-TC; 80048; 80053; 82962; 83605; 83735; 84100; 85025; 85027; 85610; 85651; 85730; 86140; 86300; 87040; 87070; 87081; 87086; 87186; 87205; 93005; 93010; 93971-TC; 97116-GP; 97162-GP; 99285-25; A9503; C1751; G0463-25; J0131; J0897; U0003

== ENCOUNTER 2020-02-01 21:42 | Inpatient (IN) | payer OTHER, BC ==
[2020-02-01] MEDS ORDERED: PIPERACILLIN/TAZOB 3.375 GM 3.375 GM in DEXTROSE 5%-WATER - 50 ML IVPB ONE (23:01)
[2020-02-01 23:40] LABS: BASO % 1.3 % (0-2.0); EOS % 4.6 % (0-4.5); HEMATOCRIT 29.2 % (32.4-45.2); HEMOGLOBIN 9.7 GM/dL (10.7-15.3); LYMPH % 17.4 % (8-40); MCH 27.8 pg (25.7-33.7); MCHC 33.2 g/dl (32.0-36.0); MEAN CELL VOLUME 83.7 fl (80-96); MEAN PLT VOLUME 7.8 fl (7.5-11.1); NEUT % 68.7 % (42.8-82.8); PLATELET COUNT 299 K/MM3 (134-434); RBC 3.49 M/mm3 (3.60-5.2); RDW 15.8 % (11.6-15.6); WHITE BLOOD COUNT 6.4 K/mm3 (4.0-10.0)
[2020-02-01 23:50] LABS: INR 1.16 (0.83-1.09); PROTHROMBIN TIME (PATIENT) 13.7 SEC (9.7-13.0)
[2020-02-02 00:32] LABS: BLOOD UREA NITROGEN 12.1 mg/dL (7-18); CALCIUM 9.8 mg/dL (8.5-10.1); CREATININE 0.6 mg/dL (0.55-1.3); POTASSIUM 4.8 mmol/L (3.5-5.1)
[2020-02-02] MEDS ORDERED: PIPERACILLIN/TAZOB 3.375 GM 3.375 GM in DEXTROSE 5%-WATER - 50 ML IVPB SCH ×2 (02:00→10:00)
[2020-02-02 03:50] VITALS: BMI 26.8
[2020-02-02] MEDS ORDERED: INSULIN (NOVOLOG) ASPART 100 UNITS/ML 10ML VIAL ONE (06:29)
[2020-02-02] MEDS: INSULIN SLIDING SCALE (NOVOLOG) 1 VIAL SQ SCH ×4 (06:31→21:50)
[2020-02-02] MEDS ORDERED: PIPERACILLIN/TAZOBACTAM 3.375 GM VIAL IVPB ONE ×2 (08:48→17:26)
[2020-02-02] MEDS ORDERED: DEXTROSE 5%-WATER - 50 ML IVPB ONE (08:49)
[2020-02-02] MEDS ORDERED: CHOLECALCIFEROL (VIT D3) 400 UNIT (10 MCG) TABLET PO SCH (10:15)
[2020-02-02] MEDS: oxyCODONE HCL 5 MG TABLET PO PRN ×2 (10:23→18:29)
[2020-02-02] MEDS: diphenhydrAMINE HCL 25 MG CAPSULE (FP) PO PRN ×2 (10:23→18:29)
[2020-02-02] MEDS: ASPIRIN 81 MG CHEWABLE TABLETS PO SCH (11:52)
[2020-02-02] MEDS: RAMIPRIL 5 MG CAPSULE PO SCH ×2 (11:52→21:50)
[2020-02-02] MEDS: ANASTROZOLE 1 MG TABLET PO SCH (11:52)
[2020-02-02] MEDS: GABAPENTIN 300 MG CAPSULE PO SCH ×2 (14:40→21:51)
[2020-02-02] MEDS: POLYETHYLENE GLYCOL 3350 119 GM BTL PO SCH (14:42)
[2020-02-02] MEDS: DOCUSATE SODIUM 100 MG CAPSULE (FP) PO SCH ×2 (14:42→21:50)
[2020-02-02] MEDS: metoPROLOL SUCCINATE 25 MG TAB.SR.24H (FP) PO SCH ×2 (14:43→21:50)
[2020-02-02] MEDS ORDERED: SODIUM CHLORIDE 50 ML IVPB ONE (17:26)
[2020-02-02] MEDS: PIPERACILLIN/TAZOB 3.375 GM 3.375 GM in SODIUM CHLORIDE 50 ML IVPB SCH (17:49)
[2020-02-02] MEDS: INSULIN (LEVEMIR) 100 UNITS/ML UNITS SQ SCH (21:50)
[2020-02-02] MEDS: ATORVASTATIN CA 20 MG TABLET (FP) PO SCH (21:50)
[2020-02-03] MEDS ORDERED: PIPERACILLIN/TAZOBACTAM 3.375 GM VIAL IVPB ONE ×3 (01:50→16:41)
[2020-02-03] MEDS ORDERED: SODIUM CHLORIDE 50 ML IVPB ONE ×3 (01:50→16:41)
[2020-02-03] MEDS: PIPERACILLIN/TAZOB 3.375 GM 3.375 GM in SODIUM CHLORIDE 50 ML IVPB SCH ×3 (01:59→17:17)
[2020-02-03] MEDS: GABAPENTIN 300 MG CAPSULE PO SCH ×3 (06:24→22:18)
[2020-02-03] MEDS: INSULIN SLIDING SCALE (NOVOLOG) 1 VIAL SQ SCH ×4 (06:28→22:18)
[2020-02-03] MEDS: LEVOTHYROXINE NA 50 MCG TABLET (FP) PO SCH (06:28)
[2020-02-03] MEDS: DOCUSATE SODIUM 100 MG CAPSULE (FP) PO SCH (06:28)
[2020-02-03 08:41] LABS: BASO % 1.1 % (0-2.0); EOS % 5.4 % (0-4.5); HEMATOCRIT 28.4 % (32.4-45.2); HEMOGLOBIN 9.3 GM/dL (10.7-15.3); LYMPH % 24.6 % (8-40); MCH 27.3 pg (25.7-33.7); MCHC 32.6 g/dl (32.0-36.0); MEAN CELL VOLUME 83.8 fl (80-96); MEAN PLT VOLUME 7.7 fl (7.5-11.1); MONO % 8.6 % (3.8-10.2); NEUT % 60.3 % (42.8-82.8); PLATELET COUNT 265 K/MM3 (134-434); RBC 3.39 M/mm3 (3.60-5.2); RDW 15.9 % (11.6-15.6)
[2020-02-03 09:03] LABS: ALBUMIN 2.6 g/dl (3.4-5.0); BILIRUBIN,TOTAL 0.5 mg/dL (0.2-1); BLOOD UREA NITROGEN 13.8 mg/dL (7-18); CALCIUM 9.5 mg/dL (8.5-10.1); CREATININE 0.7 mg/dL (0.55-1.3); MAGNESIUM 1.5 mg/dL (1.8-2.4); TOT PROT 6.3 g/dl (6.4-8.2)
[2020-02-03 09:09] LABS: EPI CELLS 3 /uL (0-25.1); HYALINE CASTS 0 /uL (0-3.1); URINE APPEARANCE CLOUDY; URINE BACTERIA 19 /uL (0-1359); URINE BILIRUBIN NEGATIVE (NEGATIVE); URINE COLOR YELLOW; URINE GLUCOSE (UA) NEGATIVE (NEGATIVE); URINE KETONE NEGATIVE (NEGATIVE); URINE LEUK ESTERASE TRACE (NEGATIVE); URINE NITRITE NEGATIVE (NEGATIVE); URINE PROTEIN NEGATIVE (NEGATIVE); URINE RBC 10 /uL (0-23.9); URINE UROBILINOGEN 0.2 mg/dL (0.2-1.0); URINE WBC 14 /uL (0-25.8)
[2020-02-03] MEDS: ASPIRIN 81 MG CHEWABLE TABLETS PO SCH (09:12)
[2020-02-03] MEDS: RAMIPRIL 5 MG CAPSULE PO SCH ×2 (09:12→22:18)
[2020-02-03] MEDS: CHOLECALCIFEROL (VIT D3) 1,000 UNIT (25 MCG) TABLET PO SCH (09:13)
[2020-02-03] MEDS: metoPROLOL SUCCINATE 25 MG TAB.SR.24H (FP) PO SCH ×2 (09:13→22:18)
[2020-02-03] MEDS: ANASTROZOLE 1 MG TABLET PO SCH (09:13)
[2020-02-03] MEDS: VANCOMYCIN 250 MG/5 ML ORAL SOLUTION PO SCH ×3 (11:03→17:56)
[2020-02-03] MEDS: POLYETHYLENE GLYCOL 3350 119 GM BTL PO SCH (11:31)
[2020-02-03] MEDS ORDERED: FLU VACCINE (FLULAVAL) PF 60 MCG/0.5 ML SYRINGE 2020-2021 IM ONE (14:30)
[2020-02-03] MEDS: diphenhydrAMINE HCL 25 MG CAPSULE (FP) PO PRN (17:17)
[2020-02-03] MEDS: ATORVASTATIN CA 20 MG TABLET (FP) PO SCH (22:18)
[2020-02-03] MEDS: INSULIN (LEVEMIR) 100 UNITS/ML UNITS SQ SCH (22:18)
[2020-02-04] MEDS ORDERED: SODIUM CHLORIDE 50 ML IVPB ONE ×2 (01:58→10:40)
[2020-02-04] MEDS ORDERED: PIPERACILLIN/TAZOBACTAM 3.375 GM VIAL IVPB ONE ×3 (01:58→10:53)
[2020-02-04] MEDS: PIPERACILLIN/TAZOB 3.375 GM 3.375 GM in SODIUM CHLORIDE 50 ML IVPB SCH ×3 (02:27→18:40)
[2020-02-04] MEDS: LEVOTHYROXINE NA 50 MCG TABLET (FP) PO SCH (06:42)
[2020-02-04] MEDS: INSULIN SLIDING SCALE (NOVOLOG) 1 VIAL SQ SCH ×3 (06:43→17:06)
[2020-02-04] MEDS: GABAPENTIN 300 MG CAPSULE PO SCH ×2 (06:43→15:01)
[2020-02-04] MEDS: VANCOMYCIN 250 MG/5 ML ORAL SOLUTION PO SCH ×3 (06:43→18:39)
[2020-02-04 08:08] LABS: BASO % 1.4 % (0-2.0); EOS % 8.8 % (0-4.5); HEMATOCRIT 31.6 % (32.4-45.2); HEMOGLOBIN 10.1 GM/dL (10.7-15.3); MEAN CELL VOLUME 84.2 fl (80-96); MEAN PLT VOLUME 7.9 fl (7.5-11.1); MONO % 8.3 % (3.8-10.2); NEUT % 58.5 % (42.8-82.8); PLATELET COUNT 265 K/MM3 (134-434); RBC 3.75 M/mm3 (3.60-5.2); WHITE BLOOD COUNT 4.8 K/mm3 (4.0-10.0)
[2020-02-04 08:34] LABS: ALBUMIN 2.6 g/dl (3.4-5.0); BILIRUBIN,TOTAL 0.4 mg/dL (0.2-1); BLOOD UREA NITROGEN 17.3 mg/dL (7-18); CALCIUM 9.7 mg/dL (8.5-10.1); CREATININE 0.7 mg/dL (0.55-1.3); MAGNESIUM 1.5 mg/dL (1.8-2.4); POTASSIUM 4.3 mmol/L (3.5-5.1); TOT PROT 6.7 g/dl (6.4-8.2)
[2020-02-04] MEDS: RAMIPRIL 5 MG CAPSULE PO SCH (10:59)
[2020-02-04] MEDS: metoPROLOL SUCCINATE 25 MG TAB.SR.24H (FP) PO SCH (11:00)
[2020-02-04] MEDS: ASPIRIN 81 MG CHEWABLE TABLETS PO SCH (11:00)
[2020-02-04] MEDS: ANASTROZOLE 1 MG TABLET PO SCH (11:00)
[2020-02-04] MEDS: CHOLECALCIFEROL (VIT D3) 1,000 UNIT (25 MCG) TABLET PO SCH (11:01)
[2020-02-04] MEDS: oxyCODONE HCL 5 MG TABLET PO PRN (11:03)
[2020-02-04] MEDS ORDERED: PT OWN MED DRAWER 7, Y5N ONE (12:18)
[2020-02-04 18:03] VITALS: BP 133/71; PULSE 63; TEMP 98.1
[2020-02-04] MEDS ORDERED: INSULIN (NOVOLOG) ASPART 100 UNITS/ML 10ML VIAL ONE (18:37)
== END 2020-02-04 18:47 | disposition home or self-care (01) | DRG 315 ==
LOC: JER 21:42 → JERBED 23:42 → J5S 02-02 02:17
PROVIDERS: ADMIT Internal Medicine; ATTEND Nurse Practitioner Family
DX: T82.838A Hemorrhage due to vascular prosthetic devices, implants and grafts, initial encounter (principal); M86.9 Osteomyelitis, unspecified; A04.72 Enterocolitis due to Clostridium difficile, not specified as recurrent; I10 Essential (primary) hypertension; E78.5 Hyperlipidemia, unspecified; Y83.9 Surgical procedure, unspecified as the cause of abnormal reaction of the patient, or of later complication, without mention of misadventure at the time of the procedure; I25.10 Atherosclerotic heart disease of native coronary artery without angina pectoris; Z95.5 Presence of coronary angioplasty implant and graft; E11.9 Type 2 diabetes mellitus without complications; E03.9 Hypothyroidism, unspecified
CPT/HCPCS: 36415; 36558; 71045-TC-FY; 72125-TC; 72128-TC; 72131-TC; 73630-TC-LT; 73700-TC-RT; 74019-TC-FY; 76604-TC; 77001-TC-FY; 78315-TC; 80048; 80053; 81003; 82962; 83605; 83735; 84100; 85025; 85027; 85610; 85651; 85730; 86140; 86300; 87040; 87070; 87081; 87086; 87186; 87205; 87324; 87449; 93005; 93010; 93971-TC; 97116-GP; 97162-GP; 99285-25; A9503; C1751; G0008; G0463-25; J0131; J0897; Q2036; U0003

== ENCOUNTER 2020-03-26 05:57 | Day surgery (SDC) | payer OTHER, BC ==
[2020-03-26] MEDS ORDERED: DENOSUMAB 120 MG/1.7 ML VIAL SQ ONE (10:00)
[2020-03-26 12:08] LABS: BASO % 1.3 % (0-2.0); EOS % 10.5 % (0-4.5); HEMATOCRIT 30.6 % (32.4-45.2); HEMOGLOBIN 9.7 GM/dL (10.7-15.3); LYMPH % 26.9 % (8-40); MCH 24.6 pg (25.7-33.7); MCHC 31.6 g/dl (32.0-36.0); MEAN CELL VOLUME 77.9 fl (80-96); MEAN PLT VOLUME 8.2 fl (7.5-11.1); MONO % 9.7 % (3.8-10.2); NEUT % 51.6 % (42.8-82.8); PLATELET COUNT 290 K/MM3 (134-434); RBC 3.93 M/mm3 (3.60-5.2); RDW 16.7 % (11.6-15.6); WHITE BLOOD COUNT 5.2 K/mm3 (4.0-10.0)
[2020-03-26 12:35] LABS: CALCIUM 10.1 mg/dL (8.5-10.1)
[2020-03-26 12:36] LABS: ALBUMIN 2.8 g/dl (3.4-5.0); BLOOD UREA NITROGEN 12.4 mg/dL (7-18)
[2020-03-26 12:39] LABS: CREATININE 0.5 mg/dL (0.55-1.3)
[2020-03-26 12:40] LABS: BILIRUBIN,TOTAL 0.4 mg/dL (0.2-1); TOT PROT 6.8 g/dl (6.4-8.2)
[2020-03-26 15:02] VITALS: BP 146/51; PULSE 72; TEMP 98.8
== END 2020-03-26 13:00 | disposition home or self-care (01) ==
LOC: JONCCHEMO 05:57
PROVIDERS: ATTEND Internal Medicine Hematology & Oncology
PROC: 3E013GC Introduction of Other Therapeutic Substance into Subcutaneous Tissue, Percutaneous Approach (ICD-10-PCS; principal; 2020-03-26)
DX: C50.512 Malignant neoplasm of lower-outer quadrant of left female breast (principal); Z76.89 Persons encountering health services in other specified circumstances
CPT/HCPCS: 36415; 80053; 85025; 96372; J0897

== ENCOUNTER 2020-04-03 10:53 | Inpatient (IN) | payer OTHER, BC ==
[2020-04-03 13:06] LABS: POTASSIUM 4.5 mmol/L (3.5-5.1)
[2020-04-03 13:08] LABS: CALCIUM 9.1 mg/dL (8.5-10.1)
[2020-04-03 13:09] LABS: ALBUMIN 2.5 g/dl (3.4-5.0); BLOOD UREA NITROGEN 26.5 mg/dL (7-18)
[2020-04-03 13:12] LABS: CREATININE 0.7 mg/dL (0.55-1.3)
[2020-04-03 13:14] LABS: BILIRUBIN,TOTAL 0.5 mg/dL (0.2-1); TOT PROT 6.2 g/dl (6.4-8.2)
[2020-04-03] MEDS ORDERED: PIPERACILLIN/TAZOB 3.375 GM 3.375 GM/50 ML BAG IVPB ONE ×2 (14:26→20:05)
[2020-04-03] MEDS: PIPERACILLIN/TAZOB 3.375 GM 3.375 GM in DEXTROSE 5%-WATER - 50 ML IVPB SCH ×2 (14:31→20:11)
[2020-04-03 14:45] LABS: INR 1.28 (0.83-1.09); PROTHROMBIN TIME (PATIENT) 15.6 SEC (9.7-13.0)
[2020-04-03] MEDS ORDERED: VANCOMYCIN 1 GM in D5W (PRE-DOCKED) 1,000 MG/250 ML IVPB ONE (14:45)
[2020-04-03 14:48] LABS: ACTIVATED PTT 26.5 SECONDS (25.2-36.5)
[2020-04-03 14:52] LABS: BASO % 0.6 % (0-2.0); EOS % 1.3 % (0-4.5); HEMATOCRIT 26.3 % (32.4-45.2); HEMOGLOBIN 8.5 GM/dL (10.7-15.3); LYMPH % 9.1 % (8-40); MCH 24.8 pg (25.7-33.7); MCHC 32.4 g/dl (32.0-36.0); MEAN CELL VOLUME 76.5 fl (80-96); MEAN PLT VOLUME 8.6 fl (7.5-11.1); MONO % 10.1 % (3.8-10.2); NEUT % 78.9 % (42.8-82.8); PLATELET COUNT 329 K/MM3 (134-434); RBC 3.44 M/mm3 (3.60-5.2); RDW 17.3 % (11.6-15.6); WHITE BLOOD COUNT 7.5 K/mm3 (4.0-10.0)
[2020-04-03] MEDS ORDERED: VANCOMYCIN 1 GRAM (PRE-DOCKED) 1,000 MG/250 ML BAG IVPB ONE (14:59)
[2020-04-03] MEDS ORDERED: ACETAMINOPHEN 1000 MG/100 ML VIAL (NON FORMULARY) IVPB ONE (15:14)
[2020-04-03] MEDS ORDERED: ACETAMINOPHEN INJECTION 100 ML IVPB ONE (15:39)
[2020-04-03] MEDS ORDERED: COLLAGENASE CLOSTRIDIUM HIST. 30 GRAMS TUBE TP ONE (20:26)
[2020-04-03] MEDS: ANASTROZOLE 1 MG TABLET PO SCH (21:53)
[2020-04-03] MEDS ORDERED: RAMIPRIL 5 MG CAPSULE ONE (21:57)
[2020-04-03] MEDS ORDERED: ATORVASTATIN CA 20 MG TABLET (FP) ONE (21:57)
[2020-04-03] MEDS ORDERED: DOCUSATE SODIUM 100 MG CAPSULE (FP) PO ONE (21:58)
[2020-04-03] MEDS ORDERED: GABAPENTIN 100 MG CAPSULE ONE (21:58)
[2020-04-03] MEDS ORDERED: INSULIN (LEVEMIR) 100 UNITS/ML UNITS SQ SCH (22:00)
[2020-04-03] MEDS: metoPROLOL SUCCINATE 25 MG TAB.SR.24H (FP) PO SCH (22:05)
[2020-04-03] MEDS: RAMIPRIL 5 MG CAPSULE PO SCH (22:05)
[2020-04-03] MEDS: DOCUSATE SODIUM 100 MG CAPSULE (FP) PO SCH (22:05)
[2020-04-03] MEDS: GABAPENTIN 300 MG CAPSULE PO SCH (22:05)
[2020-04-03] MEDS: ATORVASTATIN CA 20 MG TABLET (FP) PO SCH (22:05)
[2020-04-03] MEDS: CALCIUM (OYSTER SHELL) 500 MG TABLET (FP) PO SCH (22:05)
[2020-04-03] MEDS ORDERED: INSULIN SLIDING SCALE (NOVOLOG) 1 VIAL SQ ONE ×2 (22:09→22:10)
[2020-04-03] MEDS: INSULIN (NOVOLOG) ASPART 100 UNITS/ML 10ML VIAL SQ SCH (22:16)
[2020-04-03] MEDS ORDERED: oxyCODONE HCL 5 MG TABLET ONE (22:19)
[2020-04-03] MEDS: oxyCODONE HCL 5 MG TABLET PO PRN (22:20)
[2020-04-04 01:21] LABS: URINE APPEARANCE CLEAR; URINE BILIRUBIN NEGATIVE (NEGATIVE); URINE COLOR YELLOW; URINE GLUCOSE (UA) NEGATIVE (NEGATIVE); URINE KETONE NEGATIVE (NEGATIVE); URINE LEUK ESTERASE 2+ (NEGATIVE); URINE NITRITE NEGATIVE (NEGATIVE); URINE PROTEIN NEGATIVE (NEGATIVE); URINE UROBILINOGEN 0.2 mg/dL (0.2-1.0)
[2020-04-04] MEDS ORDERED: PIPERACILLIN/TAZOB 3.375 GM 3.375 GM/50 ML BAG IVPB ONE ×2 (02:24→02:25)
[2020-04-04] MEDS: PIPERACILLIN/TAZOB 3.375 GM 3.375 GM in DEXTROSE 5%-WATER - 50 ML IVPB SCH ×3 (02:33→21:31)
[2020-04-04 06:16] VITALS: BMI 26.7
[2020-04-04 06:57] LABS: EPI CELLS 11.8 /uL (0-25.1); HYALINE CASTS 0.64 /uL (0-3.1); URINE RBC 37.1 /uL (0-23.9); URINE WBC 198.7 /uL (0-25.8)
[2020-04-04 06:58] LABS: URINE BACTERIA 300.1 /uL (0-1359); URINE CRYSTALS NONE SEEN /hpf
[2020-04-04] MEDS: GABAPENTIN 300 MG CAPSULE PO SCH ×3 (07:08→21:38)
[2020-04-04] MEDS: LEVOTHYROXINE NA 50 MCG TABLET (FP) PO SCH (07:08)
[2020-04-04] MEDS: DOCUSATE SODIUM 100 MG CAPSULE (FP) PO SCH ×3 (07:08→21:38)
[2020-04-04] MEDS: INSULIN (NOVOLOG) ASPART 100 UNITS/ML 10ML VIAL SQ SCH ×4 (07:09→21:39)
[2020-04-04 08:36] LABS: HEMATOCRIT 27.5 % (32.4-45.2); HEMOGLOBIN 8.6 GM/dL (10.7-15.3); MCHC 31.5 g/dl (32.0-36.0); MEAN CELL VOLUME 76.2 fl (80-96); MEAN PLT VOLUME 7.9 fl (7.5-11.1); PLATELET COUNT 287 K/MM3 (134-434); RDW 16.7 % (11.6-15.6); WHITE BLOOD COUNT 5.4 K/mm3 (4.0-10.0)
[2020-04-04 08:54] LABS: POTASSIUM 3.8 mmol/L (3.5-5.1)
[2020-04-04 09:04] LABS: ALBUMIN 2.1 g/dl (3.4-5.0); BILIRUBIN,TOTAL 0.4 mg/dL (0.2-1); TOT PROT 5.5 g/dl (6.4-8.2)
[2020-04-04 09:05] LABS: CALCIUM 8.5 mg/dL (8.5-10.1)
[2020-04-04 09:06] LABS: BLOOD UREA NITROGEN 14.5 mg/dL (7-18); MAGNESIUM 1.5 mg/dL (1.8-2.4)
[2020-04-04 09:07] LABS: CREATININE 0.6 mg/dL (0.55-1.3); PHOSPHOROUS 1.8 mg/dL (2.5-4.9)
[2020-04-04] MEDS ORDERED: PT OWN MED DRAWER 7, Y5N ONE (09:32)
[2020-04-04] MEDS ORDERED: PIPERACILLIN/TAZOBACTAM 3.375 GM VIAL IVPB ONE ×2 (09:32→18:11)
[2020-04-04] MEDS ORDERED: DEXTROSE 5%-WATER - 50 ML IVPB ONE ×2 (09:32→18:11)
[2020-04-04] MEDS ORDERED: MAGNESIUM 30 MG PO SCH (10:00)
[2020-04-04] MEDS: ANASTROZOLE 1 MG TABLET PO SCH (10:51)
[2020-04-04] MEDS: ASPIRIN 81 MG CHEWABLE TABLETS PO SCH (10:51)
[2020-04-04] MEDS ORDERED: FERRIC CARBOXYMALTOSE 750 MG in SODIUM CHLORIDE 250 ML IVPB ONE (14:30)
[2020-04-04] MEDS: metoPROLOL SUCCINATE 25 MG TAB.SR.24H (FP) PO SCH ×2 (15:06→21:37)
[2020-04-04] MEDS: RAMIPRIL 5 MG CAPSULE PO SCH ×2 (15:06→21:38)
[2020-04-04] MEDS: oxyCODONE HCL 5 MG TABLET PO PRN (15:45)
[2020-04-04] MEDS: MAGNESIUM CL 64 MG TABLET.SA PO SCH (15:47)
[2020-04-04] MEDS: ATORVASTATIN CA 20 MG TABLET (FP) PO SCH (21:38)
[2020-04-04] MEDS: INSULIN (LEVEMIR) 100 UNITS/ML UNITS SQ SCH (21:39)
[2020-04-05] MEDS ORDERED: DEXTROSE 5%-WATER - 50 ML IVPB ONE ×3 (01:15→17:12)
[2020-04-05] MEDS ORDERED: PIPERACILLIN/TAZOBACTAM 3.375 GM VIAL IVPB ONE ×3 (01:15→17:12)
[2020-04-05] MEDS: PIPERACILLIN/TAZOB 3.375 GM 3.375 GM in DEXTROSE 5%-WATER - 50 ML IVPB SCH ×3 (03:41→18:40)
[2020-04-05] MEDS: LEVOTHYROXINE NA 50 MCG TABLET (FP) PO SCH (06:33)
[2020-04-05] MEDS: DOCUSATE SODIUM 100 MG CAPSULE (FP) PO SCH ×3 (06:33→21:40)
[2020-04-05] MEDS: GABAPENTIN 300 MG CAPSULE PO SCH ×3 (06:33→21:41)
[2020-04-05] MEDS: INSULIN (NOVOLOG) ASPART 100 UNITS/ML 10ML VIAL SQ SCH ×4 (06:42→21:53)
[2020-04-05] MEDS: oxyCODONE HCL 5 MG TABLET PO PRN (06:42)
[2020-04-05] MEDS ORDERED: INSULIN (NOVOLOG) ASPART 100 UNITS/ML 10ML VIAL ONE (07:55)
[2020-04-05] MEDS ORDERED: PT OWN MED DRAWER 7, Y5N ONE (09:49)
[2020-04-05] MEDS: metoPROLOL SUCCINATE 25 MG TAB.SR.24H (FP) PO SCH ×2 (10:39→21:42)
[2020-04-05] MEDS: ANASTROZOLE 1 MG TABLET PO SCH (10:39)
[2020-04-05] MEDS: RAMIPRIL 5 MG CAPSULE PO SCH ×2 (10:39→21:40)
[2020-04-05] MEDS: ASPIRIN 81 MG CHEWABLE TABLETS PO SCH (10:39)
[2020-04-05] MEDS: MAGNESIUM CL 64 MG TABLET.SA PO SCH (12:08)
[2020-04-05] MEDS: CALCIUM (OYSTER SHELL) 500 MG TABLET (FP) PO SCH (21:40)
[2020-04-05] MEDS: HEPARIN NA (PORCINE) 5,000 UNITS/ML 1ML VIAL SQ SCH (21:40)
[2020-04-05] MEDS: ATORVASTATIN CA 20 MG TABLET (FP) PO SCH (21:41)
[2020-04-05] MEDS: INSULIN (LEVEMIR) 100 UNITS/ML UNITS SQ SCH (21:41)
[2020-04-06] MEDS: oxyCODONE HCL 5 MG TABLET PO PRN ×2 (00:17→13:01)
[2020-04-06] MEDS ORDERED: PIPERACILLIN/TAZOBACTAM 3.375 GM VIAL IVPB ONE ×3 (01:02→16:20)
[2020-04-06] MEDS ORDERED: DEXTROSE 5%-WATER - 50 ML IVPB ONE ×3 (01:02→16:21)
[2020-04-06] MEDS: PIPERACILLIN/TAZOB 3.375 GM 3.375 GM in DEXTROSE 5%-WATER - 50 ML IVPB SCH ×3 (01:57→17:02)
[2020-04-06] MEDS: DOCUSATE SODIUM 100 MG CAPSULE (FP) PO SCH ×3 (05:24→22:02)
[2020-04-06] MEDS: GABAPENTIN 300 MG CAPSULE PO SCH ×3 (06:03→22:02)
[2020-04-06] MEDS: LEVOTHYROXINE NA 50 MCG TABLET (FP) PO SCH (06:03)
[2020-04-06] MEDS: INSULIN (NOVOLOG) ASPART 100 UNITS/ML 10ML VIAL SQ SCH ×4 (06:28→21:59)
[2020-04-06 08:48] LABS: EOS % 13.3 % (0-4.5); HEMATOCRIT 29.9 % (32.4-45.2); HEMOGLOBIN 9.5 GM/dL (10.7-15.3); LYMPH % 14.7 % (8-40); MCH 24.4 pg (25.7-33.7); MCHC 31.8 g/dl (32.0-36.0); MEAN CELL VOLUME 76.8 fl (80-96); MEAN PLT VOLUME 8.3 fl (7.5-11.1); PLATELET COUNT 297 K/MM3 (134-434); RBC 3.89 M/mm3 (3.60-5.2); RDW 16.7 % (11.6-15.6); WHITE BLOOD COUNT 5.4 K/mm3 (4.0-10.0)
[2020-04-06 10:31] LABS: POTASSIUM 4.2 mmol/L (3.5-5.1)
[2020-04-06] MEDS: RAMIPRIL 5 MG CAPSULE PO SCH ×2 (10:32→22:02)
[2020-04-06] MEDS: ANASTROZOLE 1 MG TABLET PO SCH (10:32)
[2020-04-06] MEDS: ASPIRIN 81 MG CHEWABLE TABLETS PO SCH (10:32)
[2020-04-06 10:33] LABS: CALCIUM 8.9 mg/dL (8.5-10.1)
[2020-04-06] MEDS: HEPARIN NA (PORCINE) 5,000 UNITS/ML 1ML VIAL SQ SCH ×2 (10:33→21:56)
[2020-04-06] MEDS: metoPROLOL SUCCINATE 25 MG TAB.SR.24H (FP) PO SCH ×2 (10:33→22:02)
[2020-04-06 10:34] LABS: BLOOD UREA NITROGEN 9.4 mg/dL (7-18)
[2020-04-06 10:37] LABS: CREATININE 0.5 mg/dL (0.55-1.3)
[2020-04-06 10:38] LABS: BILIRUBIN,TOTAL 0.3 mg/dL (0.2-1); TOT PROT 5.3 g/dl (6.4-8.2)
[2020-04-06] MEDS ORDERED: INSULIN (NOVOLOG) ASPART 100 UNITS/ML 10ML VIAL ONE ×2 (11:15→16:19)
[2020-04-06] MEDS: INSULIN (LEVEMIR) 100 UNITS/ML UNITS SQ SCH (22:01)
[2020-04-06] MEDS: ATORVASTATIN CA 20 MG TABLET (FP) PO SCH (22:02)
[2020-04-07] MEDS ORDERED: DEXTROSE 5%-WATER - 50 ML IVPB ONE ×3 (01:21→17:19)
[2020-04-07] MEDS ORDERED: PIPERACILLIN/TAZOBACTAM 3.375 GM VIAL IVPB ONE ×3 (01:21→17:19)
[2020-04-07] MEDS: PIPERACILLIN/TAZOB 3.375 GM 3.375 GM in DEXTROSE 5%-WATER - 50 ML IVPB SCH ×3 (01:23→17:21)
[2020-04-07] MEDS: LEVOTHYROXINE NA 50 MCG TABLET (FP) PO SCH (06:26)
[2020-04-07] MEDS: GABAPENTIN 300 MG CAPSULE PO SCH ×3 (06:26→22:35)
[2020-04-07] MEDS: DOCUSATE SODIUM 100 MG CAPSULE (FP) PO SCH ×3 (06:26→22:35)
[2020-04-07] MEDS: INSULIN (NOVOLOG) ASPART 100 UNITS/ML 10ML VIAL SQ SCH ×4 (06:36→22:33)
[2020-04-07 09:15] LABS: BASO % 0.8 % (0-2.0); EOS % 10.4 % (0-4.5); HEMATOCRIT 28.3 % (32.4-45.2); HEMOGLOBIN 9.2 GM/dL (10.7-15.3); LYMPH % 13.5 % (8-40); MCH 24.8 pg (25.7-33.7); MCHC 32.6 g/dl (32.0-36.0); MEAN CELL VOLUME 76.1 fl (80-96); MEAN PLT VOLUME 8.1 fl (7.5-11.1); MONO % 7.7 % (3.8-10.2); NEUT % 67.6 % (42.8-82.8); PLATELET COUNT 323 K/MM3 (134-434); RBC 3.71 M/mm3 (3.60-5.2); RDW 16.9 % (11.6-15.6); WHITE BLOOD COUNT 6.2 K/mm3 (4.0-10.0)
[2020-04-07 09:31] LABS: POTASSIUM 4.4 mmol/L (3.5-5.1)
[2020-04-07 09:39] LABS: BLOOD UREA NITROGEN 9.9 mg/dL (7-18)
[2020-04-07 09:40] LABS: BILIRUBIN,TOTAL 0.6 mg/dL (0.2-1); CALCIUM 8.7 mg/dL (8.5-10.1); TOT PROT 5.4 g/dl (6.4-8.2)
[2020-04-07 09:42] LABS: CREATININE 0.5 mg/dL (0.55-1.3)
[2020-04-07] MEDS: ANASTROZOLE 1 MG TABLET PO SCH (09:52)
[2020-04-07] MEDS: HEPARIN NA (PORCINE) 5,000 UNITS/ML 1ML VIAL SQ SCH ×2 (09:53→22:33)
[2020-04-07] MEDS: RAMIPRIL 5 MG CAPSULE PO SCH ×2 (09:53→22:37)
[2020-04-07] MEDS: metoPROLOL SUCCINATE 25 MG TAB.SR.24H (FP) PO SCH ×2 (09:53→22:36)
[2020-04-07] MEDS: ASPIRIN 81 MG CHEWABLE TABLETS PO SCH (09:53)
[2020-04-07] MEDS ORDERED: oxyCODONE HCL 5 MG TABLET PO ONE (21:53)
[2020-04-07] MEDS: INSULIN (LEVEMIR) 100 UNITS/ML UNITS SQ SCH (22:34)
[2020-04-07] MEDS: CALCIUM (OYSTER SHELL) 500 MG TABLET (FP) PO SCH (22:35)
[2020-04-07] MEDS: ATORVASTATIN CA 20 MG TABLET (FP) PO SCH (22:36)
[2020-04-07 22:43] LABS: PROTHROMBIN TIME (PATIENT) 15.8 SEC (9.7-13.0)
[2020-04-07 22:44] LABS: INR 1.29 (0.83-1.09)
[2020-04-08] MEDS ORDERED: DEXTROSE 5%-WATER - 50 ML IVPB ONE ×3 (01:07→17:22)
[2020-04-08] MEDS ORDERED: PIPERACILLIN/TAZOBACTAM 3.375 GM VIAL IVPB ONE ×4 (01:07→17:22)
[2020-04-08] MEDS: PIPERACILLIN/TAZOB 3.375 GM 3.375 GM in DEXTROSE 5%-WATER - 50 ML IVPB SCH ×3 (02:33→17:24)
[2020-04-08] MEDS: INSULIN (NOVOLOG) ASPART 100 UNITS/ML 10ML VIAL SQ SCH ×2 (06:10→13:51)
[2020-04-08] MEDS: LEVOTHYROXINE NA 50 MCG TABLET (FP) PO SCH (06:11)
[2020-04-08] MEDS: GABAPENTIN 300 MG CAPSULE PO SCH ×3 (06:11→23:12)
[2020-04-08] MEDS: DOCUSATE SODIUM 100 MG CAPSULE (FP) PO SCH ×3 (06:11→23:10)
[2020-04-08 08:43] LABS: BASO % 1.1 % (0-2.0); EOS % 9.4 % (0-4.5); HEMATOCRIT 27.4 % (32.4-45.2); HEMOGLOBIN 8.7 GM/dL (10.7-15.3); LYMPH % 15.1 % (8-40); MCH 24.5 pg (25.7-33.7); MCHC 31.7 g/dl (32.0-36.0); MEAN CELL VOLUME 77.3 fl (80-96); MEAN PLT VOLUME 8.4 fl (7.5-11.1); NEUT % 66.4 % (42.8-82.8); PLATELET COUNT 325 K/MM3 (134-434); RBC 3.54 M/mm3 (3.60-5.2); RDW 17.1 % (11.6-15.6)
[2020-04-08] MEDS ORDERED: PT OWN MED DRAWER 7, Y5N ONE (08:48)
[2020-04-08 08:55] LABS: POTASSIUM 4.4 mmol/L (3.5-5.1)
[2020-04-08 08:56] LABS: INR 1.17 (0.83-1.09); PROTHROMBIN TIME (PATIENT) 14.1 SEC (9.7-13.0)
[2020-04-08 08:57] LABS: ACTIVATED PTT 28.5 SECONDS (25.2-36.5)
[2020-04-08 09:03] LABS: ALBUMIN 2.1 g/dl (3.4-5.0); BLOOD UREA NITROGEN 10.7 mg/dL (7-18); CALCIUM 8.7 mg/dL (8.5-10.1); MAGNESIUM 1.3 mg/dL (1.8-2.4)
[2020-04-08 09:06] LABS: CREATININE 0.6 mg/dL (0.55-1.3)
[2020-04-08 09:08] LABS: BILIRUBIN,TOTAL 0.9 mg/dL (0.2-1); TOT PROT 5.6 g/dl (6.4-8.2)
[2020-04-08 09:09] LABS: PHOSPHOROUS 1.2 mg/dL (2.5-4.9)
[2020-04-08] MEDS ORDERED: BUPIVACAINE HCL/PF 0.5% (5 MG/ML) 30 ML VIAL IJ ONE (10:25)
[2020-04-08] MEDS ORDERED: LIDOCAINE HCL 1%, 10 MG/ML (20ML VIAL) INF ONE (10:25)
[2020-04-08] MEDS ORDERED: MIDAZOLAM HCL 2 MG/2 ML SINGLE DOSE VIAL ONE (10:28)
[2020-04-08] MEDS ORDERED: PROPOFOL 20 ML ONE (10:28)
[2020-04-08] MEDS ORDERED: BACITRACIN 50,000 UNITS VIAL TP ONE (10:30)
[2020-04-08] MEDS ORDERED: ONDANSETRON 4 MG/2 ML VIAL IVPUSH PRN (11:41)
[2020-04-08] MEDS ORDERED: MAGNESIUM SULF 50% (8.12 MEQ/2 ML-1 GM VIAL) IVPB ONE (12:00)
[2020-04-08 13:00] LABS: BASO % 0.9 % (0-2.0); HEMATOCRIT 29.3 % (32.4-45.2); HEMOGLOBIN 9.2 GM/dL (10.7-15.3); LYMPH % 10.1 % (8-40); MCH 24.3 pg (25.7-33.7); MCHC 31.6 g/dl (32.0-36.0); MEAN PLT VOLUME 8.1 fl (7.5-11.1); PLATELET COUNT 304 K/MM3 (134-434); RDW 16.9 % (11.6-15.6); WHITE BLOOD COUNT 7.6 K/mm3 (4.0-10.0)
[2020-04-08] MEDS: ASPIRIN 81 MG CHEWABLE TABLETS PO SCH (13:37)
[2020-04-08] MEDS: ANASTROZOLE 1 MG TABLET PO SCH ×2 (13:47→13:50)
[2020-04-08] MEDS: NAPH,MB-DB/K PH,MBDB POWDER PACKET PO SCH ×2 (13:47→23:09)
[2020-04-08] MEDS: RAMIPRIL 5 MG CAPSULE PO SCH ×3 (13:49→23:11)
[2020-04-08] MEDS: metoPROLOL SUCCINATE 25 MG TAB.SR.24H (FP) PO SCH (13:50)
[2020-04-08] MEDS ORDERED: INSULIN (NOVOLOG) ASPART 100 UNITS/ML 10ML VIAL SQ SCH (16:30)
[2020-04-08] MEDS: INSULIN SLIDING SCALE (NOVOLOG) 1 VIAL SQ SCH ×2 (18:43→23:09)
[2020-04-08] MEDS: ATORVASTATIN CA 20 MG TABLET (FP) PO SCH (23:10)
[2020-04-08] MEDS: HEPARIN NA (PORCINE) 5,000 UNITS/ML 1ML VIAL SQ SCH (23:11)
[2020-04-08] MEDS: INSULIN (LEVEMIR) 100 UNITS/ML UNITS SQ SCH (23:12)
[2020-04-09] MEDS ORDERED: DEXTROSE 5%-WATER - 50 ML IVPB ONE ×3 (02:09→17:03)
[2020-04-09] MEDS ORDERED: PIPERACILLIN/TAZOBACTAM 3.375 GM VIAL IVPB ONE ×3 (02:09→17:02)
[2020-04-09] MEDS: PIPERACILLIN/TAZOB 3.375 GM 3.375 GM in DEXTROSE 5%-WATER - 50 ML IVPB SCH ×3 (02:32→17:17)
[2020-04-09] MEDS: DOCUSATE SODIUM 100 MG CAPSULE (FP) PO SCH ×3 (06:32→21:35)
[2020-04-09] MEDS: GABAPENTIN 300 MG CAPSULE PO SCH ×3 (06:32→21:35)
[2020-04-09] MEDS: LEVOTHYROXINE NA 50 MCG TABLET (FP) PO SCH (06:32)
[2020-04-09] MEDS: INSULIN SLIDING SCALE (NOVOLOG) 1 VIAL SQ SCH ×4 (06:35→21:47)
[2020-04-09 09:24] LABS: BASO % 0.8 % (0-2.0); EOS % 5.1 % (0-4.5); HEMATOCRIT 25.7 % (32.4-45.2); HEMOGLOBIN 7.9 GM/dL (10.7-15.3); LYMPH % 16.4 % (8-40); MCH 23.5 pg (25.7-33.7); MCHC 30.8 g/dl (32.0-36.0); MEAN CELL VOLUME 76.3 fl (80-96); MEAN PLT VOLUME 8.1 fl (7.5-11.1); MONO % 7.1 % (3.8-10.2); NEUT % 70.6 % (42.8-82.8); PLATELET COUNT 296 K/MM3 (134-434); RBC 3.37 M/mm3 (3.60-5.2); RDW 17.3 % (11.6-15.6); WHITE BLOOD COUNT 6.5 K/mm3 (4.0-10.0)
[2020-04-09 09:46] LABS: POTASSIUM 3.9 mmol/L (3.5-5.1)
[2020-04-09] MEDS ORDERED: PT OWN MED DRAWER 7, Y5N ONE (09:50)
[2020-04-09] MEDS: HEPARIN NA (PORCINE) 5,000 UNITS/ML 1ML VIAL SQ SCH (09:54)
[2020-04-09] MEDS: ANASTROZOLE 1 MG TABLET PO SCH (09:55)
[2020-04-09] MEDS: RAMIPRIL 5 MG CAPSULE PO SCH ×2 (09:55→21:47)
[2020-04-09] MEDS: ASPIRIN 81 MG CHEWABLE TABLETS PO SCH (09:55)
[2020-04-09 10:06] LABS: ALBUMIN 1.8 g/dl (3.4-5.0)
[2020-04-09 10:07] LABS: BLOOD UREA NITROGEN 10.2 mg/dL (7-18); CALCIUM 8.2 mg/dL (8.5-10.1)
[2020-04-09 10:08] LABS: MAGNESIUM 1.5 mg/dL (1.8-2.4)
[2020-04-09 10:09] LABS: BILIRUBIN,TOTAL 0.7 mg/dL (0.2-1)
[2020-04-09 10:12] LABS: CREATININE 0.6 mg/dL (0.55-1.3); TOT PROT 4.9 g/dl (6.4-8.2)
[2020-04-09 10:16] LABS: PHOSPHOROUS 1.2 mg/dL (2.5-4.9)
[2020-04-09] MEDS: ENOXAPARIN NA (PORCINE) 40 MG/0.4 ML DISP.SYRIN SQ SCH (18:05)
[2020-04-09] MEDS ORDERED: oxyCODONE HCL 5 MG TABLET PO ONE (20:45)
[2020-04-09] MEDS ORDERED: ACETAMINOPHEN 325 MG TABLET (FP) PO ONE (20:45)
[2020-04-09] MEDS: CALCIUM (OYSTER SHELL) 500 MG TABLET (FP) PO SCH (21:35)
[2020-04-09] MEDS: ATORVASTATIN CA 20 MG TABLET (FP) PO SCH (21:35)
[2020-04-09] MEDS: INSULIN (LEVEMIR) 100 UNITS/ML UNITS SQ SCH (21:47)
[2020-04-10] MEDS ORDERED: DEXTROSE 5%-WATER - 50 ML IVPB ONE ×3 (02:38→16:36)
[2020-04-10] MEDS ORDERED: PIPERACILLIN/TAZOBACTAM 3.375 GM VIAL IVPB ONE ×3 (02:38→16:35)
[2020-04-10] MEDS: PIPERACILLIN/TAZOB 3.375 GM 3.375 GM in DEXTROSE 5%-WATER - 50 ML IVPB SCH ×3 (03:01→17:11)
[2020-04-10] MEDS: GABAPENTIN 300 MG CAPSULE PO SCH ×3 (06:24→21:51)
[2020-04-10] MEDS: DOCUSATE SODIUM 100 MG CAPSULE (FP) PO SCH ×3 (06:24→21:52)
[2020-04-10] MEDS: LEVOTHYROXINE NA 50 MCG TABLET (FP) PO SCH (06:33)
[2020-04-10] MEDS: INSULIN SLIDING SCALE (NOVOLOG) 1 VIAL SQ SCH ×4 (06:37→21:59)
[2020-04-10] MEDS: ANASTROZOLE 1 MG TABLET PO SCH (10:34)
[2020-04-10] MEDS: ENOXAPARIN NA (PORCINE) 40 MG/0.4 ML DISP.SYRIN SQ SCH (10:34)
[2020-04-10] MEDS: ASPIRIN 81 MG CHEWABLE TABLETS PO SCH (10:34)
[2020-04-10] MEDS: INSULIN (LEVEMIR) 100 UNITS/ML UNITS SQ SCH ×2 (10:34→22:00)
[2020-04-10] MEDS: RAMIPRIL 5 MG CAPSULE PO SCH ×2 (10:34→21:51)
[2020-04-10] MEDS ORDERED: INSULIN (NOVOLOG) ASPART 100 UNITS/ML 10ML VIAL ONE (10:43)
[2020-04-10 11:10] LABS: BASO % 0.6 % (0-2.0); EOS % 6.8 % (0-4.5); HEMATOCRIT 28.1 % (32.4-45.2); HEMOGLOBIN 8.6 GM/dL (10.7-15.3); LYMPH % 14.5 % (8-40); MCH 23.7 pg (25.7-33.7); MCHC 30.5 g/dl (32.0-36.0); MEAN CELL VOLUME 77.6 fl (80-96); MEAN PLT VOLUME 8.1 fl (7.5-11.1); MONO % 10.8 % (3.8-10.2); NEUT % 67.3 % (42.8-82.8); PLATELET COUNT 283 K/MM3 (134-434); RBC 3.61 M/mm3 (3.60-5.2); RDW 17.6 % (11.6-15.6); WHITE BLOOD COUNT 7.8 K/mm3 (4.0-10.0)
[2020-04-10 11:31] LABS: POTASSIUM 4.3 mmol/L (3.5-5.1)
[2020-04-10 11:34] LABS: CALCIUM 8.6 mg/dL (8.5-10.1)
[2020-04-10 11:35] LABS: BLOOD UREA NITROGEN 12.7 mg/dL (7-18); MAGNESIUM 1.7 mg/dL (1.8-2.4)
[2020-04-10 11:38] LABS: CREATININE 0.6 mg/dL (0.55-1.3); PHOSPHOROUS 1.4 mg/dL (2.5-4.9)
[2020-04-10 11:40] LABS: TOT PROT 5.2 g/dl (6.4-8.2)
[2020-04-10] MEDS ORDERED: MAGNESIUM 1GM/D5W 100ML - 100 ML IVPB IVPB ONE (15:45)
[2020-04-10] MEDS: NAPH,MB-DB/K PH,MBDB POWDER PACKET PO SCH ×2 (17:11→21:52)
[2020-04-10] MEDS ORDERED: oxyCODONE HCL 5 MG TABLET PO ONE (21:21)
[2020-04-10] MEDS: ATORVASTATIN CA 20 MG TABLET (FP) PO SCH (21:52)
[2020-04-11] MEDS ORDERED: DEXTROSE 5%-WATER - 50 ML IVPB ONE ×3 (01:42→18:18)
[2020-04-11] MEDS ORDERED: PIPERACILLIN/TAZOBACTAM 3.375 GM VIAL IVPB ONE ×3 (01:42→18:18)
[2020-04-11] MEDS: PIPERACILLIN/TAZOB 3.375 GM 3.375 GM in DEXTROSE 5%-WATER - 50 ML IVPB SCH ×3 (01:53→18:34)
[2020-04-11] MEDS: GABAPENTIN 300 MG CAPSULE PO SCH ×3 (05:55→23:24)
[2020-04-11] MEDS: DOCUSATE SODIUM 100 MG CAPSULE (FP) PO SCH ×3 (05:55→23:22)
[2020-04-11] MEDS: INSULIN (LEVEMIR) 100 UNITS/ML UNITS SQ SCH ×2 (05:59→23:22)
[2020-04-11] MEDS: LEVOTHYROXINE NA 50 MCG TABLET (FP) PO SCH (05:59)
[2020-04-11] MEDS: INSULIN SLIDING SCALE (NOVOLOG) 1 VIAL SQ SCH ×3 (05:59→18:49)
[2020-04-11 09:54] LABS: POTASSIUM 4.4 mmol/L (3.5-5.1)
[2020-04-11 09:55] LABS: CALCIUM 8.3 mg/dL (8.5-10.1)
[2020-04-11 09:58] LABS: BLOOD UREA NITROGEN 9.6 mg/dL (7-18)
[2020-04-11 09:59] LABS: MAGNESIUM 1.7 mg/dL (1.8-2.4)
[2020-04-11 10:02] LABS: CREATININE 0.5 mg/dL (0.55-1.3); PHOSPHOROUS 1.6 mg/dL (2.5-4.9)
[2020-04-11] MEDS: ENOXAPARIN NA (PORCINE) 40 MG/0.4 ML DISP.SYRIN SQ SCH (11:15)
[2020-04-11] MEDS: ASPIRIN 81 MG CHEWABLE TABLETS PO SCH (11:15)
[2020-04-11] MEDS: ANASTROZOLE 1 MG TABLET PO SCH (11:16)
[2020-04-11] MEDS: CALCIUM (OYSTER SHELL) 500 MG TABLET (FP) PO SCH (11:16)
[2020-04-11] MEDS: RAMIPRIL 5 MG CAPSULE PO SCH ×2 (11:16→23:24)
[2020-04-11 11:54] LABS: INR 1.18 (0.83-1.09); PROTHROMBIN TIME (PATIENT) 14.5 SEC (9.7-13.0)
[2020-04-11] MEDS ORDERED: NAPH,MB-DB/K PH,MBDB POWDER PACKET PO SCH (14:32)
[2020-04-11] MEDS ORDERED: MAGNESIUM 1GM/D5W 100ML - 100 ML IVPB IVPB ONE ×2 (14:45→18:00)
[2020-04-11] MEDS ORDERED: LIDOCAINE HCL 1%, 10 MG/ML (20ML VIAL) ONE (15:37)
[2020-04-11] MEDS ORDERED: LIDOCAINE HCL 1%, 10 MG/ML (20ML VIAL) INF ONE (16:50)
[2020-04-11] MEDS ORDERED: ONDANSETRON 4 MG/2 ML VIAL IVPUSH PRN (16:54)
[2020-04-11 18:08] LABS: EOS % 6.7 % (0-4.5); HEMATOCRIT 28.7 % (32.4-45.2); HEMOGLOBIN 8.5 GM/dL (10.7-15.3); LYMPH % 16.3 % (8-40); MCH 23.7 pg (25.7-33.7); MCHC 29.7 g/dl (32.0-36.0); MEAN CELL VOLUME 79.9 fl (80-96); MEAN PLT VOLUME 8.2 fl (7.5-11.1); MONO % 8.5 % (3.8-10.2); NEUT % 67.5 % (42.8-82.8); PLATELET COUNT 117 K/MM3 (134-434); RBC 3.59 M/mm3 (3.60-5.2); RDW 18.2 % (11.6-15.6); WHITE BLOOD COUNT 6.2 K/mm3 (4.0-10.0)
[2020-04-11] MEDS ORDERED: ACETAMINOPHEN 1000 MG/100 ML VIAL (NON FORMULARY) IVPB ONE (23:17)
[2020-04-11] MEDS: ATORVASTATIN CA 20 MG TABLET (FP) PO SCH (23:24)
[2020-04-11] MEDS: NAPH,MB-DB/K PH,MBDB POWDER PACKET PO SCH (23:24)
[2020-04-11] MEDS ORDERED: oxyCODONE HCL 5 MG TABLET PO ONE (23:42)
[2020-04-12] MEDS ORDERED: DEXTROSE 5%-WATER - 50 ML IVPB ONE ×3 (02:35→17:33)
[2020-04-12] MEDS ORDERED: PIPERACILLIN/TAZOBACTAM 3.375 GM VIAL IVPB ONE ×3 (02:35→17:33)
[2020-04-12] MEDS: PIPERACILLIN/TAZOB 3.375 GM 3.375 GM in DEXTROSE 5%-WATER - 50 ML IVPB SCH ×3 (02:48→17:35)
[2020-04-12] MEDS: DOCUSATE SODIUM 100 MG CAPSULE (FP) PO SCH ×3 (06:30→21:17)
[2020-04-12] MEDS: INSULIN (LEVEMIR) 100 UNITS/ML UNITS SQ SCH ×2 (06:30→21:15)
[2020-04-12] MEDS: GABAPENTIN 300 MG CAPSULE PO SCH ×3 (06:30→21:17)
[2020-04-12] MEDS: LEVOTHYROXINE NA 50 MCG TABLET (FP) PO SCH (06:30)
[2020-04-12 09:11] LABS: BASO % 0.9 % (0-2.0); EOS % 6.7 % (0-4.5); HEMATOCRIT 27.6 % (32.4-45.2); HEMOGLOBIN 8.3 GM/dL (10.7-15.3); LYMPH % 14.4 % (8-40); MCH 23.4 pg (25.7-33.7); MCHC 30.2 g/dl (32.0-36.0); MEAN CELL VOLUME 77.2 fl (80-96); MEAN PLT VOLUME 8.2 fl (7.5-11.1); MONO % 8.5 % (3.8-10.2); NEUT % 69.5 % (42.8-82.8); PLATELET COUNT 313 K/MM3 (134-434); RBC 3.57 M/mm3 (3.60-5.2); RDW 18.4 % (11.6-15.6); WHITE BLOOD COUNT 5.9 K/mm3 (4.0-10.0)
[2020-04-12 09:36] LABS: POTASSIUM 4.4 mmol/L (3.5-5.1)
[2020-04-12 09:52] LABS: BLOOD UREA NITROGEN 8.7 mg/dL (7-18); CALCIUM 8.8 mg/dL (8.5-10.1); MAGNESIUM 1.6 mg/dL (1.8-2.4)
[2020-04-12 09:55] LABS: CREATININE 0.5 mg/dL (0.55-1.3); PHOSPHOROUS 1.8 mg/dL (2.5-4.9)
[2020-04-12] MEDS ORDERED: PT OWN MED DRAWER 7, Y5N ONE ×2 (11:57→13:22)
[2020-04-12] MEDS: NAPH,MB-DB/K PH,MBDB POWDER PACKET PO SCH (12:07)
[2020-04-12] MEDS: ANASTROZOLE 1 MG TABLET PO SCH (12:08)
[2020-04-12] MEDS: ASPIRIN 81 MG CHEWABLE TABLETS PO SCH (12:08)
[2020-04-12] MEDS: RAMIPRIL 5 MG CAPSULE PO SCH ×2 (12:08→21:17)
[2020-04-12] MEDS ORDERED: INSULIN (NOVOLOG) ASPART 100 UNITS/ML 10ML VIAL ONE (13:23)
[2020-04-12] MEDS: oxyCODONE HCL 5 MG TABLET PO PRN (16:45)
[2020-04-12] MEDS: ATORVASTATIN CA 20 MG TABLET (FP) PO SCH (21:17)
[2020-04-13] MEDS ORDERED: PIPERACILLIN/TAZOBACTAM 3.375 GM VIAL IVPB ONE ×3 (01:40→17:31)
[2020-04-13] MEDS ORDERED: DEXTROSE 5%-WATER - 50 ML IVPB ONE ×3 (01:40→17:31)
[2020-04-13] MEDS: PIPERACILLIN/TAZOB 3.375 GM 3.375 GM in DEXTROSE 5%-WATER - 50 ML IVPB SCH ×3 (02:01→18:09)
[2020-04-13] MEDS: oxyCODONE HCL 5 MG TABLET PO PRN (02:02)
[2020-04-13] MEDS: INSULIN (LEVEMIR) 100 UNITS/ML UNITS SQ SCH ×2 (06:33→22:57)
[2020-04-13] MEDS: GABAPENTIN 300 MG CAPSULE PO SCH ×3 (06:34→22:54)
[2020-04-13] MEDS: LEVOTHYROXINE NA 50 MCG TABLET (FP) PO SCH (06:34)
[2020-04-13] MEDS: DOCUSATE SODIUM 100 MG CAPSULE (FP) PO SCH ×3 (06:34→22:55)
[2020-04-13] MEDS ORDERED: PT OWN MED DRAWER 7, Y5N ONE ×3 (10:50→22:56)
[2020-04-13] MEDS: ASPIRIN 81 MG CHEWABLE TABLETS PO SCH (10:59)
[2020-04-13] MEDS: CALCIUM (OYSTER SHELL) 500 MG TABLET (FP) PO SCH (11:00)
[2020-04-13] MEDS: RAMIPRIL 5 MG CAPSULE PO SCH ×2 (11:00→22:54)
[2020-04-13] MEDS: ANASTROZOLE 1 MG TABLET PO SCH (11:00)
[2020-04-13] MEDS ORDERED: FERRIC CARBOXYMALTOSE 750 MG in SODIUM CHLORIDE 250 ML IVPB ONE (11:32)
[2020-04-13] MEDS: LINEZOLID 600 MG TABLET (RESTRICTED TO ID) PO SCH ×2 (12:16→22:56)
[2020-04-13] MEDS: ATORVASTATIN CA 20 MG TABLET (FP) PO SCH (22:54)
[2020-04-14] MEDS ORDERED: DEXTROSE 5%-WATER - 50 ML IVPB ONE ×2 (02:41→09:19)
[2020-04-14] MEDS ORDERED: PIPERACILLIN/TAZOBACTAM 3.375 GM VIAL IVPB ONE ×2 (02:41→09:19)
[2020-04-14] MEDS: PIPERACILLIN/TAZOB 3.375 GM 3.375 GM in DEXTROSE 5%-WATER - 50 ML IVPB SCH ×2 (02:45→09:22)
[2020-04-14] MEDS: oxyCODONE HCL 5 MG TABLET PO PRN ×2 (02:46→21:33)
[2020-04-14] MEDS: INSULIN (LEVEMIR) 100 UNITS/ML UNITS SQ SCH ×2 (06:49→21:24)
[2020-04-14] MEDS: LEVOTHYROXINE NA 50 MCG TABLET (FP) PO SCH (06:50)
[2020-04-14] MEDS: GABAPENTIN 300 MG CAPSULE PO SCH ×3 (06:50→21:26)
[2020-04-14] MEDS: DOCUSATE SODIUM 100 MG CAPSULE (FP) PO SCH ×3 (06:51→21:26)
[2020-04-14] MEDS ORDERED: INSULIN (LEVEMIR) 100 UNITS/ML UNITS SQ ONE (07:35)
[2020-04-14] MEDS ORDERED: PT OWN MED DRAWER 7, Y5N ONE ×2 (09:18→11:23)
[2020-04-14] MEDS: ASPIRIN 81 MG CHEWABLE TABLETS PO SCH (09:23)
[2020-04-14] MEDS: RAMIPRIL 5 MG CAPSULE PO SCH ×2 (09:23→21:27)
[2020-04-14] MEDS: ANASTROZOLE 1 MG TABLET PO SCH (09:24)
[2020-04-14] MEDS: LINEZOLID 600 MG TABLET (RESTRICTED TO ID) PO SCH (09:24)
[2020-04-14] MEDS ORDERED: DAPTOMYCIN 400 MG in SODIUM CHLORIDE 50 ML IVPB SCH (10:30)
[2020-04-14] MEDS ORDERED: DEXTROSE 5%-WATER 100 ML IVPB ONE (10:40)
[2020-04-14] MEDS: CEFTRIAXONE 2 GM in DEXTROSE 5%-WATER 100 ML IVPB SCH (10:41)
[2020-04-14] MEDS: DAPTOMYCIN 400 MG in SODIUM CHLORIDE 50 ML IVPB SCH (11:41)
[2020-04-14] MEDS ORDERED: INSULIN (NOVOLOG) ASPART 100 UNITS/ML 10ML VIAL ONE (21:14)
[2020-04-14] MEDS: INSULIN SLIDING SCALE (NOVOLOG) 1 VIAL SQ SCH (21:23)
[2020-04-15] MEDS: DOCUSATE SODIUM 100 MG CAPSULE (FP) PO SCH ×3 (06:54→21:53)
[2020-04-15] MEDS: INSULIN SLIDING SCALE (NOVOLOG) 1 VIAL SQ SCH ×4 (06:55→21:52)
[2020-04-15] MEDS: INSULIN (LEVEMIR) 100 UNITS/ML UNITS SQ SCH ×2 (06:56→21:53)
[2020-04-15] MEDS: LEVOTHYROXINE NA 50 MCG TABLET (FP) PO SCH (06:57)
[2020-04-15] MEDS: GABAPENTIN 300 MG CAPSULE PO SCH ×3 (06:57→21:52)
[2020-04-15 09:33] LABS: BASO % 1.2 % (0-2.0); EOS % 6.4 % (0-4.5); HEMATOCRIT 27.8 % (32.4-45.2); HEMOGLOBIN 8.7 GM/dL (10.7-15.3); LYMPH % 11.7 % (8-40); MCH 24.4 pg (25.7-33.7); MCHC 31.4 g/dl (32.0-36.0); MEAN CELL VOLUME 77.9 fl (80-96); MEAN PLT VOLUME 8.1 fl (7.5-11.1); MONO % 7.6 % (3.8-10.2); NEUT % 73.1 % (42.8-82.8); PLATELET COUNT 278 K/MM3 (134-434); RBC 3.56 M/mm3 (3.60-5.2); RDW 19.1 % (11.6-15.6); WHITE BLOOD COUNT 5.8 K/mm3 (4.0-10.0)
[2020-04-15] MEDS ORDERED: DEXTROSE 5%-WATER 100 ML IVPB ONE (09:39)
[2020-04-15] MEDS ORDERED: PT OWN MED DRAWER 7, Y5N ONE (09:39)
[2020-04-15] MEDS: ANASTROZOLE 1 MG TABLET PO SCH (09:40)
[2020-04-15] MEDS: ASPIRIN 81 MG CHEWABLE TABLETS PO SCH (09:41)
[2020-04-15] MEDS: RAMIPRIL 5 MG CAPSULE PO SCH ×2 (09:41→21:52)
[2020-04-15] MEDS: CALCIUM (OYSTER SHELL) 500 MG TABLET (FP) PO SCH (09:41)
[2020-04-15] MEDS: CEFTRIAXONE 2 GM in DEXTROSE 5%-WATER 100 ML IVPB SCH (09:41)
[2020-04-15 09:55] LABS: POTASSIUM 4.5 mmol/L (3.5-5.1)
[2020-04-15 10:04] LABS: CALCIUM 8.3 mg/dL (8.5-10.1)
[2020-04-15 10:05] LABS: MAGNESIUM 1.4 mg/dL (1.8-2.4)
[2020-04-15 10:08] LABS: CREATININE 0.5 mg/dL (0.55-1.3); PHOSPHOROUS 1.3 mg/dL (2.5-4.9)
[2020-04-15 10:09] LABS: BILIRUBIN,TOTAL 0.5 mg/dL (0.2-1)
[2020-04-15 10:11] LABS: TOT PROT 5.3 g/dl (6.4-8.2)
[2020-04-15] MEDS: DAPTOMYCIN 400 MG in SODIUM CHLORIDE 50 ML IVPB SCH (10:21)
[2020-04-15] MEDS: oxyCODONE HCL 5 MG TABLET PO PRN (20:25)
[2020-04-16] MEDS: DOCUSATE SODIUM 100 MG CAPSULE (FP) PO SCH ×3 (05:48→21:47)
[2020-04-16] MEDS: GABAPENTIN 300 MG CAPSULE PO SCH ×3 (06:15→21:54)
[2020-04-16] MEDS: INSULIN SLIDING SCALE (NOVOLOG) 1 VIAL SQ SCH ×4 (06:15→21:54)
[2020-04-16] MEDS: INSULIN (LEVEMIR) 100 UNITS/ML UNITS SQ SCH ×2 (06:15→21:54)
[2020-04-16] MEDS: LEVOTHYROXINE NA 50 MCG TABLET (FP) PO SCH (06:15)
[2020-04-16] MEDS ORDERED: DEXTROSE 5%-WATER 100 ML IVPB ONE (09:09)
[2020-04-16] MEDS ORDERED: PT OWN MED DRAWER 7, Y5N ONE (09:09)
[2020-04-16] MEDS: ASPIRIN 81 MG CHEWABLE TABLETS PO SCH (09:11)
[2020-04-16] MEDS: CEFTRIAXONE 2 GM in DEXTROSE 5%-WATER 100 ML IVPB SCH (09:11)
[2020-04-16] MEDS: RAMIPRIL 5 MG CAPSULE PO SCH ×2 (09:11→21:54)
[2020-04-16] MEDS: ANASTROZOLE 1 MG TABLET PO SCH (09:11)
[2020-04-16 09:14] LABS: BASO % 1.3 % (0-2.0); HEMATOCRIT 27.3 % (32.4-45.2); HEMOGLOBIN 8.6 GM/dL (10.7-15.3); LYMPH % 18.3 % (8-40); MCH 25.1 pg (25.7-33.7); MCHC 31.6 g/dl (32.0-36.0); MEAN CELL VOLUME 79.5 fl (80-96); MEAN PLT VOLUME 8.2 fl (7.5-11.1); NEUT % 64.4 % (42.8-82.8); PLATELET COUNT 294 K/MM3 (134-434); RBC 3.44 M/mm3 (3.60-5.2); RDW 20.7 % (11.6-15.6); WHITE BLOOD COUNT 5.5 K/mm3 (4.0-10.0)
[2020-04-16 09:58] LABS: BLOOD UREA NITROGEN 8.4 mg/dL (7-18); CALCIUM 8.6 mg/dL (8.5-10.1)
[2020-04-16 10:00] LABS: BILIRUBIN,TOTAL 0.4 mg/dL (0.2-1); TOT PROT 5.3 g/dl (6.4-8.2)
[2020-04-16 10:01] LABS: MAGNESIUM 1.5 mg/dL (1.8-2.4)
[2020-04-16 10:02] LABS: CREATININE 0.4 mg/dL (0.55-1.3)
[2020-04-16 10:16] LABS: PHOSPHOROUS 1.1 mg/dL (2.5-4.9)
[2020-04-16] MEDS: DAPTOMYCIN 400 MG in SODIUM CHLORIDE 50 ML IVPB SCH (10:19)
[2020-04-16] MEDS ORDERED: MAGNESIUM SULF 50% (8.12 MEQ/2 ML-1 GM VIAL) IVPB ONE (10:25)
[2020-04-16] MEDS ORDERED: SODIUM PHOSPHATE - 15 MM in SODIUM CHLORIDE 250 ML IVPB ONE (10:25)
[2020-04-16] MEDS ORDERED: INSULIN (NOVOLOG) ASPART 100 UNITS/ML 10ML VIAL ONE (11:14)
[2020-04-16 11:47] LABS: ANISOCYTOSIS 2+; MACROCYTOSIS 1+
[2020-04-16] MEDS ORDERED: SODIUM PHOSPHATE - 20 MM in SODIUM CHLORIDE 250 ML IVPB ONE (12:38)
[2020-04-16 17:15] LABS: POTASSIUM 4.2 mmol/L (3.5-5.1)
[2020-04-16 17:17] LABS: CALCIUM 8.4 mg/dL (8.5-10.1)
[2020-04-16 17:21] LABS: CREATININE 0.4 mg/dL (0.55-1.3)
[2020-04-16 17:40] LABS: MAGNESIUM 1.7 mg/dL (1.8-2.4)
[2020-04-16 17:44] LABS: PHOSPHOROUS 1.7 mg/dL (2.5-4.9)
[2020-04-16] MEDS ORDERED: MAGNESIUM OXIDE 400 MG TABLET (FP) PO ONE (18:08)
[2020-04-16] MEDS ORDERED: NAPH,MB-DB/K PH,MBDB POWDER PACKET PO ONE (18:08)
[2020-04-16] MEDS: oxyCODONE HCL 5 MG TABLET PO PRN (19:01)
[2020-04-17] MEDS: LEVOTHYROXINE NA 50 MCG TABLET (FP) PO SCH (06:32)
[2020-04-17] MEDS: INSULIN (LEVEMIR) 100 UNITS/ML UNITS SQ SCH (06:32)
[2020-04-17] MEDS: GABAPENTIN 300 MG CAPSULE PO SCH ×2 (06:32→13:27)
[2020-04-17] MEDS: INSULIN SLIDING SCALE (NOVOLOG) 1 VIAL SQ SCH ×3 (06:33→16:51)
[2020-04-17] MEDS: DOCUSATE SODIUM 100 MG CAPSULE (FP) PO SCH ×2 (06:33→13:21)
[2020-04-17 08:38] LABS: BASO % 1.2 % (0-2.0); HEMATOCRIT 29.2 % (32.4-45.2); HEMOGLOBIN 9.2 GM/dL (10.7-15.3); LYMPH % 19.8 % (8-40); MCH 25.3 pg (25.7-33.7); MCHC 31.5 g/dl (32.0-36.0); MEAN CELL VOLUME 80.2 fl (80-96); MONO % 9.8 % (3.8-10.2); NEUT % 59.2 % (42.8-82.8); PLATELET COUNT 313 K/MM3 (134-434); RBC 3.64 M/mm3 (3.60-5.2); RDW 20.4 % (11.6-15.6); WHITE BLOOD COUNT 4.5 K/mm3 (4.0-10.0)
[2020-04-17 08:54] LABS: POTASSIUM 4.6 mmol/L (3.5-5.1)
[2020-04-17 08:56] LABS: CALCIUM 8.6 mg/dL (8.5-10.1)
[2020-04-17 08:57] LABS: ALBUMIN 2.2 g/dl (3.4-5.0); MAGNESIUM 1.9 mg/dL (1.8-2.4)
[2020-04-17 09:00] LABS: CREATININE 0.4 mg/dL (0.55-1.3); PHOSPHOROUS 1.6 mg/dL (2.5-4.9)
[2020-04-17 09:01] LABS: BILIRUBIN,TOTAL 0.3 mg/dL (0.2-1); TOT PROT 5.8 g/dl (6.4-8.2)
[2020-04-17] MEDS ORDERED: NAPH,MB-DB/K PH,MBDB POWDER PACKET PO ONE (09:11)
[2020-04-17] MEDS ORDERED: PT OWN MED DRAWER 7, Y5N ONE (09:16)
[2020-04-17] MEDS: CALCIUM (OYSTER SHELL) 500 MG TABLET (FP) PO SCH (09:17)
[2020-04-17] MEDS: ASPIRIN 81 MG CHEWABLE TABLETS PO SCH (09:17)
[2020-04-17] MEDS: RAMIPRIL 5 MG CAPSULE PO SCH (09:18)
[2020-04-17] MEDS: ANASTROZOLE 1 MG TABLET PO SCH (09:18)
[2020-04-17] MEDS ORDERED: DEXTROSE 5%-WATER 100 ML IVPB ONE (09:19)
[2020-04-17] MEDS: CEFTRIAXONE 2 GM in DEXTROSE 5%-WATER 100 ML IVPB SCH (09:20)
[2020-04-17 10:54] VITALS: BP 130/62; PULSE 66; TEMP 97.5
[2020-04-17] MEDS: DAPTOMYCIN 400 MG in SODIUM CHLORIDE 50 ML IVPB SCH (10:54)
[2020-04-17] MEDS ORDERED: SODIUM PHOSPHATE - 30 MM in SODIUM CHLORIDE 500 ML IVPB ONE (11:15)
== END 2020-04-17 21:58 | disposition home health service (06) | DRG 264 ==
LOC: JER 10:53 → JERBED 12:30 → J5S 04-04 05:59 → J6S 04-09 16:10
PROVIDERS: ADMIT Internal Medicine; ATTEND Internal Medicine
PROC: 0JBR0ZZ Excision of Left Foot Subcutaneous Tissue and Fascia, Open Approach (ICD-10-PCS; 2020-04-08)
PROC: 0Y9N0ZZ Drainage of Left Foot, Open Approach (ICD-10-PCS; principal; 2020-04-08 11:30)
PROC: 0HBNXZZ Excision of Left Foot Skin, External Approach (ICD-10-PCS; 2020-04-10)
PROC: 3E10X8Z Irrigation of Skin and Mucous Membranes using Irrigating Substance (ICD-10-PCS; 2020-04-10)
PROC: 3E10X8Z Irrigation of Skin and Mucous Membranes using Irrigating Substance (ICD-10-PCS; 2020-04-10)
PROC: 0Y9N0ZZ Drainage of Left Foot, Open Approach (ICD-10-PCS; 2020-04-11)
PROC: 3E10X8Z Irrigation of Skin and Mucous Membranes using Irrigating Substance (ICD-10-PCS; 2020-04-11)
PROC: 02HV33Z Insertion of Infusion Device into Superior Vena Cava, Percutaneous Approach (ICD-10-PCS; 2020-04-14)
PROC: B518ZZA Fluoroscopy of Superior Vena Cava, Guidance (ICD-10-PCS; 2020-04-14)
DX: E11.52 Type 2 diabetes mellitus with diabetic peripheral angiopathy with gangrene (principal); E87.1 Hypo-osmolality and hyponatremia; L03.116 Cellulitis of left lower limb; L02.612 Cutaneous abscess of left foot; I96 Gangrene, not elsewhere classified; L97.428 Non-pressure chronic ulcer of left heel and midfoot with other specified severity; M86.9 Osteomyelitis, unspecified; N17.9 Acute kidney failure, unspecified; E11.69 Type 2 diabetes mellitus with other specified complication; E11.621 Type 2 diabetes mellitus with foot ulcer; E11.65 Type 2 diabetes mellitus with hyperglycemia; I25.10 Atherosclerotic heart disease of native coronary artery without angina pectoris; I10 Essential (primary) hypertension; E78.5 Hyperlipidemia, unspecified; Z85.3 Personal history of malignant neoplasm of breast; E11.21 Type 2 diabetes mellitus with diabetic nephropathy; E83.39 Other disorders of phosphorus metabolism; E88.09 Other disorders of plasma-protein metabolism, not elsewhere classified; Z93.3 Colostomy status; D50.9 Iron deficiency anemia, unspecified; D63.8 Anemia in other chronic diseases classified elsewhere; E03.9 Hypothyroidism, unspecified; E11.42 Type 2 diabetes mellitus with diabetic polyneuropathy; S91.302A Unspecified open wound, left foot, initial encounter; Z79.4 Long term (current) use of insulin; Z85.830 Personal history of malignant neoplasm of bone
CPT/HCPCS: 36415; 36569; 36589; 71045-TC-FY; 73630-TC-LT; 73701-TC-RT; 77001-TC-FY; 80048; 80053; 81003; 82550; 82607; 82728; 82746; 82962; 83036; 83540; 83550; 83735; 84100; 84443; 84466; 85025; 85027; 85610; 85730; 86850; 86900; 86901; 87040; 87070; 87186; 87205; 88304-TC; 93005; 93010; 93971-TC; 94760; 97116-GP; 97162-GP; 99285-25; C1751; C9803; G0463-25; J0131; J0878; J1439; J1644; Q9967; U0003

== ENCOUNTER 2020-05-29 06:58 | Day surgery (SDC) | payer OTHER, BC ==
[2020-05-29] MEDS ORDERED: DENOSUMAB 120 MG/1.7 ML VIAL SQ ONE (10:00)
[2020-05-29 12:04] LABS: BASO % 1.4 % (0-2.0); EOS % 11.4 % (0-4.5); HEMATOCRIT 36.4 % (32.4-45.2); HEMOGLOBIN 11.8 GM/dL (10.7-15.3); LYMPH % 19.3 % (8-40); MCH 26.4 pg (25.7-33.7); MCHC 32.4 g/dl (32.0-36.0); MEAN CELL VOLUME 81.3 fl (80-96); MEAN PLT VOLUME 7.7 fl (7.5-11.1); NEUT % 62.9 % (42.8-82.8); PLATELET COUNT 317 K/MM3 (134-434); RBC 4.47 M/mm3 (3.60-5.2); RDW 20.8 % (11.6-15.6); WHITE BLOOD COUNT 6.2 K/mm3 (4.0-10.0)
[2020-05-29 12:29] LABS: POTASSIUM 5.2 mmol/L (3.5-5.1)
[2020-05-29 12:31] LABS: ALBUMIN 2.7 g/dl (3.4-5.0); CALCIUM 9.1 mg/dL (8.5-10.1)
[2020-05-29 12:33] LABS: BLOOD UREA NITROGEN 12.4 mg/dL (7-18)
[2020-05-29 12:35] LABS: CREATININE 0.5 mg/dL (0.55-1.3)
[2020-05-29 12:36] LABS: BILIRUBIN,TOTAL 0.4 mg/dL (0.2-1); TOT PROT 6.8 g/dl (6.4-8.2)
[2020-05-29 15:50] VITALS: BP 161/77; PULSE 71; TEMP 97.6
== END 2020-05-29 13:00 | disposition home or self-care (01) ==
LOC: JONCCHEMO 06:58
PROVIDERS: ATTEND Internal Medicine Hematology & Oncology
PROC: 3E013GC Introduction of Other Therapeutic Substance into Subcutaneous Tissue, Percutaneous Approach (ICD-10-PCS; principal; 2020-05-29)
DX: C50.512 Malignant neoplasm of lower-outer quadrant of left female breast (principal); Z76.89 Persons encountering health services in other specified circumstances
CPT/HCPCS: 36415; 80053; 82306; 85025; 86300; 96372; 97597; A6022; J0897

== ENCOUNTER 2020-06-26 07:49 | Day surgery (SDC) | payer OTHER, BC ==
[2020-06-26] MEDS ORDERED: DENOSUMAB 120 MG/1.7 ML VIAL SQ ONE (10:00)
[2020-06-26 11:37] LABS: BASO % 0.8 % (0-2.0); EOS % 2.1 % (0-4.5); HEMATOCRIT 32.7 % (32.4-45.2); HEMOGLOBIN 10.9 GM/dL (10.7-15.3); LYMPH % 8.5 % (8-40); MCH 27.8 pg (25.7-33.7); MCHC 33.4 g/dl (32.0-36.0); MEAN CELL VOLUME 83.2 fl (80-96); MEAN PLT VOLUME 8.3 fl (7.5-11.1); MONO % 7.2 % (3.8-10.2); NEUT % 81.4 % (42.8-82.8); PLATELET COUNT 264 K/MM3 (134-434); RBC 3.92 M/mm3 (3.60-5.2); RDW 16.9 % (11.6-15.6); WHITE BLOOD COUNT 9.3 K/mm3 (4.0-10.0)
[2020-06-26 11:58] LABS: POTASSIUM 4.7 mmol/L (3.5-5.1)
[2020-06-26 12:00] LABS: ALBUMIN 2.8 g/dl (3.4-5.0); BLOOD UREA NITROGEN 23.7 mg/dL (7-18); CALCIUM 8.9 mg/dL (8.5-10.1); MAGNESIUM 1.5 mg/dL (1.8-2.4)
[2020-06-26 12:04] LABS: CREATININE 0.6 mg/dL (0.55-1.3)
[2020-06-26 12:05] LABS: BILIRUBIN,TOTAL 0.8 mg/dL (0.2-1); TOT PROT 6.9 g/dl (6.4-8.2)
[2020-06-26 16:18] VITALS: BP 110/45; PULSE 75; TEMP 98.3
== END 2020-06-26 12:10 | disposition home or self-care (01) ==
LOC: JONCCHEMO 07:49
PROVIDERS: ATTEND Internal Medicine Hematology & Oncology
PROC: 3E013GC Introduction of Other Therapeutic Substance into Subcutaneous Tissue, Percutaneous Approach (ICD-10-PCS; principal; 2020-06-26)
DX: C50.512 Malignant neoplasm of lower-outer quadrant of left female breast (principal); Z76.89 Persons encountering health services in other specified circumstances
CPT/HCPCS: 36415; 80053; 83036; 83735; 85025; 96372; J0897

== ENCOUNTER 2020-07-24 07:45 | Day surgery (SDC) | payer OTHER, BC ==
[2020-07-24] MEDS ORDERED: DENOSUMAB 120 MG/1.7 ML VIAL SQ ONE (10:00)
[2020-07-24 11:23] LABS: BASO % 0.9 % (0-2.0); EOS % 6.3 % (0-4.5); HEMATOCRIT 29.9 % (32.4-45.2); HEMOGLOBIN 9.7 GM/dL (10.7-15.3); LYMPH % 26.8 % (8-40); MCH 27.3 pg (25.7-33.7); MCHC 32.6 g/dl (32.0-36.0); MEAN CELL VOLUME 83.8 fl (80-96); MONO % 7.5 % (3.8-10.2); NEUT % 58.5 % (42.8-82.8); PLATELET COUNT 203 K/MM3 (134-434); RBC 3.56 M/mm3 (3.60-5.2); RDW 15.8 % (11.6-15.6); WHITE BLOOD COUNT 4.4 K/mm3 (4.0-10.0)
[2020-07-24 11:46] LABS: POTASSIUM 4.7 mmol/L (3.5-5.1)
[2020-07-24 11:48] LABS: ALBUMIN 2.5 g/dl (3.4-5.0); BLOOD UREA NITROGEN 12.5 mg/dL (7-18); CALCIUM 10.1 mg/dL (8.5-10.1)
[2020-07-24 11:51] LABS: CREATININE 0.4 mg/dL (0.55-1.3)
[2020-07-24 11:53] LABS: BILIRUBIN,TOTAL 0.4 mg/dL (0.2-1); TOT PROT 5.6 g/dl (6.4-8.2)
[2020-07-24 14:32] VITALS: BP 131/79; PULSE 66; TEMP 97.8
== END 2020-07-24 12:40 | disposition home or self-care (01) ==
LOC: JONCCHEMO 07:45
PROVIDERS: ATTEND Internal Medicine Hematology & Oncology
PROC: 3E013GC Introduction of Other Therapeutic Substance into Subcutaneous Tissue, Percutaneous Approach (ICD-10-PCS; principal; 2020-07-24)
DX: C50.512 Malignant neoplasm of lower-outer quadrant of left female breast (principal)
CPT/HCPCS: 36415; 80053; 85025; 86300; 96372; J0897

== ENCOUNTER 2020-08-18 06:54 | Inpatient (IN) | payer OTHER, BC ==
[2020-08-18 07:01] VITALS: BMI 24.0
[2020-08-18 08:30] LABS: BASO % 0.9 % (0-2.0); EOS % 6.4 % (0-4.5); HEMATOCRIT 28.2 % (32.4-45.2); HEMOGLOBIN 9.4 GM/dL (10.7-15.3); MCH 28.4 pg (25.7-33.7); MCHC 33.5 g/dl (32.0-36.0); MEAN CELL VOLUME 84.8 fl (80-96); MONO % 11.8 % (3.8-10.2); NEUT % 58.9 % (42.8-82.8); PLATELET COUNT 184 K/MM3 (134-434); RBC 3.32 M/mm3 (3.60-5.2); RDW 16.7 % (11.6-15.6); WHITE BLOOD COUNT 4.5 K/mm3 (4.0-10.0)
[2020-08-18 08:38] LABS: INR 1.11 (0.83-1.09); PROTHROMBIN TIME (PATIENT) 13.4 SEC (9.7-13.0)
[2020-08-18 08:40] LABS: ACTIVATED PTT 26.9 SECONDS (25.2-36.5)
[2020-08-18 08:50] LABS: ALBUMIN 2.6 g/dl (3.4-5.0); CALCIUM 9.7 mg/dL (8.5-10.1)
[2020-08-18 08:54] LABS: CREATININE 0.4 mg/dL (0.55-1.3)
[2020-08-18 08:55] LABS: BILIRUBIN,TOTAL 0.6 mg/dL (0.2-1); TOT PROT 5.8 g/dl (6.4-8.2)
[2020-08-18 09:44] LABS: URINE APPEARANCE CLEAR; URINE BILIRUBIN NEGATIVE (NEGATIVE); URINE COLOR YELLOW; URINE GLUCOSE (UA) 3+ (NEGATIVE); URINE KETONE NEGATIVE (NEGATIVE); URINE LEUK ESTERASE NEGATIVE (NEGATIVE); URINE NITRITE NEGATIVE (NEGATIVE); URINE PROTEIN NEGATIVE (NEGATIVE); URINE UROBILINOGEN 0.2 mg/dL (0.2-1.0)
[2020-08-18] MEDS ORDERED: LACTATED RINGERS SOLUTION 1000 ML INFUS.BAG IV ONE (09:54)
[2020-08-18] MEDS ORDERED: SODIUM CHLORIDE 1,000 ML IV SCH (13:30)
[2020-08-18] MEDS ORDERED: DEXTROSE 5%-NORMAL SALINE 1,000 ML IV SCH (17:15)
[2020-08-18] MEDS ORDERED: INSULIN (NOVOLOG) ASPART 100 UNITS/ML 10ML VIAL ONE (17:45)
[2020-08-18] MEDS: INSULIN SLIDING SCALE (NOVOLOG) 1 VIAL SQ SCH ×2 (17:47→21:43)
[2020-08-18] MEDS: SODIUM CHLORIDE 1,000 ML IV SCH (17:52)
[2020-08-18 18:10] LABS: BASO % 0.7 % (0-2.0); EOS % 4.9 % (0-4.5); HEMATOCRIT 27.6 % (32.4-45.2); LYMPH % 23.4 % (8-40); MCH 27.9 pg (25.7-33.7); MCHC 32.7 g/dl (32.0-36.0); MEAN CELL VOLUME 85.3 fl (80-96); MEAN PLT VOLUME 8.4 fl (7.5-11.1); MONO % 10.2 % (3.8-10.2); NEUT % 60.8 % (42.8-82.8); PLATELET COUNT 191 K/MM3 (134-434); RBC 3.24 M/mm3 (3.60-5.2); RDW 16.6 % (11.6-15.6); WHITE BLOOD COUNT 4.7 K/mm3 (4.0-10.0)
[2020-08-18] MEDS ORDERED: ACETAMINOPHEN 1000 MG/100 ML VIAL (NON FORMULARY) IVPB PRN (20:26)
[2020-08-18 21:25] LABS: HEMATOCRIT 26.3 % (32.4-45.2); HEMOGLOBIN 8.6 GM/dL (10.7-15.3); LYMPH % 25.2 % (8-40); MCH 27.9 pg (25.7-33.7); MCHC 32.7 g/dl (32.0-36.0); MEAN CELL VOLUME 85.3 fl (80-96); MEAN PLT VOLUME 8.2 fl (7.5-11.1); MONO % 11.1 % (3.8-10.2); NEUT % 56.7 % (42.8-82.8); PLATELET COUNT 185 K/MM3 (134-434); RBC 3.09 M/mm3 (3.60-5.2); RDW 16.3 % (11.6-15.6); WHITE BLOOD COUNT 4.6 K/mm3 (4.0-10.0)
[2020-08-19 01:31] LABS: EOS % 8.4 % (0-4.5); HEMATOCRIT 23.9 % (32.4-45.2); HEMOGLOBIN 7.9 GM/dL (10.7-15.3); LYMPH % 31.4 % (8-40); MCH 28.3 pg (25.7-33.7); MCHC 33.2 g/dl (32.0-36.0); MEAN CELL VOLUME 85.2 fl (80-96); MEAN PLT VOLUME 7.9 fl (7.5-11.1); MONO % 10.9 % (3.8-10.2); NEUT % 48.3 % (42.8-82.8); PLATELET COUNT 169 K/MM3 (134-434); RBC 2.81 M/mm3 (3.60-5.2); RDW 16.6 % (11.6-15.6); WHITE BLOOD COUNT 3.7 K/mm3 (4.0-10.0)
[2020-08-19] MEDS: INSULIN SLIDING SCALE (NOVOLOG) 1 VIAL SQ SCH ×4 (06:23→22:29)
[2020-08-19] MEDS: SODIUM CHLORIDE 1,000 ML IV SCH ×2 (08:14→12:28)
[2020-08-19] MEDS ORDERED: cefTRIAXone SODIUM 1 GM VIAL ONE (12:30)
[2020-08-19] MEDS ORDERED: DEXTROSE 5%-WATER - 50 ML IVPB ONE (12:31)
[2020-08-19] MEDS: CEFTRIAXONE 1 GM in DEXTROSE 5%-WATER - 50 ML IVPB SCH (13:37)
[2020-08-19 13:53] LABS: BASO % 0.6 % (0-2.0); EOS % 3.1 % (0-4.5); HEMATOCRIT 26.6 % (32.4-45.2); HEMOGLOBIN 8.8 GM/dL (10.7-15.3); LYMPH % 20.5 % (8-40); MCH 28.2 pg (25.7-33.7); MCHC 33.1 g/dl (32.0-36.0); MEAN CELL VOLUME 85.2 fl (80-96); MEAN PLT VOLUME 8.1 fl (7.5-11.1); MONO % 9.7 % (3.8-10.2); NEUT % 66.1 % (42.8-82.8); PLATELET COUNT 198 K/MM3 (134-434); RBC 3.12 M/mm3 (3.60-5.2); RDW 16.4 % (11.6-15.6); WHITE BLOOD COUNT 5.2 K/mm3 (4.0-10.0)
[2020-08-19] MEDS: ANASTROZOLE 1 MG TABLET PO SCH (14:38)
[2020-08-19] MEDS: oxyCODONE HCL 5 MG TABLET PO PRN (14:38)
[2020-08-19 15:05] LABS: HEMATOCRIT 27.3 % (32.4-45.2); HEMOGLOBIN 8.9 GM/dL (10.7-15.3); MCH 27.6 pg (25.7-33.7); MCHC 32.4 g/dl (32.0-36.0); MEAN CELL VOLUME 85.1 fl (80-96); MEAN PLT VOLUME 8.1 fl (7.5-11.1); PLATELET COUNT 200 K/MM3 (134-434); RBC 3.21 M/mm3 (3.60-5.2); RDW 16.2 % (11.6-15.6); WHITE BLOOD COUNT 5.4 K/mm3 (4.0-10.0)
[2020-08-19 18:07] LABS: RETICULOCYTES 1.65 % (0.5-1.5)
[2020-08-19] MEDS ORDERED: HYDROCORTISONE 0.5% TOPICAL CREAM 30 GM TUBE TP PRN (21:27)
[2020-08-19] MEDS: CALCIUM (OYSTER SHELL) 500 MG TABLET (FP) PO SCH (22:26)
[2020-08-19] MEDS: GABAPENTIN 300 MG CAPSULE PO SCH (22:28)
[2020-08-19] MEDS: DOCUSATE SODIUM 100 MG CAPSULE (FP) PO SCH (22:29)
[2020-08-19] MEDS: ATORVASTATIN CA 20 MG TABLET (FP) PO SCH (22:29)
[2020-08-20] MEDS: INSULIN SLIDING SCALE (NOVOLOG) 1 VIAL SQ SCH ×4 (06:14→21:28)
[2020-08-20] MEDS: LEVOTHYROXINE NA 50 MCG TABLET (FP) PO SCH (06:14)
[2020-08-20] MEDS: GABAPENTIN 300 MG CAPSULE PO SCH ×3 (06:14→21:28)
[2020-08-20] MEDS: DOCUSATE SODIUM 100 MG CAPSULE (FP) PO SCH ×3 (06:14→21:29)
[2020-08-20 07:00] LABS: HEMATOCRIT 26.9 % (32.4-45.2); HEMOGLOBIN 8.8 GM/dL (10.7-15.3); MCHC 32.8 g/dl (32.0-36.0); MEAN CELL VOLUME 85.6 fl (80-96); MEAN PLT VOLUME 8.1 fl (7.5-11.1); PLATELET COUNT 200 K/MM3 (134-434); RBC 3.15 M/mm3 (3.60-5.2); RDW 16.3 % (11.6-15.6); WHITE BLOOD COUNT 5.2 K/mm3 (4.0-10.0)
[2020-08-20 07:10] LABS: CALCIUM 8.7 mg/dL (8.5-10.1)
[2020-08-20 07:11] LABS: ALBUMIN 2.4 g/dl (3.4-5.0); BLOOD UREA NITROGEN 6.8 mg/dL (7-18); MAGNESIUM 1.1 mg/dL (1.8-2.4)
[2020-08-20 07:14] LABS: CREATININE 0.3 mg/dL (0.55-1.3)
[2020-08-20 07:15] LABS: BILIRUBIN,TOTAL 0.6 mg/dL (0.2-1)
[2020-08-20 07:16] LABS: TOT PROT 5.1 g/dl (6.4-8.2)
[2020-08-20] MEDS ORDERED: MAGNESIUM 2GM/50ML STERILE WATER IVPB IVPB ONE ×2 (08:15→12:30)
[2020-08-20] MEDS ORDERED: NAPH,MB-DB/K PH,MBDB POWDER PACKET PO ONE (12:00)
[2020-08-20] MEDS ORDERED: PT OWN MED DRAWER 7, Y5N ONE (12:06)
[2020-08-20] MEDS ORDERED: DEXTROSE 5%-WATER - 50 ML IVPB ONE (12:07)
[2020-08-20] MEDS ORDERED: cefTRIAXone SODIUM 1 GM VIAL ONE (12:07)
[2020-08-20] MEDS: CEFTRIAXONE 1 GM in DEXTROSE 5%-WATER - 50 ML IVPB SCH (12:16)
[2020-08-20] MEDS: ANASTROZOLE 1 MG TABLET PO SCH (12:16)
[2020-08-20] MEDS: oxyCODONE HCL 5 MG TABLET PO PRN (12:17)
[2020-08-20] MEDS: COLLAGENASE CLOSTRIDIUM HIST. 30 GRAMS TUBE TP SCH (12:21)
[2020-08-20] MEDS: SODIUM CHLORIDE 1,000 ML IV SCH (12:30)
[2020-08-20] MEDS ORDERED: POTASSIUM PHOSPHATE 30 MM in SODIUM CHLORIDE 500 ML IVPB ONE (13:00)
[2020-08-20] MEDS: CALCIUM (OYSTER SHELL) 500 MG TABLET (FP) PO SCH (21:29)
[2020-08-20] MEDS: diphenhydrAMINE HCL 25 MG CAPSULE (FP) PO PRN (21:29)
[2020-08-20] MEDS: ATORVASTATIN CA 20 MG TABLET (FP) PO SCH (21:29)
[2020-08-21] MEDS: LEVOTHYROXINE NA 50 MCG TABLET (FP) PO SCH (06:35)
[2020-08-21] MEDS: DOCUSATE SODIUM 100 MG CAPSULE (FP) PO SCH ×3 (06:36→22:26)
[2020-08-21] MEDS: GABAPENTIN 300 MG CAPSULE PO SCH ×3 (06:36→22:26)
[2020-08-21] MEDS: INSULIN SLIDING SCALE (NOVOLOG) 1 VIAL SQ SCH ×4 (06:39→22:30)
[2020-08-21 07:01] LABS: HEMATOCRIT 26.4 % (32.4-45.2); HEMOGLOBIN 8.8 GM/dL (10.7-15.3); MCH 28.4 pg (25.7-33.7); MCHC 33.5 g/dl (32.0-36.0); MEAN CELL VOLUME 84.7 fl (80-96); MEAN PLT VOLUME 7.9 fl (7.5-11.1); PLATELET COUNT 222 K/MM3 (134-434); RBC 3.12 M/mm3 (3.60-5.2); RDW 16.4 % (11.6-15.6); WHITE BLOOD COUNT 4.4 K/mm3 (4.0-10.0)
[2020-08-21 07:21] LABS: CALCIUM 8.8 mg/dL (8.5-10.1)
[2020-08-21 07:22] LABS: ALBUMIN 2.3 g/dl (3.4-5.0); BLOOD UREA NITROGEN 5.8 mg/dL (7-18); MAGNESIUM 1.7 mg/dL (1.8-2.4)
[2020-08-21 07:25] LABS: CREATININE 0.3 mg/dL (0.55-1.3); PHOSPHOROUS 2.9 mg/dL (2.5-4.9)
[2020-08-21 07:26] LABS: BILIRUBIN,TOTAL 0.6 mg/dL (0.2-1); TOT PROT 5.1 g/dl (6.4-8.2)
[2020-08-21] MEDS ORDERED: MAGNESIUM 2GM/50ML STERILE WATER IVPB IVPB ONE (07:48)
[2020-08-21] MEDS ORDERED: DEXTROSE 5%-WATER - 50 ML IVPB ONE (09:17)
[2020-08-21] MEDS ORDERED: PT OWN MED DRAWER 7, Y5N ONE ×2 (09:17→21:01)
[2020-08-21] MEDS ORDERED: cefTRIAXone SODIUM 1 GM VIAL ONE (09:17)
[2020-08-21] MEDS: ANASTROZOLE 1 MG TABLET PO SCH (09:26)
[2020-08-21] MEDS: CEFTRIAXONE 1 GM in DEXTROSE 5%-WATER - 50 ML IVPB SCH (09:26)
[2020-08-21] MEDS: INSULIN (LEVEMIR) 100 UNITS/ML UNITS SQ SCH ×2 (09:26→17:21)
[2020-08-21] MEDS: oxyCODONE HCL 5 MG TABLET PO PRN (09:27)
[2020-08-21 09:47] LABS: URIC ACID 3.1 mg/dL (2.6-7.2)
[2020-08-21] MEDS: ERTAPENEM SODIUM 1 GM in SODIUM CHLORIDE 50 ML IVPB SCH (11:26)
[2020-08-21] MEDS: COLLAGENASE CLOSTRIDIUM HIST. 30 GRAMS TUBE TP SCH (11:36)
[2020-08-21] MEDS: AMINO ACIDS/PROTEIN HYDROLYS 30 ML LIQUID.PKT PO SCH (17:16)
[2020-08-21] MEDS: ATORVASTATIN CA 20 MG TABLET (FP) PO SCH (22:25)
[2020-08-21] MEDS: CALCIUM (OYSTER SHELL) 500 MG TABLET (FP) PO SCH (22:25)
[2020-08-22] MEDS: LEVOTHYROXINE NA 50 MCG TABLET (FP) PO SCH (06:56)
[2020-08-22] MEDS: GABAPENTIN 300 MG CAPSULE PO SCH ×3 (06:56→21:40)
[2020-08-22] MEDS: DOCUSATE SODIUM 100 MG CAPSULE (FP) PO SCH ×3 (06:56→21:37)
[2020-08-22] MEDS: INSULIN SLIDING SCALE (NOVOLOG) 1 VIAL SQ SCH ×4 (07:08→22:19)
[2020-08-22] MEDS: INSULIN (LEVEMIR) 100 UNITS/ML UNITS SQ SCH ×3 (07:08→22:19)
[2020-08-22 07:54] LABS: HEMATOCRIT 28.8 % (32.4-45.2); HEMOGLOBIN 9.6 GM/dL (10.7-15.3); MCH 28.2 pg (25.7-33.7); MCHC 33.2 g/dl (32.0-36.0); MEAN CELL VOLUME 84.7 fl (80-96); PLATELET COUNT 249 K/MM3 (134-434); RDW 16.6 % (11.6-15.6); WHITE BLOOD COUNT 5.3 K/mm3 (4.0-10.0)
[2020-08-22 08:08] LABS: ALBUMIN 2.3 g/dl (3.4-5.0)
[2020-08-22 08:10] LABS: BILIRUBIN,TOTAL 0.5 mg/dL (0.2-1); TOT PROT 5.2 g/dl (6.4-8.2)
[2020-08-22 08:11] LABS: CALCIUM 9.8 mg/dL (8.5-10.1); MAGNESIUM 1.8 mg/dL (1.8-2.4)
[2020-08-22 08:12] LABS: CREATININE 0.3 mg/dL (0.55-1.3); PHOSPHOROUS 2.4 mg/dL (2.5-4.9)
[2020-08-22] MEDS ORDERED: ERTAPENEM SODIUM 1 GM VIAL ONE (09:25)
[2020-08-22] MEDS ORDERED: SODIUM CHLORIDE 50 ML IVPB ONE (09:25)
[2020-08-22] MEDS: ERTAPENEM SODIUM 1 GM in SODIUM CHLORIDE 50 ML IVPB SCH (09:32)
[2020-08-22] MEDS: MULTIVITAMINS (DAILY MVI) TABLET (FP) PO SCH (09:32)
[2020-08-22] MEDS: AMINO ACIDS/PROTEIN HYDROLYS 30 ML LIQUID.PKT PO SCH ×2 (09:33→17:40)
[2020-08-22] MEDS ORDERED: PT OWN MED DRAWER 7, Y5N ONE (09:37)
[2020-08-22] MEDS ORDERED: NAPH,MB-DB/K PH,MBDB POWDER PACKET PO ONE (09:40)
[2020-08-22] MEDS ORDERED: MAGNESIUM OXIDE 400 MG TABLET (FP) PO ONE (09:41)
[2020-08-22] MEDS: ANASTROZOLE 1 MG TABLET PO SCH (09:41)
[2020-08-22] MEDS: oxyCODONE HCL 5 MG TABLET PO PRN (11:26)
[2020-08-22] MEDS: COLLAGENASE CLOSTRIDIUM HIST. 30 GRAMS TUBE TP SCH (15:11)
[2020-08-22] MEDS: diphenhydrAMINE HCL 25 MG CAPSULE (FP) PO PRN (15:21)
[2020-08-22] MEDS: ATORVASTATIN CA 20 MG TABLET (FP) PO SCH (21:37)
[2020-08-22] MEDS: CALCIUM (OYSTER SHELL) 500 MG TABLET (FP) PO SCH (21:39)
[2020-08-23] MEDS: LEVOTHYROXINE NA 50 MCG TABLET (FP) PO SCH (06:21)
[2020-08-23] MEDS: DOCUSATE SODIUM 100 MG CAPSULE (FP) PO SCH ×3 (06:21→21:50)
[2020-08-23] MEDS: GABAPENTIN 300 MG CAPSULE PO SCH ×3 (06:21→21:50)
[2020-08-23] MEDS: INSULIN SLIDING SCALE (NOVOLOG) 1 VIAL SQ SCH ×4 (06:25→21:59)
[2020-08-23] MEDS: INSULIN (LEVEMIR) 100 UNITS/ML UNITS SQ SCH ×2 (06:26→22:01)
[2020-08-23] MEDS ORDERED: HYDROCORTISONE 0.5% TOPICAL CREAM 30 GM TUBE TP PRN (07:06)
[2020-08-23] MEDS ORDERED: SODIUM CHLORIDE 50 ML IVPB ONE (08:34)
[2020-08-23] MEDS ORDERED: ERTAPENEM SODIUM 1 GM VIAL ONE (08:34)
[2020-08-23] MEDS: AMINO ACIDS/PROTEIN HYDROLYS 30 ML LIQUID.PKT PO SCH ×2 (09:24→16:53)
[2020-08-23] MEDS: oxyCODONE HCL 5 MG TABLET PO PRN ×2 (09:25→22:19)
[2020-08-23] MEDS: MULTIVITAMINS (DAILY MVI) TABLET (FP) PO SCH (09:25)
[2020-08-23] MEDS: ERTAPENEM SODIUM 1 GM in SODIUM CHLORIDE 50 ML IVPB SCH (09:25)
[2020-08-23] MEDS: COLLAGENASE CLOSTRIDIUM HIST. 30 GRAMS TUBE TP SCH (10:06)
[2020-08-23] MEDS: ANASTROZOLE 1 MG TABLET PO SCH (12:00)
[2020-08-23 12:17] LABS: HEMATOCRIT 26.5 % (32.4-45.2); HEMOGLOBIN 8.9 GM/dL (10.7-15.3); MCH 28.8 pg (25.7-33.7); MCHC 33.5 g/dl (32.0-36.0); MEAN CELL VOLUME 85.9 fl (80-96); MEAN PLT VOLUME 8.1 fl (7.5-11.1); PLATELET COUNT 254 K/MM3 (134-434); RBC 3.09 M/mm3 (3.60-5.2); RDW 16.6 % (11.6-15.6); WHITE BLOOD COUNT 5.3 K/mm3 (4.0-10.0)
[2020-08-23 12:47] LABS: ALBUMIN 2.2 g/dl (3.4-5.0); CALCIUM 9.3 mg/dL (8.5-10.1)
[2020-08-23 12:48] LABS: BLOOD UREA NITROGEN 10.2 mg/dL (7-18); MAGNESIUM 1.5 mg/dL (1.8-2.4)
[2020-08-23 12:51] LABS: CREATININE 0.4 mg/dL (0.55-1.3); PHOSPHOROUS 2.7 mg/dL (2.5-4.9)
[2020-08-23 12:52] LABS: BILIRUBIN,TOTAL 0.4 mg/dL (0.2-1); TOT PROT 5.1 g/dl (6.4-8.2)
[2020-08-23] MEDS ORDERED: MAGNESIUM OXIDE 400 MG TABLET (FP) PO ONE (13:47)
[2020-08-23] MEDS ORDERED: MAGNESIUM SULF 50% (8.12 MEQ/2 ML-1 GM VIAL) IVPB ONE (13:47)
[2020-08-23] MEDS ORDERED: LACTATED RINGERS SOLUTION 1,000 ML/1,000 ML INFUS.BAG IV SCH (14:00)
[2020-08-23] MEDS: ZINC OXIDE/PANTHENOL/VITAMIN E 56 GM TUBE TP PRN (17:16)
[2020-08-23] MEDS ORDERED: INSULIN (NOVOLOG) ASPART 100 UNITS/ML 10ML VIAL ONE (17:26)
[2020-08-23] MEDS ORDERED: INSULIN (LEVEMIR) 100 UNITS/ML UNITS SQ ONE (17:26)
[2020-08-23] MEDS ORDERED: PT OWN MED DRAWER 7, Y5N ONE (20:51)
[2020-08-23] MEDS: ATORVASTATIN CA 20 MG TABLET (FP) PO SCH (21:50)
[2020-08-23] MEDS: FERROUS SO4 325 MG TABLET (FP) PO SCH (21:50)
[2020-08-23] MEDS ORDERED: CALCIUM (OYSTER SHELL) 500 MG TABLET (FP) PO SCH (22:00)
[2020-08-24] MEDS: ZINC OXIDE/PANTHENOL/VITAMIN E 56 GM TUBE TP PRN (05:18)
[2020-08-24] MEDS: GABAPENTIN 300 MG CAPSULE PO SCH ×3 (05:57→21:34)
[2020-08-24] MEDS: DOCUSATE SODIUM 100 MG CAPSULE (FP) PO SCH ×3 (05:57→21:34)
[2020-08-24] MEDS: LEVOTHYROXINE NA 50 MCG TABLET (FP) PO SCH (06:14)
[2020-08-24] MEDS: diphenhydrAMINE HCL 25 MG CAPSULE (FP) PO PRN ×2 (06:14→21:34)
[2020-08-24] MEDS: INSULIN SLIDING SCALE (NOVOLOG) 1 VIAL SQ SCH ×4 (06:47→21:35)
[2020-08-24] MEDS: INSULIN (LEVEMIR) 100 UNITS/ML UNITS SQ SCH ×2 (06:47→21:37)
[2020-08-24] MEDS ORDERED: SODIUM CHLORIDE 50 ML IVPB ONE (09:03)
[2020-08-24] MEDS ORDERED: ERTAPENEM SODIUM 1 GM VIAL ONE (09:03)
[2020-08-24] MEDS: AMINO ACIDS/PROTEIN HYDROLYS 30 ML LIQUID.PKT PO SCH ×2 (09:49→17:31)
[2020-08-24] MEDS: MULTIVITAMINS (DAILY MVI) TABLET (FP) PO SCH (09:49)
[2020-08-24] MEDS: oxyCODONE HCL 5 MG TABLET PO PRN ×2 (09:49→21:35)
[2020-08-24] MEDS: ANASTROZOLE 1 MG TABLET PO SCH (09:50)
[2020-08-24] MEDS: FERROUS SO4 325 MG TABLET (FP) PO SCH ×2 (09:50→21:37)
[2020-08-24] MEDS: ERTAPENEM SODIUM 1 GM in SODIUM CHLORIDE 50 ML IVPB SCH (09:50)
[2020-08-24] MEDS: COLLAGENASE CLOSTRIDIUM HIST. 30 GRAMS TUBE TP SCH (09:53)
[2020-08-24 10:16] LABS: EOS % 11.2 % (0-4.5); HEMATOCRIT 29.5 % (32.4-45.2); HEMOGLOBIN 9.8 GM/dL (10.7-15.3); LYMPH % 21.5 % (8-40); MCH 28.6 pg (25.7-33.7); MCHC 33.3 g/dl (32.0-36.0); MEAN CELL VOLUME 85.9 fl (80-96); MEAN PLT VOLUME 8.2 fl (7.5-11.1); MONO % 6.2 % (3.8-10.2); NEUT % 60.1 % (42.8-82.8); PLATELET COUNT 325 K/MM3 (134-434); RBC 3.44 M/mm3 (3.60-5.2); RDW 16.7 % (11.6-15.6); WHITE BLOOD COUNT 5.5 K/mm3 (4.0-10.0)
[2020-08-24 10:37] LABS: CALCIUM 10.2 mg/dL (8.5-10.1)
[2020-08-24 10:38] LABS: ALBUMIN 2.6 g/dl (3.4-5.0); BLOOD UREA NITROGEN 11.2 mg/dL (7-18); MAGNESIUM 1.6 mg/dL (1.8-2.4)
[2020-08-24 10:41] LABS: CREATININE 0.4 mg/dL (0.55-1.3); PHOSPHOROUS 2.7 mg/dL (2.5-4.9)
[2020-08-24 10:42] LABS: BILIRUBIN,TOTAL 0.8 mg/dL (0.2-1); TOT PROT 5.8 g/dl (6.4-8.2)
[2020-08-24] MEDS ORDERED: DENOSUMAB 120 MG/1.7 ML VIAL SQ ONE (13:07)
[2020-08-24] MEDS: ATORVASTATIN CA 20 MG TABLET (FP) PO SCH (21:33)
[2020-08-24] MEDS: CALCIUM (OYSTER SHELL) 500 MG TABLET (FP) PO SCH (21:34)
[2020-08-25] MEDS: DOCUSATE SODIUM 100 MG CAPSULE (FP) PO SCH ×2 (06:28→14:44)
[2020-08-25] MEDS: INSULIN (LEVEMIR) 100 UNITS/ML UNITS SQ SCH (06:28)
[2020-08-25] MEDS: GABAPENTIN 300 MG CAPSULE PO SCH ×2 (06:28→14:44)
[2020-08-25] MEDS: INSULIN SLIDING SCALE (NOVOLOG) 1 VIAL SQ SCH ×3 (06:28→17:18)
[2020-08-25] MEDS: LEVOTHYROXINE NA 50 MCG TABLET (FP) PO SCH (06:28)
[2020-08-25 08:55] LABS: BASO % 0.6 % (0-2.0); EOS % 10.9 % (0-4.5); HEMATOCRIT 30.3 % (32.4-45.2); HEMOGLOBIN 10.2 GM/dL (10.7-15.3); MCH 28.9 pg (25.7-33.7); MCHC 33.5 g/dl (32.0-36.0); MEAN CELL VOLUME 86.1 fl (80-96); MEAN PLT VOLUME 7.8 fl (7.5-11.1); MONO % 7.2 % (3.8-10.2); NEUT % 60.3 % (42.8-82.8); PLATELET COUNT 302 K/MM3 (134-434); RBC 3.52 M/mm3 (3.60-5.2)
[2020-08-25] MEDS ORDERED: ERTAPENEM SODIUM 1 GM VIAL ONE (09:05)
[2020-08-25] MEDS ORDERED: SODIUM CHLORIDE 50 ML IVPB ONE (09:05)
[2020-08-25] MEDS: oxyCODONE HCL 5 MG TABLET PO PRN (09:12)
[2020-08-25] MEDS: MULTIVITAMINS (DAILY MVI) TABLET (FP) PO SCH (09:13)
[2020-08-25] MEDS: FERROUS SO4 325 MG TABLET (FP) PO SCH (09:13)
[2020-08-25] MEDS: CALCIUM (OYSTER SHELL) 500 MG TABLET (FP) PO SCH (09:13)
[2020-08-25] MEDS: ERTAPENEM SODIUM 1 GM in SODIUM CHLORIDE 50 ML IVPB SCH (09:14)
[2020-08-25] MEDS: AMINO ACIDS/PROTEIN HYDROLYS 30 ML LIQUID.PKT PO SCH ×2 (09:14→17:18)
[2020-08-25 09:15] LABS: ALBUMIN 2.4 g/dl (3.4-5.0); BLOOD UREA NITROGEN 13.4 mg/dL (7-18); CALCIUM 10.2 mg/dL (8.5-10.1); MAGNESIUM 1.3 mg/dL (1.8-2.4)
[2020-08-25] MEDS ORDERED: INSULIN (LEVEMIR) 100 UNITS/ML UNITS SQ SCH (09:17)
[2020-08-25 09:18] LABS: CREATININE 0.4 mg/dL (0.55-1.3); PHOSPHOROUS 2.9 mg/dL (2.5-4.9)
[2020-08-25] MEDS ORDERED: MAGNESIUM OXIDE 400 MG TABLET (FP) PO ONE (09:19)
[2020-08-25] MEDS ORDERED: MAGNESIUM SULF 50% (8.12 MEQ/2 ML-1 GM VIAL) IVPB ONE (09:19)
[2020-08-25 09:20] LABS: TOT PROT 5.7 g/dl (6.4-8.2)
[2020-08-25 09:21] LABS: BILIRUBIN,TOTAL 0.4 mg/dL (0.2-1)
[2020-08-25] MEDS ORDERED: PT OWN MED DRAWER 7, Y5N ONE (11:09)
[2020-08-25] MEDS: ANASTROZOLE 1 MG TABLET PO SCH (11:17)
[2020-08-25] MEDS: COLLAGENASE CLOSTRIDIUM HIST. 30 GRAMS TUBE TP SCH (11:18)
[2020-08-25] MEDS ORDERED: INSULIN (NOVOLOG) ASPART 100 UNITS/ML 10ML VIAL ONE (11:47)
[2020-08-25 14:00] VITALS: BP 120/53; PULSE 79; TEMP 98.9
== END 2020-08-25 18:53 | disposition home health service (06) | DRG 374 ==
LOC: JER 06:54 → JERBED 12:33 → J7W 16:25 → J4W 18:11 → J7W 08-21 20:07
PROVIDERS: ADMIT Internal Medicine; ATTEND Internal Medicine
PROC: 0DBP8ZX Excision of Rectum, Via Natural or Artificial Opening Endoscopic, Diagnostic (ICD-10-PCS; principal; 2020-08-20 13:15)
DX: C78.5 Secondary malignant neoplasm of large intestine and rectum (principal); L89.624 Pressure ulcer of left heel, stage 4; K62.5 Hemorrhage of anus and rectum; N13.30 Unspecified hydronephrosis; C79.51 Secondary malignant neoplasm of bone; M86.9 Osteomyelitis, unspecified; N39.0 Urinary tract infection, site not specified; M86.8X7 Other osteomyelitis, ankle and foot; L89.152 Pressure ulcer of sacral region, stage 2; C50.919 Malignant neoplasm of unspecified site of unspecified female breast; N32.89 Other specified disorders of bladder; Z93.3 Colostomy status; M25.441 Effusion, right hand; R33.9 Retention of urine, unspecified; I25.10 Atherosclerotic heart disease of native coronary artery without angina pectoris; Z95.5 Presence of coronary angioplasty implant and graft; E03.9 Hypothyroidism, unspecified; E78.5 Hyperlipidemia, unspecified; E11.621 Type 2 diabetes mellitus with foot ulcer; E11.42 Type 2 diabetes mellitus with diabetic polyneuropathy; Z79.4 Long term (current) use of insulin; D64.9 Anemia, unspecified
CPT/HCPCS: 36415; 71045-TC-FY; 74176-TC; 80048; 80053; 81003; 82272; 82728; 82962; 83540; 83550; 83605; 83735; 83993; 84100; 84439; 84443; 84484; 84550; 85025; 85027; 85045; 85610; 85730; 86850; 86900; 86901; 86922; 87086; 87186; 93005; 93010; 93971-TC; 97116-GP; 97161-GP; 99285-25; C9803; E0372; J0897; U0003; U0005

== ENCOUNTER 2020-09-25 09:30 | Day surgery (SDC) | payer OTHER, BC ==
[~2020-09-25 09:30] MED LIST changes: +DENOSUMAB 120 MG/1.7 ML VIAL SQ ONE; -VANCOMYCIN 1 GRAM (PRE-DOCKED) 1,000 MG/250 ML BAG IVPB SCH
[2020-09-25] MEDS ORDERED: DENOSUMAB 120 MG/1.7 ML VIAL SQ ONE (12:33)
[2020-09-25 13:34] LABS: BASO % 0.7 % (0-2.0); EOS % 3.3 % (0-4.5); HEMATOCRIT 29.1 % (32.4-45.2); HEMOGLOBIN 9.7 GM/dL (10.7-15.3); LYMPH % 19.1 % (8-40); MCH 28.2 pg (25.7-33.7); MCHC 33.3 g/dl (32.0-36.0); MEAN CELL VOLUME 84.9 fl (80-96); MEAN PLT VOLUME 7.8 fl (7.5-11.1); MONO % 7.7 % (3.8-10.2); NEUT % 69.2 % (42.8-82.8); PLATELET COUNT 278 K/MM3 (134-434); RBC 3.42 M/mm3 (3.60-5.2); RDW 15.6 % (11.6-15.6); WHITE BLOOD COUNT 6.1 K/mm3 (4.0-10.0)
[2020-09-25 13:47] LABS: BLOOD UREA NITROGEN 11.3 mg/dL (7-18); CALCIUM 9.8 mg/dL (8.5-10.1)
[2020-09-25 13:48] LABS: ALBUMIN 2.7 g/dl (3.4-5.0)
[2020-09-25 13:51] LABS: CREATININE 0.4 mg/dL (0.55-1.3)
[2020-09-25 13:52] LABS: BILIRUBIN,TOTAL 0.4 mg/dL (0.2-1); TOT PROT 6.6 g/dl (6.4-8.2)
[2020-09-25 16:01] VITALS: BP 139/70; PULSE 80; TEMP 97.6
== END 2020-09-25 13:30 | disposition home or self-care (01) ==
LOC: JONCCHEMO 09:30
PROVIDERS: ATTEND Internal Medicine Hematology & Oncology
PROC: 3E013GC Introduction of Other Therapeutic Substance into Subcutaneous Tissue, Percutaneous Approach (ICD-10-PCS; principal; 2020-09-25)
DX: C50.512 Malignant neoplasm of lower-outer quadrant of left female breast (principal)
CPT/HCPCS: 36415; 80053; 82728; 83540; 83550; 85025; 96372; J0897

== ENCOUNTER 2020-10-23 07:30 | Day surgery (SDC) | payer OTHER, BC ==
[2020-10-23] MEDS ORDERED: DENOSUMAB 120 MG/1.7 ML VIAL SQ ONE (12:00)
[2020-10-23 12:19] LABS: BASO % 0.8 % (0-2.0); EOS % 4.8 % (0-4.5); HEMATOCRIT 28.4 % (32.4-45.2); HEMOGLOBIN 9.2 GM/dL (10.7-15.3); LYMPH % 22.1 % (8-40); MCH 26.6 pg (25.7-33.7); MCHC 32.3 g/dl (32.0-36.0); MEAN CELL VOLUME 82.2 fl (80-96); MEAN PLT VOLUME 7.8 fl (7.5-11.1); MONO % 10.7 % (3.8-10.2); NEUT % 61.6 % (42.8-82.8); PLATELET COUNT 228 10^3/uL (134-434); RBC 3.45 M/mm3 (3.60-5.2); RDW 15.5 % (11.6-15.6); WHITE BLOOD COUNT 4.6 K/mm3 (4.0-10.0)
[2020-10-23 12:45] LABS: ALBUMIN 2.6 g/dl (3.4-5.0); BLOOD UREA NITROGEN 19.4 mg/dL (7-18); CALCIUM 9.4 mg/dL (8.5-10.1)
[2020-10-23 12:48] LABS: CREATININE 0.5 mg/dL (0.55-1.3)
[2020-10-23 12:50] LABS: BILIRUBIN,TOTAL 0.3 mg/dL (0.2-1); TOT PROT 6.6 g/dl (6.4-8.2)
[2020-10-23] MEDS ORDERED: FERRIC CARBOXYMALTOSE 750 MG in SODIUM CHLORIDE 250 ML IVPB ONE (15:00)
[2020-10-23 17:43] VITALS: TEMP 97.8
[2020-10-23 18:06] VITALS: BP 131/65; PULSE 74
== END 2020-10-23 17:20 | disposition home or self-care (01) ==
LOC: JONCCHEMO 07:30
PROVIDERS: ATTEND Internal Medicine Hematology & Oncology
PROC: 3E033GC Introduction of Other Therapeutic Substance into Peripheral Vein, Percutaneous Approach (ICD-10-PCS; principal; 2020-10-23)
PROC: 3E013GC Introduction of Other Therapeutic Substance into Subcutaneous Tissue, Percutaneous Approach (ICD-10-PCS; 2020-10-23)
DX: C20 Malignant neoplasm of rectum (principal); C79.81 Secondary malignant neoplasm of breast; Z76.89 Persons encountering health services in other specified circumstances
CPT/HCPCS: 36415; 80053; 82378; 85025; 86300; 86304; 96365; 96372; J0897; J1439

== ENCOUNTER 2020-10-30 07:10 | Day surgery (SDC) | payer OTHER, BC ==
[2020-10-30] MEDS ORDERED: FERRIC CARBOXYMALTOSE 750 MG in SODIUM CHLORIDE 250 ML IVPB ONE (12:45)
[2020-10-30 17:20] VITALS: BP 144/60; PULSE 69; TEMP 98.3
== END 2020-10-30 14:00 | disposition home or self-care (01) ==
LOC: JONCCHEMO 07:10
PROVIDERS: ATTEND Internal Medicine Hematology & Oncology
PROC: 3E033GC Introduction of Other Therapeutic Substance into Peripheral Vein, Percutaneous Approach (ICD-10-PCS; principal; 2020-10-30)
DX: D50.9 Iron deficiency anemia, unspecified (principal)
CPT/HCPCS: 96365; J1439

== ENCOUNTER 2020-11-20 06:53 | Day surgery (SDC) | payer OTHER, BC ==
[2020-11-20] MEDS ORDERED: DENOSUMAB 120 MG/1.7 ML VIAL SQ ONE (10:00)
[2020-11-20 11:52] LABS: BASO % 1.3 % (0-2.0); EOS % 3.9 % (0-4.5); HEMOGLOBIN 9.9 GM/dL (10.7-15.3); LYMPH % 24.3 % (8-40); MCH 27.7 pg (25.7-33.7); MCHC 32.8 g/dl (32.0-36.0); MEAN CELL VOLUME 84.2 fl (80-96); MEAN PLT VOLUME 7.2 fl (7.5-11.1); MONO % 11.1 % (3.8-10.2); NEUT % 59.4 % (42.8-82.8); PLATELET COUNT 232 10^3/uL (134-434); RBC 3.56 M/mm3 (3.60-5.2); RDW 20.6 % (11.6-15.6); WHITE BLOOD COUNT 3.6 K/mm3 (4.0-10.0)
[2020-11-20 12:13] LABS: BLOOD UREA NITROGEN 12.8 mg/dL (7-18)
[2020-11-20 12:14] LABS: ALBUMIN 2.7 g/dl (3.4-5.0); CALCIUM 7.5 mg/dL (8.5-10.1)
[2020-11-20 12:17] LABS: CREATININE 0.4 mg/dL (0.55-1.3)
[2020-11-20 12:19] LABS: BILIRUBIN,TOTAL 0.5 mg/dL (0.2-1); TOT PROT 6.4 g/dl (6.4-8.2)
[2020-11-20 12:40] LABS: ANISOCYTOSIS 1+; MACROCYTOSIS 1+; PLATELET ESTIMATE NORMAL
[2020-11-20 17:34] VITALS: BP 94/70; PULSE 72; TEMP 97.5
== END 2020-11-20 13:00 | disposition home or self-care (01) ==
LOC: JONCCHEMO 06:53
PROVIDERS: ATTEND Internal Medicine Hematology & Oncology
PROC: 3E013GC Introduction of Other Therapeutic Substance into Subcutaneous Tissue, Percutaneous Approach (ICD-10-PCS; principal; 2020-11-20)
DX: C50.512 Malignant neoplasm of lower-outer quadrant of left female breast (principal); Z76.89 Persons encountering health services in other specified circumstances
CPT/HCPCS: 36415; 80053; 85025; 96372; J0897

== ENCOUNTER 2020-12-04 09:45 | Day surgery (SDC) | payer OTHER, BC ==
[2020-12-04] MEDS ORDERED: FULVESTRANT 250 MG/5 ML SYRINGE IM ONE (10:57)
[2020-12-04 16:51] VITALS: BP 112/46; PULSE 65; TEMP 98.8
== END 2020-12-04 12:00 | disposition home or self-care (01) ==
LOC: JONCCHEMO 09:45
PROVIDERS: ATTEND Internal Medicine Hematology & Oncology
DX: Z51.11 Encounter for antineoplastic chemotherapy (principal); C50.512 Malignant neoplasm of lower-outer quadrant of left female breast
CPT/HCPCS: 96402; J9395

== ENCOUNTER 2020-12-18 06:49 | Day surgery (SDC) | payer OTHER, BC ==
[2020-12-18 12:30] LABS: EOS % 1.8 % (0-4.5); HEMATOCRIT 31.4 % (32.4-45.2); HEMOGLOBIN 10.1 GM/dL (10.7-15.3); LYMPH % 12.3 % (8-40); MCH 27.4 pg (25.7-33.7); MCHC 32.2 g/dl (32.0-36.0); MEAN CELL VOLUME 85.1 fl (80-96); MEAN PLT VOLUME 8.2 fl (7.5-11.1); MONO % 9.8 % (3.8-10.2); NEUT % 75.1 % (42.8-82.8); PLATELET COUNT 303 10^3/uL (134-434); RDW 19.5 % (11.6-15.6); WHITE BLOOD COUNT 7.2 K/mm3 (4.0-10.0)
[2020-12-18] MEDS ORDERED: FULVESTRANT 250 MG/5 ML SYRINGE IM ONE (12:30)
[2020-12-18 12:33] LABS: CALCIUM 7.7 mg/dL (8.5-10.1)
[2020-12-18 12:34] LABS: ALBUMIN 2.3 g/dl (3.4-5.0); BLOOD UREA NITROGEN 12.9 mg/dL (7-18)
[2020-12-18 12:37] LABS: CREATININE 0.5 mg/dL (0.55-1.3)
[2020-12-18 12:38] LABS: BILIRUBIN,TOTAL 0.6 mg/dL (0.2-1)
[2020-12-18 12:39] LABS: TOT PROT 6.8 g/dl (6.4-8.2)
[2020-12-18] MEDS ORDERED: DENOSUMAB 120 MG/1.7 ML VIAL SQ ONE (12:45)
[2020-12-18 13:18] LABS: PLATELET ESTIMATE NORMAL
[2020-12-18 15:42] VITALS: BP 99/51; PULSE 61; TEMP 98.4
== END 2020-12-18 14:05 | disposition home or self-care (01) ==
LOC: JONCCHEMO 06:49
PROVIDERS: ATTEND Internal Medicine Hematology & Oncology
PROC: 3E013GC Introduction of Other Therapeutic Substance into Subcutaneous Tissue, Percutaneous Approach (ICD-10-PCS; principal; 2020-12-18)
DX: C50.512 Malignant neoplasm of lower-outer quadrant of left female breast (principal)
CPT/HCPCS: 36415; 80053; 80061; 83036; 84439; 84443; 85025; 96372; J0897

== ENCOUNTER 2021-01-22 07:45 | Day surgery (SDC) | payer OTHER, BC ==
[2021-01-22] MEDS ORDERED: DENOSUMAB 120 MG/1.7 ML VIAL SQ ONE (10:00)
[2021-01-22 12:02] LABS: BASO % 0.6 % (0-2.0); EOS % 2.7 % (0-4.5); HEMATOCRIT 26.2 % (32.4-45.2); HEMOGLOBIN 8.5 GM/dL (10.7-15.3); LYMPH % 13.4 % (8-40); MCH 26.6 pg (25.7-33.7); MCHC 32.5 g/dl (32.0-36.0); MEAN PLT VOLUME 7.4 fl (7.5-11.1); MONO % 7.1 % (3.8-10.2); NEUT % 76.2 % (42.8-82.8); PLATELET COUNT 283 10^3/uL (134-434); RBC 3.19 M/mm3 (3.60-5.2); RDW 17.1 % (11.6-15.6); WHITE BLOOD COUNT 6.2 K/mm3 (4.0-10.0)
[2021-01-22 12:25] LABS: BLOOD UREA NITROGEN 12.6 mg/dL (7-18)
[2021-01-22 12:27] LABS: CREATININE 0.5 mg/dL (0.55-1.3)
[2021-01-22 12:29] LABS: BILIRUBIN,TOTAL 0.6 mg/dL (0.2-1); TOT PROT 6.7 g/dl (6.4-8.2)
[2021-01-22 17:21] VITALS: BP 146/64; PULSE 68; TEMP 98.1
== END 2021-01-22 13:00 | disposition home or self-care (01) ==
LOC: JONCCHEMO 07:45
PROVIDERS: ATTEND Internal Medicine Hematology & Oncology
PROC: 3E013GC Introduction of Other Therapeutic Substance into Subcutaneous Tissue, Percutaneous Approach (ICD-10-PCS; principal; 2021-01-22)
DX: C50.512 Malignant neoplasm of lower-outer quadrant of left female breast (principal); C79.52 Secondary malignant neoplasm of bone marrow; C78.5 Secondary malignant neoplasm of large intestine and rectum; C79.51 Secondary malignant neoplasm of bone
CPT/HCPCS: 36415; 80053; 85025; 96372; J0897

== ENCOUNTER 2021-02-01 15:01 | Inpatient (IN) | payer OTHER, BC ==
[2021-02-01 15:13] VITALS: BMI 26.2
[2021-02-01] MEDS ORDERED: oxyCODONE HCL 5 MG TABLET PO ONE (16:19)
[2021-02-01] MEDS ORDERED: oxyCODONE HCL 5 MG TABLET ONE (16:21)
[2021-02-01 17:00] LABS: BASO % 0.1 % (0-2.0); EOS % 0.1 % (0-4.5); HEMATOCRIT 26.6 % (32.4-45.2); HEMOGLOBIN 8.8 GM/dL (10.7-15.3); LYMPH % 3.4 % (8-40); MCH 26.5 pg (25.7-33.7); MEAN CELL VOLUME 80.2 fl (80-96); MONO % 5.5 % (3.8-10.2); NEUT % 90.9 % (42.8-82.8); PLATELET COUNT 266 10^3/uL (134-434); RBC 3.31 M/mm3 (3.60-5.2); RDW 16.5 % (11.6-15.6)
[2021-02-01 17:18] LABS: INR 1.35 (0.83-1.09); PROTHROMBIN TIME (PATIENT) 16.6 SEC (9.7-13.0)
[2021-02-01 17:21] LABS: ACTIVATED PTT 21.8 SECONDS (25.2-36.5)
[2021-02-01 17:50] LABS: CALCIUM 8.5 mg/dL (8.5-10.1)
[2021-02-01 17:51] LABS: ALBUMIN 1.8 g/dl (3.4-5.0); BLOOD UREA NITROGEN 9.1 mg/dL (7-18)
[2021-02-01 17:54] LABS: CREATININE 0.5 mg/dL (0.55-1.3)
[2021-02-01 17:55] LABS: TOT PROT 6.7 g/dl (6.4-8.2)
[2021-02-01] MEDS ORDERED: VANCOMYCIN 1 GM in D5W (PRE-DOCKED) 1,000 MG/250 ML IVPB ONE (17:57)
[2021-02-01] MEDS ORDERED: VANCOMYCIN 1 GRAM (PRE-DOCKED) 1,000 MG/250 ML BAG IVPB ONE (18:01)
[2021-02-01] MEDS ORDERED: DOCUSATE SODIUM 100 MG CAPSULE (FP) PO PRN (21:36)
[2021-02-01] MEDS ORDERED: VANCOMYCIN/WATER 1,250 MG/250 ML BAG IVPB SCH (23:00)
[2021-02-01] MEDS: morphine SULFATE 4 MG/ML VIAL IVPUSH PRN (23:50)
[2021-02-02] MEDS: oxyCODONE HCL 5 MG TABLET PO PRN ×4 (01:19→17:35)
[2021-02-02] MEDS: PIPERACILLIN/TAZOB 4.5 GM 4.5 GM in DEXTROSE 5%-WATER 100 ML IVPB SCH ×3 (01:34→10:44)
[2021-02-02] MEDS ORDERED: DEXTROSE 5%-WATER 100 ML IVPB ONE ×2 (04:47→10:41)
[2021-02-02] MEDS ORDERED: PIPERACILLIN/TAZOBACTAM 4.5 GM VIAL IVPB ONE ×2 (04:47→10:41)
[2021-02-02] MEDS: LEVOTHYROXINE NA 50 MCG TABLET (FP) PO SCH (06:46)
[2021-02-02] MEDS: GABAPENTIN 300 MG CAPSULE PO SCH ×3 (06:47→21:38)
[2021-02-02] MEDS: INSULIN SLIDING SCALE (NOVOLOG) 1 VIAL SQ SCH ×4 (06:52→21:38)
[2021-02-02] MEDS ORDERED: VANCOMYCIN/WATER 1,250 MG/250 ML BAG IVPB SCH (07:00)
[2021-02-02] MEDS ORDERED: PT OWN MED DRAWER 7, Y5N ONE ×4 (07:04→15:37)
[2021-02-02 07:52] LABS: BASO % 0.4 % (0-2.0); EOS % 0.7 % (0-4.5); HEMATOCRIT 22.3 % (32.4-45.2); HEMOGLOBIN 7.4 GM/dL (10.7-15.3); LYMPH % 9.9 % (8-40); MCH 26.3 pg (25.7-33.7); MCHC 33.1 g/dl (32.0-36.0); MEAN CELL VOLUME 79.5 fl (80-96); MEAN PLT VOLUME 7.3 fl (7.5-11.1); MONO % 8.4 % (3.8-10.2); NEUT % 80.6 % (42.8-82.8); PLATELET COUNT 229 10^3/uL (134-434); RBC 2.81 M/mm3 (3.60-5.2); RDW 16.9 % (11.6-15.6); WHITE BLOOD COUNT 6.3 K/mm3 (4.0-10.0)
[2021-02-02 08:16] LABS: ALBUMIN 1.4 g/dl (3.4-5.0); BLOOD UREA NITROGEN 8.8 mg/dL (7-18)
[2021-02-02 08:19] LABS: CREATININE 0.4 mg/dL (0.55-1.3); PHOSPHOROUS 1.6 mg/dL (2.5-4.9)
[2021-02-02 08:20] LABS: BILIRUBIN,TOTAL 0.8 mg/dL (0.2-1)
[2021-02-02 08:22] LABS: TOT PROT 5.4 g/dl (6.4-8.2)
[2021-02-02] MEDS: morphine SULFATE 4 MG/ML VIAL IVPUSH PRN ×2 (08:57→16:00)
[2021-02-02] MEDS: ENOXAPARIN NA (PORCINE) 40 MG/0.4 ML DISP.SYRIN SQ SCH ×2 (10:45→12:03)
[2021-02-02] MEDS: ASPIRIN COATED 81 MG TABLET.EC PO SCH (10:45)
[2021-02-02] MEDS ORDERED: INSULIN (NOVOLOG) ASPART 100 UNITS/ML 10ML VIAL ONE (12:27)
[2021-02-02] MEDS: RAMIPRIL 5 MG CAPSULE PO SCH ×2 (12:43→21:58)
[2021-02-02] MEDS: DEXAMETHASONE SOD PHOSPHATE 4 MG/1 ML VIAL IVPB SCH ×2 (15:35→19:26)
[2021-02-02] MEDS ORDERED: MAGNESIUM SULF 50% (8.12 MEQ/2 ML-1 GM VIAL) IVPB ONE (15:53)
[2021-02-02] MEDS ORDERED: SODIUM PHOSPHATE - 30 MM in SODIUM CHLORIDE 250 ML IVPB ONE (15:54)
[2021-02-02] MEDS ORDERED: DEXTROSE 5%-WATER - 50 ML IVPB ONE (17:21)
[2021-02-02] MEDS ORDERED: PIPERACILLIN/TAZOBACTAM 3.375 GM VIAL IVPB ONE (17:21)
[2021-02-02] MEDS: PIPERACILLIN/TAZOB 3.375 GM 3.375 GM in DEXTROSE 5%-WATER - 50 ML IVPB SCH (17:34)
[2021-02-02] MEDS ORDERED: PIPERACILLIN/TAZOB 4.5 GM 4.5 GM in DEXTROSE 5%-WATER 100 ML IVPB SCH (21:00)
[2021-02-02] MEDS: EXEMESTANE 25 MG TABLET PO SCH (21:38)
[2021-02-02] MEDS: ATORVASTATIN CA 20 MG TABLET (FP) PO SCH (21:38)
[2021-02-02] MEDS ORDERED: PATIENT'S OWN MEDICATION (NON-FORMULARY) (Oxycodone Hcl [Oxycodone Hcl] 10 MG Tablet) PO SCH (22:00)
[2021-02-03] MEDS ORDERED: DEXTROSE 5%-WATER - 50 ML IVPB ONE ×3 (00:36→18:25)
[2021-02-03] MEDS ORDERED: PIPERACILLIN/TAZOBACTAM 3.375 GM VIAL IVPB ONE ×3 (00:36→18:25)
[2021-02-03] MEDS: PIPERACILLIN/TAZOB 3.375 GM 3.375 GM in DEXTROSE 5%-WATER - 50 ML IVPB SCH ×3 (02:21→18:38)
[2021-02-03] MEDS: DEXAMETHASONE SOD PHOSPHATE 4 MG/1 ML VIAL IVPB SCH ×4 (02:21→21:12)
[2021-02-03] MEDS: VANCOMYCIN/WATER BAGS 1,250 MG/250 ML BAG IVPB SCH (06:03)
[2021-02-03] MEDS: LEVOTHYROXINE NA 50 MCG TABLET (FP) PO SCH (06:06)
[2021-02-03] MEDS: GABAPENTIN 300 MG CAPSULE PO SCH ×3 (06:06→21:20)
[2021-02-03] MEDS: INSULIN SLIDING SCALE (NOVOLOG) 1 VIAL SQ SCH ×4 (06:07→21:21)
[2021-02-03] MEDS ORDERED: VANCOMYCIN/WATER 1,250 MG/250 ML BAG IVPB SCH (07:00)
[2021-02-03 09:25] LABS: BASO % 0.1 % (0-2.0); HEMATOCRIT 25.1 % (32.4-45.2); HEMOGLOBIN 8.2 GM/dL (10.7-15.3); LYMPH % 6.1 % (8-40); MCH 26.4 pg (25.7-33.7); MCHC 32.5 g/dl (32.0-36.0); MEAN CELL VOLUME 81.2 fl (80-96); MEAN PLT VOLUME 7.6 fl (7.5-11.1); MONO % 2.7 % (3.8-10.2); NEUT % 91.1 % (42.8-82.8); PLATELET COUNT 219 10^3/uL (134-434); RDW 16.9 % (11.6-15.6); WHITE BLOOD COUNT 5.3 K/mm3 (4.0-10.0)
[2021-02-03 09:51] LABS: CALCIUM 7.6 mg/dL (8.5-10.1)
[2021-02-03 09:53] LABS: MAGNESIUM 1.5 mg/dL (1.8-2.4)
[2021-02-03 09:55] LABS: CREATININE 0.4 mg/dL (0.55-1.3)
[2021-02-03 09:56] LABS: PHOSPHOROUS 3.2 mg/dL (2.5-4.9)
[2021-02-03] MEDS ORDERED: PATIENT'S OWN MEDICATION (NON-FORMULARY) (Exemestane 25 MG Tablet) PO SCH (10:00)
[2021-02-03 10:23] LABS: ANISOCYTOSIS 0; HELMET CELLS 0; HOWELL-JOLLY BODIES 0; MACROCYTOSIS 0; OVALOCYTE 0; PLATELET ESTIMATE NORMAL; ROULEAU 0; SICKELED CELLS 0; TARGET CELLS 0; TEAR DROP CELLS 0; TOXIC GRANULATION 0
[2021-02-03] MEDS ORDERED: PT OWN MED DRAWER 7, Y5N ONE ×3 (11:54→20:53)
[2021-02-03] MEDS: morphine SULFATE 4 MG/ML VIAL IVPUSH PRN (12:08)
[2021-02-03] MEDS: PANTOPRAZOLE 40 MG TABLET PO SCH (12:09)
[2021-02-03] MEDS: ASPIRIN COATED 81 MG TABLET.EC PO SCH (12:09)
[2021-02-03] MEDS: ENOXAPARIN NA (PORCINE) 40 MG/0.4 ML DISP.SYRIN SQ SCH ×3 (12:10→15:04)
[2021-02-03] MEDS ORDERED: MAGNESIUM SULF 50% (8.12 MEQ/2 ML-1 GM VIAL) IVPB ONE (12:12)
[2021-02-03] MEDS: RAMIPRIL 5 MG CAPSULE PO SCH ×3 (12:12→21:24)
[2021-02-03] MEDS: EXEMESTANE 25 MG TABLET PO SCH (12:13)
[2021-02-03] MEDS ORDERED: SODIUM CHLORIDE 1,000 ML IV SCH (12:30)
[2021-02-03] MEDS: oxyCODONE HCL 5 MG TABLET PO PRN (14:49)
[2021-02-03] MEDS: HYDROmorphone HCl 2 MG/ML VIAL IVPB PRN (18:30)
[2021-02-03] MEDS ORDERED: INSULIN (NOVOLOG) ASPART 100 UNITS/ML 10ML VIAL ONE (20:54)
[2021-02-03] MEDS: DOCUSATE SODIUM 100 MG CAPSULE (FP) PO SCH (21:19)
[2021-02-03] MEDS: ATORVASTATIN CA 20 MG TABLET (FP) PO SCH (21:20)
[2021-02-04] MEDS ORDERED: PIPERACILLIN/TAZOBACTAM 3.375 GM VIAL IVPB ONE ×3 (01:30→16:27)
[2021-02-04] MEDS ORDERED: DEXTROSE 5%-WATER - 50 ML IVPB ONE ×3 (01:30→16:27)
[2021-02-04] MEDS: PIPERACILLIN/TAZOB 3.375 GM 3.375 GM in DEXTROSE 5%-WATER - 50 ML IVPB SCH ×2 (02:05→09:42)
[2021-02-04] MEDS: DEXAMETHASONE SOD PHOSPHATE 4 MG/1 ML VIAL IVPB SCH ×3 (02:57→17:56)
[2021-02-04] MEDS: GABAPENTIN 300 MG CAPSULE PO SCH ×3 (05:17→21:31)
[2021-02-04] MEDS ORDERED: PT OWN MED DRAWER 7, Y5N ONE ×2 (06:11→21:22)
[2021-02-04] MEDS: VANCOMYCIN/WATER BAGS 1,250 MG/250 ML BAG IVPB SCH (06:12)
[2021-02-04] MEDS: INSULIN SLIDING SCALE (NOVOLOG) 1 VIAL SQ SCH ×4 (06:34→21:36)
[2021-02-04] MEDS: LEVOTHYROXINE NA 50 MCG TABLET (FP) PO SCH (06:34)
[2021-02-04 08:19] LABS: BASO % 0.1 % (0-2.0); HEMOGLOBIN 8.5 GM/dL (10.7-15.3); MCH 26.4 pg (25.7-33.7); MCHC 32.5 g/dl (32.0-36.0); MEAN CELL VOLUME 81.2 fl (80-96); MEAN PLT VOLUME 7.5 fl (7.5-11.1); MONO % 3.6 % (3.8-10.2); NEUT % 89.3 % (42.8-82.8); PLATELET COUNT 241 10^3/uL (134-434); WHITE BLOOD COUNT 3.9 K/mm3 (4.0-10.0)
[2021-02-04 08:28] LABS: CALCIUM 7.5 mg/dL (8.5-10.1)
[2021-02-04 08:29] LABS: BLOOD UREA NITROGEN 16.1 mg/dL (7-18); MAGNESIUM 1.9 mg/dL (1.8-2.4)
[2021-02-04 08:32] LABS: CREATININE 0.6 mg/dL (0.55-1.3); PHOSPHOROUS 1.9 mg/dL (2.5-4.9)
[2021-02-04] MEDS: ARTIFICIAL TEARS (POLYVINYL ALCOHOL) OPTH DROPS OU SCH (09:41)
[2021-02-04] MEDS: EXEMESTANE 25 MG TABLET PO SCH (09:41)
[2021-02-04] MEDS: RAMIPRIL 5 MG CAPSULE PO SCH ×2 (09:41→21:47)
[2021-02-04] MEDS: ASPIRIN COATED 81 MG TABLET.EC PO SCH (09:42)
[2021-02-04] MEDS: PANTOPRAZOLE 40 MG TABLET PO SCH (09:42)
[2021-02-04] MEDS: ENOXAPARIN NA (PORCINE) 40 MG/0.4 ML DISP.SYRIN SQ SCH (09:42)
[2021-02-04] MEDS ORDERED: INSULIN (LEVEMIR) 100 UNITS/ML UNITS SQ SCH ×3 (10:00→10:18)
[2021-02-04] MEDS ORDERED: INSULIN (NOVOLOG) ASPART 100 UNITS/ML 10ML VIAL ONE (10:47)
[2021-02-04] MEDS: oxyCODONE HCL 5 MG TABLET PO PRN (12:28)
[2021-02-04] MEDS: HYDROmorphone HCl 2 MG/ML VIAL IVPB PRN (14:51)
[2021-02-04] MEDS: PIPERACILLIN/TAZOB 3.375 GM 3.375 GM in SODIUM CHLORIDE 50 ML IVPB SCH (17:57)
[2021-02-04] MEDS: ATORVASTATIN CA 20 MG TABLET (FP) PO SCH (21:31)
[2021-02-04] MEDS: DOCUSATE SODIUM 100 MG CAPSULE (FP) PO SCH (21:35)
[2021-02-04] MEDS: INSULIN (LEVEMIR) 100 UNITS/ML UNITS SQ SCH (21:39)
[2021-02-05] MEDS ORDERED: PIPERACILLIN/TAZOBACTAM 3.375 GM VIAL IVPB ONE ×3 (00:20→17:01)
[2021-02-05] MEDS ORDERED: SODIUM CHLORIDE 50 ML IVPB ONE ×3 (00:21→17:01)
[2021-02-05] MEDS: PIPERACILLIN/TAZOB 3.375 GM 3.375 GM in SODIUM CHLORIDE 50 ML IVPB SCH ×3 (01:09→17:20)
[2021-02-05] MEDS: DEXAMETHASONE SOD PHOSPHATE 4 MG/1 ML VIAL IVPB SCH ×3 (01:47→17:20)
[2021-02-05] MEDS: GABAPENTIN 300 MG CAPSULE PO SCH ×3 (05:37→21:36)
[2021-02-05] MEDS: INSULIN SLIDING SCALE (NOVOLOG) 1 VIAL SQ SCH ×4 (06:37→21:48)
[2021-02-05] MEDS: INSULIN (LEVEMIR) 100 UNITS/ML UNITS SQ SCH ×2 (06:40→21:49)
[2021-02-05] MEDS: LEVOTHYROXINE NA 50 MCG TABLET (FP) PO SCH (06:42)
[2021-02-05 07:56] LABS: BASO % 0.1 % (0-2.0); EOS % 0.5 % (0-4.5); HEMATOCRIT 25.7 % (32.4-45.2); HEMOGLOBIN 8.4 GM/dL (10.7-15.3); LYMPH % 4.3 % (8-40); MCH 26.5 pg (25.7-33.7); MCHC 32.6 g/dl (32.0-36.0); MEAN CELL VOLUME 81.3 fl (80-96); MEAN PLT VOLUME 7.9 fl (7.5-11.1); MONO % 4.5 % (3.8-10.2); NEUT % 90.6 % (42.8-82.8); PLATELET COUNT 284 10^3/uL (134-434); RBC 3.16 M/mm3 (3.60-5.2); RDW 16.9 % (11.6-15.6); WHITE BLOOD COUNT 9.8 K/mm3 (4.0-10.0)
[2021-02-05 08:09] LABS: BLOOD UREA NITROGEN 18.9 mg/dL (7-18); CALCIUM 7.5 mg/dL (8.5-10.1)
[2021-02-05 08:10] LABS: MAGNESIUM 1.8 mg/dL (1.8-2.4)
[2021-02-05 08:13] LABS: CREATININE 0.6 mg/dL (0.55-1.3); PHOSPHOROUS 1.3 mg/dL (2.5-4.9)
[2021-02-05] MEDS ORDERED: SODIUM PHOSPHATE - 30 MM in SODIUM CHLORIDE 500 ML IVPB ONE (08:46)
[2021-02-05] MEDS: PANTOPRAZOLE 40 MG TABLET PO SCH (10:00)
[2021-02-05] MEDS: VANCOMYCIN/WATER BAGS 1,250 MG/250 ML BAG IVPB SCH (10:00)
[2021-02-05] MEDS: EXEMESTANE 25 MG TABLET PO SCH (10:01)
[2021-02-05] MEDS: ASPIRIN COATED 81 MG TABLET.EC PO SCH (10:01)
[2021-02-05] MEDS: ARTIFICIAL TEARS (POLYVINYL ALCOHOL) OPTH DROPS OU SCH (10:01)
[2021-02-05] MEDS: ENOXAPARIN NA (PORCINE) 40 MG/0.4 ML DISP.SYRIN SQ SCH (10:01)
[2021-02-05] MEDS: RAMIPRIL 5 MG CAPSULE PO SCH ×2 (10:02→21:36)
[2021-02-05] MEDS: HYDROmorphone HCl 2 MG/ML VIAL IVPB PRN ×2 (10:06→21:32)
[2021-02-05] MEDS ORDERED: FENTANYL PATCH WASTE MC PRN (11:05)
[2021-02-05] MEDS ORDERED: fentaNYL 12mcg/hr PATCH.TD72 TD SCH (11:15)
[2021-02-05] MEDS: ATORVASTATIN CA 20 MG TABLET (FP) PO SCH (21:36)
[2021-02-05] MEDS: DOCUSATE SODIUM 100 MG CAPSULE (FP) PO SCH (21:37)
[2021-02-06] MEDS ORDERED: PIPERACILLIN/TAZOBACTAM 3.375 GM VIAL IVPB ONE ×3 (00:48→16:15)
[2021-02-06] MEDS ORDERED: SODIUM CHLORIDE 50 ML IVPB ONE ×3 (00:48→16:15)
[2021-02-06] MEDS: PIPERACILLIN/TAZOB 3.375 GM 3.375 GM in SODIUM CHLORIDE 50 ML IVPB SCH ×3 (01:19→17:09)
[2021-02-06] MEDS: HYDROmorphone HCl 2 MG/ML VIAL IVPB PRN (02:02)
[2021-02-06] MEDS: DEXAMETHASONE SOD PHOSPHATE 4 MG/1 ML VIAL IVPB SCH ×4 (02:50→17:35)
[2021-02-06 05:53] LABS: HEMATOCRIT 26.2 % (32.4-45.2); HEMOGLOBIN 8.6 GM/dL (10.7-15.3); MCH 26.5 pg (25.7-33.7); MCHC 32.8 g/dl (32.0-36.0); MEAN CELL VOLUME 80.8 fl (80-96); MEAN PLT VOLUME 7.7 fl (7.5-11.1); PLATELET COUNT 258 10^3/uL (134-434); RBC 3.24 M/mm3 (3.60-5.2); RDW 17.3 % (11.6-15.6); WHITE BLOOD COUNT 8.3 K/mm3 (4.0-10.0)
[2021-02-06] MEDS: LEVOTHYROXINE NA 50 MCG TABLET (FP) PO SCH (06:03)
[2021-02-06] MEDS: GABAPENTIN 300 MG CAPSULE PO SCH ×3 (06:03→21:08)
[2021-02-06] MEDS: DOCUSATE SODIUM 100 MG CAPSULE (FP) PO SCH ×3 (06:05→21:08)
[2021-02-06] MEDS: INSULIN (LEVEMIR) 100 UNITS/ML UNITS SQ SCH ×2 (06:07→21:09)
[2021-02-06] MEDS: INSULIN SLIDING SCALE (NOVOLOG) 1 VIAL SQ SCH ×4 (06:08→21:09)
[2021-02-06 06:18] LABS: CALCIUM 7.3 mg/dL (8.5-10.1)
[2021-02-06 06:19] LABS: BLOOD UREA NITROGEN 16.2 mg/dL (7-18)
[2021-02-06 06:20] LABS: MAGNESIUM 1.8 mg/dL (1.8-2.4)
[2021-02-06 06:22] LABS: CREATININE 0.4 mg/dL (0.55-1.3); PHOSPHOROUS 1.9 mg/dL (2.5-4.9)
[2021-02-06 09:12] LABS: ANISOCYTOSIS 0; HELMET CELLS 0; HOWELL-JOLLY BODIES 0; MACROCYTOSIS 0; OVALOCYTE 0; PLATELET ESTIMATE NORMAL; ROULEAU 0; SICKELED CELLS 0; TARGET CELLS 0; TEAR DROP CELLS 0; TOXIC GRANULATION 0
[2021-02-06] MEDS: VANCOMYCIN/WATER BAGS 1,250 MG/250 ML BAG IVPB SCH (09:21)
[2021-02-06] MEDS: RAMIPRIL 5 MG CAPSULE PO SCH ×2 (09:21→21:08)
[2021-02-06] MEDS: ARTIFICIAL TEARS (POLYVINYL ALCOHOL) OPTH DROPS OU SCH (09:22)
[2021-02-06] MEDS: PANTOPRAZOLE 40 MG TABLET PO SCH (09:22)
[2021-02-06] MEDS: EXEMESTANE 25 MG TABLET PO SCH (09:22)
[2021-02-06] MEDS: ASPIRIN COATED 81 MG TABLET.EC PO SCH (09:23)
[2021-02-06] MEDS: ENOXAPARIN NA (PORCINE) 40 MG/0.4 ML DISP.SYRIN SQ SCH (09:23)
[2021-02-06] MEDS ORDERED: FENTANYL PATCH WASTE TD PRN (10:11)
[2021-02-06] MEDS ORDERED: INSULIN (NOVOLOG) ASPART 100 UNITS/ML 10ML VIAL ONE ×2 (11:18→21:04)
[2021-02-06] MEDS ORDERED: fentaNYL 12mcg/hr PATCH.TD72 TD ONE (11:45)
[2021-02-06] MEDS ORDERED: NAPH,MB-DB/K PH,MBDB POWDER PACKET PO ONE (14:50)
[2021-02-06] MEDS: ATORVASTATIN CA 20 MG TABLET (FP) PO SCH (21:08)
[2021-02-07] MEDS ORDERED: PIPERACILLIN/TAZOBACTAM 3.375 GM VIAL IVPB ONE ×3 (00:39→17:24)
[2021-02-07] MEDS ORDERED: SODIUM CHLORIDE 50 ML IVPB ONE ×3 (00:39→17:24)
[2021-02-07] MEDS: PIPERACILLIN/TAZOB 3.375 GM 3.375 GM in SODIUM CHLORIDE 50 ML IVPB SCH ×3 (01:11→17:36)
[2021-02-07] MEDS: HYDROmorphone HCl 2 MG/ML VIAL IVPB PRN ×2 (03:43→09:47)
[2021-02-07] MEDS: DOCUSATE SODIUM 100 MG CAPSULE (FP) PO SCH ×3 (05:11→23:00)
[2021-02-07] MEDS ORDERED: PT OWN MED DRAWER 7, Y5N ONE ×2 (05:38→09:42)
[2021-02-07] MEDS: LEVOTHYROXINE NA 50 MCG TABLET (FP) PO SCH (06:32)
[2021-02-07] MEDS: DEXAMETHASONE SOD PHOSPHATE 4 MG/1 ML VIAL IVPB SCH ×2 (06:32→17:35)
[2021-02-07] MEDS: GABAPENTIN 300 MG CAPSULE PO SCH ×3 (06:32→23:00)
[2021-02-07] MEDS: VANCOMYCIN/WATER BAGS 1,250 MG/250 ML BAG IVPB SCH (06:37)
[2021-02-07] MEDS: INSULIN (LEVEMIR) 100 UNITS/ML UNITS SQ SCH ×2 (06:45→23:41)
[2021-02-07] MEDS: INSULIN SLIDING SCALE (NOVOLOG) 1 VIAL SQ SCH ×4 (06:46→23:41)
[2021-02-07] MEDS: ASPIRIN COATED 81 MG TABLET.EC PO SCH (09:47)
[2021-02-07] MEDS: PANTOPRAZOLE 40 MG TABLET PO SCH (09:47)
[2021-02-07 09:52] LABS: BASO % 0.3 % (0-2.0); EOS % 0.4 % (0-4.5); HEMATOCRIT 30.1 % (32.4-45.2); HEMOGLOBIN 9.7 GM/dL (10.7-15.3); LYMPH % 11.4 % (8-40); MCH 26.3 pg (25.7-33.7); MCHC 32.3 g/dl (32.0-36.0); MEAN CELL VOLUME 81.4 fl (80-96); MEAN PLT VOLUME 7.5 fl (7.5-11.1); MONO % 7.3 % (3.8-10.2); NEUT % 80.6 % (42.8-82.8); PLATELET COUNT 314 10^3/uL (134-434); RDW 17.1 % (11.6-15.6); WHITE BLOOD COUNT 8.3 K/mm3 (4.0-10.0)
[2021-02-07] MEDS: EXEMESTANE 25 MG TABLET PO SCH (09:53)
[2021-02-07] MEDS: RAMIPRIL 5 MG CAPSULE PO SCH ×2 (09:53→23:00)
[2021-02-07] MEDS: ENOXAPARIN NA (PORCINE) 40 MG/0.4 ML DISP.SYRIN SQ SCH (09:54)
[2021-02-07 10:21] LABS: BLOOD UREA NITROGEN 15.2 mg/dL (7-18); CALCIUM 7.6 mg/dL (8.5-10.1); MAGNESIUM 1.6 mg/dL (1.8-2.4)
[2021-02-07 10:24] LABS: CREATININE 0.5 mg/dL (0.55-1.3); PHOSPHOROUS 1.2 mg/dL (2.5-4.9)
[2021-02-07] MEDS: ARTIFICIAL TEARS (POLYVINYL ALCOHOL) OPTH DROPS OU SCH (10:36)
[2021-02-07] MEDS ORDERED: FENTANYL PATCH WASTE TD PRN (14:08)
[2021-02-07] MEDS ORDERED: fentaNYL 50mcg/hr PATCH.TD72 TD SCH (14:15)
[2021-02-07] MEDS: oxyCODONE HCL 5 MG TABLET PO PRN ×2 (14:20→18:05)
[2021-02-07] MEDS ORDERED: FENTANYL PATCH WASTE MC PRN (16:26)
[2021-02-07] MEDS: FENTANYL PATCH WASTE TD PRN ×2 (17:18→17:20)
[2021-02-07] MEDS: fentaNYL 25mcg/hr PATCH.TD72 TD SCH (17:39)
[2021-02-07] MEDS: ATORVASTATIN CA 20 MG TABLET (FP) PO SCH (23:00)
[2021-02-08] MEDS: DEXAMETHASONE SOD PHOSPHATE 4 MG/1 ML VIAL IVPB SCH ×2 (06:00→06:51)
[2021-02-08] MEDS: GABAPENTIN 300 MG CAPSULE PO SCH ×3 (06:34→21:39)
[2021-02-08] MEDS: DOCUSATE SODIUM 100 MG CAPSULE (FP) PO SCH ×3 (06:51→21:39)
[2021-02-08] MEDS: INSULIN (LEVEMIR) 100 UNITS/ML UNITS SQ SCH ×2 (06:54→22:47)
[2021-02-08] MEDS: INSULIN SLIDING SCALE (NOVOLOG) 1 VIAL SQ SCH ×4 (06:54→22:47)
[2021-02-08] MEDS: LEVOTHYROXINE NA 50 MCG TABLET (FP) PO SCH (07:21)
[2021-02-08] MEDS ORDERED: PT OWN MED DRAWER 7, Y5N ONE ×2 (09:19→12:00)
[2021-02-08] MEDS: EXEMESTANE 25 MG TABLET PO SCH (09:25)
[2021-02-08] MEDS: AMOX TR/POT CLAV 875MG/125MG TABLETS (FP) PO SCH ×2 (09:26→17:00)
[2021-02-08] MEDS: DOXYCYCLINE HYCLATE 100 MG CAPSULE PO SCH ×2 (09:26→17:00)
[2021-02-08] MEDS: RAMIPRIL 5 MG CAPSULE PO SCH ×2 (09:26→22:47)
[2021-02-08] MEDS: ASPIRIN COATED 81 MG TABLET.EC PO SCH (09:26)
[2021-02-08] MEDS: PANTOPRAZOLE 40 MG TABLET PO SCH (09:26)
[2021-02-08] MEDS: DEXAMETHASONE 4 MG TABLET (FP) PO SCH ×2 (09:26→21:39)
[2021-02-08] MEDS: ENOXAPARIN NA (PORCINE) 40 MG/0.4 ML DISP.SYRIN SQ SCH (09:27)
[2021-02-08] MEDS: ARTIFICIAL TEARS (POLYVINYL ALCOHOL) OPTH DROPS OU SCH (09:42)
[2021-02-08] MEDS: oxyCODONE HCL 5 MG TABLET PO PRN ×2 (13:02→21:37)
[2021-02-08] MEDS: ATORVASTATIN CA 20 MG TABLET (FP) PO SCH (21:39)
[2021-02-09] MEDS: INSULIN SLIDING SCALE (NOVOLOG) 1 VIAL SQ SCH ×4 (06:54→22:36)
[2021-02-09] MEDS: INSULIN (LEVEMIR) 100 UNITS/ML UNITS SQ SCH ×2 (06:54→22:38)
[2021-02-09] MEDS: DOCUSATE SODIUM 100 MG CAPSULE (FP) PO SCH ×3 (06:54→22:35)
[2021-02-09] MEDS: LEVOTHYROXINE NA 50 MCG TABLET (FP) PO SCH (06:54)
[2021-02-09] MEDS: GABAPENTIN 300 MG CAPSULE PO SCH ×3 (06:54→22:34)
[2021-02-09 07:18] LABS: HEMATOCRIT 27.5 % (32.4-45.2); MCH 26.8 pg (25.7-33.7); MCHC 32.8 g/dl (32.0-36.0); MEAN CELL VOLUME 81.5 fl (80-96); PLATELET COUNT 254 10^3/uL (134-434); RBC 3.37 M/mm3 (3.60-5.2); RDW 17.5 % (11.6-15.6); WHITE BLOOD COUNT 5.3 K/mm3 (4.0-10.0)
[2021-02-09 07:34] LABS: CALCIUM 7.6 mg/dL (8.5-10.1)
[2021-02-09 07:35] LABS: BLOOD UREA NITROGEN 14.5 mg/dL (7-18)
[2021-02-09 07:40] LABS: CREATININE 0.5 mg/dL (0.55-1.3); PHOSPHOROUS 1.8 mg/dL (2.5-4.9)
[2021-02-09] MEDS ORDERED: PT OWN MED DRAWER 7, Y5N ONE ×4 (10:04→22:26)
[2021-02-09] MEDS: DEXAMETHASONE 4 MG TABLET (FP) PO SCH ×2 (10:09→22:35)
[2021-02-09] MEDS: PANTOPRAZOLE 40 MG TABLET PO SCH (10:10)
[2021-02-09] MEDS: RAMIPRIL 5 MG CAPSULE PO SCH ×2 (10:10→22:36)
[2021-02-09] MEDS: EXEMESTANE 25 MG TABLET PO SCH (10:10)
[2021-02-09] MEDS: ASPIRIN COATED 81 MG TABLET.EC PO SCH (10:10)
[2021-02-09] MEDS: AMOX TR/POT CLAV 875MG/125MG TABLETS (FP) PO SCH ×2 (10:10→17:51)
[2021-02-09] MEDS: DOXYCYCLINE HYCLATE 100 MG CAPSULE PO SCH ×2 (10:10→17:49)
[2021-02-09] MEDS: ARTIFICIAL TEARS (POLYVINYL ALCOHOL) OPTH DROPS OU SCH (10:12)
[2021-02-09] MEDS: oxyCODONE HCL 5 MG TABLET PO PRN (12:09)
[2021-02-09] MEDS ORDERED: INSULIN (NOVOLOG) ASPART 100 UNITS/ML 10ML VIAL ONE (22:26)
[2021-02-09] MEDS: ATORVASTATIN CA 20 MG TABLET (FP) PO SCH (22:35)
[2021-02-10] MEDS: GABAPENTIN 300 MG CAPSULE PO SCH ×3 (05:53→21:35)
[2021-02-10] MEDS: DOCUSATE SODIUM 100 MG CAPSULE (FP) PO SCH ×3 (05:54→21:35)
[2021-02-10] MEDS: oxyCODONE HCL 5 MG TABLET PO PRN ×3 (06:47→21:58)
[2021-02-10] MEDS: LEVOTHYROXINE NA 50 MCG TABLET (FP) PO SCH (06:47)
[2021-02-10] MEDS: INSULIN (LEVEMIR) 100 UNITS/ML UNITS SQ SCH ×2 (06:48→21:36)
[2021-02-10] MEDS: INSULIN SLIDING SCALE (NOVOLOG) 1 VIAL SQ SCH ×4 (06:50→21:38)
[2021-02-10 07:19] LABS: BASO % 0.1 % (0-2.0); EOS % 0.2 % (0-4.5); HEMATOCRIT 31.3 % (32.4-45.2); MCH 26.8 pg (25.7-33.7); MCHC 31.9 g/dl (32.0-36.0); MEAN PLT VOLUME 8.3 fl (7.5-11.1); MONO % 5.9 % (3.8-10.2); NEUT % 84.8 % (42.8-82.8); PLATELET COUNT 285 10^3/uL (134-434); RBC 3.73 M/mm3 (3.60-5.2); WHITE BLOOD COUNT 5.2 K/mm3 (4.0-10.0)
[2021-02-10 07:39] LABS: BLOOD UREA NITROGEN 15.8 mg/dL (7-18); MAGNESIUM 1.1 mg/dL (1.8-2.4)
[2021-02-10 07:42] LABS: CALCIUM 7.9 mg/dL (8.5-10.1)
[2021-02-10 07:43] LABS: CREATININE 0.5 mg/dL (0.55-1.3); PHOSPHOROUS 2.2 mg/dL (2.5-4.9)
[2021-02-10] MEDS: AMOX TR/POT CLAV 875MG/125MG TABLETS (FP) PO SCH ×2 (09:41→16:35)
[2021-02-10] MEDS: DOXYCYCLINE HYCLATE 100 MG CAPSULE PO SCH ×2 (09:41→17:03)
[2021-02-10] MEDS: DEXAMETHASONE 4 MG TABLET (FP) PO SCH ×2 (09:41→21:35)
[2021-02-10] MEDS: PANTOPRAZOLE 40 MG TABLET PO SCH (09:42)
[2021-02-10] MEDS: ASPIRIN COATED 81 MG TABLET.EC PO SCH (09:42)
[2021-02-10] MEDS: ARTIFICIAL TEARS (POLYVINYL ALCOHOL) OPTH DROPS OU SCH (09:43)
[2021-02-10] MEDS: EXEMESTANE 25 MG TABLET PO SCH (09:43)
[2021-02-10] MEDS: RAMIPRIL 5 MG CAPSULE PO SCH (11:26)
[2021-02-10] MEDS ORDERED: MAGNESIUM 2GM/50ML STERILE WATER IVPB IVPB ONE (13:00)
[2021-02-10] MEDS ORDERED: PT OWN MED DRAWER 7, Y5N ONE (15:50)
[2021-02-10] MEDS: fentaNYL 25mcg/hr PATCH.TD72 TD SCH (15:52)
[2021-02-10] MEDS: FENTANYL PATCH WASTE TD PRN (16:02)
[2021-02-10] MEDS: AMINO ACIDS/PROTEIN HYDROLYS 30 ML LIQUID.PKT PO SCH (16:35)
[2021-02-10] MEDS ORDERED: AMINO ACIDS/PROTEIN HYDROLYS 30 ML LIQUID.PKT PO SCH (17:30)
[2021-02-10 21:17] LABS: BLOOD UREA NITROGEN 19.4 mg/dL (7-18)
[2021-02-10 21:18] LABS: MAGNESIUM 1.2 mg/dL (1.8-2.4)
[2021-02-10 21:21] LABS: CREATININE 0.6 mg/dL (0.55-1.3); PHOSPHOROUS 2.3 mg/dL (2.5-4.9)
[2021-02-10] MEDS ORDERED: INSULIN (NOVOLOG) ASPART 100 UNITS/ML 10ML VIAL ONE (21:27)
[2021-02-10] MEDS: ATORVASTATIN CA 20 MG TABLET (FP) PO SCH (21:34)
[2021-02-11] MEDS ORDERED: MAGNESIUM 2GM/50ML STERILE WATER IVPB IVPB ONE (00:03)
[2021-02-11] MEDS ORDERED: SODIUM PHOSPHATE - 15 MM in SODIUM CHLORIDE 250 ML IVPB ONE (00:05)
[2021-02-11] MEDS ORDERED: CALCIUM GLUCONATE 10% - 1,000 MG/10 ML VIAL IVPB ONE (00:13)
[2021-02-11] MEDS ORDERED: INSULIN REGULAR HUMAN 100 UNITS/ML *VIAL IVPUSH ONE (00:13)
[2021-02-11] MEDS ORDERED: DEXTROSE 50%-WATER - 25 GM/50 ML VIAL IVPUSH ONE (00:13)
[2021-02-11] MEDS ORDERED: SODIUM ZIRCONIUM CYCLOSILICATE (LOKELMA) 5 GM PACKET PO ONE (01:19)
[2021-02-11] MEDS: oxyCODONE HCL 5 MG TABLET PO PRN ×2 (05:14→19:13)
[2021-02-11] MEDS: GABAPENTIN 300 MG CAPSULE PO SCH ×3 (05:15→23:54)
[2021-02-11] MEDS: DOCUSATE SODIUM 100 MG CAPSULE (FP) PO SCH ×2 (05:19→14:51)
[2021-02-11] MEDS: LEVOTHYROXINE NA 50 MCG TABLET (FP) PO SCH (06:26)
[2021-02-11] MEDS: INSULIN SLIDING SCALE (NOVOLOG) 1 VIAL SQ SCH ×4 (06:26→23:55)
[2021-02-11] MEDS: INSULIN (LEVEMIR) 100 UNITS/ML UNITS SQ SCH ×2 (06:28→23:58)
[2021-02-11 07:30] LABS: BASO % 0.1 % (0-2.0); EOS % 0.3 % (0-4.5); HEMATOCRIT 29.5 % (32.4-45.2); HEMOGLOBIN 9.8 GM/dL (10.7-15.3); LYMPH % 7.2 % (8-40); MCH 27.4 pg (25.7-33.7); MEAN PLT VOLUME 8.4 fl (7.5-11.1); MONO % 6.2 % (3.8-10.2); NEUT % 86.2 % (42.8-82.8); PLATELET COUNT 244 10^3/uL (134-434); RBC 3.56 M/mm3 (3.60-5.2); RDW 19.1 % (11.6-15.6)
[2021-02-11 08:35] LABS: CALCIUM 8.6 mg/dL (8.5-10.1)
[2021-02-11 08:38] LABS: BLOOD UREA NITROGEN 19.6 mg/dL (7-18)
[2021-02-11 08:40] LABS: MAGNESIUM 1.7 mg/dL (1.8-2.4)
[2021-02-11 08:41] LABS: CREATININE 0.5 mg/dL (0.55-1.3)
[2021-02-11 08:44] LABS: PHOSPHOROUS 3.5 mg/dL (2.5-4.9)
[2021-02-11] MEDS ORDERED: MULTIVITAMINS (DAILY MVI) TABLET (FP) PO SCH (10:00)
[2021-02-11] MEDS: DEXAMETHASONE 4 MG TABLET (FP) PO SCH ×2 (11:47→23:55)
[2021-02-11] MEDS: AMINO ACIDS/PROTEIN HYDROLYS 30 ML LIQUID.PKT PO SCH ×2 (11:47→18:11)
[2021-02-11] MEDS: AMOX TR/POT CLAV 875MG/125MG TABLETS (FP) PO SCH ×2 (11:48→18:11)
[2021-02-11] MEDS: PANTOPRAZOLE 40 MG TABLET PO SCH (11:48)
[2021-02-11] MEDS: ASPIRIN COATED 81 MG TABLET.EC PO SCH (11:48)
[2021-02-11] MEDS: DOXYCYCLINE HYCLATE 100 MG CAPSULE PO SCH ×2 (11:49→18:12)
[2021-02-11] MEDS: MULTIVITAMINS (DAILY MVI) TABLET (FP) PO SCH (11:50)
[2021-02-11] MEDS ORDERED: PT OWN MED DRAWER 7, Y5N ONE (14:50)
[2021-02-11] MEDS: ARTIFICIAL TEARS (POLYVINYL ALCOHOL) OPTH DROPS OU SCH (14:51)
[2021-02-11] MEDS: EXEMESTANE 25 MG TABLET PO SCH (14:52)
[2021-02-11] MEDS ORDERED: MAGNESIUM SULF 50% (8.12 MEQ/2 ML-1 GM VIAL) IVPB ONE ×2 (19:26→23:45)
[2021-02-11] MEDS: ATORVASTATIN CA 20 MG TABLET (FP) PO SCH (23:55)
[2021-02-12] MEDS: metoPROLOL SUCCINATE 25 MG TAB.SR.24H (FP) PO SCH ×2 (00:12→10:24)
[2021-02-12] MEDS: DOCUSATE SODIUM 100 MG CAPSULE (FP) PO SCH ×3 (00:12→15:22)
[2021-02-12] MEDS: GABAPENTIN 300 MG CAPSULE PO SCH ×2 (06:28→15:22)
[2021-02-12] MEDS: INSULIN (LEVEMIR) 100 UNITS/ML UNITS SQ SCH (06:28)
[2021-02-12] MEDS: INSULIN SLIDING SCALE (NOVOLOG) 1 VIAL SQ SCH ×3 (06:30→16:22)
[2021-02-12] MEDS: LEVOTHYROXINE NA 50 MCG TABLET (FP) PO SCH (06:34)
[2021-02-12 06:50] LABS: BASO % 0.1 % (0-2.0); EOS % 0.5 % (0-4.5); HEMATOCRIT 29.9 % (32.4-45.2); HEMOGLOBIN 9.7 GM/dL (10.7-15.3); LYMPH % 12.3 % (8-40); MCH 27.3 pg (25.7-33.7); MCHC 32.6 g/dl (32.0-36.0); MEAN CELL VOLUME 83.6 fl (80-96); MEAN PLT VOLUME 8.5 fl (7.5-11.1); MONO % 13.1 % (3.8-10.2); PLATELET COUNT 257 10^3/uL (134-434); RBC 3.57 M/mm3 (3.60-5.2); RDW 19.8 % (11.6-15.6); WHITE BLOOD COUNT 5.3 K/mm3 (4.0-10.0)
[2021-02-12 07:26] LABS: BLOOD UREA NITROGEN 23.7 mg/dL (7-18)
[2021-02-12 07:27] LABS: CALCIUM 8.8 mg/dL (8.5-10.1)
[2021-02-12 07:28] LABS: MAGNESIUM 2.1 mg/dL (1.8-2.4)
[2021-02-12 07:31] LABS: PHOSPHOROUS 2.9 mg/dL (2.5-4.9)
[2021-02-12 07:33] LABS: CREATININE 0.5 mg/dL (0.55-1.3)
[2021-02-12] MEDS: oxyCODONE HCL 5 MG TABLET PO PRN ×2 (10:23→16:17)
[2021-02-12] MEDS: AMOX TR/POT CLAV 875MG/125MG TABLETS (FP) PO SCH ×2 (10:24→18:12)
[2021-02-12] MEDS: DEXAMETHASONE 4 MG TABLET (FP) PO SCH (10:24)
[2021-02-12] MEDS: DOXYCYCLINE HYCLATE 100 MG CAPSULE PO SCH ×2 (10:24→18:11)
[2021-02-12] MEDS: ASPIRIN COATED 81 MG TABLET.EC PO SCH (10:24)
[2021-02-12] MEDS: MULTIVITAMINS (DAILY MVI) TABLET (FP) PO SCH (10:24)
[2021-02-12] MEDS: AMINO ACIDS/PROTEIN HYDROLYS 30 ML LIQUID.PKT PO SCH ×2 (10:24→18:11)
[2021-02-12] MEDS: PANTOPRAZOLE 40 MG TABLET PO SCH (10:24)
[2021-02-12] MEDS: EXEMESTANE 25 MG TABLET PO SCH (10:25)
[2021-02-12] MEDS: ARTIFICIAL TEARS (POLYVINYL ALCOHOL) OPTH DROPS OU SCH (10:31)
[2021-02-12 14:21] VITALS: BP 106/45; PULSE 58; TEMP 98.9
== END 2021-02-12 20:24 | DRG 542 ==
LOC: JER 15:01 → JERBED 16:20 → J7W 23:23
PROVIDERS: ADMIT Internal Medicine
DX: C79.51 Secondary malignant neoplasm of bone (principal); E43 Unspecified severe protein-calorie malnutrition; M86.9 Osteomyelitis, unspecified; G72.0 Drug-induced myopathy; E87.1 Hypo-osmolality and hyponatremia; C20 Malignant neoplasm of rectum; I50.22 Chronic systolic (congestive) heart failure; M86.8X7 Other osteomyelitis, ankle and foot; G89.3 Neoplasm related pain (acute) (chronic); M54.9 Dorsalgia, unspecified; C50.919 Malignant neoplasm of unspecified site of unspecified female breast; I25.10 Atherosclerotic heart disease of native coronary artery without angina pectoris; I10 Essential (primary) hypertension; Z93.3 Colostomy status; E78.5 Hyperlipidemia, unspecified; E11.42 Type 2 diabetes mellitus with diabetic polyneuropathy; E11.622 Type 2 diabetes mellitus with other skin ulcer; E11.69 Type 2 diabetes mellitus with other specified complication; E03.9 Hypothyroidism, unspecified; R63.0 Anorexia; D63.8 Anemia in other chronic diseases classified elsewhere; Z98.61 Coronary angioplasty status; Z68.26 Body mass index [BMI] 26.0-26.9, adult
CPT/HCPCS: 36415; 72125-TC; 72128-TC; 72131-TC; 72192-TC; 73523-TC-FY; 73630-TC-LT; 73700-TC-RT; 80048; 80053; 82962; 83036; 83735; 84100; 85025; 85027; 85610; 85730; 93005; 93010; 97116-GP; 97162-GP; 99285-25; C9803; G0480; U0003; U0005